=== PATIENT | male | born 1930 | race Caucasian/White ===

== ENCOUNTER 2018-09-26 14:42 | Observation (INO) | payer OTHER ==
[2018-09-26 14:48] VITALS: BMI 38.0
--- NOTE | 2018-09-26 14:52 | PDOC ---
Rapid Medical Evaluation Chief Complaint: Respiratory Time Seen by Provider: 09/26/18 14:48 Medical Evaluation: Allergies Allergy/AdvReac Type Severity Reaction Status Date / Time No Known Allergies Allergy Verified 09/26/18 14:48 Vital Signs Temp Pulse Resp BP Pulse Ox 98.4 F 99 H 16 194/101 H 100 09/26/18 14:46 09/26/18 14:46 09/26/18 14:46 09/26/18 14:46 09/26/18 14:46 09/26/18 14:49 Pt c/o: sob, sent from urgent care due to cxr shows mild congestive changes, pt denies chf, + hx htn Pt on brief exam: o2 sat WNL, lcta Pt ordered for labs, cxr, ekg P tot proceed to the ED Discharge Disposition - Diagnosis SOB (shortness of breath) - Referrals Referrals: Ramez Dubon MD [Primary Care Provider] - - Patient Instructions - Post Discharge Activity
--- NOTE | 2018-09-26 15:27 | PDOC ---
History of Present Illness - General Chief Complaint: Respiratory Stated Complaint: ABNORMAL LABS Time Seen by Provider: 09/26/18 14:48 - History of Present Illness Initial Comments: 09/26/18 15:50 88m with pmh of HTN, [place] StentsX3 1998, DM Type 2,Peripheral neuropathy and BPH presents to the ED after productive cough x10 days. WEnt to [facility] care this morning, was found to be hypoxic at 90%, RBBB , wbc of 13.9 and mild congestive changes on cxr. Past History - Past Medical History Allergies/Adverse Reactions: Allergies Allergy/AdvReac Type Severity Reaction Status Date / Time No Known Allergies Allergy Verified 09/26/18 14:48 Home Medications: Ambulatory Orders Aspirin Coated [Ecotrin -] 325 mg PO HS 08/23/15 Dutasteride [Avodart] 0.5 mg PO DAILY 08/23/15 Metformin HCl [Metformin HCl ER] 1,000 mg PO BID 08/23/15 Metoprolol Succinate [Toprol Xl] 50 mg PO DAILY 08/23/15 Ramipril [Altace] 2.5 mg PO HS 08/23/15 Tamsulosin HCl [Flomax -] 0.4 mg PO HS 08/23/15 Cyclobenzaprine HCl [Flexeril -] 5 mg PO TID PRN #90 tablet 09/12/15 Docusate Sodium [Colace -] 300 mg PO HS #30 capsule 09/12/15 Gabapentin [Neurontin -] 300 mg PO TID #90 capsule 09/12/15 Nabumetone [Relafen -] 500 mg PO DAILY #30 tablet 09/12/15 traMADol HCL [Ultram -] 50 mg PO Q4H PRN #100 tablet 09/12/15 Cardiac Disorders: Yes ([place], STENTS X3 1998) COPD: No Diabetes: Yes (TYPE II) Disorders: Yes (BPH) Hypercholesterolemia: Yes Kidney Stones: Yes (LITHOTRIPSY) Thyroid Disease: Yes - Immunization History Immunization Up to Date: No - Suicide/Smoking/Psychosocial Hx Smoking History: Never smoked Have you smoked in the past 12 months: No If you are a former smoker, when did you quit?: 1998 Information on smoking cessation initiated: No Hx Alcohol Use: No Drug/Substance Use Hx: No Substance Use Type: None Review of Systems - Review of Systems Able to Perform ROS?: Yes Is the patient limited Citizen [place] proficient: No Constitutional: No: Symptoms Reported HEENTM: No: Symptoms Reported Respiratory: Yes: See HPI, Cough Cardiac (ROS): No: Symptoms Reported ABD/GI: No: Symptoms Reported : No: Symptoms Reported Musculoskeletal: No: Symptoms Reported *Physical Exam - Vital Signs Last Vital Signs Temp Pulse Resp BP Pulse Ox 98.4 F 99 H 16 194/101 H 100 09/26/18 14:46 09/26/18 14:46 09/26/18 14:46 09/26/18 14:46 09/26/18 14:46 - Physical Exam General Appearance: Yes: Nourished, Appropriately Dressed, Obese. No: Apparent Distress HEENT: positive: EOMI, JANET, Normal ENT Inspection Respiratory/Chest: positive: Crackles (b/l). negative: Lungs Clear Cardiovascular: positive: Regular Rhythm, Regular Rate, S1, S2 Gastrointestinal/Abdominal: positive: Normal Bowel Sounds, Protuberent. negative: Tender Musculoskeletal: positive: Normal Inspection Extremity: positive: Normal Capillary Refill. negative: Pedal Edema, Calf Tenderness Neurologic: positive: Fully Oriented, Alert, Normal Mood/Affect, Normal Response Moderate Sedation - Procedure Monitoring Vital Signs: Procedure Monitoring Vital Signs Temperature 98.4 F 09/26/18 14:46 Pulse Rate 99 H 09/26/18 14:46 Respiratory Rate 16 09/26/18 14:46 Blood Pressure 194/101 H 09/26/18 14:46 O2 Sat by Pulse Oximetry (%) 100 09/26/18 14:46 ED Treatment Course - LABORATORY CBC & Chemistry Diagram: 09/26/18 15:48 09/26/18 15:48 Medical Decision Making - Medical Decision Making 09/26/18 16:27 Acute CHF vs viral URI vs pna vs cva Low suspicion for CVA, RBBB seen on previous ekg. No fever, mildly elevated wbc and no pna on xray means low suspicion for pna. Crakles on exam and infiltrates on xray directing us towards mild acute chf with +/- URI. will treat with lasix and o2 09/26/18 17:56 Admitted to tele obs to Dr. Karo Vaca *DC/Admit/Observation/Transfer Diagnosis at time of Disposition: SOB (shortness of breath) - Discharge Dispostion Decision to Admit order: Yes - Referrals Referrals: Ramez Dubon MD [Primary Care Provider] - - Patient Instructions - Post Discharge Activity
[2018-09-26] MEDS ORDERED: FUROSEMIDE 40 MG/4 ML INJECTABLE VIAL IVPUSH ONE (15:58)
[2018-09-26 16:08] LABS: BASO % 0.8 % (0-2.0); EOS % 1.5 % (0-4.5); HEMOGLOBIN 14.1 GM/dL (11.7-16.9); LYMPH % 10.3 % (8-40); MCH 32.4 pg (25.7-33.7); MCHC 32.7 g/dl (32.0-35.9); MEAN PLT VOLUME 8.6 fl (7.5-11.1); MONO % 8.9 % (3.8-10.2); NEUT % 78.5 % (42.8-82.8); PLATELET COUNT 233 K/MM3 (134-434); RBC 4.34 M/mm3 (4.00-5.60); RDW 13.3 % (11.9-15.9); WHITE BLOOD COUNT 12.4 K/mm3 (4.0-10.0)
--- NOTE | 2018-09-26 16:27 | PDOC ---
Attending Attestation - Resident Resident Name: Reji Pitts - ED Attending Attestation I have performed the following: I have examined & evaluated the patient, The case was reviewed & discussed with the resident, I agree w/resident's findings & plan - HPI HPI: 09/26/18 16:25 88-year-old male with cardiac history and GA presents from [facility] urgent care with congestive changes on chest x-ray in the setting of 10 days of cough. Patient denies any fevers or chills, positive for orthopnea, denies any dyspnea on exertion, denies any chest pain or leg swelling. - Physicial Exam PE: 09/26/18 16:25 Hypertensive, tachypnea, O2 sat within normal limits Obese male seated in stretcher, speaking full sentences in no acute distress Bilateral crackles to mid lung [place], otherwise good air entry Heart is regular, abdomen benign, no edema - Medical Decision Making 09/26/18 16:25 88-year-old male with cardiac history presents with cough for 10 days and orthopnea consistent with CHF exacerbation and pulmonary edema, hypertensive here without acute EKG changes. Rule out ACS versus structural abnormality Labs, EKG, chest x-ray IV diuresis Admission for echo and cardiac evaluation 09/26/18 17:09 trop neg, cxr with congestion, proceed with obs tele admission, consult Dr. Andujar Heart Score/ECG Review #1 ECG reviewed & interpreted by me at: 16:32 General ECG Interpretation: Sinus Rhythm, Normal Rate (76), Normal Intervals ( RBBB, qtc 445), No acute ischemic changes Compared to previous ECG there are: No significant change
[2018-09-26] MEDS ORDERED: FUROSEMIDE 40 MG/4 ML INJECTABLE VIAL ONE (16:32)
[2018-09-26 16:46] LABS: ALBUMIN 3.4 g/dl (3.4-5.0); ALK PHOS 97 U/L (45-117); ANION GAP 8 MMOL/L (8-16); BILIRUBIN,TOTAL 0.6 mg/dL (0.2-1); BLOOD UREA NITROGEN 12 mg/dL (7-18); CALCIUM 9.5 mg/dL (8.5-10.1); CHLORIDE 101 mmol/L (98-107); CO2 25 mmol/L (21-32); CREATININE 0.7 mg/dL (0.55-1.3); GLUCOSE,RANDOM 125 mg/dL (74-106); N-TERMINAL BNP 82.3 pg/ml (5-450); POTASSIUM 4.1 mmol/L (3.5-5.1); SGOT/AST 28 U/L (15-37); SGPT/ALT 31 U/L (13-61); SODIUM 134 mmol/L (136-145); TOT PROT 7.3 g/dl (6.4-8.2)
[2018-09-26] MEDS ORDERED: traMADol HCL 50 MG TABLET PO PRN (17:48)
[2018-09-26] MEDS ORDERED: CYCLOBENZAPRINE HCL 10 MG TABLET (FP) PO PRN (17:48)
[2018-09-26] MEDS ORDERED: ALBUTEROL SO4 2.5/IPRATROPIUM 0.5 INH SOL 3 ML VIAL.NEB. NEB PRN (17:51)
--- NOTE | 2018-09-26 18:02 | HP ---
Admitting History and Physical - Primary Care Physician PCP: Ramez Dubon - Admission Chief Complaint: Cough and SOB History of Present Illness: 88 yrs old man active lives at home with family H/O HTN, T2DM, Dyslipedemia, CAD s/p Stent in 1998 , Neuropathy chronic back pain , today present to Ed for evaluation, cough with minimal expectoration, shortness of breathinag and chest tightness started 3 days ago night time patient develops cough with SOB , no H/ O Orthopnea, LE swelling chest pain, palpitation, nausea vomiting or abd pain , in the Ed w/u shows Elevated TWBC CXR sows changes consistent with congestion but BNP is 80 , Physical exam shows diffuse crepts and wheezes, Patient desats in the ED to 87% improved after O2 inhalation recived Lasix 40 mg IVSS. As per patient last ECHO was at his cardiology office (few months ago) History Source: Patient, Family Member - Past Medical History Cardiovascular: Yes: CAD, Hyperlipdemia, [place] Gastrointestinal: Yes: Other (recent elevated ALT? fatty liver) Renal/: Yes: Renal Calculi Musculoskeletal: Yes: Osteoarthritis Endocrine: Yes: Diabetes Mellitus, Hypothyroidism - Past Surgical History Past Surgical History: Yes: Stent (coronary arteries) - Smoking History Smoking history: Former smoker Have you smoked in the past 12 months: No If you are a former smoker, when did you quit?: 1998 - Alcohol/Substance Use Hx Alcohol Use: No History of Substance Use: reports: None - Social History ADL: Independent (until current illness.) Occupation: just collects metal junk to salvage History of Recent Travel: No Home Medications - Allergies Allergies/Adverse Reactions: Allergies Allergy/AdvReac Type Severity Reaction Status Date / Time No Known Allergies Allergy Verified 09/26/18 14:48 - Home Medications Home Medications: Ambulatory Orders Aspirin Coated [Ecotrin -] 325 mg PO HS 08/23/15 Dutasteride [Avodart] 0.5 mg PO DAILY 08/23/15 Metformin HCl [Metformin HCl ER] 1,000 mg PO BID 08/23/15 Metoprolol Succinate [Toprol Xl] 50 mg PO DAILY 08/23/15 Ramipril [Altace] 2.5 mg PO HS 08/23/15 Tamsulosin HCl [Flomax -] 0.4 mg PO HS 08/23/15 Ezetimibe [Zetia] 10 mg PO DAILY 09/26/18 Levothyroxine Sodium [Synthroid] 200 mcg PO DAILY 09/26/18 Family Disease History - Family Disease History Family Disease History: Heart Disease: Brother, Other: Father (unknown), Mother (alzheimers) Review of Systems - Review of Systems Constitutional: denies: Chills, Diaphoresis, Fever Eyes: denies: Blind Spots, Blurred Vision HENT: denies: Difficult Swallowing, Ear Discharge, Ear Pain Neck: denies: Decreased ROM, Lumps, Pain on Movement Cardiovascular: reports: Shortness of Breath. denies: Chest Pain, Edema, Palpitations Respiratory: reports: Cough, Exercise Intolerance, PND, SOB, SOB on Exertion, Wheezing. denies: Hemoptysis, Orthopnea Gastrointestinal: denies: Abdominal Pain, Bloating, Constipation, Diarrhea Genitourinary: denies: Burning, Discharge, Dysuria Musculoskeletal: reports: Back Pain. denies: Crepitus, Decreased ROM, Extremity Pain Integumentary: denies: Blister, Bruising, Change in Color Neurological: reports: Change in LOC. denies: Seizure, Syncope, Tremors Endocrine: denies: Excessive Sweating, Flushing, Increased Hunger Psychiatric: denies: Altered Sleep Pattern, Anxiety, Depression Physical Examination Vital Signs: Vital Signs Temperature 98.4 F 09/26/18 14:46 Pulse Rate 99 H 09/26/18 14:46 Respiratory Rate 16 09/26/18 14:46 Blood Pressure 194/101 H 09/26/18 14:46 O2 Sat by Pulse Oximetry (%) 100 09/26/18 14:46 Elderly pleasant man not in distress HEENT: Mm moist, no anemia,PERRLA EOMI NECK: No JVd No Bruit CHEST: Diffuse crepts and fine wheezes ABD; obese non tender Bs + EXT: trace edema feet, no calf tenderness, Pulses + WEBSITE OPTIMIZATION STRATEGIST: AOX3 non focal Labs: WBC 12.4 K/mm3 (4.0-10.0) H 09/26/18 15:48 RBC 4.34 M/mm3 (4.00-5.60) 09/26/18 15:48 Hgb 14.1 GM/dL (11.7-16.9) 09/26/18 15:48 Hct 43.0 % (35.4-49) 09/26/18 15:48 MCV 99.0 fl (80-96) H 09/26/18 15:48 MCH 32.4 pg (25.7-33.7) 09/26/18 15:48 MCHC 32.7 g/dl (32.0-35.9) 09/26/18 15:48 RDW 13.3 % (11.9-15.9) 09/26/18 15:48 Plt Count 233 K/MM3 (134-434) 09/26/18 15:48 MPV 8.6 fl (7.5-11.1) 09/26/18 15:48 Absolute Neuts (auto) 9.8 K/mm3 (1.5-8.0) H 09/26/18 15:48 Neutrophils % 78.5 % (42.8-82.8) D 09/26/18 15:48 Lymphocytes % 10.3 % (8-40) D 09/26/18 15:48 Monocytes % 8.9 % (3.8-10.2) 09/26/18 15:48 Eosinophils % 1.5 % (0-4.5) 09/26/18 15:48 Basophils % 0.8 % (0-2.0) 09/26/18 15:48 Nucleated RBC % 0 % (0-0) 09/26/18 15:48 Sodium 134 mmol/L (136-145) L 09/26/18 15:48 Potassium 4.1 mmol/L (3.5-5.1) 09/26/18 15:48 Chloride 101 mmol/L (98-107) 09/26/18 15:48 Carbon Dioxide 25 mmol/L (21-32) 09/26/18 15:48 Anion Gap 8 MMOL/L (8-16) 09/26/18 15:48 BUN 12 mg/dL (7-18) 09/26/18 15:48 Creatinine 0.7 mg/dL (0.55-1.3) 09/26/18 15:48 Creat Clearance w eGFR > 60 (>60) 09/26/18 15:48 Random Glucose 125 mg/dL (74-106) H 09/26/18 15:48 Calcium 9.5 mg/dL (8.5-10.1) 09/26/18 15:48 Total Bilirubin 0.6 mg/dL (0.2-1) 09/26/18 15:48 AST 28 U/L (15-37) 09/26/18 15:48 ALT 31 U/L (13-61) 09/26/18 15:48 Alkaline Phosphatase 97 U/L (45-117) 09/26/18 15:48 Creatine Kinase 233 IU/L (26-308) 09/26/18 15:48 Creatine Kinase Index 2.3 % (0.0-5.0) 09/26/18 15:48 CK-MB (CK-2) 5.5 ng/mL (0.5-3.6) H 09/26/18 15:48 Troponin I < 0.02 ng/ml (0.00-0.05) 09/26/18 15:48 B-Natriuretic Peptide 82.3 pg/ml (5-450) 09/26/18 15:48 Total Protein 7.3 g/dl (6.4-8.2) 09/26/18 15:48 Albumin 3.4 g/dl (3.4-5.0) 09/26/18 15:48 Imaging - Results X-ray: Report Reviewed (Sclerotic changes, Rt Central congestive changes) EKG: Report Reviewed (RBBB at [address] chnages normal QTC) Problem List - Problems (1) SOB (shortness of breath) Assessment/Plan: Most likely RTI with reactive airways diises as patient has c/o cough, SOB elevated TWBC ? infiltrate in RT ML normal BNP level denies any orthopnea or LE swelling no H/O CHF, recived iV lasix O2 inhalation Duoneb q 6 hrly PRN IV Solumedrol 40 mg q 6 hrly , U legionela AG and Flu test will hold on further diuretics Code(s): R06.02 - SHORTNESS OF BREATH (2) Reactive airway disease Assessment/Plan: Cont Duo nebs IV Levofloxacin, F/U Procalcitonin, IV Solumedrol 40 mg q 6hrly, Pulmonary consult. Code(s): J45.909 - UNSPECIFIED ASTHMA, UNCOMPLICATED (3) ASHD (arteriosclerotic heart disease) Assessment/Plan: Stable cont ASA, stain and B blockers no acute St T chnges trop I is -ve Code(s): I25.10 - ATHSCL HEART DISEASE OF [place] CORONARY ARTERY W/O ANG PCTRS (4) T2DM (type 2 diabetes mellitus) Assessment/Plan: Hold PO meds cont Diabetic Diet accauchecks and correction dose insulin Code(s): E11.9 - TYPE 2 DIABETES MELLITUS WITHOUT COMPLICATIONS (5) Hypothyroidism Assessment/Plan: Cont Levothyroxine Code(s): E03.9 - HYPOTHYROIDISM, UNSPECIFIED Qualifiers: Hypothyroidism type: unspecified Qualified Code(s): E03.9 - Hypothyroidism , unspecified (6) BPH (benign prostatic hypertrophy) Assessment/Plan: Cont Home meds at present asymptomatic Code(s): N40.0 - BENIGN PROSTATIC HYPERPLASIA WITHOUT LOWER URINRY TRACT SYMP (7) Chronic back pain Assessment/Plan: Cont Home meds Code(s): M54.9 - DORSALGIA, UNSPECIFIED; G89.29 - OTHER CHRONIC PAIN
[2018-09-26] MEDS ORDERED: methylPREDNISolone NA SUCC 40 MG/1 ML VIAL ONE (18:12)
[2018-09-26] MEDS: methylPREDNISolone NA SUCC 40 MG/1 ML VIAL IVPB SCH (18:17)
[2018-09-26 18:30] LABS: URINE APPEARANCE SLCLOUDY; URINE BILIRUBIN NEGATIVE (<2.0 mg/dL); URINE COLOR YELLOW; URINE GLUCOSE (UA) NEGATIVE (NEGATIVE); URINE KETONE NEGATIVE (NEGATIVE); URINE LEUK ESTERASE NEGATIVE (NEGATIVE); URINE NITRITE NEGATIVE (NEGATIVE); URINE PROTEIN NEGATIVE (NEGATIVE); URINE UROBILINOGEN NEGATIVE mg/dL (0.2-1.0)
[2018-09-26] MEDS ORDERED: RAMIPRIL 2.5 MG CAPSULE (FP) PO SCH (22:00)
[2018-09-26] MEDS ORDERED: ASPIRIN 325 MG ENTERIC COATED TABLET (FP) PO SCH (22:00)
[2018-09-26] MEDS: DOCUSATE SODIUM 100 MG CAPSULE (FP) PO SCH (22:03)
[2018-09-26] MEDS: TAMSULOSIN HCL 0.4 MG CAP PO SCH (22:03)
[2018-09-26] MEDS: GABAPENTIN 300 MG CAPSULE (FP) PO SCH (22:03)
[2018-09-27 05:49] LABS: BASO % 0.6 % (0-2.0); HEMATOCRIT 44.3 % (35.4-49); HEMOGLOBIN 14.2 GM/dL (11.7-16.9); LYMPH % 5.6 % (8-40); MCH 31.6 pg (25.7-33.7); MEAN CELL VOLUME 98.9 fl (80-96); MEAN PLT VOLUME 8.7 fl (7.5-11.1); MONO % 3.2 % (3.8-10.2); NEUT % 90.6 % (42.8-82.8); PLATELET COUNT 269 K/MM3 (134-434); RBC 4.48 M/mm3 (4.00-5.60); RDW 13.1 % (11.9-15.9); WHITE BLOOD COUNT 11.7 K/mm3 (4.0-10.0)
[2018-09-27 06:28] LABS: ALBUMIN 3.3 g/dl (3.4-5.0); ALK PHOS 104 U/L (45-117); ANION GAP 9 MMOL/L (8-16); BILIRUBIN,TOTAL 0.5 mg/dL (0.2-1); BLOOD UREA NITROGEN 18 mg/dL (7-18); CALCIUM 9.1 mg/dL (8.5-10.1); CHLORIDE 102 mmol/L (98-107); CO2 26 mmol/L (21-32); CREATININE 0.8 mg/dL (0.55-1.3); GLUCOSE,RANDOM 166 mg/dL (74-106); POTASSIUM 4.7 mmol/L (3.5-5.1); SGOT/AST 27 U/L (15-37); SGPT/ALT 30 U/L (13-61); SODIUM 137 mmol/L (136-145); TOT PROT 7.8 g/dl (6.4-8.2)
[2018-09-27] MEDS ORDERED: methylPREDNISolone NA SUCC 40 MG/1 ML VIAL ONE (07:35)
[2018-09-27] MEDS ORDERED: GABAPENTIN 100 MG CAPSULE (FP) ONE (07:35)
[2018-09-27] MEDS: GABAPENTIN 300 MG CAPSULE (FP) PO SCH ×3 (07:40→22:05)
[2018-09-27] MEDS: methylPREDNISolone NA SUCC 40 MG/1 ML VIAL IVPB SCH ×3 (07:40→17:20)
[2018-09-27] MEDS: ENOXAPARIN NA (PORCINE) 40 MG/0.4 ML DISP.SYRIN SQ SCH (09:28)
[2018-09-27] MEDS: DUTASTERIDE 0.5 MG CAP (FP) PO SCH (09:28)
[2018-09-27] MEDS ORDERED: NABUMETONE 500 MG TABLET PO SCH (10:00)
--- NOTE | 2018-09-27 11:35 | CON.CARD ---
Consult Consult Specialty:: Cardiology Referred by:: Dyspnea Reason for Consultation:: Dyspnea - History of Present Illness Chief Complaint: PND, cough History of Present Illness: 88 yo male h/o CAD s/p [place] ICS LCx 09/23/1999, mild LV systolic dysfunction, HTN cardiomyopathy, hyperlipidemia with statin intolerance and declined PSSK9 inhibitor therapy, NIDDM, hypothyroidism, erectile dysfunction presents for episodes of waking up with need to sit up and cough, dyspnea, orthopnea since salt-rich Thanksgiving meal, he denies chest pain, near or true syncope, palpitations or LE edema. - History Source History Provided By: Patient Limitations to Obtaining History: No Limitations - Past Medical History Cardio/Vascular: Yes: CAD, Hyperlipdemia, [place] Gastrointestinal: Yes: Other (recent elevated ALT? fatty liver) Renal/: Yes: Renal Calculi Musculoskeletal: Yes: Osteoarthritis Endocrine: Yes: Diabetes Mellitus, Hypothyroidism - Past Surgical History Past Surgical History: Yes: Stent (coronary arteries) - Alcohol/Substance Use Hx Alcohol Use: No History of Substance Use: reports: None - Smoking History Smoking history: Former smoker Have you smoked in the past 12 months: No If you are a former smoker, when did you quit?: 1998 - Social History Usual Living Arrangement: Other (lives with in house with 1 step to enter and 1st julian set-up inside, ambualtes with straight cane) ADL: Independent (until current illness.) Occupation: just collects metal junk to salvage History of Recent Travel: No Home Medications - Allergies Allergies/Adverse Reactions: Allergies Allergy/AdvReac Type Severity Reaction Status Date / Time No Known Allergies Allergy Verified 09/26/18 14:48 - Home Medications Home Medications: Ambulatory Orders Aspirin Coated [Ecotrin -] 325 mg PO HS 08/23/15 Dutasteride [Avodart] 0.5 mg PO DAILY 08/23/15 Metformin HCl [Metformin HCl ER] 500 mg PO BID 08/23/15 Metoprolol Succinate [Toprol Xl] 50 mg PO DAILY 08/23/15 Ramipril [Altace] 2.5 mg PO HS 08/23/15 Tamsulosin HCl [Flomax -] 0.4 mg PO HS 08/23/15 Ezetimibe [Zetia] 10 mg PO DAILY 09/26/18 Levothyroxine Sodium [Synthroid] 200 mcg PO DAILY 09/26/18 Family Disease History - Family Disease History Family Disease History: Heart Disease: Brother, Other: Father (unknown), Mother (alzheimers) Review of Systems - Review of Systems Cardiovascular: reports: Shortness of Breath Respiratory: reports: Orthopnea, PND, SOB, SOB on Exertion Vital Signs: Vital Signs Temperature 97.9 F 09/27/18 09:45 Pulse Rate 68 09/27/18 09:45 Respiratory Rate 20 09/27/18 10:53 Blood Pressure 115/74 09/27/18 09:45 O2 Sat by Pulse Oximetry (%) 95 09/27/18 10:53 Constitutional: Yes: No Distress, Calm Neck: Yes: Supple Respiratory: Yes: Regular, Diminished, On Nasal O2 Gastrointestinal: Yes: Normal Bowel Sounds, Soft, Abdomen, Obese Cardiovascular: Yes: Regular Rate and Rhythm JVD: No Carotid Bruit: No Heart Sounds: Yes: S1, S2 Murmur: Yes: Systolic Murmur, Grade 2 Edema: No - Other Data Labs, Other Data: CBC, BMP 09/27/18 05:55 09/27/18 05:10 Troponin, BNP 09/26/18 09/26/18 15:48 15:48 Troponin I < 0.02 < 0.02 B-Natriuretic Peptide 82.3 Troponin, BNP 09/26/18 09/26/18 15:48 15:48 Troponin I < 0.02 < 0.02 B-Natriuretic Peptide 82.3 NSR @ 76 RBBB Echo: Report Reviewed Ejection Fraction %: LVEF > or = 40 % Imaging - Results Chest X-ray: Report Reviewed (CHF) Problem List - Problems (1) Stented coronary artery Code(s): Z95.5 - PRESENCE OF CORONARY ANGIOPLASTY IMPLANT AND GRAFT (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 Code(s): I25.2 - OLD MYOCARDIAL INFARCTION (3) CHF (congestive heart failure) Code(s): I50.9 - HEART FAILURE, UNSPECIFIED Qualifiers: Heart failure type: diastolic Heart failure chronicity: acute on chronic Qualified Code(s): I50.33 - Acute on chronic diastolic (congestive) heart failure (4) T2DM (type 2 diabetes mellitus) Code(s): E11.9 - TYPE 2 DIABETES MELLITUS WITHOUT COMPLICATIONS Qualifiers: Diabetes mellitus moth exterminator insulin use: without shelter use (5) ASHD (arteriosclerotic heart disease) Code(s): I25.10 - ATHSCL HEART DISEASE OF [place] CORONARY ARTERY W/O ANG PCTRS (6) Diabetes Code(s): E11.9 - TYPE 2 DIABETES MELLITUS WITHOUT COMPLICATIONS Qualifiers: Diabetes mellitus type: type 2 Qualified Code(s): E11.9 - Type 2 diabetes mellitus without complications (7) Hypothyroidism Code(s): E03.9 - HYPOTHYROIDISM, UNSPECIFIED Qualifiers: Hypothyroidism type: unspecified Qualified Code(s): E03.9 - Hypothyroidism , unspecified Assessment/Plan 07/21/2018 Normal LV size and fxn LVEF 55-60%, mild-mod MR, mild TR RVSP 29 mmHg 07/03/2014 P-Myoview: No ischemia, LVEF 72% 1. Chronic Diastolic heart failure 2. CAD s/p [place], BMS LCx negative ischemia on MPI 3. HTN cardiomyopathy 4. Type 2 DM 5. Hyperlipidemia not at goal with statin intolerance and declining PSCK9 inhibitor therapy 6. Hypothyroidism P:1. IV diuresis with monitor diuretic response 2. Continue ASA 81 qd, Toprol XL 50 qd, Altace 10 qd, Zetia 10 qd, d/c Relafen 3. Thank you for consultative opportunity
--- NOTE | 2018-09-27 11:47 | EKG ---
Test Reason : Blood Pressure : / mmHG Vent. Rate : 076 BPM Atrial Rate : 076 BPM P-R Int : 168 ms QRS Dur : 146 ms QT Int : 396 ms P-R-T Axes : 060 067 019 degrees QTc Int : 445 ms POOR DATA QUALITY, INTERPRETATION MAY BE ADVERSELY AFFECTED NORMAL SINUS RHYTHM RIGHT BUNDLE BRANCH BLOCK ABNORMAL ECG WHEN COMPARED WITH ECG OF 09-SEP-2015 08:56, PREMATURE VENTRICULAR COMPLEXES ARE NO LONGER PRESENT Confirmed by MARIANNA PINZON MD ([id number]) on 09/27/2018 11:47:00 AM Referred By: Confirmed By:MARIANNA PINZON MD
[2018-09-27] MEDS ORDERED: INSULIN (NOVOLOG) ASPART 100 UNITS/ML 10ML VIAL ONE (11:54)
[2018-09-27] MEDS: INSULIN SLIDING SCALE (NOVOLOG) 1 VIAL SQ SCH ×5 (11:55→19:14)
--- NOTE | 2018-09-27 13:27 | CON.PULM ---
Consult Consult Specialty:: PULMONARY Referred by:: Dr. Vaca Reason for Consultation:: shortness of breath - History of Present Illness Chief Complaint: shortness of breath History of Present Illness: 88yo male with h/o HTN, DM, hyperlipidemia, hypothyroidism, CAD s/p stent who presents with worsening shortness of breath and cough x 5 days. States symptoms started the day after Thanksgiving, does endorse having a heavy, salt rich meal for Thanksgiving. Denies chest pain or palpitations. No fevers, chills or sweats. +nonproductive cough without wheezing. He denies leg swelling but reports leg "heaviness." Also has been experiencing orthopnea and PND. He is a former smoker, quit when he had his ND and he worked in construction. No home O2 or inhaler use. - Past Medical History Cardio/Vascular: Yes: CAD, Hyperlipdemia, [place] Gastrointestinal: Yes: Other (recent elevated ALT? fatty liver) Renal/: Yes: Renal Calculi Musculoskeletal: Yes: Osteoarthritis Endocrine: Yes: Diabetes Mellitus, Hypothyroidism - Past Surgical History Past Surgical History: Yes: Stent (coronary arteries) - Alcohol/Substance Use Hx Alcohol Use: No History of Substance Use: reports: None - Smoking History Smoking history: Former smoker Have you smoked in the past 12 months: No If you are a former smoker, when did you quit?: 1998 - Social History Usual Living Arrangement: Other (lives with in house with 1 step to enter and 1st julian set-up inside, ambualtes with straight cane) ADL: Independent (until current illness.) Occupation: just collects metal junk to salvage History of Recent Travel: No Home Medications - Allergies Allergies/Adverse Reactions: Allergies Allergy/AdvReac Type Severity Reaction Status Date / Time No Known Allergies Allergy Verified 09/26/18 14:48 - Home Medications Home Medications: Ambulatory Orders Aspirin Coated [Ecotrin -] 325 mg PO HS 08/23/15 Dutasteride [Avodart] 0.5 mg PO DAILY 08/23/15 Metformin HCl [Metformin HCl ER] 500 mg PO BID 08/23/15 Metoprolol Succinate [Toprol Xl] 50 mg PO DAILY 08/23/15 Ramipril [Altace] 2.5 mg PO HS 08/23/15 Tamsulosin HCl [Flomax -] 0.4 mg PO HS 08/23/15 Ezetimibe [Zetia] 10 mg PO DAILY 09/26/18 Levothyroxine Sodium [Synthroid] 200 mcg PO DAILY 09/26/18 Family Disease History - Family Disease History Family Disease History: Heart Disease: Brother, Other: Father (unknown), Mother (alzheimers) Review of Systems - Review of Systems Constitutional: reports: Weakness. denies: Chills, Fever Eyes: denies: Recent Change in Vision HENT: denies: Nasal Congestion, Throat Pain Neck: denies: Stiffness, Tenderness Cardiovascular: reports: Shortness of Breath. denies: Chest Pain, Edema, Palpitations Respiratory: reports: Cough. denies: Hemoptysis, Wheezing Gastrointestinal: denies: Abdominal Pain, Nausea, Vomiting Genitourinary: denies: Dysuria, Hematuria Neurological: denies: Dizziness, Headache Endocrine: denies: Unexplained Weight Loss Physical Exam Vital Sings: Vital Signs Temperature 97.9 F 09/27/18 09:45 Pulse Rate 68 09/27/18 09:45 Respiratory Rate 20 09/27/18 10:53 Blood Pressure 115/74 09/27/18 09:45 O2 Sat by Pulse Oximetry (%) 95 09/27/18 10:53 Constitutional: Yes: Calm Eyes: Yes: Conjunctiva Clear, EOM Intact HENT: Yes: Atraumatic, Normocephalic Neck: Yes: Supple, Trachea Midline Cardiovascular: Yes: Regular Rate and Rhythm Respiratory: Yes: Regular, Diminished (decreased breath sounds at the bases) ...Clubbing: No Gastrointestinal: Yes: Normal Bowel Sounds, Soft. No: Tenderness Edema: No Neurological: Yes: Alert, Oriented Labs: CBC, BMP 09/27/18 05:55 09/27/18 05:10 Imaging - Results Chest X-ray: Report Reviewed, Image Reviewed (pulmonary vascular congestion) Problem List - Problems (1) CHF (congestive heart failure) Code(s): I50.9 - HEART FAILURE, UNSPECIFIED (2) T2DM (type 2 diabetes mellitus) Code(s): E11.9 - TYPE 2 DIABETES MELLITUS WITHOUT COMPLICATIONS (3) ASHD (arteriosclerotic heart disease) Code(s): I25.10 - ATHSCL HEART DISEASE OF [place] CORONARY ARTERY W/O ANG PCTRS (4) Hypothyroidism Code(s): E03.9 - HYPOTHYROIDISM, UNSPECIFIED Qualifiers: Hypothyroidism type: unspecified Qualified Code(s): E03.9 - Hypothyroidism , unspecified Assessment/Plan r/o CHF CAD HTN DM Hypothryoidism - continue lasix - monitor urine output, creatinine - daily weights - echocardiogram - repeat CXR in AM - inhaled bronchodilators - O2 to keep Spo2 >90% - on empiric medrol, can d/c in AM - outpt PFTs - DVT prophylaxis Thank you for this consult Zeeshan Patel MD
--- NOTE | 2018-09-27 14:28 | ECHO ---
Name: SANDRA CHOWDARY Exam:Adult Echocardiogram Study Date: 09/27/2018 08:38 AM Age: 88 yrs Reason For Study: SYNCOPE Height: 68 in Weight: 250 lb BSA: 2.2 m2 MMode/2D Measurements & Calculations IVSd: 1.1 cm Ao root diam: 3.6 cm LVIDd: 4.9 cm LA dimension: 3.6 cm LVIDs: 2.8 cm LVPWd: 0.75 cm EDV(Teich): 115.3 ml ESV(Teich): 29.9 ml Doppler Measurements & Calculations MV E max jt: 57.7 cm/sec MR max jt: 281.0 cm/sec MV A max jt: 100.4 cm/sec MR max P.6 mmHg MV E/A: 0.57 MV dec time: 0.10 sec TR max jt: 203.6 cm/sec Med Peak E' Jt: 6.2 cm/sec TR max P.6 mmHg Med E/e': 9.3 Lat Peak E' Jt: 8.2 cm/sec Lat E/e': 7.0 Procedure A two-dimensional transthoracic echocardiogram with color flow and Doppler was performed. The study w as technically difficult with many images being suboptimal in quality. Left Ventricle The left ventricular size, thickness and function are normal. The left ventricular ejection fraction is normal. E/A reversal consistent with but not diagnostic of poor LV compliance. Regional wall motion abnormalities cannot be excluded due to limited visualization. Right Ventricle The right ventricle is normal in size and function. Atria Normal left and right atrial size and function. Mitral Valve There is mild mitral valve thickening. There is no mitral valve stenosis. There is mild mitral regurg itation. Tricuspid Valve There is mild tricuspid valve thickening. There is no tricuspid stenosis. There is mild tricuspid regurgitation. Right ventricular systolic pressure is normal. Aortic Valve The aortic valve is not well visualized. No hemodynamically significant valvular aortic stenosis. No aortic regurgitation is present. Pulmonic Valve The pulmonic valve is not well visualized. Great Vessels The aortic root is normal size. Pericardium/Pleura There is no pericardial effusion. Interpretation Summary The left ventricular size, thickness and function are normal The left ventricular ejection fraction is normal. There is mild mitral regurgitation. E/A reversal consistent with but not diagnostic of poor LV compliance The study was technically difficult with many images being suboptimal in quality. Regional wall motion abnormalities cannot be excluded due to limited visualization. There is mild tricuspid regurgitation. Right ventricular systolic pressure is normal. MD Richie Reyes 09/27/2018 02:27 PM
[2018-09-27 15:09] LABS: PLATELET ESTIMATE ADEQUATE
[2018-09-27] MEDS ORDERED: FUROSEMIDE 40 MG/4 ML INJECTABLE VIAL IVPUSH ONE (15:33)
[2018-09-27] MEDS ORDERED: ASPIRIN COATED 81 MG TABLET.EC PO SCH (15:34)
[2018-09-27] MEDS ORDERED: RAMIPRIL 5 MG CAPSULE (FP) PO SCH (15:35)
--- NOTE | 2018-09-27 17:20 | PN ---
Teaching Attending Note Name of Resident: Avinash Knowles ATTENDING PHYSICIAN STATEMENT I saw and evaluated the patient. I reviewed the resident's note and discussed the case with the resident. I agree with the resident's findings and plan as documented. SUBJECTIVE: Mr Rubio says he is feeling better today. Still with cough but less. JIMENEZ improved. No cp, sob, n/v OBJECTIVE: GEN: nad CV: rrr PULM: ronchi bilaterally ABD: +bs, s/nt/nd EXT: no c/c/e ASSESSMENT AND PLAN: 1. Acute on chronic diastolic dysfunction 2. COPD exacerbation 3. CAD 4. Tp 2 DM 5. Hypothyroidism 6. BPH Plan -reviewed pulmonary and cardiology notes, appreciate assistance -continue IV lasix -change to oral diuretic tomorrow -continue solumedrol, plan to change to oral prednisone tomorrow -continue bronchodilators -diabetic diet and SSI -possible discharge tomorrow
--- NOTE | 2018-09-27 18:34 | PN ---
Physical Exam: SUBJECTIVE: Patient seen and examined at bedside. No overnight events. No new complaints. Breathing has improved. Denies CP,WOODS, abdominal pain, nausea or vomiting. OBJECTIVE: Vital Signs Period Temp Pulse Resp BP Sys/Francisco Pulse Ox Last 24 Hr 97.9 F-98 F 68-98 20-21 110-124/55-74 93-97 GENERAL: AAOx3, NAD ENT: moist mucous membranes. NECK: Trachea midline, full range of motion, supple, NO JVD LUNGS:Coarse breath sounds bilaterally, fine bibasilar rales. HEART: Regular rate and rhythm, S1, S2 without murmur, rub or gallop. ABDOMEN: Soft, nontender, nondistended, normoactive bowel sounds, no guarding, no rebound, no hepatosplenomegaly, no masses. EXTREMITIES: 2+ pulses, warm, well-perfused, trace edema. NEUROLOGICAL: Cranial nerves II through XII grossly intact. Normal speech, gait not observed. PSYCH: Normal mood, normal affect. SKIN: Warm, dry, normal turgor, no rashes or lesions noted Laboratory Results - last 24 hr 09/26/18 09/27/18 09/27/18 18:05 05:10 05:10 WBC RBC Hgb Hct MCV MCH MCHC RDW Plt Count MPV Absolute Neuts (auto) Neutrophils % Lymphocytes % Monocytes % Eosinophils % Basophils % Nucleated RBC % Platelet Estimate Platelet Comment Sodium 137 Potassium 4.7 Chloride 102 Carbon Dioxide 26 Anion Gap 9 BUN 18 Creatinine 0.8 Creat Clearance w eGFR > 60 POC Glucometer Random Glucose 166 H Hemoglobin A1c % 7.0 H Calcium 9.1 Total Bilirubin 0.5 AST 27 ALT 30 Alkaline Phosphatase 104 Total Protein 7.8 Albumin 3.3 L TSH 0.61 D Urine Color Yellow Urine Appearance Slcloudy Urine pH 6.0 Ur Specific [place] 1.008 L Urine Protein Negative Urine Glucose (UA) Negative Urine Ketones Negative Urine Blood Negative Urine Nitrite Negative Urine Bilirubin Negative Urine Urobilinogen Negative Ur Leukocyte Esterase Negative 09/27/18 09/27/18 09/27/18 05:55 11:52 17:21 WBC 11.7 H RBC 4.48 Hgb 14.2 Hct 44.3 MCV 98.9 H MCH 31.6 MCHC 32.0 RDW 13.1 Plt Count 269 MPV 8.7 Absolute Neuts (auto) 10.6 H Neutrophils % 90.6 H Lymphocytes % 5.6 L D Monocytes % 3.2 L Eosinophils % 0.0 D Basophils % 0.6 Nucleated RBC % 0 Platelet Estimate Adequate Platelet Comment Large platelets Sodium Potassium Chloride Carbon Dioxide Anion Gap BUN Creatinine Creat Clearance w eGFR POC Glucometer [phone] Random Glucose Hemoglobin A1c % Calcium Total Bilirubin AST ALT Alkaline Phosphatase Total Protein Albumin TSH Urine Color Urine Appearance Urine pH Ur Specific [place] Urine Protein Urine Glucose (UA) Urine Ketones Urine Blood Urine Nitrite Urine Bilirubin Urine Urobilinogen Ur Leukocyte Esterase Active Medications Generic Name Dose Route Start Last Admin Trade Name Freq PRN Reason Stop Dose Admin Albuterol/Ipratropium 1 amp 09/26/18 17:51 Duoneb - NEB Q6H PRN SHORTNESS OF BREATH Aspirin 81 mg 09/27/18 15:34 Ecotrin - PO HS CHELSEY Cyclobenzaprine HCl 5 mg 09/26/18 17:48 Flexeril - PO Q8H PRN BACK PAIN Docusate Sodium 300 mg 09/26/18 22:00 09/26/18 22:03 Colace - PO 300 mg HS CHELSEY Administration Dutasteride 0.5 mg 09/27/18 10:00 09/27/18 09:28 Avodart - PO 0.5 mg DAILY CHELSEY Administration Enoxaparin Sodium 40 mg 09/27/18 10:00 09/27/18 09:28 Lovenox - SQ 40 mg DAILY CHELSEY Administration Furosemide 40 mg 09/28/18 10:00 Lasix Injection - IVPUSH DAILY CHELSEY Gabapentin 300 mg 09/26/18 22:00 09/27/18 14:05 Neurontin - PO 300 mg TID CHELSEY Administration Insulin Aspart 1 vial 09/27/18 07:00 09/27/18 11:57 Novolog Vial Sliding Scale - SQ Not Given TIDAC [facility] Protocol Methylprednisolone Sodium Succinate 40 mg 09/26/18 18:00 09/27/18 17:20 Solu-Medrol - IVPB 40 mg Q8H-IV CHELSEY Administration Metoprolol Succinate 50 mg 09/27/18 10:00 09/27/18 09:30 Toprol Xl - PO 50 mg DAILY CHELSEY Administration Ramipril 10 mg 09/27/18 15:35 Altace - PO HS CHELSEY Tamsulosin HCl 0.4 mg 09/26/18 22:00 09/26/18 22:03 Flomax - PO 0.4 mg HS CHELSEY Administration Tramadol HCl 50 mg 09/26/18 17:48 Ultram - PO Q4H PRN PAIN ASSESSMENT/PLAN: 88-year-old male with cardiac history and MO presents from [facility] urgent care with congestive changes on chest x-ray in the setting of 10 days of cough admitted to telemetry acute CHF for further management. Problem List - Problems (1) CHF (congestive heart failure) Assessment/Plan: * cardiology consult appreciated. * IV lasix 40mg daily * strict I/O's * Fluid and salt restriction * daily weights. * Continue ASA 81 qd, Toprol XL 50 qd, Altace 10 qd, Zetia 10 qd, d/c Relafen (2) HTN (hypertension) Assessment/Plan: continue home meds. (3) HLD (hyperlipidemia) Assessment/Plan: continue statin. (4) Hypothyroidism (acquired) (5) T2DM (type 2 diabetes mellitus) Assessment/Plan: * ADA/ low salt diet. * BGM TIDAC * ISS TIDAC Visit type - Emergency Visit Emergency Visit: Yes ED Registration Date: 09/26/18 Care time: The patient presented to the Emergency Department on the above date and was hospitalized for further evaluation of their emergent condition. - New Patient This patient is new to me today: Yes Date on this admission: 09/27/18 - Critical Care Critical Care patient: No
[2018-09-27] MEDS: DOCUSATE SODIUM 100 MG CAPSULE (FP) PO SCH ×2 (22:05→22:08)
[2018-09-27] MEDS: TAMSULOSIN HCL 0.4 MG CAP PO SCH (22:06)
[2018-09-28] MEDS: methylPREDNISolone NA SUCC 40 MG/1 ML VIAL IVPB SCH ×2 (01:22→10:08)
[2018-09-28] MEDS: GABAPENTIN 300 MG CAPSULE (FP) PO SCH ×2 (06:39→13:48)
[2018-09-28] MEDS: INSULIN SLIDING SCALE (NOVOLOG) 1 VIAL SQ SCH ×2 (06:40→13:48)
[2018-09-28 08:38] LABS: BASO % 0.2 % (0-2.0); HEMATOCRIT 44.3 % (35.4-49); LYMPH % 4.2 % (8-40); MCH 31.4 pg (25.7-33.7); MCHC 31.5 g/dl (32.0-35.9); MEAN CELL VOLUME 99.7 fl (80-96); MEAN PLT VOLUME 8.9 fl (7.5-11.1); MONO % 3.2 % (3.8-10.2); NEUT % 92.4 % (42.8-82.8); PLATELET COUNT 301 K/MM3 (134-434); RBC 4.45 M/mm3 (4.00-5.60); RDW 13.5 % (11.9-15.9); WHITE BLOOD COUNT 21.1 K/mm3 (4.0-10.0)
--- NOTE | 2018-09-28 08:40 | PN ---
Progress Note (short form) - Note Progress Note: Dr. Aaron to document today. Better with diuretic;? role of gabapentin with fluid retention. Still mentions ? aspiration: Steph Mccullough
[2018-09-28 08:55] LABS: ALBUMIN 3.4 g/dl (3.4-5.0); ALK PHOS 99 U/L (45-117); ANION GAP 9 MMOL/L (8-16); BILIRUBIN,TOTAL 0.3 mg/dL (0.2-1); BLOOD UREA NITROGEN 35 mg/dL (7-18); CALCIUM 9.9 mg/dL (8.5-10.1); CHLORIDE 98 mmol/L (98-107); CO2 28 mmol/L (21-32); GLUCOSE,RANDOM 178 mg/dL (74-106); POTASSIUM 5.2 mmol/L (3.5-5.1); SGOT/AST 30 U/L (15-37); SGPT/ALT 34 U/L (13-61); SODIUM 135 mmol/L (136-145); TOT PROT 7.6 g/dl (6.4-8.2)
[2018-09-28] MEDS ORDERED: FUROSEMIDE 40 MG/4 ML INJECTABLE VIAL IVPUSH SCH (10:00)
[2018-09-28] MEDS: DUTASTERIDE 0.5 MG CAP (FP) PO SCH (10:08)
[2018-09-28] MEDS: ENOXAPARIN NA (PORCINE) 40 MG/0.4 ML DISP.SYRIN SQ SCH (10:08)
--- NOTE | 2018-09-28 10:13 | PN ---
Progress Note, Physician Chief Complaint: Events noted Not in distress and feels better History of Present Illness: Patient was seen and examined. Awake and alert. Chart was reviewed Denies chest pain, SOB or palpitations - Current Medication List Current Medications: Active Medications Albuterol/Ipratropium (Duoneb -) 1 amp NEB Q6H PRN PRN Reason: SHORTNESS OF BREATH Aspirin (Ecotrin -) 81 mg PO HS [facility] Last Admin: 09/27/18 22:05 Dose: 81 mg Cyclobenzaprine HCl (Flexeril -) 5 mg PO Q8H PRN PRN Reason: BACK PAIN Docusate Sodium (Colace -) 300 mg PO HS [facility] Last Admin: 09/27/18 22:08 Dose: Not Given Dutasteride (Avodart -) 0.5 mg PO DAILY [facility] Last Admin: 09/27/18 09:28 Dose: 0.5 mg Enoxaparin Sodium (Lovenox -) 40 mg SQ DAILY [facility] Last Admin: 09/27/18 09:28 Dose: 40 mg Furosemide (Lasix Injection -) 40 mg IVPUSH DAILY [facility] Gabapentin (Neurontin -) 300 mg PO TID [facility] Last Admin: 09/28/18 06:39 Dose: 300 mg Insulin Aspart (Novolog Vial Sliding Scale -) 1 vial SQ TIDAC [facility]; Protocol Last Admin: 09/28/18 06:40 Dose: 2 units Methylprednisolone Sodium Succinate (Solu-Medrol -) 40 mg IVPB Q8H-IV [facility] Last Admin: 09/28/18 01:22 Dose: 40 mg Metoprolol Succinate (Toprol Xl -) 50 mg PO DAILY [facility] Last Admin: 09/27/18 09:30 Dose: 50 mg Ramipril (Altace -) 10 mg PO HS [facility] Last Admin: 09/27/18 22:05 Dose: 10 mg Tamsulosin HCl (Flomax -) 0.4 mg PO HS [facility] Last Admin: 09/27/18 22:06 Dose: 0.4 mg Tramadol HCl (Ultram -) 50 mg PO Q4H PRN PRN Reason: PAIN - Objective Vital Signs: Vital Signs Temperature 97.4 F L 09/28/18 06:00 Pulse Rate 60 09/28/18 06:00 Respiratory Rate 20 09/28/18 06:00 Blood Pressure 114/54 L 09/28/18 06:00 O2 Sat by Pulse Oximetry (%) 94 L 09/28/18 06:00 Eyes: Yes: PERRL HENT: Yes: Atraumatic Neck: Yes: Supple Cardiovascular: Yes: Regular Rate and Rhythm, S1, S2 Respiratory: Yes: CTA Bilaterally Gastrointestinal: Yes: Normal Bowel Sounds, Soft. No: Tenderness Edema: No Labs: CBC, BMP 09/28/18 06:43 09/28/18 06:43 Problem List - Problems (1) CAD (coronary artery disease) Code(s): I25.10 - ATHSCL HEART DISEASE OF [place] CORONARY ARTERY W/O ANG PCTRS (2) History of percutaneous coronary intervention Code(s): Z98.61 - CORONARY ANGIOPLASTY STATUS (3) CHF (congestive heart failure) Code(s): I50.9 - HEART FAILURE, UNSPECIFIED Qualifiers: Heart failure type: diastolic Heart failure chronicity: acute on chronic Qualified Code(s): I50.33 - Acute on chronic diastolic (congestive) heart failure (4) HLD (hyperlipidemia) Code(s): E78.5 - HYPERLIPIDEMIA, UNSPECIFIED Qualifiers: Hyperlipidemia type: unspecified Qualified Code(s): E78.5 - Hyperlipidemia , unspecified (5) HTN (hypertension) Code(s): I10 - ESSENTIAL (PRIMARY) HYPERTENSION Qualifiers: Hypertension type: essential hypertension Qualified Code(s): I10 - Essential (primary) hypertension (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 Chronic Diastolic heart failure 2. CAD s/p [place], BMS to LCx, negative ischemia on MPI 3. HTN 4. Type 2 DM 5. Hyperlipidemia not at goal with statin intolerance and declined PSCK9 inhibitor therapy 6. Hypothyroidism PLAN: 1. IV diuresis with monitor renal function and electrolytes 2. Continue ASA 81 mg QD, Toprol XL 50 mg QD, Altace 10 mg QD and Zetia 10 mg QD 3. Echocardiography noted Further plans are to follow Neri Nolan MD
[2018-09-28 10:25] LABS: ANISOCYTOSIS 1+; MACROCYTOSIS 1+; PLATELET ESTIMATE NORMAL
--- NOTE | 2018-09-28 11:57 | CONSULT ---
Admitting History and Physical - Primary Care Physician PCP: Dann Aaron - Admission History of Present Illness: Per EMR: 88yo male with h/o HTN, DM, hyperlipidemia, hypothyroidism, CAD s/p stent who presents with worsening shortness of breath and cough x 5 days. States symptoms started the day after Thanksgiving, does endorse having a heavy, salt rich meal for Thanksgiving. Denies chest pain or palpitations. No fevers, chills or sweats. +nonproductive cough without wheezing. He denies leg swelling but reports leg "heaviness." Also has been experiencing orthopnea and PND. He is a former smoker, quit when he had his DC and he worked in construction. No home O2 or inhaler use. Pt referred to r/o aspiration. Selected Entries 09/27/18 09/27/18 09/27/18 09:45 16:33 17:00 Supper Temperature 97.9 F 98 F 98.2 F 09/27/18 09/27/18 09/28/18 19:33 19:45 02:00 Supper 100% Temperature 97.5 F L 97.4 F L 09/28/18 06:00 Supper Temperature 97.4 F L Laboratory Tests 09/26/18 09/27/18 09/28/18 15:48 05:55 06:43 WBC 12.4 H 11.7 H 21.1 H Pt on steroids. This is my first consult with this pt. Pt reports that 2-3 weeks ago,pt had an incident of choking on food,talking loudly to in other room while eating. Acutely, he couldn't talk/cough initially, started pounding on chest until it cleared and he could breathe. He denies any other choking incident or symptoms of dysphagia, or symptoms of GERD. He does not recline after eating, and drinks 1 cup of coffee daily, no carbonation, rare citrus,occasional beer, no longer smokes. No changes in vocal quality reported. History Source: Patient, Family Member, Medical Record Limitations to Obtaining History: No Limitations - Past Medical History Cardiovascular: Yes: CAD, Hyperlipdemia, DC Gastrointestinal: Yes: Other (recent elevated ALT? fatty liver) Renal/: Yes: Renal Calculi Musculoskeletal: Yes: Osteoarthritis Endocrine: Yes: Diabetes Mellitus, Hypothyroidism - Past Surgical History Past Surgical History: Yes: Stent (coronary arteries) - Smoking History Smoking history: Former smoker Have you smoked in the past 12 months: No If you are a former smoker, when did you quit?: 1998 - Alcohol/Substance Use Hx Alcohol Use: No History of Substance Use: reports: None - Social History ADL: Independent (until current illness.) Occupation: just collects metal junk to salvage History of Recent Travel: No History - Admission Reason For Visit: SOB - Diagnostics X-ray: Report Reviewed - General Mental Status: Alert and Oriented, Awake and Alert, Able to Follow Commands Ability to Follow Directions: Excellent Head/Neck Control: WFL - Hearing Hearing: Impaired Hearing Aide: Yes With Patient: Yes Speech Evaluation - Communication Primary Language: CYMRO Communication: Yes: Within Normal Limits Oral Expression Ability: Yes: No Impairment - Speech Production Able to Make Needs Known: Yes: WNL Intelligibility: Yes: WNL - Speech Characteristics Voice Loudness: Normal, Mildly Loud Voice Pitch: Yes: Normal Voice Phonatory-based Quality: Yes: Normal Speech Pattern: Normal Speech Clarity: < 100% Nasal Resonance: Normal Articulation: Yes: Precise Rate of Speech: Intact - Language/Auditory Comprehension Follows: Yes: Complex Commands - Language/Verbal Expression Able to Respond to Simple Queries: Yes: WNL Able to Communicate Wants and Needs: Yes: WNL Functional Communication Status: Yes: WNL - Memory/Perception CHCF Memory: Yes: WNL Short Term Memory: Yes: WNL - Swallow Evaluation/Bedside Assessment Current Nutritional Intake: Regular, Thin Liquids Oral Secretions: Yes: WFL Dentition: Yes: Adequate Facial Symmetry at Rest: Symmetrical Facial Symmetry on Retraction: Symmetrical Sensation: Normal Against Resistance Opening: Normal Against Resistance Closing: Normal Pucker Lips: Normal Smile: Normal Lingual Movement: Normal, Symmetric Lingual Speed of Movement: Normal Lingual Movement Strgth Against Opposition: Normal Lingual Movement Characteristics: Normal Velopharyngeal Movement: Normal Laryngeal Elevation: WFL Laryngeal Movement: Able to Palpate Rate of Intake: Impulsive (reported by pt/. May not chew food completely, eats fast.) Labial Seal: WFL Oral Prep Time: WFL A-P Transit: WFL Pocketing: None Coughing/Throat Clear: No Change in Voice: No Recommendations - Speech Evaluation, Impression/Plan Impression: Reported choking incident on solid food 2-3 weeks ago, possibly related to impulsive eating, speaking loudly while eating, inhaled bolus? Cleared from lung? No previous or subsequent signs of Dysphagia. - Dysphagia Impressions/Plan Swallowing Skills: [facility] Dysphagia Impressions: Ongoing Evaluation *Silent aspiration: cannot be R/O at bedside Dysphagia Treatment Plan: Small Bites, Chin Tuck/Down, Clear Pocket Food, Safe Rate, 1/2 tsp. at a time, OOB for meals, OOB for 1 h. after meals, Other (Eat slowly, Chew well, follow with sip of liquid. Avoid constant speaking while eating. Concentrate while chewing and swallowing.Complete meal with liquid.) Recommendations: Pulmonary Consult (f/u), Modified Barium Swallow (as out pt if any reports of Dysphagia.), Other (Educate pt and on Heimlich Maneuver) - Recommendations Diet Consistency: Regular Medication Administration: Whole with water Liquids: Thin Liquids
[2018-09-28] MEDS ORDERED: POLYETHYLENE GLYCOL 3350 119 GM BTL PO SCH (12:00)
[2018-09-28 14:05] VITALS: TEMP 98
[2018-09-28 14:57] VITALS: BP 148/73; PULSE 69
--- NOTE | 2018-09-28 15:39 | PN ---
Progress Note (short form) - Note Progress Note: Feels overall better today. Breathing is improved. No CP. Some cough with scant white sputum. Asking when he can go home. CXR: Improving vascular congestion Intake & Output 09/25/18 09/26/18 09/27/18 09/28/18 23:59 23:59 23:59 23:59 Intake Total 360 Output Total 700 1550 Balance -340 -1550 Weight 250 lb 239 lb 12.8 oz Last Vital Signs Temp Pulse Resp BP Pulse Ox 98 F 69 18 148/73 93 L 09/28/18 14:05 09/28/18 14:05 09/28/18 14:05 09/28/18 14:05 09/28/18 10:00 Active Medications Albuterol/Ipratropium (Duoneb -) 1 amp NEB Q6H PRN PRN Reason: SHORTNESS OF BREATH Aspirin (Ecotrin -) 81 mg PO HS [facility] Last Admin: 09/27/18 22:05 Dose: 81 mg Cyclobenzaprine HCl (Flexeril -) 5 mg PO Q8H PRN PRN Reason: BACK PAIN Docusate Sodium (Colace -) 300 mg PO [facility] Last Admin: 09/27/18 22:08 Dose: Not Given Dutasteride (Avodart -) 0.5 mg PO DAILY [facility] Last Admin: 09/28/18 10:08 Dose: 0.5 mg Enoxaparin Sodium (Lovenox -) 40 mg SQ DAILY [facility] Last Admin: 09/28/18 10:08 Dose: 40 mg Furosemide (Lasix Injection -) 40 mg IVPUSH DAILY [facility] Last Admin: 09/28/18 10:08 Dose: 40 mg Gabapentin (Neurontin -) 300 mg PO TID [facility] Last Admin: 09/28/18 13:48 Dose: 300 mg Insulin Aspart (Novolog Vial Sliding Scale -) 1 vial SQ TIDAC [facility]; Protocol Last Admin: 09/28/18 13:48 Dose: 2 units Methylprednisolone Sodium Succinate (Solu-Medrol -) 40 mg IVPB Q8H-IV [facility] Last Admin: 09/28/18 10:08 Dose: 40 mg Metoprolol Succinate (Toprol Xl -) 50 mg PO DAILY [facility] Last Admin: 09/28/18 10:08 Dose: 50 mg Polyethylene Glycol (Miralax (For Daily Use) -) 17 gm PO BID [facility] Last Admin: 09/28/18 13:48 Dose: 17 gm Ramipril (Altace -) 10 mg PO [facility] Last Admin: 09/27/18 22:05 Dose: 10 mg Tamsulosin HCl (Flomax -) 0.4 mg PO [facility] Last Admin: 09/27/18 22:06 Dose: 0.4 mg Tramadol HCl (Ultram -) 50 mg PO Q4H PRN PRN Reason: PAIN Constitutional: Yes: NAD Eyes: Yes: Conjunctiva Clear, EOM Intact HENT: Yes: Atraumatic, Normocephalic Neck: Yes: Supple, Trachea Midline Cardiovascular: Yes: Regular Rate and Rhythm Respiratory: Yes: Diminished breath sounds at the bases ...Clubbing: No Gastrointestinal: Yes: Normal Bowel Sounds, Soft. No: Tenderness Edema: No Neurological: Yes: Alert, Oriented Labs: Laboratory Results - last 24 hr 09/27/18 09/28/18 09/28/18 17:21 06:15 06:43 WBC 21.1 H RBC 4.45 Hgb 14.0 Hct 44.3 MCV 99.7 H MCH 31.4 MCHC 31.5 L RDW 13.5 Plt Count 301 MPV 8.9 Absolute Neuts (auto) 19.5 H Neutrophils % 92.4 H Neutrophils % (Manual) 91.0 H Band Neutrophils % 1.0 Lymphocytes % 4.2 L D Lymphocytes % (Manual) 4.0 L Monocytes % 3.2 L Monocytes % (Manual) 3 L Eosinophils % 0.0 Eosinophils % (Manual) 0.0 Basophils % 0.2 Basophils % (Manual) 0.0 Myelocytes % (Man) 0 Promyelocytes % (Man) 0 Blast Cells % (Manual) 0 Nucleated RBC % 0 Metamyelocytes 0 Hypochromia 0 Platelet Estimate Normal Polychromasia 0 Poikilocytosis 0 Anisocytosis 1+ Microcytosis 0 Macrocytosis 1+ Sodium Potassium Chloride Carbon Dioxide Anion Gap BUN Creatinine Creat Clearance w eGFR POC Glucometer 159 181 Random Glucose Calcium Total Bilirubin AST ALT Alkaline Phosphatase Total Protein Albumin 09/28/18 09/28/18 06:43 11:36 WBC RBC Hgb Hct MCV MCH MCHC RDW Plt Count MPV Absolute Neuts (auto) Neutrophils % Neutrophils % (Manual) Band Neutrophils % Lymphocytes % Lymphocytes % (Manual) Monocytes % Monocytes % (Manual) Eosinophils % Eosinophils % (Manual) Basophils % Basophils % (Manual) Myelocytes % (Man) Promyelocytes % (Man) Blast Cells % (Manual) Nucleated RBC % Metamyelocytes Hypochromia Platelet Estimate Polychromasia Poikilocytosis Anisocytosis Microcytosis Macrocytosis Sodium 135 L Potassium 5.2 H Chloride 98 Carbon Dioxide 28 Anion Gap 9 BUN 35 H Creatinine 1.0 Creat Clearance w eGFR > 60 POC Glucometer 177 Random Glucose 178 H Calcium 9.9 Total Bilirubin 0.3 AST 30 ALT 34 Alkaline Phosphatase 99 Total Protein 7.6 Albumin 3.4 Problem List - Problems (1) CHF (congestive heart failure) Code(s): I50.9 - HEART FAILURE, UNSPECIFIED (2) T2DM (type 2 diabetes mellitus) Code(s): E11.9 - TYPE 2 DIABETES MELLITUS WITHOUT COMPLICATIONS (3) ASHD (arteriosclerotic heart disease) Code(s): I25.10 - ATHSCL HEART DISEASE OF [place] CORONARY ARTERY W/O ANG PCTRS (4) Hypothyroidism Code(s): E03.9 - HYPOTHYROIDISM, UNSPECIFIED Qualifiers: Hypothyroidism type: unspecified Qualified Code(s): E03.9 - Hypothyroidism , unspecified Assessment/Plan Suspected Pulmonary vascular congestion as the etiology of SOB/JIMENEZ Chronic Bronchitis due to 50 (+) year smoking history Likely COPD but not in AE CAD HTN DM Hypothryoidism Possible OSAS: reports snoring and frequent nocturnal symptoms - continue lasix - monitor urine output, creatinine - daily weights - inhaled bronchodilators - O2 to keep Spo2 >90% - D/C Steroids - outpt PFTs - Sleep Apnea screening as an outpatient - No Pulmonary contraindication for D/C planning Dr Eduardo
--- NOTE | 2018-09-28 15:41 | DS ---
Physical Exam: SUBJECTIVE: Patient seen and examined OBJECTIVE: Vital Signs Period Temp Pulse Resp BP Sys/Francisco Pulse Ox Last 24 Hr 97.4 F-98.2 F 60-82 18-20 108-148/54-74 93-95 PHYSICAL EXAM GENERAL: The patient is awake, alert, and fully oriented, in no acute distress. HEAD: Normal with no signs of trauma. EYES: PERRL, extraocular movements intact, sclera anicteric, conjunctiva clear. ENT: Ears normal, nares patent, oropharynx clear without exudates, moist mucous membranes. NECK: Trachea midline, full range of motion, supple. LUNGS: Breath sounds equal, clear to auscultation bilaterally, no wheezes, no crackles, no accessory muscle use. HEART: Regular rate and rhythm, S1, S2 without murmur, rub or gallop. ABDOMEN: Soft, nontender, nondistended, normoactive bowel sounds, no guarding, no rebound, no hepatosplenomegaly, no masses. EXTREMITIES: 2+ pulses, warm, well-perfused, no edema. NEUROLOGICAL: Cranial nerves II through XII grossly intact. Normal speech, gait not observed. PSYCH: Normal mood, normal affect. SKIN: Warm, dry, normal turgor, no rashes or lesions noted. LABS Laboratory Results - last 24 hr 09/27/18 09/28/18 09/28/18 17:21 06:15 06:43 WBC 21.1 H RBC 4.45 Hgb 14.0 Hct 44.3 MCV 99.7 H MCH 31.4 MCHC 31.5 L RDW 13.5 Plt Count 301 MPV 8.9 Absolute Neuts (auto) 19.5 H Neutrophils % 92.4 H Neutrophils % (Manual) 91.0 H Band Neutrophils % 1.0 Lymphocytes % 4.2 L D Lymphocytes % (Manual) 4.0 L Monocytes % 3.2 L Monocytes % (Manual) 3 L Eosinophils % 0.0 Eosinophils % (Manual) 0.0 Basophils % 0.2 Basophils % (Manual) 0.0 Myelocytes % (Man) 0 Promyelocytes % (Man) 0 Blast Cells % (Manual) 0 Nucleated RBC % 0 Metamyelocytes 0 Hypochromia 0 Platelet Estimate Normal Polychromasia 0 Poikilocytosis 0 Anisocytosis 1+ Microcytosis 0 Macrocytosis 1+ Sodium Potassium Chloride Carbon Dioxide Anion Gap BUN Creatinine Creat Clearance w eGFR POC Glucometer 159 181 Random Glucose Calcium Total Bilirubin AST ALT Alkaline Phosphatase Total Protein Albumin 09/28/18 09/28/18 06:43 11:36 WBC RBC Hgb Hct MCV MCH MCHC RDW Plt Count MPV Absolute Neuts (auto) Neutrophils % Neutrophils % (Manual) Band Neutrophils % Lymphocytes % Lymphocytes % (Manual) Monocytes % Monocytes % (Manual) Eosinophils % Eosinophils % (Manual) Basophils % Basophils % (Manual) Myelocytes % (Man) Promyelocytes % (Man) Blast Cells % (Manual) Nucleated RBC % Metamyelocytes Hypochromia Platelet Estimate Polychromasia Poikilocytosis Anisocytosis Microcytosis Macrocytosis Sodium 135 L Potassium 5.2 H Chloride 98 Carbon Dioxide 28 Anion Gap 9 BUN 35 H Creatinine 1.0 Creat Clearance w eGFR > 60 POC Glucometer 177 Random Glucose 178 H Calcium 9.9 Total Bilirubin 0.3 AST 30 ALT 34 Alkaline Phosphatase 99 Total Protein 7.6 Albumin 3.4 HOSPITAL COURSE: Date of Admission:09/26/18 Date of Discharge: 09/28/18 Discharge Summary Reason For Visit: SOB Current Active Problems CAD (coronary artery disease) (Acute) CHF (congestive heart failure) (Acute) Chronic back pain (Acute) HLD (hyperlipidemia) (Acute) HTN (hypertension) (Acute) History of percutaneous coronary intervention (Acute) Hypothyroidism (acquired) (Acute) Old myocardial infarction (Acute) Reactive airway disease (Acute) SOB (shortness of breath) (Acute) Stented coronary artery (Acute) T2DM (type 2 diabetes mellitus) (Acute) Condition: Improved - Instructions Diet, Activity, Other Instructions: You have been seen and treated for an acute heart failure. You will be starting a new medication called Furosimide 20 mg taken daily by mouth. You will also be taking a short coarse of steroids in form of a Medrol dose pack. Follow the directions on the package for how to take. Both these medications have been sent to your pharmacy. Increase your activity as tolerated. Resume a low salt heart healthy diet. You should follow up with cardiology and your primary doctor in one week. If you develop worsening shortness of breath, chest pain, or fever/chills please return to ER immediately. Referrals: Ramez Dubon MD [Primary Care Provider] - 1 Week Steven Irene MD [Staff Physician] - 1 Week Disposition: HOME - Home Medications Comprehensive Discharge Medication List: Ambulatory Orders Aspirin Coated [Ecotrin -] 325 mg PO HS 08/23/15 Dutasteride [Avodart] 0.5 mg PO DAILY 08/23/15 Metformin HCl [Metformin HCl ER] 500 mg PO BID 08/23/15 Metoprolol Succinate [Toprol Xl] 50 mg PO DAILY 08/23/15 Ramipril [Altace] 2.5 mg PO HS 08/23/15 Tamsulosin HCl [Flomax -] 0.4 mg PO HS 08/23/15 Ezetimibe [Zetia] 10 mg PO DAILY 09/26/18 Levothyroxine Sodium [Synthroid] 200 mcg PO DAILY 09/26/18 Furosemide [Lasix] 20 mg PO DAILY #30 tablet 09/28/18 Methylprednisolone [Medrol Dose Tramaine] 4 mg PO ASDIR #21 tablet 09/28/18 Problem List - Problems (1) CHF (congestive heart failure) (2) HTN (hypertension) (3) HLD (hyperlipidemia) (4) Hypothyroidism (acquired) (5) T2DM (type 2 diabetes mellitus) This patient is new to me today: No Emergency Visit: Yes ED Registration Date: 09/26/18 Care time: The patient presented to the Emergency Department on the above date and was hospitalized for further evaluation of their emergent condition. Critical Care patient: No
--- NOTE | 2018-09-28 17:29 | PN ---
Teaching Attending Note Name of Resident: Avinash Knowles ATTENDING PHYSICIAN STATEMENT I saw and evaluated the patient. I reviewed the resident's note and discussed the case with the resident. I agree with the resident's findings and plan as documented. SUBJECTIVE: Mr Rubio without complaint today. Says feels fine. Denies cp, sob, n/v OBJECTIVE: Gen: nad Pulm: ctab CV: rrr w/o w/r/r Abd: +bs, s/nt/nd Ext: no c/c/e HC: Mr Rubio is a very pleasant 88 year old male who came in with shortness of breath secondary to slight CHF exacerbation and COPD exacerbation. He was admitted under observation. He was gently diuresed and also placed on steroids. He improved significantly. He is currently feeling better and states he is at baseline. He is safe to be discharged on lasix 20mg daily and steroid taper. For full HC please refer to Dr Knowles's discharge summary. 34 minutes spent in preparation of this discharge
== END 2018-09-28 17:30 | disposition home or self-care (01) ==
LOC: JER 14:42 → JERBED 19:43 → J4W 09-27 15:44
PROVIDERS: ADMIT Internal Medicine; ATTEND Internal Medicine
PROC: 3E03329 Introduction of Other Anti-infective into Peripheral Vein, Percutaneous Approach (ICD-10-PCS; principal; 2018-09-26)
PROC: 3E0333Z Introduction of Anti-inflammatory into Peripheral Vein, Percutaneous Approach (ICD-10-PCS; 2018-09-26)
PROC: 3E033GC Introduction of Other Therapeutic Substance into Peripheral Vein, Percutaneous Approach (ICD-10-PCS; 2018-09-26)
PROC: 3E013VG Introduction of Insulin into Subcutaneous Tissue, Percutaneous Approach (ICD-10-PCS; 2018-09-26)
PROC: 3E013GC Introduction of Other Therapeutic Substance into Subcutaneous Tissue, Percutaneous Approach (ICD-10-PCS; 2018-09-26)
PROC: 3E0F7GC Introduction of Other Therapeutic Substance into Respiratory Tract, Via Natural or Artificial Opening (ICD-10-PCS; 2018-09-26)
DX: R06.02 Shortness of breath (principal); I11.0 Hypertensive heart disease with heart failure; I25.2 Old myocardial infarction; I25.10 Atherosclerotic heart disease of native coronary artery without angina pectoris; I50.33 Acute on chronic diastolic (congestive) heart failure; E11.9 Type 2 diabetes mellitus without complications; J44.1 Chronic obstructive pulmonary disease with (acute) exacerbation; E78.5 Hyperlipidemia, unspecified; G62.9 Polyneuropathy, unspecified; N40.0 Benign prostatic hyperplasia without lower urinary tract symptoms; R00.0 Tachycardia, unspecified; E03.9 Hypothyroidism, unspecified; M54.9 Dorsalgia, unspecified; E66.9 Obesity, unspecified; Z68.36 Body mass index [BMI] 36.0-36.9, adult; Z79.82 Long term (current) use of aspirin; Z79.84 Long term (current) use of oral hypoglycemic drugs; Z95.5 Presence of coronary angioplasty implant and graft
CPT/HCPCS: 36415; 71045-TC-FY; 80053; 81003; 82550; 82553; 82962; 83036; 83880; 84443; 84484; 85025; 93005; 93010; 93306-TC; 94640; 96365; 96372; 96375; 96376; 99285-25; G0378

== ENCOUNTER 2019-03-06 14:00 | Inpatient (IN) | payer OTHER ==
--- NOTE | 2019-03-06 14:04 | PDOC ---
Rapid Medical Evaluation Time Seen by Provider: 03/06/19 14:01 Medical Evaluation: Allergies Allergy/AdvReac Type Severity Reaction Status Date / Time No Known Allergies Allergy Verified 09/26/18 14:48 03/06/19 14:02 I have performed a brief in-person evaluation of this patient. The patient presents with a chief complaint of: sent by for facial cellulitis Pertinent physical exam findings: left facial erythema. left submandibular lymphadenopathy I have ordered the following: labs with blood cx The patient will proceed to the ED for further evaluation. Discharge Disposition - Diagnosis Facial erythema - Referrals - Patient Instructions - Post Discharge Activity
[2019-03-06] MEDS ORDERED: CLINDAMYCIN 600MG PREMIX IVPB 600 MG/50 ML BAG IVPB ONE ×3 (14:35→22:54)
--- NOTE | 2019-03-06 14:35 | PDOC ---
History of Present Illness - General Chief Complaint: Wound Stated Complaint: SENT BY URGENT CARE Time Seen by Provider: 03/06/19 14:01 History Source: Patient - History of Present Illness Timing/Duration: reports: other Past History - Past Medical History Allergies/Adverse Reactions: Allergies Allergy/AdvReac Type Severity Reaction Status Date / Time No Known Allergies Allergy Verified 09/26/18 14:48 Home Medications: Ambulatory Orders Aspirin Coated [Ecotrin -] 325 mg PO HS 08/23/15 Dutasteride [Avodart] 0.5 mg PO DAILY 08/23/15 Metoprolol Succinate [Toprol Xl] 50 mg PO DAILY 08/23/15 Ramipril [Altace] 2.5 mg PO HS 08/23/15 Tamsulosin HCl [Flomax -] 0.4 mg PO HS 08/23/15 metFORMIN HCL [Metformin ER Osmotic] 500 mg PO BID 08/23/15 Ezetimibe [Zetia] 10 mg PO DAILY 09/26/18 Levothyroxine Sodium [Synthroid] 200 mcg PO DAILY 09/26/18 Furosemide [Lasix] 20 mg PO DAILY #30 tablet 09/28/18 Methylprednisolone [Medrol Dose Tramaine] 4 mg PO ASDIR #21 tablet 09/28/18 Cardiac Disorders: Yes ([place], STENTS X3 1998) COPD: No CHF: No Diabetes: Yes (TYPE II) Disorders: Yes (BPH) HTN: Yes Hypercholesterolemia: Yes Kidney Stones: Yes (LITHOTRIPSY) Thyroid Disease: Yes - Immunization History Immunization Up to Date: No - Suicide/Smoking/Psychosocial Hx Smoking History: Former smoker Have you smoked in the past 12 months: No If you are a former smoker, when did you quit?: 1998 Information on smoking cessation initiated: No Hx Alcohol Use: No Drug/Substance Use Hx: No Substance Use Type: None Review of Systems - Review of Systems Constitutional: No: Chills, Fever, Malaise Neurological: No: Numbness, Tingling, Weakness *Physical Exam - Vital Signs Last Vital Signs Temp Pulse Resp BP Pulse Ox 98.0 F 90 16 152/74 100 03/06/19 14:06 03/06/19 14:06 03/06/19 14:06 03/06/19 14:06 03/06/19 14:06 - Physical Exam General Appearance: Yes: Appropriately Dressed. No: Apparent Distress HEENT: positive: Normal Voice, TMs Normal Neck: positive: Supple. negative: Lymphadenopathy (R), Lymphadenopathy (L) Respiratory/Chest: negative: Respiratory Distress Integumentary: positive: Dry, Warm, Other (extensive erythema to L face involving L forehead, scalp and L ear, minimal ttp to touch, no crepitus or blisters) Neurologic: positive: Fully Oriented, Alert, Normal Mood/Affect ED Treatment Course - LABORATORY CBC & Chemistry Diagram: 03/06/19 15:02 03/06/19 15:02 Medical Decision Making - Medical Decision Making 03/06/19 14:33 88 yo M, h/o NIDDM, COPD, CHF, here w/ L facial pain and redness. Patient states about 3 days ago, felt discomfort and "heat" to the top of his head and since then has noticed progressive redness to the left side of his face extending to his left ear and neck this a.m. Reports chills at home but no fever. No trauma or bite. No history of same. see exam Facial cellulitis Stable and well joshua -labs -IV abx -admit 03/06/19 17:36 03/06/19 17:37 Wbc 11, Rest of labs unremarkable. Will admit to [facility] as d/w hospitalist team *DC/Admit/Observation/Transfer Diagnosis at time of Disposition: Facial cellulitis - Discharge Dispostion Condition at time of disposition: Fair Decision to Admit order: Yes - Referrals - Patient Instructions - Post Discharge Activity
[2019-03-06 15:22] LABS: BASO % 0.6 % (0-2.0); EOS % 0.6 % (0-4.5); HEMATOCRIT 44.8 % (35.4-49); HEMOGLOBIN 14.7 GM/dL (11.7-16.9); LYMPH % 10.4 % (8-40); MCHC 32.9 g/dl (32.0-35.9); MEAN CELL VOLUME 97.3 fl (80-96); MEAN PLT VOLUME 8.7 fl (7.5-11.1); NEUT % 75.4 % (42.8-82.8); PLATELET COUNT 219 K/MM3 (134-434); RDW 14.2 % (11.9-15.9); WHITE BLOOD COUNT 11.6 K/mm3 (4.0-10.0)
[2019-03-06 15:54] LABS: ALK PHOS 87 U/L (45-117); ANION GAP 6 MMOL/L (8-16); BILIRUBIN,TOTAL 0.6 mg/dL (0.2-1); BLOOD UREA NITROGEN 18 mg/dL (7-18); CALCIUM 9.8 mg/dL (8.5-10.1); CHLORIDE 100 mmol/L (98-107); CO2 31 mmol/L (21-32); CREATININE 0.9 mg/dL (0.55-1.3); GLUCOSE,RANDOM 134 mg/dL (74-106); POTASSIUM 4.3 mmol/L (3.5-5.1); SGOT/AST 29 U/L (15-37); SGPT/ALT 31 U/L (13-61); SODIUM 137 mmol/L (136-145); TOT PROT 7.9 g/dl (6.4-8.2)
[2019-03-06] MEDS ORDERED: ACETAMINOPHEN 325 MG TABLET (FP) PO PRN (17:44)
--- NOTE | 2019-03-06 19:27 | PN ---
Teaching Attending Note Name of Resident: Valentino Varghese ATTENDING PHYSICIAN STATEMENT I saw and evaluated the patient. I reviewed the resident's note and discussed the case with the resident. I agree with the resident's findings and plan as documented. CC: my face is red HPI: Mr Rubio is a pleasant 88 year old male who comes in complaining of redness and slight burning in his face and head. He said he noticed it on Tuesday, he was outside walking and felt some slight burning on the top of his head. Since it was henry he thought it was the sun and did not think further about it. On Tuesday he noticed a pimple on the left side of his jaw but it went away. Then yesterday and today he said his face became very red. It is mainly on the left side but does cross the midline. He says it isn't painful aside from a slight irritation of his left eyelid and he otherwise feels fine. He went to urgent care to get it checked out and was sent to the hospital. He denies fevers, chills, lightheadedness, dizziness, passing out, eye irritation, loss of vision, hearing changes, tinnitus, chest pain, shortness of breath, nausea, vomiting, diarrhea, constipation, difficulty or pain on urination, or leg swelling. Past Medical History Cardio/Vascular CAD,Hyperlipdemia,[place] Gastrointestinal Other Renal/ Renal Calculi Endocrine Diabetes Mellitus,Hypothyroidism Past Surgical History Past Surgical History Stent Home Medications Medication Instructions Recorded Aspirin Coated [Ecotrin -] 325 mg PO HS 08/23/15 Dutasteride [Avodart] 0.5 mg PO DAILY 08/23/15 Metoprolol Succinate [Toprol Xl] 50 mg PO DAILY 08/23/15 Ramipril [Altace] 2.5 mg PO HS 08/23/15 Tamsulosin HCl [Flomax -] 0.4 mg PO HS 08/23/15 metFORMIN HCL [Metformin ER 500 mg PO BID 08/23/15 Osmotic] Ezetimibe [Zetia] 10 mg PO DAILY 09/26/18 Levothyroxine Sodium [Synthroid] 200 mcg PO DAILY 09/26/18 Furosemide [Lasix] 20 mg PO DAILY #30 tablet 09/28/18 Methylprednisolone [Medrol Dose 4 mg PO ASDIR #21 tablet 09/28/18 Tramaine] Social History Smoking history Former smoker Have you smoked in the past 12 No months Hx Alcohol Use No History of Substance Use None Usual Living Arrangement With Spouse ADL Independent Occupation just collects metal junk to salvage FHx: non-contributory ROS: full review of systems obtained, as per HPI and otherwise negative OBJECTIVE: Last Vital Signs Temp Pulse Resp BP Pulse Ox 36.1 C L 84 16 124/75 94 L 03/06/19 18:15 03/06/19 18:15 03/06/19 14:06 03/06/19 18:15 03/06/19 18:15 Gen: nad, obese HEENT: erythema of L side of face, crosses midline. No purulence or breaks in skin Pulm: ctab w/o w/r/r CV: rrr w/o m/r/g Abd: +bs, s/nt/nd Ext: no c/c/e CBC, BMP 03/06/19 15:02 03/06/19 15:02 ASSESSMENT AND PLAN: -admit to med/surg -since with erysipelas, will need IV antibiotics -consult ID -continue clindamycin -lactobacillus -diabetic diet, FSBS, and SSI -hold metformin while on SSI -otherwise continue home regimen -expect 48-72 hour hospital stay Problem List - Problems (1) Facial cellulitis Code(s): L03.211 - CELLULITIS OF FACE (2) CAD (coronary artery disease) Code(s): I25.10 - ATHSCL HEART DISEASE OF [place] CORONARY ARTERY W/O ANG PCTRS (3) CHF (congestive heart failure) Code(s): I50.9 - HEART FAILURE, UNSPECIFIED Qualifiers: Heart failure type: diastolic Heart failure chronicity: acute on chronic Qualified Code(s): I50.33 - Acute on chronic diastolic (congestive) heart failure (4) Diabetes Code(s): E11.9 - TYPE 2 DIABETES MELLITUS WITHOUT COMPLICATIONS Qualifiers: Diabetes mellitus type: type 2 Qualified Code(s): E11.9 - Type 2 diabetes mellitus without complications (5) HLD (hyperlipidemia) Code(s): E78.5 - HYPERLIPIDEMIA, UNSPECIFIED Qualifiers: Hyperlipidemia type: unspecified Qualified Code(s): E78.5 - Hyperlipidemia , unspecified (6) Hypothyroidism Code(s): E03.9 - HYPOTHYROIDISM, UNSPECIFIED Qualifiers: Hypothyroidism type: unspecified Qualified Code(s): E03.9 - Hypothyroidism , unspecified (7) BPH (benign prostatic hypertrophy) Code(s): N40.0 - BENIGN PROSTATIC HYPERPLASIA WITHOUT LOWER URINRY TRACT SYMP
--- NOTE | 2019-03-06 19:32 | HP ---
CHIEF COMPLAINT: skin changes on face PCP: Dr. Dubon HISTORY OF PRESENT ILLNESS: 88 y/o M w/PMH of DM, COPD, CHF, HLD, HTN, CAD (s/p stents 20 years ago) presents to the ER from urgent care for skin changes on face. He reports that on Tuesday he felt chills and since then no chills but began feeling warmth on the skin of his head from Tuesday into the weekend. He noticed redness on the left side of his face that also spread from the side and top of his head to his face which prompted him to go to urgent care today. He has never had anything like this in the past. He denies any change in his vision or hearing. He denies any bug bites or animal scratches to his face. He currently denies N/V/F/C, CP, SOB, abd pain, change in bowel or urinary habits. ER course was notable for: (1) clindamycin (2) (3) Recent Travel: denies PAST MEDICAL HISTORY: DM, COPD, CHF, HLD, HTN, CAD (s/p stents 20 years ago) PAST SURGICAL HISTORY: cardiac stents 20 years ag Social History: Smokinppd smoking hx until approx 20-25 years ago Alcohol: 1 glass of wine or 1 beer with 1-2 meals a day Drugs: denies Family History: denies FH Allergies No Known Allergies Allergy (Verified 09/26/18 14:48) HOME MEDICATIONS: Home Medications Medication Instructions Recorded Aspirin Coated [Ecotrin -] 325 mg PO HS 08/23/15 Dutasteride [Avodart] 0.5 mg PO DAILY 08/23/15 Metoprolol Succinate [Toprol Xl] 50 mg PO DAILY 08/23/15 Ramipril [Altace] 2.5 mg PO HS 08/23/15 Tamsulosin HCl [Flomax -] 0.4 mg PO HS 08/23/15 metFORMIN HCL [Metformin ER 500 mg PO BID 08/23/15 Osmotic] Ezetimibe [Zetia] 10 mg PO DAILY 09/26/18 Levothyroxine Sodium [Synthroid] 200 mcg PO DAILY 09/26/18 Furosemide [Lasix] 20 mg PO DAILY #30 tablet 09/28/18 Methylprednisolone [Medrol Dose 4 mg PO ASDIR #21 tablet 09/28/18 Tramaine] REVIEW OF SYSTEMS CONSTITUTIONAL: +chills initially Absent: fever, generalized weakness HEENT: Absent: hearing changes, visual changes CARDIOVASCULAR: Absent: chest pain, syncope, palpitations RESPIRATORY: Absent: cough, shortness of breath GASTROINTESTINAL: Absent: abdominal pain, nausea, vomiting, diarrhea, constipation GENITOURINARY: Absent: dysuria, hematuria SKIN: +redness and warmth of L side of head NEUROLOGIC: Absent: headache PHYSICAL EXAMINATION Vital Signs - 24 hr 03/06/19 03/06/19 14:06 18:15 Temperature 98.0 F 96.9 F L Pulse Rate 90 Pulse Rate [ 84 Right Radial] Respiratory 16 Rate Blood Pressure 152/74 Blood Pressure 124/75 [Left Arm] O2 Sat by Pulse 100 94 L Oximetry (%) GENERAL: Awake, alert, and fully oriented, in no acute distress. HEAD: Erythema and warmth of skin mostly on L side of face. EYES: Pupils equal, round and reactive to light, extraocular movements intact. LUNGS: Breath sounds equal, clear to auscultation bilaterally. HEART: Regular rate and rhythm, normal S1 and S2 ABDOMEN: Soft, nontender, not distended, normoactive bowel sounds LOWER EXTREMITIES: warm, well-perfused. 2+ b/l LE pitting edema NEUROLOGICAL: Cranial nerves II-XII grosslyintact. Normal speech. PSYCHIATRIC: Cooperative. Good eye contact. Appropriate mood and affect. SKIN: Warm, dry, Erythema and warmth of skin mostly on L side of face. No skin breaks noted. Laboratory Results - last 24 hr 03/06/19 03/06/19 15:02 15:02 WBC 11.6 H RBC 4.60 Hgb 14.7 Hct 44.8 MCV 97.3 H MCH 32.0 MCHC 32.9 RDW 14.2 Plt Count 219 D MPV 8.7 Absolute Neuts (auto) 8.7 H Neutrophils % 75.4 Lymphocytes % 10.4 D Monocytes % 13.0 H D Eosinophils % 0.6 D Basophils % 0.6 Nucleated RBC % 0 Sodium 137 Potassium 4.3 Chloride 100 Carbon Dioxide 31 Anion Gap 6 L BUN 18 Creatinine 0.9 Creat Clearance w eGFR 79.82 Random Glucose 134 H Calcium 9.8 Total Bilirubin 0.6 AST 29 ALT 31 Alkaline Phosphatase 87 Total Protein 7.9 Albumin 4.0 ASSESSMENT/PLAN: 88 y/o M w/PMH of DM, COPD, CHF, HLD, HTN, CAD (s/p stents 20 years ago) admitted for cellulitis on face. -Cellulitis of face -Close monitoring of cellulitis -will c/w clindamycin 600 mg IV q8h -ID consult -DM -BGMs, ISS ACHS -HTN -Losartan, need to confirm dose, His pharmacy is currently closed. -Restart on low dose if needed overnight and uptitrate as needed until dose is confirmed -Hypothyroidism -c/w synthroid 200mcg qd -BPH -c/w flomax 0.4mg qhs -CAD -c/w ASA 162 mg qd -DVT ppx -Heparin 5000 units sq q8h -FEN -no fluids -monitor electrolytes -diabetic sodium controlled diet -Dispo: Admit to m/s Visit type - Emergency Visit Emergency Visit: Yes Care time: The patient presented to the Emergency Department on the above date and was hospitalized for further evaluation of their emergent condition. - New Patient This patient is new to me today: Yes Date on this admission: 03/06/19 - Critical Care Critical Care patient: No
[2019-03-06] MEDS ORDERED: HEPARIN NA (PORCINE) 5,000 UNITS/ML 1ML VIAL ONE (21:56)
[2019-03-06] MEDS: HEPARIN NA (PORCINE) 5,000 UNITS/ML 1ML VIAL SQ SCH (22:05)
[2019-03-06] MEDS ORDERED: TAMSULOSIN HCL 0.4 MG CAP ONE (22:54)
[2019-03-07] MEDS: TAMSULOSIN HCL 0.4 MG CAP PO SCH ×2 (00:42→21:28)
[2019-03-07] MEDS: CLINDAMYCIN 600MG PREMIX IVPB 600 MG/50 ML BAG IVPB SCH ×3 (00:43→09:24)
[2019-03-07] MEDS: INSULIN SLIDING SCALE (NOVOLOG) 1 VIAL SQ SCH ×5 (00:43→21:30)
[2019-03-07] MEDS: HEPARIN NA (PORCINE) 5,000 UNITS/ML 1ML VIAL SQ SCH ×3 (02:46→17:39)
[2019-03-07] MEDS: LEVOTHYROXINE NA 100 MCG TABLET (FP) PO SCH (06:50)
[2019-03-07] MEDS ORDERED: LEVOTHYROXINE NA 200 MCG TABLET PO SCH (07:00)
--- NOTE | 2019-03-07 08:29 | EKG ---
Test Reason : Blood Pressure : / mmHG Vent. Rate : 083 BPM Atrial Rate : 083 BPM P-R Int : 168 ms QRS Dur : 150 ms QT Int : 380 ms P-R-T Axes : 065 074 027 degrees QTc Int : 446 ms SINUS RHYTHM WITH OCCASIONAL PREMATURE VENTRICULAR COMPLEXES RIGHT BUNDLE BRANCH BLOCK ABNORMAL ECG WHEN COMPARED WITH ECG OF 26-SEP-2018 16:32, PREMATURE VENTRICULAR COMPLEXES ARE NOW PRESENT Confirmed by ALBERTA VELEZ, MARIANNA ([id number]) on 03/07/2019 8:29:14 AM Referred By: Confirmed By:MARIANNA PINZON MD
[2019-03-07 08:34] LABS: BASO % 0.8 % (0-2.0); EOS % 1.8 % (0-4.5); HEMATOCRIT 40.3 % (35.4-49); HEMOGLOBIN 13.3 GM/dL (11.7-16.9); LYMPH % 21.9 % (8-40); MCHC 33.1 g/dl (32.0-35.9); MEAN CELL VOLUME 96.6 fl (80-96); MONO % 18.6 % (3.8-10.2); NEUT % 56.9 % (42.8-82.8); PLATELET COUNT 208 K/MM3 (134-434); RBC 4.17 M/mm3 (4.00-5.60); RDW 14.2 % (11.9-15.9); WHITE BLOOD COUNT 8.7 K/mm3 (4.0-10.0)
--- NOTE | 2019-03-07 08:58 | PN ---
Progress Note (short form) - Note Progress Note: Hospitalist to document today' Acute cellulitis with no vesicles noted. On IV Cleocin.
[2019-03-07 09:09] LABS: ALBUMIN 3.3 g/dl (3.4-5.0); ALK PHOS 73 U/L (45-117); ANION GAP 6 MMOL/L (8-16); BILIRUBIN,TOTAL 0.6 mg/dL (0.2-1); BLOOD UREA NITROGEN 14 mg/dL (7-18); CALCIUM 8.9 mg/dL (8.5-10.1); CHLORIDE 101 mmol/L (98-107); CO2 29 mmol/L (21-32); CREATININE 0.8 mg/dL (0.55-1.3); GLUCOSE,RANDOM 115 mg/dL (74-106); MAGNESIUM 2.2 mg/dL (1.8-2.4); PHOSPHOROUS 3.2 mg/dL (2.5-4.9); POTASSIUM 4.2 mmol/L (3.5-5.1); SGOT/AST 21 U/L (15-37); SGPT/ALT 24 U/L (13-61); SODIUM 136 mmol/L (136-145); TOT PROT 6.8 g/dl (6.4-8.2)
[2019-03-07] MEDS: ASPIRIN COATED 81 MG TABLET.EC PO SCH (09:24)
[2019-03-07] MEDS: LACTOBACILLUS ACIDOPHILUS 1 TABLET PO SCH (09:24)
[2019-03-07] MEDS ORDERED: INSULIN (NOVOLOG) ASPART 100 UNITS/ML 10ML VIAL ONE (11:55)
--- NOTE | 2019-03-07 13:03 | PN ---
Physical Exam: SUBJECTIVE: Patient seen and examined at bedside. Had fever of 100.3 overnight but pt reports feeling no fevers. He still feels some warmth on his face and feels his cheek is more pink now. No change in vision. OBJECTIVE: Vital Signs Temperature 98.0 F 03/07/19 09:00 Pulse Rate 84 03/07/19 09:00 Respiratory Rate 20 03/07/19 09:00 Blood Pressure 121/67 03/07/19 09:00 O2 Sat by Pulse Oximetry (%) 93 L 03/07/19 09:00 GENERAL: Awake, alert, and fully oriented, in no acute distress. HEAD: Erythema and warmth of skin mostly on L side of face. EYES: Pupils equal, round and reactive to light, extraocular movements intact. LUNGS: Breath sounds equal, clear to auscultation bilaterally. HEART: Regular rate and rhythm, normal S1 and S2 ABDOMEN: Soft, nontender, not distended, normoactive bowel sounds LOWER EXTREMITIES: warm, well-perfused. 2+ b/l LE pitting edema NEUROLOGICAL: Cranial nerves II-XII grosslyintact. Normal speech. PSYCHIATRIC: Cooperative. Good eye contact. Appropriate mood and affect. SKIN: Warm, dry, Erythema and warmth of skin mostly on L side of face. More redness today on cheeks. No skin breaks noted. Laboratory Results - last 24 hr 03/06/19 03/06/19 03/06/19 15:02 15:02 23:58 WBC 11.6 H RBC 4.60 Hgb 14.7 Hct 44.8 MCV 97.3 H MCH 32.0 MCHC 32.9 RDW 14.2 Plt Count 219 D MPV 8.7 Absolute Neuts (auto) 8.7 H Neutrophils % 75.4 Lymphocytes % 10.4 D Monocytes % 13.0 H D Eosinophils % 0.6 D Basophils % 0.6 Nucleated RBC % 0 Sodium 137 Potassium 4.3 Chloride 100 Carbon Dioxide 31 Anion Gap 6 L BUN 18 Creatinine 0.9 Creat Clearance w eGFR 79.82 POC Glucometer 131 Random Glucose 134 H Calcium 9.8 Phosphorus Magnesium Total Bilirubin 0.6 AST 29 ALT 31 Alkaline Phosphatase 87 Total Protein 7.9 Albumin 4.0 03/07/19 03/07/19 03/07/19 06:00 06:00 06:48 WBC 8.7 RBC 4.17 Hgb 13.3 Hct 40.3 MCV 96.6 H MCH 32.0 MCHC 33.1 RDW 14.2 Plt Count 208 MPV 9.0 Absolute Neuts (auto) 4.9 Neutrophils % 56.9 D Lymphocytes % 21.9 D Monocytes % 18.6 H Eosinophils % 1.8 D Basophils % 0.8 Nucleated RBC % 0 Sodium 136 Potassium 4.2 Chloride 101 Carbon Dioxide 29 Anion Gap 6 L BUN 14 Creatinine 0.8 Creat Clearance w eGFR 91.44 POC Glucometer 135 Random Glucose 115 H Calcium 8.9 Phosphorus 3.2 Magnesium 2.2 Total Bilirubin 0.6 AST 21 ALT 24 Alkaline Phosphatase 73 Total Protein 6.8 Albumin 3.3 L 03/07/19 11:08 WBC RBC Hgb Hct MCV MCH MCHC RDW Plt Count MPV Absolute Neuts (auto) Neutrophils % Lymphocytes % Monocytes % Eosinophils % Basophils % Nucleated RBC % Sodium Potassium Chloride Carbon Dioxide Anion Gap BUN Creatinine Creat Clearance w eGFR POC Glucometer 167 Random Glucose Calcium Phosphorus Magnesium Total Bilirubin AST ALT Alkaline Phosphatase Total Protein Albumin Active Medications Generic Name Dose Route Start Last Admin Trade Name Freq PRN Reason Stop Dose Admin Acetaminophen 650 mg 03/06/19 17:44 03/06/19 22:06 Tylenol - PO 650 mg Q6H PRN Administration PAIN Aspirin 162 mg 03/07/19 10:00 03/07/19 09:24 Ecotrin - PO 162 mg DAILY [facility] Administration Heparin Sodium (Porcine) 5,000 unit 03/06/19 18:00 03/07/19 09:24 Heparin - SQ 5,000 unit Q8H-IV [facility] Administration Clindamycin Phosphate 600 mg in 50 mls @ 100 mls/hr 03/06/19 22:30 03/07/19 09:24 Cleocin 600 Mg Premix Ivpb - IVPB 100 mls/hr Q8H-IV [facility] Administration Protocol Insulin Aspart 1 vial 03/06/19 22:00 03/07/19 11:58 Novolog Vial Sliding Scale - SQ 2 units ACHS [facility] Administration Protocol Lactobacillus Acidophilus 1 tab 03/07/19 10:00 03/07/19 09:24 Bacid - PO 1 tab DAILY [facility] Administration Levothyroxine Sodium 200 mcg 03/07/19 07:00 03/07/19 06:50 Synthroid - PO 200 mcg AM [facility] Administration Tamsulosin HCl 0.4 mg 03/06/19 22:00 03/07/19 00:42 Flomax - PO Not Given HS [facility] ASSESSMENT/PLAN: 88 y/o M w/PMH of DM, COPD, CHF, HLD, HTN, CAD (s/p stents 20 years ago) admitted for cellulitis on face. -Cellulitis of face -Close monitoring of cellulitis -unasyn/vanco -Head CT -ID consult -DM -BGMs, ISS ACHS -HTN -Losartan 50mg po qd is his home dose -Restart on low dose if needed overnight. CUrrently normotensive -Hypothyroidism -c/w synthroid 200mcg qd -BPH -c/w flomax 0.4mg qhs -CAD -c/w ASA 162 mg qd -DVT ppx -Heparin 5000 units sq q8h -FEN -no fluids -monitor electrolytes -diabetic sodium controlled diet -Dispo: Admit to m/s Visit type - Emergency Visit Emergency Visit: Yes ED Registration Date: 03/06/19 Care time: The patient presented to the Emergency Department on the above date and was hospitalized for further evaluation of their emergent condition. - New Patient This patient is new to me today: No - Critical Care Critical Care patient: No
--- NOTE | 2019-03-07 16:00 | PN ---
Progress Note (short form) - Note Progress Note: ID CONSULT DICTATED L FACIAL CELLULITIS ? L MAXILLARY SINUSITIS ?ERYSIPELAS DOES NOT FOLLOW DERMATOMAL DISTRIBUTION BLOOD C/S NARES SWAB MRSA EMPIRIC UNASYN/ VANCOMYCIN
[2019-03-07] MEDS ORDERED: AMPICILLIN NA/SULBACTAM NA 1.5 GM in SODIUM CHLORIDE 100 ML IVPB SCH (16:15)
--- NOTE | 2019-03-07 16:41 | CONS ---
DATE OF CONSULTATION: DATE OF DICTATION: 03/07/2019 HISTORY OF PRESENT ILLNESS: The patient is an 88-year-old male with history of diabetes mellitus, evaluated for facial cellulitis. Patient states that approximately 3 days prior to admission he developed a burning sensation on the top of his head. He initially attributed it to a sunburn; however, it was an overcast day. He subsequently developed worsening erythema and swelling of the left face involving the left malar area, extending to the left ear and the left periorbital area. He states he had a pustule on the angle of the jaw on the left side but denies any obvious skin infection. No trauma was reported. He denied any associated fever or chills. No sinus complaints or dental complaints. He has had no change in his visual acuity or disturbance of his extraocular muscles. No vesicular lesions were noted. He denies a prior history of soft tissue infection requiring hospitalization or history of MRSA. PAST MEDICAL HISTORY: Positive for diabetes mellitus, hypertension, hyperlipidemia, coronary artery disease. ALLERGIES: No known allergies. MEDICATIONS: Aspirin, Avodart, Toprol, Altace, Flomax, metformin, Zetia, Synthroid, Lasix. SOCIAL HISTORY: Lives at home with his significant other. Former smoker. REVIEW OF SYSTEMS: Neurologic: No loss of consciousness, seizure activity, focal weakness. Cardiac: Negative chest pain or palpitations. Respiratory: Negative cough or sputum production. Gastrointestinal: Negative vomiting or diarrhea. Genitourinary: Negative for urinary tract infection. LABORATORY DATA: White count 8.7, hematocrit 40.3, platelets 208. BUN 14, creatinine 0.8. CAT scan of the facial bones pending. PHYSICAL EXAMINATION: General: He is awake and alert, seated in bed, in no acute distress, not acutely toxic appearing. Vital Signs: Temperature 97.7, blood pressure 136/80; pulse 87, regular; respirations 18 per minute. HEENT: Sclerae are anicteric. Examination of the face, there is intense erythema involving the left malar area extending to the left pinna and to the left supraorbital area. No vesicular lesions in the auditory canal were noted. No pustular lesions noted. Area is tender to touch and warm. Extraocular muscles are intact. Oropharynx negative. Neck: Supple. Cardiovascular: Heart sounds S1, S2. Lungs: Clear. Abdomen: Soft and nontender. Extremities: Positive for edema. IMPRESSION: 1. Left facial cellulitis. 2. Rule out left maxillary sinusitis. Etiology of facial cellulitis not clear. Whether it originates from a skin lesion versus left maxillary sinusitis. Clinical appearance is that of erysipelas. Skin involvement does not appear to follow a dermatomal distribution. Obtain blood cultures, nares swab for methicillin-resistant Staphylococcus aureus, empiric antibiotic coverage, Unasyn and vancomycin. Analgesics. Will follow. Thank you for the kind referral. CAROLYN THOMAS M.D. LUIS [id number]
[2019-03-07] MEDS ORDERED: SODIUM CHLORIDE 100 ML IVPB ONE ×2 (16:43→20:31)
[2019-03-07] MEDS ORDERED: AMPICILLIN NA/SULBACTAM NA 1.5 GM VIAL ONE ×2 (16:43→20:31)
[2019-03-07] MEDS: AMPICILLIN NA/SULBACTAM NA 1.5 GM in SODIUM CHLORIDE 100 ML IVPB SCH ×2 (16:50→20:34)
[2019-03-07] MEDS: VANCOMYCIN 1 GRAM (PRE-DOCKED) 1,000 MG/250 ML BAG IVPB SCH (17:25)
--- NOTE | 2019-03-07 18:37 | PN ---
Teaching Attending Note Name of Resident: Valentino Varghese ATTENDING PHYSICIAN STATEMENT I saw and evaluated the patient. I reviewed the resident's note and discussed the case with the resident. I agree with the resident's findings and plan as documented with exceptions below. SUBJECTIVE: patient seen and examined. reports worsening redness on left face, no pain, fevers/chills, pain with eye movements or visual symptoms. OBJECTIVE: Vital Signs Period Temp Pulse Resp BP Sys/Francisco Pulse Ox Last 24 Hr 97.7 F-100.3 F 64-96 16-20 106-138/60-80 93-100 Intake & Output 03/04/19 03/05/19 03/06/19 03/07/19 23:59 23:59 23:59 23:59 Intake Total 1070 Balance 1070 Weight 243 lb 8 oz General: sitting in wheelchair,no acute distress HEENT: erythema left cheek, left lower cole-orbital region, left external ear, EOMI, PERRL, no maxillary tenderness, no ear canal discharge or erythema noted Chest: CTAB, no rales or wheezing Abdomen;Soft, obese, NT Extremities: no edema Home Medications Medication Instructions Recorded Aspirin Coated [Ecotrin -] 325 mg PO HS 08/23/15 Dutasteride [Avodart] 0.5 mg PO DAILY 08/23/15 Metoprolol Succinate [Toprol Xl] 50 mg PO DAILY 08/23/15 Ramipril [Altace] 2.5 mg PO HS 08/23/15 Tamsulosin HCl [Flomax -] 0.4 mg PO HS 08/23/15 metFORMIN HCL [Metformin ER 500 mg PO BID 08/23/15 Osmotic] Ezetimibe [Zetia] 10 mg PO DAILY 09/26/18 Levothyroxine Sodium [Synthroid] 200 mcg PO DAILY 09/26/18 Furosemide [Lasix] 20 mg PO DAILY #30 tablet 09/28/18 Methylprednisolone [Medrol Dose 4 mg PO ASDIR #21 tablet 09/28/18 Tramaine] Active Medications Acetaminophen (Tylenol -) 650 mg PO Q6H PRN PRN Reason: PAIN Last Admin: 03/06/19 22:06 Dose: 650 mg Aspirin (Ecotrin -) 162 mg PO DAILY [facility] Last Admin: 03/07/19 09:24 Dose: 162 mg Heparin Sodium (Porcine) (Heparin -) 5,000 unit SQ Q8H-IV [facility] Last Admin: 03/07/19 17:39 Dose: 5,000 unit Vancomycin HCl (Vancomycin (Pre-Docked)) 1,000 mg in 250 mls @ 166.667 mls/hr IVPB Q12H [facility]; Protocol Last Admin: 03/07/19 17:25 Dose: 166.667 mls/hr Ampicillin Sodium/Sulbactam (Sodium 1.5 gm/ Sodium Chloride) 100 mls @ 200 mls/ hr IVPB Q6H-IV [facility] Last Admin: 03/07/19 16:50 Dose: 200 mls/hr Insulin Aspart (Novolog Vial Sliding Scale -) 1 vial SQ ACHS [facility]; Protocol Last Admin: 03/07/19 16:42 Dose: Not Given Lactobacillus Acidophilus (Bacid -) 1 tab PO DAILY [facility] Last Admin: 03/07/19 09:24 Dose: 1 tab Levothyroxine Sodium (Synthroid -) 200 mcg PO AM [facility] Last Admin: 03/07/19 06:50 Dose: 200 mcg Tamsulosin HCl (Flomax -) 0.4 mg PO HS [facility] Last Admin: 03/07/19 00:42 Dose: Not Given Laboratory Results - last 24 hr 03/06/19 03/07/19 03/07/19 23:58 06:00 06:00 WBC 8.7 RBC 4.17 Hgb 13.3 Hct 40.3 MCV 96.6 H MCH 32.0 MCHC 33.1 RDW 14.2 Plt Count 208 MPV 9.0 Absolute Neuts (auto) 4.9 Neutrophils % 56.9 D Lymphocytes % 21.9 D Monocytes % 18.6 H Eosinophils % 1.8 D Basophils % 0.8 Nucleated RBC % 0 Sodium 136 Potassium 4.2 Chloride 101 Carbon Dioxide 29 Anion Gap 6 L BUN 14 Creatinine 0.8 Creat Clearance w eGFR 91.44 POC Glucometer 131 Random Glucose 115 H Calcium 8.9 Phosphorus 3.2 Magnesium 2.2 Total Bilirubin 0.6 AST 21 ALT 24 Alkaline Phosphatase 73 Total Protein 6.8 Albumin 3.3 L 03/07/19 03/07/19 03/07/19 06:48 11:08 16:27 WBC RBC Hgb Hct MCV MCH MCHC RDW Plt Count MPV Absolute Neuts (auto) Neutrophils % Lymphocytes % Monocytes % Eosinophils % Basophils % Nucleated RBC % Sodium Potassium Chloride Carbon Dioxide Anion Gap BUN Creatinine Creat Clearance w eGFR POC Glucometer 135 167 118 Random Glucose Calcium Phosphorus Magnesium Total Bilirubin AST ALT Alkaline Phosphatase Total Protein Albumin CT face results pending ASSESSMENT AND PLAN: 88 yom with PMHx of DM, COPD, CHF, HLD, HTN, CAD (s/p stents 20 years ago) admitted with left facial cellulitis -Left facial cellulitis, r/o erysipelas, r/o maxillary sinusitis, low suspicion for herpes as does not follow dermatome and no pain concerns -NIDDM -COPD -Chronic diastolic HF -HTN -HLD -CAD s/p PCI 20 years ago Plan: Per patient, erythema progressing. CT face. ID input noted. Unasyn/vancomycin. MRSA screen Follow up blood cx. Hold metformin. ISS Hold lasix/ACEi for now. Resume based on clinical course Continue levothyroxine/ASA/flomax DVTPPX heparin Dispo pending clinical improvement. Plan discussed patient and family at bedside in detail, all questions answered.
[2019-03-08] MEDS ORDERED: AMPICILLIN NA/SULBACTAM NA 1.5 GM VIAL ONE ×4 (02:21→20:10)
[2019-03-08] MEDS ORDERED: SODIUM CHLORIDE 100 ML IVPB ONE ×4 (02:21→20:10)
[2019-03-08] MEDS: HEPARIN NA (PORCINE) 5,000 UNITS/ML 1ML VIAL SQ SCH ×3 (02:35→17:13)
[2019-03-08] MEDS: AMPICILLIN NA/SULBACTAM NA 1.5 GM in SODIUM CHLORIDE 100 ML IVPB SCH ×5 (02:35→20:49)
[2019-03-08] MEDS: VANCOMYCIN 1 GRAM (PRE-DOCKED) 1,000 MG/250 ML BAG IVPB SCH ×2 (03:32→15:49)
[2019-03-08] MEDS: LEVOTHYROXINE NA 100 MCG TABLET (FP) PO SCH (06:32)
[2019-03-08] MEDS: INSULIN SLIDING SCALE (NOVOLOG) 1 VIAL SQ SCH ×3 (06:32→17:41)
[2019-03-08 07:37] LABS: BASO % 1.1 % (0-2.0); EOS % 3.7 % (0-4.5); HEMATOCRIT 40.3 % (35.4-49); HEMOGLOBIN 13.3 GM/dL (11.7-16.9); LYMPH % 31.5 % (8-40); MCHC 33.1 g/dl (32.0-35.9); MEAN CELL VOLUME 96.8 fl (80-96); MEAN PLT VOLUME 8.9 fl (7.5-11.1); MONO % 16.8 % (3.8-10.2); NEUT % 46.9 % (42.8-82.8); PLATELET COUNT 207 K/MM3 (134-434); RBC 4.17 M/mm3 (4.00-5.60); RDW 14.1 % (11.9-15.9); WHITE BLOOD COUNT 6.2 K/mm3 (4.0-10.0)
[2019-03-08 08:02] LABS: ALBUMIN 3.2 g/dl (3.4-5.0); CALCIUM 9.4 mg/dL (8.5-10.1); CREATININE 0.8 mg/dL (0.55-1.3); MAGNESIUM 2.2 mg/dL (1.8-2.4); PHOSPHOROUS 3.3 mg/dL (2.5-4.9); POTASSIUM 4.1 mmol/L (3.5-5.1)
--- NOTE | 2019-03-08 08:59 | PN ---
Progress Note (short form) - Note Progress Note: Hospitalist to document today. Rash improved; Air-fluid level left maxillary sinus: ENT.
[2019-03-08] MEDS: LACTOBACILLUS ACIDOPHILUS 1 TABLET PO SCH (10:35)
[2019-03-08] MEDS: ASPIRIN COATED 81 MG TABLET.EC PO SCH (10:35)
[2019-03-08] MEDS: DUTASTERIDE 0.5 MG CAP (FP) PO SCH (10:36)
[2019-03-08 12:04] VITALS: BMI 36.9
--- NOTE | 2019-03-08 12:59 | PN ---
Progress Note, Physician History of Present Illness: AWAKE, ALERT SEATED IN BED NO C/O FACIAL PAIN NO C/O FEVER/ CHILLS AFEBRILE WBC WNL - Current Medication List Current Medications: Active Medications Acetaminophen (Tylenol -) 650 mg PO Q6H PRN PRN Reason: PAIN Last Admin: 03/06/19 22:06 Dose: 650 mg Aspirin (Ecotrin -) 162 mg PO DAILY [facility] Last Admin: 03/08/19 10:35 Dose: 162 mg Dutasteride (Avodart -) 0.5 mg PO DAILY [facility] Last Admin: 03/08/19 10:36 Dose: 0.5 mg Heparin Sodium (Porcine) (Heparin -) 5,000 unit SQ Q8H-IV [facility] Last Admin: 03/08/19 10:35 Dose: 5,000 unit Vancomycin HCl (Vancomycin (Pre-Docked)) 1,000 mg in 250 mls @ 166.667 mls/hr IVPB Q12H [facility]; Protocol Last Admin: 03/08/19 03:32 Dose: 166.667 mls/hr Ampicillin Sodium/Sulbactam (Sodium 1.5 gm/ Sodium Chloride) 100 mls @ 200 mls/ hr IVPB Q6H-IV [facility] Last Admin: 03/08/19 10:35 Dose: 200 mls/hr Insulin Aspart (Novolog Vial Sliding Scale -) 1 vial SQ ACHS [facility]; Protocol Last Admin: 03/08/19 12:17 Dose: Not Given Lactobacillus Acidophilus (Bacid -) 1 tab PO DAILY [facility] Last Admin: 03/08/19 10:35 Dose: 1 tab Levothyroxine Sodium (Synthroid -) 200 mcg PO AM [facility] Last Admin: 03/08/19 06:32 Dose: 200 mcg Tamsulosin HCl (Flomax -) 0.4 mg PO HS [facility] Last Admin: 03/07/19 21:28 Dose: 0.4 mg - Objective Vital Signs: Vital Signs Temperature 98.1 F 03/08/19 06:00 Pulse Rate 67 03/08/19 06:00 Respiratory Rate 20 03/08/19 06:00 Blood Pressure 132/54 L 03/08/19 06:00 O2 Sat by Pulse Oximetry (%) 98 03/07/19 21:00 Constitutional: Yes: No Distress Eyes: Yes: Conjunctiva Clear HENT: Yes: Other (DECREASED L FACIAL ERYTHEMA) Cardiovascular: Yes: Regular Rate and Rhythm, S1, S2 Respiratory: Yes: CTA Bilaterally Gastrointestinal: Yes: Normal Bowel Sounds, Soft. No: Tenderness Labs: CBC, BMP 03/08/19 06:40 03/08/19 06:40 Assessment/Plan L FACIAL CELLULITIS IMPROVED L MAXILLARY SINUSITIS CONTINUE UNASYN/ VANCOMYCIN
--- NOTE | 2019-03-08 16:13 | PN ---
Teaching Attending Note Name of Resident: Valentino Varghese ATTENDING PHYSICIAN STATEMENT I saw and evaluated the patient. I reviewed the resident's note and discussed the case with the resident. I agree with the resident's findings and plan as documented with exceptions below. SUBJECTIVE: Patient seen and examined. Left face symptoms improved. No new complaints. OBJECTIVE: Vital Signs Period Temp Pulse Resp BP Sys/Francisco Pulse Ox Last 24 Hr 97.7 F-98.1 F 64-67 20-20 116-138/54-78 98 Intake & Output 03/05/19 03/06/19 03/07/19 03/08/19 23:59 23:59 23:59 23:59 Intake Total 1820 550 Output Total 250 300 Balance 1570 250 Weight 243 lb 8 oz 243 lb General: lying in bed in no acute distress HEENT: left facial erythema improved, EOMI, PERRL, no maxillary tenderness Chest: CTAB, no rales or wheezing Abdomen:soft, NT, ND Extremities: no edema Home Medications Medication Instructions Recorded Aspirin Coated [Ecotrin -] 325 mg PO HS 08/23/15 Dutasteride [Avodart] 0.5 mg PO DAILY 08/23/15 Tamsulosin HCl [Flomax -] 0.4 mg PO HS 08/23/15 metFORMIN HCL [Metformin ER 500 mg PO BID 08/23/15 Osmotic] Ezetimibe [Zetia] 10 mg PO DAILY 09/26/18 Levothyroxine Sodium [Synthroid] 200 mcg PO DAILY 09/26/18 Furosemide [Lasix] 20 mg PO DAILY #30 tablet 09/28/18 Dutasteride [Avodart] 0.5 mg PO DAILY 03/07/19 Losartan Potassium 50 mg PO DAILY 03/07/19 Active Medications Acetaminophen (Tylenol -) 650 mg PO Q6H PRN PRN Reason: PAIN Last Admin: 03/06/19 22:06 Dose: 650 mg Aspirin (Ecotrin -) 162 mg PO DAILY [facility] Last Admin: 03/08/19 10:35 Dose: 162 mg Dutasteride (Avodart -) 0.5 mg PO DAILY [facility] Last Admin: 03/08/19 10:36 Dose: 0.5 mg Heparin Sodium (Porcine) (Heparin -) 5,000 unit SQ Q8H-IV [facility] Last Admin: 03/08/19 10:35 Dose: 5,000 unit Vancomycin HCl (Vancomycin (Pre-Docked)) 1,000 mg in 250 mls @ 166.667 mls/hr IVPB Q12H [facility]; Protocol Last Admin: 03/08/19 15:49 Dose: 166.667 mls/hr Ampicillin Sodium/Sulbactam (Sodium 1.5 gm/ Sodium Chloride) 100 mls @ 200 mls/ hr IVPB Q6H-IV [facility] Last Admin: 03/08/19 15:09 Dose: 200 mls/hr Insulin Aspart (Novolog Vial Sliding Scale -) 1 vial SQ ACHS [facility]; Protocol Last Admin: 03/08/19 12:17 Dose: Not Given Lactobacillus Acidophilus (Bacid -) 1 tab PO DAILY [facility] Last Admin: 03/08/19 10:35 Dose: 1 tab Levothyroxine Sodium (Synthroid -) 200 mcg PO AM [facility] Last Admin: 03/08/19 06:32 Dose: 200 mcg Tamsulosin HCl (Flomax -) 0.4 mg PO HS [facility] Last Admin: 03/07/19 21:28 Dose: 0.4 mg Laboratory Results - last 24 hr 03/07/19 03/07/19 03/08/19 16:27 21:29 06:25 WBC RBC Hgb Hct MCV MCH MCHC RDW Plt Count MPV Absolute Neuts (auto) Neutrophils % Lymphocytes % Monocytes % Eosinophils % Basophils % Nucleated RBC % Sodium Potassium Chloride Carbon Dioxide Anion Gap BUN Creatinine Est GFR (CKD-EPI)AfAm Est GFR (CKD-EPI)NonAf POC Glucometer 118 132 183 Random Glucose Calcium Phosphorus Magnesium Albumin 03/08/19 03/08/19 03/08/19 06:40 06:40 12:16 WBC 6.2 RBC 4.17 Hgb 13.3 Hct 40.3 MCV 96.8 H MCH 32.0 MCHC 33.1 RDW 14.1 Plt Count 207 MPV 8.9 Absolute Neuts (auto) 2.9 Neutrophils % 46.9 Lymphocytes % 31.5 D Monocytes % 16.8 H Eosinophils % 3.7 D Basophils % 1.1 Nucleated RBC % 0 Sodium 136 Potassium 4.1 Chloride 102 Carbon Dioxide 26 Anion Gap 8 BUN 15 Creatinine 0.8 Est GFR (CKD-EPI)AfAm 93.09 Est GFR (CKD-EPI)NonAf 80.32 POC Glucometer 116 Random Glucose 171 H Calcium 9.4 Phosphorus 3.3 Magnesium 2.[address] Face results reviewed ASSESSMENT AND PLAN: 88 yom with PMHx of DM, COPD, CHF, HLD, HTN, CAD (s/p stents 20 years ago) admitted with left facial cellulitis -Left facial cellulitis, -Left maxillary sinusitis -NIDDM -COPD -Chronic diastolic HF -HTN -HLD -CAD s/p PCI 20 years ago Plan: Improved. ID input noted. Unasyn/vancomycin. Dispo d/c in 24-48 hours on pO abx if continues to improve. Plan discussed with patient in detail, all questions answered.
--- NOTE | 2019-03-08 18:31 | PN ---
Physical Exam: SUBJECTIVE: Patient seen and examined at bedside. Feels much better with facial warmth. OBJECTIVE: Vital Signs Temperature 98.1 F 03/08/19 06:00 Pulse Rate 67 03/08/19 06:00 Respiratory Rate 20 03/08/19 06:00 Blood Pressure 132/54 L 03/08/19 06:00 O2 Sat by Pulse Oximetry (%) 98 03/07/19 21:00 GENERAL: Awake, alert, and fully oriented, in no acute distress. HEAD: Erythema and warmth of skin mostly on L side of face much improved EYES: Pupils equal, round and reactive to light, extraocular movements intact. LUNGS: Breath sounds equal, clear to auscultation bilaterally. HEART: Regular rate and rhythm, normal S1 and S2 ABDOMEN: Soft, nontender, not distended, normoactive bowel sounds LOWER EXTREMITIES: warm, well-perfused. NEUROLOGICAL: Cranial nerves II-XII grosslyintact. Normal speech. PSYCHIATRIC: Cooperative. Good eye contact. Appropriate mood and affect. SKIN: Warm, dry, Erythema and warmth of skin mostly on L side of face. Much improved. No skin breaks noted. Laboratory Results - last 24 hr 03/07/19 03/08/19 03/08/19 21:29 06:25 06:40 WBC 6.2 RBC 4.17 Hgb 13.3 Hct 40.3 MCV 96.8 H MCH 32.0 MCHC 33.1 RDW 14.1 Plt Count 207 MPV 8.9 Absolute Neuts (auto) 2.9 Neutrophils % 46.9 Lymphocytes % 31.5 D Monocytes % 16.8 H Eosinophils % 3.7 D Basophils % 1.1 Nucleated RBC % 0 Sodium Potassium Chloride Carbon Dioxide Anion Gap BUN Creatinine Est GFR (CKD-EPI)AfAm Est GFR (CKD-EPI)NonAf POC Glucometer 132 183 Random Glucose Calcium Phosphorus Magnesium Albumin 03/08/19 03/08/19 03/08/19 06:40 12:16 17:19 WBC RBC Hgb Hct MCV MCH MCHC RDW Plt Count MPV Absolute Neuts (auto) Neutrophils % Lymphocytes % Monocytes % Eosinophils % Basophils % Nucleated RBC % Sodium 136 Potassium 4.1 Chloride 102 Carbon Dioxide 26 Anion Gap 8 BUN 15 Creatinine 0.8 Est GFR (CKD-EPI)AfAm 93.09 Est GFR (CKD-EPI)NonAf 80.32 POC Glucometer 116 150 Random Glucose 171 H Calcium 9.4 Phosphorus 3.3 Magnesium 2.2 Albumin 3.2 L Active Medications Generic Name Dose Route Start Last Admin Trade Name Alexisq PRN Reason Stop Dose Admin Acetaminophen 650 mg 03/06/19 17:44 03/06/19 22:06 Tylenol - PO 650 mg Q6H PRN Administration PAIN Aspirin 162 mg 03/07/19 10:00 03/08/19 10:35 Ecotrin - PO 162 mg DAILY [facility] Administration Dutasteride 0.5 mg 03/08/19 10:00 03/08/19 10:36 Avodart - PO 0.5 mg DAILY [facility] Administration Heparin Sodium (Porcine) 5,000 unit 03/06/19 18:00 03/08/19 17:13 Heparin - SQ 5,000 unit Q8H-IV [facility] Administration Vancomycin HCl 1,000 mg in 250 mls @ 166.667 mls/hr 03/07/19 16:15 03/08/19 15:49 Vancomycin (Pre-Docked) IVPB 166.667 mls/hr Q12H [facility] Administration Protocol Ampicillin Sodium/Sulbactam 100 mls @ 200 mls/hr 03/07/19 16:30 03/08/19 15: 09 Sodium 1.5 gm/ Sodium Chloride IVPB 200 mls/hr Q6H-IV [facility] Administration Insulin Aspart 1 vial 03/06/19 22:00 03/08/19 17:41 Novolog Vial Sliding Scale - SQ 2 units ACHS [facility] Administration Protocol Lactobacillus Acidophilus 1 tab 03/07/19 10:00 03/08/19 10:35 Bacid - PO 1 tab DAILY [facility] Administration Levothyroxine Sodium 200 mcg 03/07/19 07:00 03/08/19 06:32 Synthroid - PO 200 mcg AM [facility] Administration Tamsulosin HCl 0.4 mg 03/06/19 22:00 03/07/19 21:28 Flomax - PO 0.4 mg HS [facility] Administration ASSESSMENT/PLAN: 88 y/o M w/PMH of DM, COPD, CHF, HLD, HTN, CAD (s/p stents 20 years ago) admitted for cellulitis on face. -Cellulitis of face -Close monitoring of cellulitis, improving -unasyn/vanco -Head CT -ID consult -DM -BGMs, ISS ACHS -HTN -Losartan 50mg po qd is his home dose -Restart on low dose if needed overnight. Currently normotensive -Hypothyroidism -c/w synthroid 200mcg qd -BPH -c/w flomax 0.4mg qhs -CAD -c/w ASA 162 mg qd -DVT ppx -Heparin 5000 units sq q8h -FEN -no fluids -monitor electrolytes -diabetic sodium controlled diet -Dispo: Admit to m/s Visit type - Emergency Visit Emergency Visit: Yes ED Registration Date: 03/06/19 Care time: The patient presented to the Emergency Department on the above date and was hospitalized for further evaluation of their emergent condition. - New Patient This patient is new to me today: No - Critical Care Critical Care patient: No
[2019-03-08] MEDS ORDERED: PT OWN MED DRAWER 7, Y5N ONE (20:14)
[2019-03-08] MEDS: TAMSULOSIN HCL 0.4 MG CAP PO SCH (22:11)
[2019-03-09] MEDS ORDERED: SODIUM CHLORIDE 100 ML IVPB ONE ×3 (00:24→13:01)
[2019-03-09] MEDS ORDERED: AMPICILLIN NA/SULBACTAM NA 1.5 GM VIAL ONE ×3 (00:24→13:01)
[2019-03-09] MEDS: HEPARIN NA (PORCINE) 5,000 UNITS/ML 1ML VIAL SQ SCH ×3 (01:54→18:09)
[2019-03-09] MEDS: AMPICILLIN NA/SULBACTAM NA 1.5 GM in SODIUM CHLORIDE 100 ML IVPB SCH ×3 (02:19→14:52)
[2019-03-09] MEDS: VANCOMYCIN 1 GRAM (PRE-DOCKED) 1,000 MG/250 ML BAG IVPB SCH ×2 (03:53→15:28)
[2019-03-09] MEDS: LEVOTHYROXINE NA 100 MCG TABLET (FP) PO SCH (06:15)
[2019-03-09] MEDS: INSULIN SLIDING SCALE (NOVOLOG) 1 VIAL SQ SCH ×3 (06:45→16:10)
[2019-03-09] MEDS: LACTOBACILLUS ACIDOPHILUS 1 TABLET PO SCH (09:08)
[2019-03-09] MEDS: DUTASTERIDE 0.5 MG CAP (FP) PO SCH (09:08)
[2019-03-09] MEDS: ASPIRIN COATED 81 MG TABLET.EC PO SCH (09:09)
--- NOTE | 2019-03-09 10:00 | PN ---
Progress Note (short form) - Note Progress Note: Hospitalist to document today. Still redness and warmth over left facial rash. Excoriations on ear lobe that bled may have been the source of the Cellulitis. Patient awaiting ENT visit.
--- NOTE | 2019-03-09 11:08 | PN ---
Progress Note, Physician History of Present Illness: AWAKE, ALERT SEATED IN BED NO C/O FACIAL PAIN NO C/O FEVER/ CHILLS AFEBRILE WBC WNL - Current Medication List Current Medications: Active Medications Acetaminophen (Tylenol -) 650 mg PO Q6H PRN PRN Reason: PAIN Last Admin: 03/06/19 22:06 Dose: 650 mg Aspirin (Ecotrin -) 162 mg PO DAILY [facility] Last Admin: 03/09/19 09:09 Dose: 162 mg Dutasteride (Avodart -) 0.5 mg PO DAILY [facility] Last Admin: 03/09/19 09:08 Dose: 0.5 mg Heparin Sodium (Porcine) (Heparin -) 5,000 unit SQ Q8H-IV [facility] Last Admin: 03/09/19 09:09 Dose: 5,000 unit Vancomycin HCl (Vancomycin (Pre-Docked)) 1,000 mg in 250 mls @ 166.667 mls/hr IVPB Q12H [facility]; Protocol Last Admin: 03/09/19 03:53 Dose: 166.667 mls/hr Ampicillin Sodium/Sulbactam (Sodium 1.5 gm/ Sodium Chloride) 100 mls @ 200 mls/ hr IVPB Q6H-IV [facility] Last Admin: 03/09/19 09:07 Dose: 200 mls/hr Insulin Aspart (Novolog Vial Sliding Scale -) 1 vial SQ ACHS [facility]; Protocol Last Admin: 03/09/19 06:45 Dose: Not Given Lactobacillus Acidophilus (Bacid -) 1 tab PO DAILY [facility] Last Admin: 03/09/19 09:08 Dose: 1 tab Levothyroxine Sodium (Synthroid -) 200 mcg PO AM [facility] Last Admin: 03/09/19 06:15 Dose: 200 mcg Tamsulosin HCl (Flomax -) 0.4 mg PO HS [facility] Last Admin: 03/08/19 22:11 Dose: 0.4 mg - Objective Vital Signs: Vital Signs Temperature 98.4 F 03/09/19 09:50 Pulse Rate 69 03/09/19 09:50 Respiratory Rate 20 03/09/19 09:50 Blood Pressure 137/70 03/09/19 09:50 O2 Sat by Pulse Oximetry (%) 95 03/09/19 09:00 Constitutional: Yes: No Distress Eyes: Yes: Conjunctiva Clear HENT: Yes: Other (ERYTHEMA IMPROVED; LIMITED TO L MALAR AREA. DECREASED SWELLING ) Cardiovascular: Yes: Regular Rate and Rhythm, S1, S2 Respiratory: Yes: CTA Bilaterally Gastrointestinal: Yes: Normal Bowel Sounds, Soft. No: Tenderness Labs: CBC, BMP 03/08/19 06:40 03/08/19 06:40 Assessment/Plan L FACIAL CELLULITIS IMPROVED L MAXILLARY SINUSITIS SUBSTITUTE AUGMENTIN 875MG PO BID X 7D
[2019-03-09] MEDS ORDERED: INSULIN (NOVOLOG) ASPART 100 UNITS/ML 10ML VIAL ONE (11:30)
[2019-03-09 15:10] VITALS: TEMP 98
--- NOTE | 2019-03-09 15:21 | DS ---
Physical Exam: SUBJECTIVE: Patient seen and examined at bedside. Continues to feel better with decreased redness on face. OBJECTIVE: Vital Signs Period Temp Pulse Resp BP Sys/Francisco Pulse Ox Last 24 Hr 97.5 F-98.4 F 58-81 18-20 125-160/59-87 95-98 PHYSICAL EXAM GENERAL: Awake, alert, and fully oriented, in no acute distress. HEAD: Erythema and warmth of skin mostly on L side of face much improved EYES: Pupils equal, round and reactive to light, extraocular movements intact. LUNGS: Breath sounds equal, clear to auscultation bilaterally. HEART: Regular rate and rhythm, normal S1 and S2 ABDOMEN: Soft, nontender, not distended, normoactive bowel sounds LOWER EXTREMITIES: warm, well-perfused. NEUROLOGICAL: Cranial nerves II-XII grosslyintact. Normal speech. PSYCHIATRIC: Cooperative. Good eye contact. Appropriate mood and affect. SKIN: Warm, dry, Erythema much improved on L side of face. No skin breaks noted. LABS Laboratory Results - last 24 hr 03/08/19 03/08/19 03/09/19 17:19 20:46 06:40 POC Glucometer 150 129 142 03/09/19 11:28 POC Glucometer 174 HOSPITAL COURSE: Date of Admission:03/06/19 Date of Discharge: 03/09/19 88 y/o M w/PMH of DM, COPD, CHF, HLD, HTN, CAD (s/p stents 20 years ago) presented to the ER from urgent care and found to have cellulitis of the L side of his face mostly. He was treated with abx, initially with clinda with worsening of cellulitis and switched to unasyn and vanco by ID which showed rapid improvement of his cellulitis. Facial bones CT was done which showed acute sinusitis in L maxillary sinus. Pt had no sinusitis symptoms though. He continued to improve and was discharged on augmentin 875mg bid for 7 additional days. He is to f/u with PCP within 1 week and to f/u with ENT within the next 1- 2 weeks Minutes to complete discharge: 45 Discharge Summary Reason For Visit: CELLULITIS OF FACE Current Active Problems Facial cellulitis (Acute) Condition: Stable - Instructions Diet, Activity, Other Instructions: You were found to have cellulitis of the skin on your face. On the CAT scan of your head it was also found that you have acute sinusitis. MEDICATIONS: -You will need to continue taking AUGMENTIN 875 mg by mouth twice a day for 7 more days. Make sure to finish the antibiotics. It has been sent to your pharmacy. INSTRUCTIONS: -Make sure to avoid cuts on your face and maintain good hand hygiene. -You will need to follow up with your primary care doctor within 1 week. -Follow with your primary care physician within 1 week. -Follow with ENT doctor for your sinuses (Dr. Alba) WARNING SIGNS: If your condition worsens or if you develop fevers, chills, change in mental status, pain with eye movement, discharge from the eye, change in vision, blurry vision come back to the hospital. Referrals: Ramez Dubon MD [Staff Physician] - Cruz Alba MD [Staff Physician] - Disposition: HOME - Home Medications Comprehensive Discharge Medication List: Ambulatory Orders Aspirin Coated [Ecotrin -] 325 mg PO HS 08/23/15 Dutasteride [Avodart] 0.5 mg PO DAILY 08/23/15 Tamsulosin HCl [Flomax -] 0.4 mg PO HS 08/23/15 metFORMIN HCL [Metformin ER Osmotic] 500 mg PO BID 08/23/15 Ezetimibe [Zetia] 10 mg PO DAILY 09/26/18 Levothyroxine Sodium [Synthroid] 200 mcg PO DAILY 09/26/18 Furosemide [Lasix] 20 mg PO DAILY #30 tablet 09/28/18 Dutasteride [Avodart] 0.5 mg PO DAILY 03/07/19 Losartan Potassium 50 mg PO DAILY 03/07/19 Amoxicillin/Potassium Clav [Augmentin 875-125 Tablet] 1 each PO BID #14 tablet 03/09/19 Aspirin Coated [Ecotrin -] 162 mg PO DAILY tablet.ec 03/09/19 Dutasteride [Avodart] 0.5 mg PO DAILY cap 03/09/19 Levothyroxine [Synthroid -] 200 mcg PO AM tablet 03/09/19 Tamsulosin HCl [Flomax -] 0.4 mg PO HS cap.er.24h 03/09/19 This patient is new to me today: No Emergency Visit: Yes ED Registration Date: 03/06/19 Care time: The patient presented to the Emergency Department on the above date and was hospitalized for further evaluation of their emergent condition. Critical Care patient: No - Discharge Referral Referred to [facility] No
--- NOTE | 2019-03-09 15:38 | PN ---
Teaching Attending Note Name of Resident: Valentino Varghese ATTENDING PHYSICIAN STATEMENT I saw and evaluated the patient. I reviewed the resident's note and discussed the case with the resident. I agree with the resident's findings and plan as documented with exceptions below. SUBJECTIVE: Patient seen and examined, left face symptoms markedly improved, some bleeding left ear overnight, unclear if he 'scratched' it. OBJECTIVE: Vital Signs Period Temp Pulse Resp BP Sys/Francisco Pulse Ox Last 24 Hr 97.5 F-98.4 F 58-81 18-20 125-160/59-87 95-98 Intake & Output 03/06/19 03/07/19 03/08/19 03/09/19 23:59 23:59 23:59 23:59 Intake Total 1820 650 830 Output Total 250 300 Balance 1570 350 830 Weight 243 lb 8 oz 243 lb General: sitting in bed, no acute distress HEENT: markedly improved left facial erythema, mainly over malar region now, no maxillary sinus tenderness noted Otoscopic exam: Left ear canal dried blood over outer canal, tympanic membrane visible without much manipulation, no perforation/discharge or erythema noted, no tenderness on external ear exam noted Chest: CTAB, no rales or wheezing Abdomen:soft, NT, ND, positive bowel sounds Extremities: no edema Laboratory Results - last 24 hr 03/08/19 03/08/19 03/09/19 17:19 20:46 06:40 POC Glucometer 150 129 142 03/09/19 11:28 POC Glucometer 174 Microbiology 03/07/19 16:30 Nares - Mrsa Screen - Left MRSA Screen - Final NO MRSA ISOLATED 03/07/19 16:30 Nares - Mrsa Screen - Right MRSA Screen - Final NO MRSA ISOLATED 03/07/19 19:30 Blood - Peripheral Venous Blood Culture - Preliminary NO GROWTH OBTAINED AFTER 24 HOURS, INCUBATION TO CONTINUE FOR 4 DAYS. 03/07/19 17:00 Blood - Peripheral Venous Blood Culture - Preliminary NO GROWTH OBTAINED AFTER 24 HOURS, INCUBATION TO CONTINUE FOR 4 DAYS. ASSESSMENT AND PLAN: 88 yom with PMHx of DM, COPD, CHF, HLD, HTN, CAD (s/p stents 20 years ago) admitted with left facial cellulitis -Left facial cellulitis, -Left maxillary sinusitis -NIDDM -COPD -Chronic diastolic HF -HTN -HLD -CAD s/p PCI 20 years ago Plan: Markedly improved, ID input noted Augmentin x 7 days NO maxillary tenderness. Afebrile, normal WBC and markedly improved. Outpatient ENT follow up. Plan discussed with patient in detail, all questions answered.
[2019-03-09 18:04] VITALS: BP 137/73; PULSE 60
== END 2019-03-09 18:08 | disposition home or self-care (01) | DRG 603 ==
LOC: JER 14:00 → JERBED 16:16 → J8W 03-07 00:40 → UNDODISIN 03-08 19:01
PROVIDERS: ADMIT Internal Medicine; ATTEND Hospitalist
DX: L03.211 Cellulitis of face (principal); I50.32 Chronic diastolic (congestive) heart failure; I25.10 Atherosclerotic heart disease of native coronary artery without angina pectoris; I25.2 Old myocardial infarction; E78.00 Pure hypercholesterolemia, unspecified; N40.0 Benign prostatic hyperplasia without lower urinary tract symptoms; E11.9 Type 2 diabetes mellitus without complications; Z87.891 Personal history of nicotine dependence; Z95.5 Presence of coronary angioplasty implant and graft; E03.9 Hypothyroidism, unspecified; Z86.718 Personal history of other venous thrombosis and embolism; J32.0 Chronic maxillary sinusitis; I11.0 Hypertensive heart disease with heart failure
CPT/HCPCS: 36415; 70487-TC; 71045-TC-FY; 80048; 80053; 82040; 82962; 83735; 84100; 85025; 87040; 87081; 93005; 93010; 99282-25; J1644

== ENCOUNTER 2019-06-22 07:20 | Inpatient (IN) | payer OTHER ==
--- NOTE | 2019-06-22 07:44 | PDOC ---
History of Present Illness - General Chief Complaint: Pain, Acute Stated Complaint: ABDOMINAL PAIN - History of Present Illness Initial Comments: 06/22/19 07:44 89y/o M w/PMH of DM, COPD, CHF, HLD, HTN, CAD (s/p stents 20 years ago) presented to the ER with upper abdominal pain around 3am. The pain has been increasingly uncomfortable until now, now a 7/10 across the upper abdomen. Has had constipation over the past month for which he was taking Miralax daily, saw Ling yesterday as the pain started, had a benign exam. Denies fever, chest pain, sob vomiting or diarrhea. Past History - Past Medical History Allergies/Adverse Reactions: Allergies Allergy/AdvReac Type Severity Reaction Status Date / Time No Known Allergies Allergy Verified 06/22/19 07:25 Home Medications: Ambulatory Orders metFORMIN HCL [Metformin ER Osmotic] 500 mg PO BID 08/23/15 Ezetimibe [Zetia] 10 mg PO DAILY 09/26/18 Furosemide [Lasix] 20 mg PO DAILY #30 tablet 09/28/18 Losartan Potassium 50 mg PO DAILY 03/07/19 Dutasteride [Avodart] 0.5 mg PO DAILY cap 03/09/19 Levothyroxine [Synthroid -] 200 mcg PO AM tablet 03/09/19 Tamsulosin HCl [Flomax -] 0.4 mg PO HS cap.er.24h 03/09/19 Aspirin 81 mg PO DAILY 06/22/19 Metoprolol Tartrate 50 mg PO DAILY 06/22/19 Anemia: No Cancer: No Cardiac Disorders: Yes (NM, STENTS X3 1998) CVA: No COPD: No CHF: No Dementia: No Diabetes: Yes (TYPE II) GI Disorders: No Disorders: Yes (BPH) HTN: Yes Hypercholesterolemia: Yes Kidney Stones: Yes (LITHOTRIPSY) Liver Disease: No Seizures: No Thyroid Disease: Yes - Surgical History Abdominal Surgery: No Appendectomy: No Cardiac Surgery: Yes Cholecystectomy: No Lung Surgery: No Neurologic Surgery: No Orthopedic Surgery: No - Immunization History Immunization Up to Date: No - Suicide/Smoking/Psychosocial Hx Smoking History: Never smoked Have you smoked in the past 12 months: No If you are a former smoker, when did you quit?: 1998 Hx Alcohol Use: Yes (occasionally) Drug/Substance Use Hx: No Substance Use Type: None Review of Systems - Review of Systems Able to Perform ROS?: Yes Is the patient limited Arabic proficient: No Constitutional: No: Symptoms Reported HEENTM: No: Symptoms Reported Respiratory: No: Symptoms reported Cardiac (ROS): No: Symptoms Reported : No: Symptoms Reported Musculoskeletal: No: Symptoms Reported Integumentary: No: Symptoms Reported All Other Systems: Reviewed and Negative *Physical Exam - Vital Signs Last Vital Signs Temp Pulse Resp BP Pulse Ox 97.8 F 60 22 H 146/59 L 90 L 06/22/19 07:22 06/22/19 07:22 06/22/19 07:22 06/22/19 07:22 06/22/19 07:22 - Physical Exam General Appearance: Yes: Nourished, Appropriately Dressed, Moderate Distress HEENT: positive: EOMI, JANET, Normal ENT Inspection Respiratory/Chest: positive: Lungs Clear, Normal Breath Sounds. negative: Chest Tender, Respiratory Distress Cardiovascular: positive: Regular Rhythm, Regular Rate, S1, S2 Gastrointestinal/Abdominal: positive: Normal Bowel Sounds, Tender (all upper quadrant, worse URQ) Musculoskeletal: positive: Normal Inspection. negative: CVA Tenderness Extremity: positive: Normal Capillary Refill, Normal Inspection, Normal Range of Motion Neurologic: positive: Fully Oriented, Alert, Normal Mood/Affect, Normal Response , Motor Strength 5/5 ED Treatment Course - LABORATORY CBC & Chemistry Diagram: 06/22/19 08:10 06/22/19 08:10 Medical Decision Making - Medical Decision Making 06/22/19 09:13 89M with upper abdominal pain since 3am. Cannot r/o NM, possible GI etiology: cholecystitis, pancreatitis, sbo, EKG: Sinus Bradycardia, RBBB, present in older EKG. Bedside Ultrasound, positive for cholelithiasis, pericystic fluid, no thickened gallbladder wall. No cbd dilation. CT abdomen read: Gallstones with no CT evidence to suggest acute cholecystitis. Fundal thickening of the gallbladder wall is noted, suggest ultrasound imaging for further assessment. Mild Acute diverticulitis within the sigmoid colon cannot be excluded. No extraluminal air or drainable fluid collections are seen. Enlarged heterogeneous prostate as discussed above. Further imaging in clinical assessment is recommended Ultrasound ordered to correlate: Sludge layering in the gallbladder with multiple nonmobile stones without sonographic evidence of acute cholecystitis. No pericholecystic free fluid is present. Correlate clinically for further evaluation and follow-up. No intra or extrahepatic bile duct dilatation is seen. Hepatomegaly with fatty infiltration versus hepatocellular disease. Starting patient with antibiotics ceftriaxone and flagyl. Patient still in acute pain aven after 2x2mg morphine, tylenol and pepcid/ maalox. Dr. Persaud consulted, saw the patient, concern about biliary colic. Getting HIDA scan and Surgical consult. 06/22/19 13:25 HIDA scan ordered, results pending. 06/22/19 14:23 ACUTE CHOLECYSTITIS on HIDA SCAN. Dr Vazquez to see the patient. 06/22/19 14:36 Patient admitted to med/surg 06/22/19 15:13 *DC/Admit/Observation/Transfer Diagnosis at time of Disposition: Acute cholecystitis - Discharge Dispostion Decision to Admit order: Yes - Referrals Referrals: Ramez Dubon MD [Primary Care Provider] - - Patient Instructions - Post Discharge Activity
[2019-06-22] MEDS ORDERED: MAG HYDROX/AL HYDROX/SIMETH 30 ML UNIT-DOSE CUP PO ONE (07:52)
[2019-06-22] MEDS ORDERED: FAMOTIDINE 20 MG/50 ML IVPB 20 MG/50 ML MG IVPB ONE ×2 (07:52→08:44)
[2019-06-22] MEDS ORDERED: METOCLOPRAMIDE HCL INJECTION 10 MG/2 ML VIAL IVPUSH ONE (07:57)
--- NOTE | 2019-06-22 08:10 | PDOC ---
Attending Attestation - Resident Resident Name: Reji Pitts - ED Attending Attestation I have performed the following: I have examined & evaluated the patient, The case was reviewed & discussed with the resident, I agree w/resident's findings & plan, Exceptions are as noted - HPI HPI: 06/22/19 08:30 Mr. Rubio is an 89 yo M who presents to the ER with via private vehicle due to abdominal pain He reports a history of DM, COPD, CHF, HLD, HTN, CAD (s/p stents 20 years ago) He awoke at 3am with a complaint of abdominal pain His found that he was not in bed this morning at 7am and became concerned She found him moaning in pain The patient reports that his pain began suddenly, is located in the upper part of the abdomen, no radiation Pt denies nausea, vomiting or diarrhea No abdominal surgeries NKDA - Physicial Exam PE: 06/22/19 08:10 GENERAL: The patient is uncomfotable appearing ENT: Ears normal, nares patent, oropharynx clear without exudates. Dry mucous membranes. NECK: Normal range of motion, supple, no nuchal rigidity LUNGS: Breath sounds equal, clear to auscultation bilaterally. No wheezes HEART: JACK, Regular rate and rhythm, normal S1 and S2 ABDOMEN: Soft, epigastric, RUQ, LUQ tenderness to palpation EXTREMITIES: (+) lower extremity edema bilaterally 2+ NEUROLOGICAL: Cranial nerves II through XII grossly intact. Normal speech. No focal neurological deficits. SKIN: Warm, Dry, normal turgor, no rashes or lesions noted. 06/22/19 08:50 - Medical Decision Making 06/22/19 08:51 DD: Biliary colic, pancreatitis, gastritis, inferior wall UT Will do: Labs EKG Analgesia US Re Assess 06/22/19 08:51 06/22/19 09:02 EKG: NSR rate of 59 bpm, axis nml, intervals abn - pr: 204ms, QRS:154ms, QTc: 445ms, no st elevation pt previously had a RBBB 06/22/19 09:21 Laboratory Tests 06/22/19 06/22/19 06/22/19 08:10 08:10 08:10 WBC 11.6 H Hgb 13.8 Hct 41.2 Plt Count 202 BUN 19.7 H Creatinine 0.8 Troponin I < 0.02 [address]ase [address] 06/22/19 11:02 CT: diverticular disease, with mesenteric stranding, No abscess, no free fluid, can not rule out early diverticulitis two large gall stones noted, no hyperremia of the gb wall, which could recommend adenomyomatosis Will give Zosyn, Flagyl Will do US Will consult surgery Will plan to Admit 06/22/19 14:37 US - no evidence of acute cholecystitis Pt continues to appear to be in pain Call placed to GI Dr Jacob has seen this patient in the ER Will do HIDA HIDA consistent with Acute Cholecystitis Call placed to Dr. Vazquez Will Admit Awaiting surgical consult Clinical Impression: Acute Cholecystitis, initial presentation
[2019-06-22] MEDS ORDERED: MAG HYDROX/AL HYDROX/SIMETH 30 ML UNIT-DOSE CUP ONE (08:14)
[2019-06-22] MEDS ORDERED: METOCLOPRAMIDE HCL INJECTION 10 MG/2 ML VIAL ONE (08:14)
[2019-06-22 08:41] LABS: BASO % 0.5 % (0-2.0); EOS % 1.4 % (0-4.5); HEMATOCRIT 41.2 % (35.4-49); HEMOGLOBIN 13.8 GM/dL (11.7-16.9); MCH 33.2 pg (25.7-33.7); MCHC 33.6 g/dl (32.0-35.9); MEAN CELL VOLUME 98.6 fl (80-96); MEAN PLT VOLUME 9.1 fl (7.5-11.1); MONO % 10.5 % (3.8-10.2); NEUT % 74.6 % (42.8-82.8); PLATELET COUNT 202 K/MM3 (134-434); RBC 4.18 M/mm3 (4.00-5.60); RDW 14.3 % (11.9-15.9); WHITE BLOOD COUNT 11.6 K/mm3 (4.0-10.0)
[2019-06-22] MEDS ORDERED: morphine CARPU-JECT 2 MG/1 ML DISP.SYRIN IVPUSH ONE ×3 (08:43→15:11)
[2019-06-22] MEDS ORDERED: MORPHINE SULFATE 2 MG/ML VIAL ONE ×3 (09:04→15:00)
[2019-06-22 09:16] LABS: ALBUMIN 3.7 g/dl (3.4-5.0); BILIRUBIN,TOTAL 0.5 mg/dL (0.2-1); BLOOD UREA NITROGEN 19.7 mg/dL (7-18); CALCIUM 9.4 mg/dL (8.5-10.1); CREATININE 0.8 mg/dL (0.55-1.3); POTASSIUM 4.2 mmol/L (3.5-5.1); TOT PROT 7.4 g/dl (6.4-8.2)
[2019-06-22] MEDS ORDERED: CEFTRIAXONE 2,000 MG in DEXTROSE 5%-WATER - 50 ML IVPB ONE (11:19)
--- NOTE | 2019-06-22 11:44 | EKG ---
Test Reason : Blood Pressure : / mmHG Vent. Rate : 059 BPM Atrial Rate : 059 BPM P-R Int : 204 ms QRS Dur : 154 ms QT Int : 450 ms P-R-T Axes : 098 062 018 degrees QTc Int : 445 ms SINUS BRADYCARDIA RIGHT BUNDLE BRANCH BLOCK ABNORMAL ECG WHEN COMPARED WITH ECG OF 06-MAR-2019 16:51, PREMATURE VENTRICULAR COMPLEXES ARE NO LONGER PRESENT Confirmed by ANGELIQUE SIMON MD ([id number]) on 06/22/2019 11:44:24 AM Referred By: Confirmed By:ANGELIQUE SIMON MD
--- NOTE | 2019-06-22 13:23 | CON.GI ---
Consult Consult Specialty:: Gastroenterology Referred by:: Dr Pitts Reason for Consultation:: Abdominal pain - History of Present Illness Chief Complaint: bilateral upper abdominal pain History of Present Illness: 89M developed bilateral upper abdominal colicky pain yesterday morning after breakfast. It resolved spontaneously then awoke him at 3AM and is now severe and unrelenting. It does not radiate. He denies chills or fever. He has never had an EGD or a colonoscopy. He takes miralax for chronic constipation and tells me that he has been moving his bowels daily and had a BM when the pain awakened him at 3AM which was normal. He denies recent weight loss. - History Source History Provided By: Patient Limitations to Obtaining History: No Limitations - Past Medical History Cardio/Vascular: Yes: CAD (several stents placed after IN 20 years ago), HTN, Hyperlipdemia, IN (years ago) Gastrointestinal: Yes: Constipation, Other (recent elevated ALT? fatty liver) Renal/: Yes: BPH, Renal Calculi (s/p ESWL x 4) Musculoskeletal: Yes: Osteoarthritis Endocrine: Yes: Diabetes Mellitus, Hypothyroidism - Past Surgical History Past Surgical History: Yes: Bariatric Surgery, Stent (coronary artery stents 20 years ago) - Alcohol/Substance Use Hx Alcohol Use: Yes (occasionally) History of Substance Use: reports: None - Smoking History Smoking history: Former smoker Have you smoked in the past 12 months: No If you are a former smoker, when did you quit?: 1998 - Social History Usual Living Arrangement: With Spouse (lives with in house with 1 step to enter and 1st julian set-up inside, ambualtes with straight cane) ADL: Independent (until current illness.) Occupation: just collects metal junk to salvage, retired lei Place of : [facility] History of Recent Travel: No Home Medications - Allergies Allergies/Adverse Reactions: Allergies Allergy/AdvReac Type Severity Reaction Status Date / Time No Known Allergies Allergy Verified 06/22/19 07:25 - Home Medications Home Medications: Ambulatory Orders metFORMIN HCL [Metformin ER Osmotic] 500 mg PO BID 08/23/15 Ezetimibe [Zetia] 10 mg PO DAILY 09/26/18 Furosemide [Lasix] 20 mg PO DAILY #30 tablet 09/28/18 Losartan Potassium 50 mg PO DAILY 03/07/19 Dutasteride [Avodart] 0.5 mg PO DAILY cap 03/09/19 Levothyroxine [Synthroid -] 200 mcg PO AM tablet 03/09/19 Tamsulosin HCl [Flomax -] 0.4 mg PO HS cap.er.24h 03/09/19 Aspirin 81 mg PO DAILY 06/22/19 Metoprolol Tartrate 50 mg PO DAILY 06/22/19 Family Disease History - Family Disease History Family Disease History: Heart Disease: Brother, Other: Father (unknown), Mother (alzheimers) Review of Systems - Review of Systems Constitutional: reports: No Symptoms Eyes: reports: No Symptoms HENT: reports: No Symptoms Neck: reports: No Symptoms Cardiovascular: reports: No Symptoms Respiratory: reports: No Symptoms Gastrointestinal: reports: Abdominal Pain, Constipation Genitourinary: reports: Other (nocturia) Musculoskeletal: reports: Joint Pain Physical Exam-GI Vital Signs: Vital Signs Temperature 97.8 F 06/22/19 07:22 Pulse Rate 60 06/22/19 08:55 Respiratory Rate 20 06/22/19 08:55 Blood Pressure 158/79 06/22/19 08:55 O2 Sat by Pulse Oximetry (%) 98 06/22/19 08:55 CBC,CMP WBC 11.6 K/mm3 (4.0-10.0) H 06/22/19 08:10 RBC 4.18 M/mm3 (4.00-5.60) 06/22/19 08:10 Hgb 13.8 GM/dL (11.7-16.9) 06/22/19 08:10 Hct 41.2 % (35.4-49) 06/22/19 08:10 MCV 98.6 fl (80-96) H 06/22/19 08:10 MCH 33.2 pg (25.7-33.7) 06/22/19 08:10 MCHC 33.6 g/dl (32.0-35.9) 06/22/19 08:10 RDW 14.3 % (11.9-15.9) 06/22/19 08:10 Plt Count 202 K/MM3 (134-434) 06/22/19 08:10 MPV 9.1 fl (7.5-11.1) 06/22/19 08:10 Absolute Neuts (auto) 8.6 K/mm3 (1.5-8.0) H 06/22/19 08:10 Neutrophils % 74.6 % (42.8-82.8) D 06/22/19 08:10 Lymphocytes % 13.0 % (8-40) D 06/22/19 08:10 Monocytes % 10.5 % (3.8-10.2) H 06/22/19 08:10 Eosinophils % 1.4 % (0-4.5) 06/22/19 08:10 Basophils % 0.5 % (0-2.0) 06/22/19 08:10 Nucleated RBC % 0 % (0-0) 06/22/19 08:10 Sodium 137 mmol/L (136-145) 06/22/19 08:10 Potassium 4.2 mmol/L (3.5-5.1) 06/22/19 08:10 Chloride 102 mmol/L (98-107) 06/22/19 08:10 Carbon Dioxide 26 mmol/L (21-32) 06/22/19 08:10 Anion Gap 9 MMOL/L (8-16) 06/22/19 08:10 BUN 19.7 mg/dL (7-18) H 06/22/19 08:10 Creatinine 0.8 mg/dL (0.55-1.3) 06/22/19 08:10 Est GFR (CKD-EPI)AfAm 92.44 06/22/19 08:10 Est GFR (CKD-EPI)NonAf 79.76 06/22/19 08:10 Random Glucose 175 mg/dL (74-106) H 06/22/19 08:10 Calcium 9.4 mg/dL (8.5-10.1) 06/22/19 08:10 Total Bilirubin 0.5 mg/dL (0.2-1) 06/22/19 08:10 AST 32 U/L (15-37) 06/22/19 08:10 ALT 32 U/L (13-61) 06/22/19 08:10 Alkaline Phosphatase 83 U/L (45-117) 06/22/19 08:10 Troponin I < 0.02 ng/ml (0.00-0.05) 06/22/19 08:10 Total Protein 7.4 g/dl (6.4-8.2) 06/22/19 08:10 Albumin 3.7 g/dl (3.4-5.0) 06/22/19 08:10 Lipase 114 U/L (73-393) 06/22/19 08:10 Constitutional: Yes: Moderate Distress Eyes: Yes: Conjunctiva Clear HENT: Yes: Atraumatic Neck: Yes: Supple Cardiovascular: Yes: Regular Rate and Rhythm Respiratory: Yes: CTA Bilaterally Gastrointestinal Inspection: Yes: Hernia (nontender upper ventral diastasis recti hernia) ...Auscultate: Yes: Hypoactive Bowel Sounds ...Palpate: Yes: Tenderness (RUQ) ...Rectal Exam: Yes: Deferred (as patient is in the hallway) Edema: LUE: 1+, RUE: 1+ Neurological: Yes: Alert, Oriented Labs: CBC, BMP 06/22/19 08:10 06/22/19 08:10 Imaging - Results Cat Scan: Report Reviewed ( Final Report CT ABDOMEN & PELVIS CT WITH CONTR Show Printer-Friendly Version Patient Name: Ramez Chowdary : Mar-1930 ID: [id number] Study Date: 22-Jun-2019 09:41 Karon Paviliflor Name: RAMEZ CHOWDARY DEPARTMENT OF RADIOLOGY Phys: Reji Pitts RESIDENT : 1930 Age: 89 Sex: M [facility] Acct: [id number] Loc: [address] Exam Date: 06/22/19 Status: TREVON Vigil[place]ANNE [id number] Unit Number: [id number] EXAM#: TYPE/EXAM: RESULT: [id number] CT/ABDOMEN PELVIS CT WITH CONTR INDICATION: Abdominal pain TECHNIQUE: Helical images of the abdomen and pelvis obtained with 100 cc Omnipaque 350 IV . COMPARISON IMAGING:Ultrasound from 09/10/2015 FINDINGS: LUNG BASES:Interstitial changes at both bases noted unchanged from prior chest CT. LIVER: Hepatic steatosis. The portal vein is patent. No focal liver masses were seen. GALLBLADDER: Distended with gallstones present. No hyperemia of the gallbladder wall is noted. There is slight thickening of the fundus of the gallbladder which could represent adenomyomatosis, correlate with ultrasound. BILIARY DUCTS: Negative. PANCREAS: Negative. SPLEEN: Negative. ADRENALS: Negative. KIDNEYS: Small cyst identified. No hydronephrosis or nephrolithiasis appreciated. A nonobstructing stone is noted within the midportion of the left kidney measuring 4 mm. AORTA: Calcified plaque. No aneurysm or dissection seen. Significant disease of the common iliac artery on the left is present at the region of the bifurcation. LYMPH NODES: Negative. BOWEL: The appendix appears unremarkable. Moderate stool in the right colon present. Diverticular disease is noted. There is mesenteric stranding around the sigmoid colon and early diverticulitis cannot be excluded. No drainable fluid collections or extraluminal air is noted at the present time. A small fat-containing paraumbilical hernia is noted with no stranding. PELVIS: The prostate is enlarged indenting the undersurface of the bladder and measuring approximately 5.2 cm in AP diameter dimension. The prostate appears heterogeneous with calcifications, further assessment by digital inspection and/or MR imaging is advised as clinically warranted. Bladder stones are noted measuring 14 and 9 mm each. No bladder wall thickening is identified. No pelvic sidewall adenopathy is appreciated. Seminal vesicles appear unremarkable. OTHER: There is demineralization. Spondylotic changes are noted of the spine. Pars defect noted at the level of L5 with grade 1 anterolisthesis of L5 over S1. Discogenic disease noted at the level of L3/4 and L4/5. No aggressive bone lesions seen. No insufficiency fractures noted. IMPRESSION: Gallstones with no CT evidence to suggest acute cholecystitis. Fundal thickening of the gallbladder wall is noted, suggest ultrasound imaging for further assessment. Mild Acute diverticulitis within the sigmoid colon cannot be excluded. No extraluminal air or drainable fluid collections are seen. Enlarged heterogeneous prostate as discussed above. Further imaging in clinical assessment is recommended. Additional comments noted above. Reported By: Shawn Stokes MD 06/22/19 1045 Reji Pitts Technologist: Hardik Parker Transcribed Date/Time: 06/22/19 1045 Manager Continuous Improvement: Shawn Stokes Printed Date/Time: By: Signed by: Shawn Stokes Signed on: 22-Jun-2019 10:45) Ultrasound: Image Reviewed (reviewed study with Dr Queen who reads it as hydrops with early GB wall edema) Other: Image Reviewed (HIda scan preliminary suggests acute cholecystitis) Problem List - Problems (1) Abdominal pain Code(s): R10.9 - UNSPECIFIED ABDOMINAL PAIN (2) Gallstones Code(s): K80.20 - CALCULUS OF GALLBLADDER W/O CHOLECYSTITIS W/O OBSTRUCTION (3) Ventral hernia without obstruction or gangrene Code(s): K43.9 - VENTRAL HERNIA WITHOUT OBSTRUCTION OR GANGRENE (4) BPH (benign prostatic hypertrophy) Code(s): N40.0 - BENIGN PROSTATIC HYPERPLASIA WITHOUT LOWER URINRY TRACT SYMP (5) CAD (coronary artery disease) Code(s): I25.10 - ATHSCL HEART DISEASE OF [place] CORONARY ARTERY W/O ANG PCTRS (6) Chronic back pain Code(s): M54.9 - DORSALGIA, UNSPECIFIED; G89.29 - OTHER CHRONIC PAIN (7) HLD (hyperlipidemia) Code(s): E78.5 - HYPERLIPIDEMIA, UNSPECIFIED Qualifiers: Hyperlipidemia type: unspecified Qualified Code(s): E78.5 - Hyperlipidemia , unspecified (8) HTN (hypertension) Code(s): I10 - ESSENTIAL (PRIMARY) HYPERTENSION Qualifiers: Hypertension type: essential hypertension Qualified Code(s): I10 - Essential (primary) hypertension (9) Hypothyroidism Code(s): E03.9 - HYPOTHYROIDISM, UNSPECIFIED Qualifiers: Hypothyroidism type: unspecified Qualified Code(s): E03.9 - Hypothyroidism , unspecified (10) Old myocardial infarction Code(s): I25.2 - OLD MYOCARDIAL INFARCTION (11) Stented coronary artery Code(s): Z95.5 - PRESENCE OF CORONARY ANGIOPLASTY IMPLANT AND GRAFT (12) T2DM (type 2 diabetes mellitus) Code(s): E11.9 - TYPE 2 DIABETES MELLITUS WITHOUT COMPLICATIONS Qualifiers: Diabetes mellitus chcf insulin use: without chcf use Diabetes mellitus complication status: with unspecified complications Assessment/Plan Assessment: - Given the location in the RUQ and colicky nature of his pain, a preliminary early positive Hida scan and sono findings of hydrops and GB wall thickening acute cholecystitis is the diagnosis. Less likely alternatives are duodenal or gastric ulcer. The pain is not reminiscent of his previous bouts with renal colic and he has no LLQ tenderness to support diverticulitis. No signs of choledocholithiasis. Plan: - I spoke with Dr Vazquez who will evaluate the patient for cholecystectomy - Antibiotics started - Keep NPO
[2019-06-22 13:30] LABS: URINE APPEARANCE CLEAR; URINE COLOR YELLOW
[2019-06-22 13:31] LABS: URINE BILIRUBIN NEGATIVE (NEGATIVE); URINE GLUCOSE (UA) NEGATIVE (NEGATIVE); URINE KETONE NEGATIVE (NEGATIVE); URINE LEUK ESTERASE NEGATIVE (NEGATIVE); URINE NITRITE NEGATIVE (NEGATIVE); URINE PROTEIN NEGATIVE (NEGATIVE); URINE UROBILINOGEN 0.2 mg/dL (0.2-1.0)
[2019-06-22] MEDS ORDERED: CEFTRIAXONE 2 GM/100 ML BAG IVPB ONE (14:27)
[2019-06-22] MEDS ORDERED: morphine CARPU-JECT 4 MG/1 ML DISP.SYRIN IVPUSH ONE (14:29)
[2019-06-22] MEDS ORDERED: morphine SULFATE 4 MG/ML VIAL ONE (14:45)
[2019-06-22 15:31] LABS: INR 1.08 (0.83-1.09); PROTHROMBIN TIME (PATIENT) 12.7 SEC (9.7-13.0)
--- NOTE | 2019-06-22 16:13 | CONSULT ---
- Consultation REQUESTING PROVIDER: CONSULT REQUEST: We have been asked to surgically evaluate this patient for acute cholecystitis PCP:Kaley Zendejas HISTORY OF PRESENT ILLNESS: 89yo M presented to the ED for Abd pain since last night. Pt's states pt started complaining of acute abd pain during the night. Pt had a hamburger and hungarian fries for dinner. Pt denies fever, chills. Pt found to have distended gallbladder and stones on US and CT abd. PMHx: COPD, HTN, CAD s/p stents PSHx: no abd surg Home Medications Medication Instructions Recorded metFORMIN HCL [Metformin ER 500 mg PO BID 08/23/15 Osmotic] Ezetimibe [Zetia] 10 mg PO DAILY 09/26/18 Furosemide [Lasix] 20 mg PO DAILY #30 tablet 09/28/18 Losartan Potassium 50 mg PO DAILY 03/07/19 Dutasteride [Avodart] 0.5 mg PO DAILY cap 03/09/19 Levothyroxine [Synthroid -] 200 mcg PO AM tablet 03/09/19 Tamsulosin HCl [Flomax -] 0.4 mg PO HS cap.er.24h 03/09/19 Aspirin 81 mg PO DAILY 06/22/19 Metoprolol Tartrate 50 mg PO DAILY 06/22/19 Allergies Allergy/AdvReac Type Severity Reaction Status Date / Time No Known Allergies Allergy Verified 06/22/19 07:25 PHYSICAL EXAM: GENERAL: Awake, alert, and fully oriented, in no acute distress. HEAD: Normal with no signs of trauma. EYES: PERRL, sclera anicteric, conjunctiva clear. NECK: Normal ROM, supple without lymphadenopathy, JVD, or masses. LUNGS: Breathing comfortably, No accessory muscle use. HEART: Regular rate and rhythm. ABDOMEN: Soft, moderate RUQ tenderness, not distended, no guarding, no rebound, no masses. No organomegaly. LOWER EXTREMITIES: 2+ pulses, warm, well-perfused. No calf tenderness. No peripheral edema. NEUROLOGICAL: Normal speech, gait not observed. PSYCH: Cooperative. Good eye contact. Appropriate mood and affect. SKIN: Warm, dry, normal turgor, no rashes or lesions noted. Vital Signs Temperature 97.8 F 06/22/19 07:22 Pulse Rate 60 06/22/19 08:55 Respiratory Rate 20 06/22/19 08:55 Blood Pressure 158/79 06/22/19 08:55 O2 Sat by Pulse Oximetry (%) 98 06/22/19 08:55 Lab Results WBC 11.6 K/mm3 (4.0-10.0) H 06/22/19 08:10 RBC 4.18 M/mm3 (4.00-5.60) 06/22/19 08:10 Hgb 13.8 GM/dL (11.7-16.9) 06/22/19 08:10 Hct 41.2 % (35.4-49) 06/22/19 08:10 MCV 98.6 fl (80-96) H 06/22/19 08:10 MCHC 33.6 g/dl (32.0-35.9) 06/22/19 08:10 RDW 14.3 % (11.9-15.9) 06/22/19 08:10 Plt Count 202 K/MM3 (134-434) 06/22/19 08:10 Sodium 137 mmol/L (136-145) 06/22/19 08:10 Potassium 4.2 mmol/L (3.5-5.1) 06/22/19 08:10 Chloride 102 mmol/L (98-107) 06/22/19 08:10 Carbon Dioxide 26 mmol/L (21-32) 06/22/19 08:10 Anion Gap 9 MMOL/L (8-16) 06/22/19 08:10 BUN 19.7 mg/dL (7-18) H 06/22/19 08:10 Creatinine 0.8 mg/dL (0.55-1.3) 06/22/19 08:10 Random Glucose 175 mg/dL (74-106) H 06/22/19 08:10 Calcium 9.4 mg/dL (8.5-10.1) 06/22/19 08:10 INR 1.08 (0.83-1.09) 06/22/19 15:00 Problem List - Problems (1) Acute cholecystitis Assessment/Plan: Plan -pt needs to be medically optimized and cleared by cardiology, plan for surgery on Tuesday for lap cholecystectomy. -npo, IV fluids, abx -dvt ppx -GI ppx Code(s): K81.0 - ACUTE CHOLECYSTITIS Visit type - Case Type Case Type: ED Admission - Emergency Emergency Visit: Yes ED Registration Date: 06/22/19 Care time: The patient presented to the Emergency Department on the above date and was hospitalized for further evaluation of their emergent condition. - New patient This patient is new to me today: Yes Date on this admission: 06/22/19 - Critical Care Critical Care patient: No
--- NOTE | 2019-06-22 18:21 | PN ---
Teaching Attending Note Name of Resident: Sangeeta Jesus ATTENDING PHYSICIAN STATEMENT I saw and evaluated the patient. I reviewed the resident's note and discussed the case with the resident. I agree with the resident's findings and plan as documented. SUBJECTIVE:89yo M with PMH DM, CAD s/p stent 20 years ago, CHF, HTN and dyslipidemia c/o RUQ pain starting at 3am waking him out of sleep. pain is severe worse with movement. denies Cp, SOB, fever, chills, N/V/C/D. no recent medication changes. OBJECTIVE: Last Vital Signs Temp Pulse Resp BP Pulse Ox 98.9 F 98 H 20 108/59 L 94 L 06/22/19 17:30 06/22/19 17:30 06/22/19 17:30 06/22/19 17:30 06/22/19 16:24 general NAD CV S1 S2 RRR no murmur/rub/gallop Lungs CTA B/L no wheezing/rales/rhonchi Abdomen soft +RUQ pain. slightly distended. +edwards sign Extremities 1+ pitting edema B/L LE ASSESSMENT AND PLAN: 89yo M with PMH DM, CAD s/p stent 20 years ago, CHF, HTN and dyslipidemia c/o RUQ pain starting at 3am waking him out of sleep and found to have acute cholecystitis 1. Acute cholecystitis- medicine admission. start NPO, ceftriaxone and flagyl and pain control. HIDA scan pending. will need cholecystectomy. GI and Surgery consulted. will hold on giving fluids at this time and will just hold diuretic and monitor fluid balance . as per Gi will want cardio clearance will consult 2. DM- hold oral agents. iss and bgm 3. CAD s/p stent 20 years ago- hold asa for pending surgery. cardio consulted 4. CHF- slightly overloaded based on pedal edema. will hold lasix but not give fluids at this time. serial lung exams 5. HTN- controlled. cont home medications 6. dyslipidemia- cont medications 7. DVT ppx- lovenox 8. spoke with present at bedside. all questions answered. verbalized understanding and agreement
[2019-06-22] MEDS: SODIUM CHLORIDE 1,000 ML IV SCH (19:04)
--- NOTE | 2019-06-22 19:14 | HP ---
CHIEF COMPLAINT: abdominal pain PCP: HISTORY OF PRESENT ILLNESS: 89 y.o male with PMH of DM, CHF, CAD (s/p stents) HTN HBPH presents to the ED with complaints of abdominal pain- patient states the pain started at around 3 am this morning and was very severe in nature- he moved his bowels (which were normal) and the pain continued- he denies ay nausewa/vomtiting. he has never had pain like this before nor did he try to take anything for the pain, he has never had a colonsocpy in the past. he dneies any changes in his eating habits- no systemic symptoms experienced. denies any CP/SOB/N.B ER course was notable for: (1)vitals wnl (2)wbc 11.6 (3)US shows gallbladder sluge with stones; HIDA pending (4) given ceftraizone and flagyl; morphine; tylneol Recent Travel: denies PAST MEDICAL HISTORY: see above PAST SURGICAL HISTORY: stents Social History: Smoking:former Alcohol:denies Drugs: denies Family History:NA Allergies No Known Allergies Allergy (Verified 06/22/19 07:25) HOME MEDICATIONS: Home Medications Medication Instructions Recorded metFORMIN HCL [Metformin ER 500 mg PO BID 08/23/15 Osmotic] Ezetimibe [Zetia] 10 mg PO DAILY 09/26/18 Furosemide [Lasix] 20 mg PO DAILY #30 tablet 09/28/18 Losartan Potassium 50 mg PO DAILY 03/07/19 Dutasteride [Avodart] 0.5 mg PO DAILY cap 03/09/19 Levothyroxine [Synthroid -] 200 mcg PO AM tablet 03/09/19 Tamsulosin HCl [Flomax -] 0.4 mg PO HS cap.er.24h 03/09/19 Aspirin 81 mg PO DAILY 06/22/19 Metoprolol Tartrate 50 mg PO DAILY 06/22/19 REVIEW OF SYSTEMS CONSTITUTIONAL: Absent: fever, chills, diaphoresis, generalized weakness, malaise, loss of appetite, weight change HEENT: Absent: rhinorrhea, nasal congestion, throat pain, throat swelling, difficulty swallowing, mouth swelling, ear pain, eye pain, visual changes CARDIOVASCULAR: Absent: chest pain, syncope, palpitations, irregular heart rate, lightheadedness , peripheral edema RESPIRATORY: Absent: cough, shortness of breath, dyspnea with exertion, orthopnea, wheezing, stridor, hemoptysis GASTROINTESTINAL: Present: abdominal pain Absent: abdominal distension, nausea, vomiting, diarrhea , constipation, melena, hematochezia GENITOURINARY: Absent: dysuria, frequency, urgency, hesitancy, hematuria, flank pain, genital pain MUSCULOSKELETAL: Absent: myalgia, arthralgia, joint swelling, back pain, neck pain SKIN: Absent: rash, itching, pallor HEMATOLOGIC/IMMUNOLOGIC: Absent: easy bleeding, easy bruising, lymphadenopathy, frequent infections ENDOCRINE: Absent: unexplained weight gain, unexplained weight loss, heat intolerance, cold intolerance NEUROLOGIC: Absent: headache, focal weakness or paresthesias, dizziness, unsteady gait, seizure, mental status changes, bladder or bowel incontinence PSYCHIATRIC: Absent: anxiety, depression, suicidal or homicidal ideation, hallucinations. PHYSICAL EXAMINATION Vital Signs - 24 hr 06/22/19 06/22/19 06/22/19 07:22 08:55 14:38 Temperature 97.8 F 98.9 F Pulse Rate 60 98 H Pulse Rate [ 60 Left Radial] Respiratory 22 H 20 20 Rate Blood Pressure 146/59 L 108/59 L Blood Pressure 158/79 [Left Arm] O2 Sat by Pulse 90 L 98 91 L Oximetry (%) 06/22/19 06/22/19 16:24 17:30 Temperature 98.5 F 98.9 F Pulse Rate 98 H Pulse Rate [ 110 H Left Radial] Respiratory 20 20 Rate Blood Pressure 108/59 L Blood Pressure 108/43 L [Left Arm] O2 Sat by Pulse 94 L Oximetry (%) GENERAL: Awake, alert, and fully oriented, in acute distress, moaning in pain. EYES: PEERLA: EOMI: no scleral icterus . NECK:no JVD; no lymphadenopathy LUNGS:CTA B/L; no rales, rhonchi or wheezing HEART: Regular rate and rhythm, normal S1 and S2 without murmur, rub or gallop. ABDOMEN: Soft, diffuse tenderness upn palpation; negative murphys sign + bS in all 4 quadrants MUSCULOSKELETAL: Normal range of motion at all joints. No bony deformities or tenderness. No CVA tenderness. EXTREMITIES: warm; well-perfused no clubbing/cyanossi trace pedal edema B/L PSYCHIATRIC: Cooperative. Good eye contact. Appropriate mood and affect. SKIN: Warm, dry, normal turgor, no rashes or lesions noted, normal capillary refill. Laboratory Results - last 24 hr 06/22/19 06/22/19 06/22/19 08:10 08:10 08:10 WBC 11.6 H RBC 4.18 Hgb 13.8 Hct 41.2 MCV 98.6 H MCH 33.2 MCHC 33.6 RDW 14.3 Plt Count 202 MPV 9.1 Absolute Neuts (auto) 8.6 H Neutrophils % 74.6 D Lymphocytes % 13.0 D Monocytes % 10.5 H Eosinophils % 1.4 Basophils % 0.5 Nucleated RBC % 0 PT with INR INR Sodium 137 Potassium 4.2 Chloride 102 Carbon Dioxide 26 Anion Gap 9 BUN 19.7 H Creatinine 0.8 Est GFR (CKD-EPI)AfAm 92.44 Est GFR (CKD-EPI)NonAf 79.76 Random Glucose 175 H Calcium 9.4 Total Bilirubin 0.5 AST 32 ALT 32 Alkaline Phosphatase 83 Troponin I < 0.02 Total Protein 7.4 Albumin 3.7 Lipase 114 Urine Color Urine Appearance Urine pH Ur Specific [place] Urine Protein Urine Glucose (UA) Urine Ketones Urine Blood Urine Nitrite Urine Bilirubin Urine Urobilinogen Ur Leukocyte Esterase 06/22/19 06/22/19 12:50 15:00 WBC RBC Hgb Hct MCV MCH MCHC RDW Plt Count MPV Absolute Neuts (auto) Neutrophils % Lymphocytes % Monocytes % Eosinophils % Basophils % Nucleated RBC % PT with INR 12.70 INR 1.08 Sodium Potassium Chloride Carbon Dioxide Anion Gap BUN Creatinine Est GFR (CKD-EPI)AfAm Est GFR (CKD-EPI)NonAf Random Glucose Calcium Total Bilirubin AST ALT Alkaline Phosphatase Troponin I Total Protein Albumin Lipase Urine Color Yellow Urine Appearance Clear Urine pH 7.0 Ur Specific [place] 1.060 H Urine Protein Negative Urine Glucose (UA) Negative Urine Ketones Negative Urine Blood Negative Urine Nitrite Negative Urine Bilirubin Negative Urine Urobilinogen 0.2 Ur Leukocyte Esterase Negative ASSESSMENT/PLAN: 89 y.o male with PMH of DM, CHF, CAD (s/p stents) HTN BPH presents to the ED with complaints of abdominal pain found to have choleycystitis #Acute Choley will c/w ceftriaxone/flagyl -GI and surgery on board -cardio clearance pending before surgery -NPO -holding off IV fluids for now given CHF -monitor hemodynamics -pain control #CAD holding ASA in light of surgery #HTN -will c/w HTN meds #CHF holding lasix for now #DM holding home meds BGMS ACHS ISS ACHS F/E/N not on fluids monitor electrolyetes NPO dvt ppx: lovenox Problem List - Problem (1) Abdominal pain Code(s): R10.9 - UNSPECIFIED ABDOMINAL PAIN (2) Acute cholecystitis Code(s): K81.0 - ACUTE CHOLECYSTITIS (3) Gallstones Code(s): K80.20 - CALCULUS OF GALLBLADDER W/O CHOLECYSTITIS W/O OBSTRUCTION (4) CAD (coronary artery disease) Code(s): I25.10 - ATHSCL HEART DISEASE OF [place] CORONARY ARTERY W/O ANG PCTRS (5) CHF (congestive heart failure) Code(s): I50.9 - HEART FAILURE, UNSPECIFIED Qualifiers: Heart failure type: diastolic Heart failure chronicity: acute on chronic Qualified Code(s): I50.33 - Acute on chronic diastolic (congestive) heart failure Visit type - Emergency Visit Emergency Visit: Yes ED Registration Date: 06/22/19 Care time: The patient presented to the Emergency Department on the above date and was hospitalized for further evaluation of their emergent condition. - New Patient This patient is new to me today: Yes Date on this admission: 06/22/19 - Critical Care Critical Care patient: No ATTENDING PHYSICIAN STATEMENT I saw and evaluated the patient. I reviewed the resident's note and discussed the case with the resident. I agree with the resident's findings and plan as documented. SUBJECTIVE: OBJECTIVE: ASSESSMENT AND PLAN:
[2019-06-22] MEDS ORDERED: ONDANSETRON 4 MG/2 ML VIAL IVPUSH PRN (19:26)
[2019-06-22] MEDS ORDERED: TAMSULOSIN HCL 0.4 MG CAP PO SCH (22:00)
[2019-06-22] MEDS: MORPHINE SULFATE 2 MG/ML VIAL IVPUSH PRN (22:48)
[2019-06-22] MEDS: INSULIN SLIDING SCALE (NOVOLOG) 1 VIAL SQ SCH (22:56)
[2019-06-23] MEDS: MORPHINE SULFATE 2 MG/ML VIAL IVPUSH PRN ×2 (03:58→09:57)
[2019-06-23] MEDS: ACETAMINOPHEN 1000 MG/100 ML VIAL (NON FORMULARY) IVPB PRN ×2 (05:46→15:40)
[2019-06-23] MEDS: INSULIN SLIDING SCALE (NOVOLOG) 1 VIAL SQ SCH ×4 (06:56→23:00)
[2019-06-23] MEDS ORDERED: LEVOTHYROXINE NA 100 MCG TABLET (FP) PO SCH (07:00)
[2019-06-23 08:01] LABS: BASO % 0.2 % (0-2.0); HEMATOCRIT 40.2 % (35.4-49); HEMOGLOBIN 13.6 GM/dL (11.7-16.9); LYMPH % 3.4 % (8-40); MCH 33.5 pg (25.7-33.7); MCHC 33.8 g/dl (32.0-35.9); MEAN PLT VOLUME 9.3 fl (7.5-11.1); MONO % 8.8 % (3.8-10.2); NEUT % 87.6 % (42.8-82.8); PLATELET COUNT 193 K/MM3 (134-434); RBC 4.06 M/mm3 (4.00-5.60); RDW 14.5 % (11.9-15.9); WHITE BLOOD COUNT 16.9 K/mm3 (4.0-10.0)
[2019-06-23 08:40] LABS: ALBUMIN 3.2 g/dl (3.4-5.0); BILIRUBIN,TOTAL 0.8 mg/dL (0.2-1); BLOOD UREA NITROGEN 31.6 mg/dL (7-18); CREATININE 1.2 mg/dL (0.55-1.3); POTASSIUM 4.8 mmol/L (3.5-5.1); TOT PROT 6.8 g/dl (6.4-8.2)
[2019-06-23] MEDS ORDERED: DEXTROSE 5%-WATER - 50 ML IVPB ONE ×2 (09:26→21:26)
[2019-06-23] MEDS ORDERED: cefTRIAXone SODIUM 1 GM VIAL ONE (09:26)
[2019-06-23] MEDS ORDERED: CEFTRIAXONE 1 GM in DEXTROSE 5%-WATER - 50 ML IVPB SCH (10:00)
[2019-06-23] MEDS ORDERED: DUTASTERIDE 0.5 MG CAP (FP) PO SCH (10:00)
[2019-06-23] MEDS ORDERED: ENOXAPARIN NA (PORCINE) 40 MG/0.4 ML DISP.SYRIN SQ SCH (10:00)
[2019-06-23] MEDS ORDERED: LOSARTAN POTASSIUM 50 MG TABLET (FP) PO SCH (10:00)
[2019-06-23] MEDS ORDERED: METOPROLOL TARTRATE 50 MG TABLET (FP) PO SCH (10:00)
[2019-06-23] MEDS: SODIUM CHLORIDE 1,000 ML IV SCH (10:11)
[2019-06-23 10:49] LABS: ANISOCYTOSIS 0; MACROCYTOSIS 1+; OVALOCYTE 1+; PLATELET ESTIMATE NORMAL
--- NOTE | 2019-06-23 10:51 | PN ---
Progress Note (short form) - Note Progress Note: c/o RUQ tenderness worse with any movement. denies CP, SOB, fever, chills, N/V/C /D Current Medications Generic Name Dose Route Start Last Admin Trade Name Freq PRN Reason Stop Dose Admin Acetaminophen 1,000 mg 06/23/19 05:30 06/23/19 05:46 Ofirmev Injection - IVPB 1,000 mg Q6H PRN Administration PAIN LEVEL 7 - 10 Dutasteride 0.5 mg 06/23/19 10:00 06/23/19 10:07 Avodart - PO 0.5 mg DAILY [facility] Administration Enoxaparin Sodium 40 mg 06/23/19 10:00 06/23/19 10:07 Lovenox - SQ 40 mg DAILY [facility] Administration Sodium Chloride 1,000 mls @ 75 mls/hr 06/22/19 19:00 06/23/19 10:11 Normal Saline - IV 75 mls/hr ASDIR [facility] Administration Ceftriaxone Sodium 1 gm/ 50 mls @ 100 mls/hr 06/23/19 10:00 06/23/19 09:57 Dextrose IVPB 100 mls/hr DAILY [facility] Administration Protocol Metronidazole 500 mg in 100 mls @ 100 mls/hr 06/22/19 22:00 06/23/19 10:00 Flagyl 500mg Premixed Ivpb - IVPB 100 mls/hr Q6H [facility] Administration Insulin Aspart 1 vial 06/22/19 22:00 06/23/19 06:56 Novolog Vial Sliding Scale - SQ Not Given ACHS [facility] Protocol Levothyroxine Sodium 200 mcg 06/23/19 07:00 06/23/19 06:55 Synthroid - PO Not Given AM [facility] Losartan Potassium 50 mg 06/23/19 10:00 06/23/19 09:56 Cozaar - PO 50 mg DAILY [facility] Administration Metoprolol Tartrate 50 mg 06/23/19 10:00 06/23/19 09:56 Lopressor - PO 50 mg DAILY [facility] Administration Morphine Sulfate 2 mg 06/22/19 19:26 06/23/19 09:57 Morphine Sulfate IVPUSH 2 mg Q6H PRN Administration PAIN LEVEL 4 - 6 Ondansetron HCl 4 mg 06/22/19 19:26 06/23/19 03:57 Zofran Injection IVPUSH 4 mg Q6H PRN Administration NAUSEA Tamsulosin HCl 0.4 mg 06/22/19 22:00 06/22/19 22:29 Flomax - PO 0.4 mg HS [facility] Administration Last Vital Signs Temp Pulse Resp BP Pulse Ox 99.7 F H 107 H 20 101/62 94 L 06/23/19 06:04 06/23/19 06:04 06/23/19 06:04 06/23/19 06:04 06/22/19 21:00 general NAD CV S1 S2 RRR no murmur/rub/gallop Lungs CTA B/L no wheezing/rales/rhonchi Abdomen soft +RUQ pain. slightly distended. +edwards sign Extremities 1+ pitting edema B/L LE CBCD WBC 16.9 K/mm3 (4.0-10.0) H 06/23/19 06:45 RBC 4.06 M/mm3 (4.00-5.60) 06/23/19 06:45 Hgb 13.6 GM/dL (11.7-16.9) 06/23/19 06:45 Hct 40.2 % (35.4-49) 06/23/19 06:45 MCV 99.0 fl (80-96) H 06/23/19 06:45 MCHC 33.8 g/dl (32.0-35.9) 06/23/19 06:45 RDW 14.5 % (11.9-15.9) 06/23/19 06:45 Plt Count 193 K/MM3 (134-434) 06/23/19 06:45 MPV 9.3 fl (7.5-11.1) 06/23/19 06:45 CMP Sodium 138 mmol/L (136-145) 06/23/19 06:45 Potassium 4.8 mmol/L (3.5-5.1) 06/23/19 06:45 Chloride 104 mmol/L (98-107) 06/23/19 06:45 Carbon Dioxide 25 mmol/L (21-32) 06/23/19 06:45 Anion Gap 9 MMOL/L (8-16) 06/23/19 06:45 BUN 31.6 mg/dL (7-18) H 06/23/19 06:45 Creatinine 1.2 mg/dL (0.55-1.3) 06/23/19 06:45 Calcium 9.0 mg/dL (8.5-10.1) 06/23/19 06:45 Total Bilirubin 0.8 mg/dL (0.2-1) 06/23/19 06:45 AST 37 U/L (15-37) 06/23/19 06:45 ALT 27 U/L (13-61) 06/23/19 06:45 Alkaline Phosphatase 74 U/L (45-117) 06/23/19 06:45 Total Protein 6.8 g/dl (6.4-8.2) 06/23/19 06:45 Albumin 3.2 g/dl (3.4-5.0) L 06/23/19 06:45 ASSESSMENT AND PLAN: 89yo M with PMH DM, CAD s/p stent 20 years ago, CHF, HTN and dyslipidemia c/o RUQ pain starting at 3am waking him out of sleep and found to have acute cholecystitis 1. Acute cholecystitis-slight improvement. cont NPO, IVF, ceftriaxone and flagyl day 2. and pain control. plan for lap cholscystectomy on monday 06/25. Surgery adn GI on oard. awaiting cardio clearance 2. CRUZ- due to infection and dehydration. start low dose IVF. hold nephrotoxic agnets. 3. DM- hold oral agents. iss and bgm 4. CAD s/p stent 20 years ago- hold asa for pending surgery. cardio consulted 5. CHF- monitor for development of volume overload. serial lung exams 6. HTN- controlled. cont home medications 7. dyslipidemia- cont medications 8. DVT ppx- lovenox 9. spoke with present at bedside. all questions answered. verbalized understanding and agreement Visit type - Emergency Visit Emergency Visit: Yes ED Registration Date: 06/22/19 Care time: The patient presented to the Emergency Department on the above date and was hospitalized for further evaluation of their emergent condition. - New Patient This patient is new to me today: No - Critical Care Critical Care patient: No - Discharge Referral Referred to [facility] Med P.C.: No
--- NOTE | 2019-06-23 10:59 | PN ---
Progress Note (short form) - Note Progress Note: Attending Surgeon Staes he feels slightly better than yesterday VSS AF abdo-globose; tender in RUQ; o/w negative WBC-169 LFTs ok IMP: acute cholecystitis PLAN: NPO/IVF/IVABS/hold ASA/Cardiology evaluation/lap benja possible open Mnday. Sukhdev Stephens MD FACS
[2019-06-23] MEDS ORDERED: oxyCODONE HCL 5 MG TABLET PO PRN ×2 (14:28→21:28)
--- NOTE | 2019-06-23 15:26 | PN ---
Progress Note (short form) - Note Progress Note: Chief Complaint: Events noted, notes reviewed, presentation with right upper quadrant discomfort- acute cholecystitis for operativbe intervention, denies any chest discomfort or dyspnea History of Present Illness: Seen and examined. Full consult dictated Medications: Current Medications Acetaminophen (Ofirmev Injection -) 1,000 mg IVPB Q6H PRN PRN Reason: PAIN LEVEL 7 - 10 Last Admin: 06/23/19 05:46 Dose: 1,000 mg Dutasteride (Avodart -) 0.5 mg PO DAILY [facility] Last Admin: 06/23/19 10:07 Dose: 0.5 mg Enoxaparin Sodium (Lovenox -) 40 mg SQ DAILY [facility] Last Admin: 06/23/19 10:07 Dose: 40 mg Sodium Chloride (Normal Saline -) 1,000 mls @ 75 mls/hr IV ASDIR [facility] Last Admin: 06/23/19 10:11 Dose: 75 mls/hr Ceftriaxone Sodium 1 gm/ (Dextrose) 50 mls @ 100 mls/hr IVPB DAILY [facility]; Protocol Last Admin: 06/23/19 09:57 Dose: 100 mls/hr Metronidazole (Flagyl 500mg Premixed Ivpb -) 500 mg in 100 mls @ 100 mls/hr IVPB Q6H [facility] Last Admin: 06/23/19 10:00 Dose: 100 mls/hr Insulin Aspart (Novolog Vial Sliding Scale -) 1 vial SQ ACHS [facility]; Protocol Last Admin: 06/23/19 11:57 Dose: Not Given Levothyroxine Sodium (Synthroid -) 200 mcg PO AM [facility] Last Admin: 06/23/19 06:55 Dose: Not Given Metoprolol Tartrate (Lopressor -) 50 mg PO DAILY [facility] Last Admin: 06/23/19 09:56 Dose: 50 mg Morphine Sulfate (Morphine Sulfate) 2 mg IVPUSH Q6H PRN PRN Reason: PAIN LEVEL 4 - 6 Last Admin: 06/23/19 09:57 Dose: 2 mg Ondansetron HCl (Zofran Injection) 4 mg IVPUSH Q6H PRN PRN Reason: NAUSEA Last Admin: 06/23/19 03:57 Dose: 4 mg Oxycodone HCl (Roxicodone -) 5 mg PO Q4H PRN PRN Reason: PAIN LEVEL 6-10 Tamsulosin HCl (Flomax -) 0.4 mg PO HS [facility] Last Admin: 06/22/19 22:29 Dose: 0.4 mg Review of Systems Constitutional: reported: Chills and Fever Cardiovascular: as noted above Respiratory: denies: Cough Gastrointestinal: denies: Nausea, Vomiting, Diarrhea, Constipation but reported Abdominal Pain Genitourinary: denies: Dysuria Musculoskeletal: denies: Joint Pain Neurological: denies: Dizziness or Headache Vital Signs: Last Vital Signs Temp Pulse Resp BP Pulse Ox 99.7 F H 107 H 20 101/62 94 L 06/23/19 06:04 06/23/19 06:04 06/23/19 06:04 06/23/19 06:04 06/22/19 21:00 Intake & Output 06/20/19 06/21/19 06/22/19 06/23/19 23:59 23:59 23:59 23:59 Intake Total 1175 Output Total 300 Balance 1175 -300 Weight 249 lb 1.6 oz Constitutional: No Distress, Calm, Thin Respiratory: Diminished Breath Sounds at the Bases Cardiovascular: S1 S2 Regular Rate and Rhythm Grade 2/6 JACK Gastrointestinal: Soft Normal Bowel Sounds Ext: Trace Edema Labs: CBC, BMP 06/23/19 06:45 06/23/19 06:45 Hepatic Panel Total Bilirubin 0.8 mg/dL (0.2-1) 06/23/19 06:45 AST 37 U/L (15-37) 06/23/19 06:45 ALT 27 U/L (13-61) 06/23/19 06:45 Alkaline Phosphatase 74 U/L (45-117) 06/23/19 06:45 Albumin 3.2 g/dl (3.4-5.0) L 06/23/19 06:45 INR, PTT INR 1.08 (0.83-1.09) 06/22/19 15:00 Assessment/Plan ASSESSMENT: 1. Abdominal discomfort referable to acute cholecystitis for operative intervention, pre-procedure cardiovascular evaluation 2. CAD post OR/PCI/stent angina pectoris, clinically stable 3. Diastolic/systolic LV dysfunction with clinical class 0-I NYHA classification LV failure, clinically compensated/euvolemic 4. Heart murmur, mitral and tricuspid regurgitation 5. HTN 6. DM 7. Hypercholesterolemia 8. Hypothyroidism 9. Chronic kidney disease PLAN: 1. Continue Toprol XL- home medication 2. Resume Cozaar hemodynamics permitting 3. Currently off of ASA to be resumed post procedure 4. There are no absolute contraindications in proceeding with the planned urgent surgical intervention considering that there is no clinical evidence of ACS and/or de-compensated CHF and/or malignant ventricular arrhythmia- patient should administer his cardiovascular medications in the morning of the procedure with a sip of water Kinjal Andujar M.D.
[2019-06-23] MEDS ORDERED: SODIUM CHLORIDE 1,000 ML IV STA (17:18)
--- NOTE | 2019-06-23 17:25 | CONS ---
DATE OF CONSULTATION: 06/23/2019 CONSULTATION REQUESTED BY: Hospitalist CHIEF COMPLAINT: Preprocedure cardiovascular evaluation prior to proceeding with cholecystectomy. HISTORY OF PRESENT ILLNESS: The patient is an 89-year-old obese male known to our service with a known history of coronary artery disease status post myocardial infarction, status post percutaneous coronary intervention stenting, angina pectoris, negative pharmacologic dipyridamole myocardial perfusion imaging study for myocardial ischemia on July 03, 2014, diastolic/systolic left ventricular dysfunction, mild in severity, with clinical class 0 to 1 [place] [employer] classification left ventricular failure, mitral valve regurgitation, mild to moderate in severity, heart murmur related to aortic valve sclerosis with no evidence of aortic valve stenosis, tricuspid valve regurgitation, mild in severity, with no evidence of pulmonary hypertension, hypertensive cardiovascular disease, [id number] diabetes mellitus, hypercholesterolemia on no statin therapy, related to statin therapy administration intolerance, carotid stenosis, mild to moderate in severity, hypothyroidism, degenerative lumbosacral disk disease with chronic low back pain syndrome and benign prostatic hypertrophy. He presented to [facility] with the sudden onset of right upper quadrant abdominal discomfort. Subsequently, upon evaluation, the patient was noted to have evidence of acute cholecystitis for which laparoscopic cholecystectomy is planned for this coming week. The patient is currently sitting in a chair and continues to report intermittent right upper quadrant discomfort. The patient denies any nausea or vomiting. The patient denies any chest discomfort. The patient continues to report persistence of dyspnea with mild to moderate physical exertion. The patient denies any orthopnea, paroxysmal nocturnal dyspnea or peripheral edema. The patient denies any palpitations, dizziness, lightheadedness or syncope. The patient reports fatigue and tiredness. PAST MEDICAL HISTORY: Coronary artery disease status post myocardial infarction, status post percutaneous coronary intervention stenting, angina pectoris, diastolic/systolic left ventricular dysfunction with clinical class 0 to 1 [place] [employer] classification left ventricular failure, mitral valve regurgitation, mild to moderate in severity, heart murmur related to aortic valve sclerosis, tricuspid valve regurgitation, mild in severity, hypertensive cardiovascular disease, [id number] diabetes mellitus, hypercholesterolemia, carotid stenosis, hypothyroidism, degenerative lumbosacral disk disease with chronic low back pain syndrome and benign prostatic hypertrophy. SOCIAL HISTORY: Prior history of tobacco abuse; social alcohol intake. FAMILY HISTORY: No history of coronary artery disease. ALLERGIES: None reported. MEDICAL THERAPY AT HOME: Avodart 0.5 mg once a day, Ecotrin 81 mg once a day, Zetia 10 mg once a day, Flomax 0.4 mg once a day, Lasix 40 mg once a day, Losartan 50 mg once a day, metformin 500 mg twice a day, metoprolol succinate 50 mg once a day, Synthroid 100 mcg once a day. REVIEW OF SYSTEMS: Head and Neck: Denies headache, photophobia, blurring of vision. Respiratory: No cough or sputum production. Cardiovascular: As noted above. Gastrointestinal: As noted above. Genitourinary: No symptoms reported. Musculoskeletal: History of degenerative joint disease. PHYSICAL EXAMINATION: Vitals: Blood pressure is 101/62 mmHg, pulse rate is 107 beats per minute. Head and Neck: Pupils are equal, round and reactive to light and accommodation. Extraocular muscles intact. Anicteric sclerae. Negative JVD. No bruits appreciated. Chest: Diminished breath sounds at the bases bilaterally. Cardiovascular: S1, S2 regular. Grade 2/6 systolic ejection murmur. No clicks or gallops. Abdomen: Right upper quadrant tenderness, soft. Normal active bowel sounds. Extremities: Trace edema. ELECTROCARDIOGRAM: Sinus rhythm with complete right bundle branch block. CBC: A CBC reveals white cell count 16.9, hemoglobin 13.6, platelets 193. His basic metabolic profile revealed sodium 138, potassium 4.8, BUN 31.6, creatinine 1.2, glucose 158, INR 1.108. ASSESSMENT: 1. Abdominal discomfort referable to acute cholecystitis for operative intervention; preprocedure cardiovascular evaluation. 2. Coronary artery disease, post myocardial infarction, post percutaneous coronary intervention stenting, angina pectoris, clinically stable. 3. Diastolic/systolic left ventricular dysfunction with clinical class 0 to 1 [place] [employer] classification ventricular failure, clinically compensated/euvolemic. 4. Heart murmur related to aortic valve sclerosis, mitral valve regurgitation, mild to moderate in severity and tricuspid valve regurgitation, mild in severity. 5. Hypertensive cardiovascular disease. 6. Diabetes mellitus. 7. Hypercholesterolemia. 8. Hypothyroidism. 9. Chronic kidney disease. RECOMMENDATIONS: 1. Continuation of Toprol XL. 2. Resumption of Cozaar therapy, hemodynamics permitting. 3. Currently off of aspirin therapy; to be resumed post procedure. 4. There are no absolute contraindications to proceeding with planned urgent surgical intervention, considering that there is no clinical evidence of acute coronary syndrome and/or decompensated congestive heart failure and/or malignant ventricular arrhythmia. The patient should administer his cardiovascular medications on the morning of the procedure with a sip of water. Thank you for the kind referral. KASIE MCNAMARA M.D. ANIKA/[id number]
--- NOTE | 2019-06-23 17:39 | RAPID ---
<Nura Luevano - Last Filed: 06/23/19 18:38> Physical Examination Vital Signs: Vital Signs Temperature 97.4 F L 06/23/19 15:49 Pulse Rate 81 06/23/19 15:49 Respiratory Rate 18 06/23/19 15:49 Blood Pressure 85/44 L 06/23/19 15:49 O2 Sat by Pulse Oximetry (%) 94 L 06/23/19 09:00 Findings/Remarks: Rapid Response was called at 1720. faculty i on call medical assistant team arrived, patient found hypotensive at 67/42 and hypoxic at 84% on 4L O2. #Initial Vitals: -B/P 67/42 -Pulse 76 -O2 84% on 4L O2 #PRISCILLA: -Pt was lying in bed, AOx3, in no acute distress, pulse 76 -Crackles on the left on auscultation -RRR After resuscitation with 1.5L N/S patient's condition improved: #Repeat Vitals: -BP 87/50 -Pulse 79 -O2 88% on 4L O2 #Assessment and Plan: -Septic shock from cholecystitis vs PE -N/S 1000 -CXR with possible congestive changes and B/L patchy infiltrates, pending official read -EKG: no changes compared to previous EKG from yesterday -Trops ordered -Duplex LE done, report pending -CTA ordered -Zosyn IV started, Ceftriaxone and Flagyl D/Cd -Blood and Urine cx sent -Full dose Lovenox 113mg ordered -Consent for central line obtained -Code status discussed with , she wants him to be FULL CODE - Transferred to ICU Labs: CBC, BMP 06/23/19 06:45 06/23/19 06:45 <Isabel Palomares - Last Filed: 06/23/19 19:13> Physical Examination Vital Signs: Findings/Remarks: patient seen and examined. Agree with resident's findings above. In addition : ABd exam : obese, soft, TTP in RUQ. hypoactive BS. LE : no edema or erythema. No tenderness DDx includes: Massive PE given hypotesion and hypoxia, cxray findings don't explain the hypoxia ( poor inspiration , trace L pleural effusion, possibel infiltrative changes vs atelectasis in R base). DC in DDx . need to r/o septic shock. - all above tests ordered - will transfer patient to ICU . accepted by BUFFING MACHINE OPERATOR - case is signed out to night attending, dr. Garcia who will follow up on results. Labs: CBC, BMP 06/23/19 17:48 06/23/19 06:45 Critical Care Total Critical Care Time (in minutes): 50 Critical Care Statement: The care of this patient involved high complexity decision making to prevent further life threatening deterioration of the patient 's condition and/or to evaluate & treat vital organ system(s) failure or risk of failure.
[2019-06-23] MEDS ORDERED: SODIUM CHLORIDE 1,000 ML IV SCH ×2 (17:40→21:28)
[2019-06-23] MEDS ORDERED: PIPERACILLIN/TAZOB 3.375 GM 3.375 GM in DEXTROSE 5%-WATER - 50 ML IVPB SCH ×2 (18:00→21:00)
[2019-06-23 18:26] LABS: BASO % 0.4 % (0-2.0); HEMATOCRIT 37.6 % (35.4-49); HEMOGLOBIN 12.4 GM/dL (11.7-16.9); LYMPH % 4.2 % (8-40); MCH 33.4 pg (25.7-33.7); MEAN CELL VOLUME 100.9 fl (80-96); MEAN PLT VOLUME 9.4 fl (7.5-11.1); MONO % 6.4 % (3.8-10.2); PLATELET COUNT 177 K/MM3 (134-434); RBC 3.72 M/mm3 (4.00-5.60); RDW 15.2 % (11.9-15.9); WHITE BLOOD COUNT 15.9 K/mm3 (4.0-10.0)
[2019-06-23 21:24] LABS: ARTERIAL BLD GAS O2 SATURATION 86.9 % (95-98); ARTERIAL BLOOD GAS BASE EXCESS -0.6 meq/l (-2-2); ARTERIAL BLOOD GAS PCO2 48.7 mmHg (35-45); ARTERIAL BLOOD GAS PO2 56.1 mmHg (80-100); ARTERIAL BLOOD GAS pH 7.33 (7.35-7.45)
[2019-06-23 21:25] LABS: ALLENS TEST POSITIVE
[2019-06-23] MEDS ORDERED: PIPERACILLIN/TAZOBACTAM 3.375 GM VIAL IVPB ONE (21:26)
[2019-06-23] MEDS ORDERED: ENOXAPARIN NA (PORCINE) 40 MG/0.4 ML DISP.SYRIN SQ ONE (21:28)
[2019-06-23] MEDS ORDERED: ACETAMINOPHEN 1000 MG/100 ML VIAL (NON FORMULARY) IVPB PRN (21:28)
[2019-06-23] MEDS ORDERED: ONDANSETRON 4 MG/2 ML VIAL IVPUSH PRN (21:28)
[2019-06-23] MEDS ORDERED: MORPHINE SULFATE 2 MG/ML VIAL IVPUSH PRN (21:28)
[2019-06-23] MEDS ORDERED: PIPERACILLIN/TAZOB 3.375 GM 3.375 GM in DEXTROSE 5%-WATER - 50 ML IVPB ONE (21:30)
[2019-06-23] MEDS: CHLORHEXIDINE GLUCONATE 4% CLEANSER FOR DECOLONIZATION TP SCH (21:35)
[2019-06-23] MEDS: MUPIROCIN 2% TOPICAL OINTMENT FOR DECOLONIZATION NS SCH ×2 (21:36→21:39)
[2019-06-23] MEDS ORDERED: ENOXAPARIN SQ ONE (21:45)
[2019-06-23] MEDS ORDERED: CHLORHEXIDINE GLUCONATE 4% CLEANSER FOR DECOLONIZATION TP SCH (22:00)
[2019-06-23] MEDS ORDERED: MUPIROCIN 2% TOPICAL OINTMENT FOR DECOLONIZATION NS SCH (22:00)
--- NOTE | 2019-06-23 22:02 | CONSULT ---
Consult - text type - Consultation Consultation Note: PULMONARY/CRITICAL CARE CONSULT: HPI: Briefly, an obese 89 y/o M with CAD (s/p stents), CHF w/preserved EF, DM, HTN presented to the ED w/RUQ post-prandial pain, found to have cholecystitis. Surgery planned to take him to the OR on Tuesday for Lap Reena after cardiology clearance. While on the floor he had sudden onset of combined hypotension and hypoxemia. A rapid response was called. His BP improved with 1.5L of IVF. There was concern for possible PE and a CTA was ordered, but delayed due to IV access. Of note, his CXR showed b/l infiltrates and effusions. Lung cuts on CT AP from admission are relatively clean. He is afebrile, denies fever, chills, cough, sputum, N/V.D. His abdominal pain is actually better than before. EKG was done, which was unchanged from prior. Labs were significant for elevated Tropoinin. He was transferred to the ICU for further management. Current Medications Acetaminophen (Ofirmev Injection -) 1,000 mg IVPB Q6H PRN PRN Reason: PAIN LEVEL 7 - 10 Chlorhexidine Gluconate (Hibiclens For Decolonization -) 1 applic TP HS [facility] Last Admin: 06/23/19 21:35 Dose: 1 applic Dutasteride (Avodart -) 0.5 mg PO DAILY [facility] Piperacillin Sod/Tazobactam (Sod 3.375 gm/ Dextrose) 50 mls @ 100 mls/hr IVPB Q6H-IV [facility]; Protocol Piperacillin Sod/Tazobactam (Sod 3.375 gm/ Dextrose) 50 mls @ 100 mls/hr IVPB Q6H-IV [facility]; Protocol Stop: 06/24/19 15:29 Sodium Chloride (Normal Saline -) 1,000 mls @ 125 mls/hr IV ASDIR [facility] Last Admin: 06/23/19 21:34 Dose: 125 mls/hr Piperacillin Sod/Tazobactam (Sod 3.375 gm/ Dextrose) 50 mls @ 100 mls/hr IVPB ONCE ONE; Protocol Stop: 06/23/19 21:59 Last Admin: 06/23/19 21:33 Dose: 100 mls/hr Insulin Aspart (Novolog Vial Sliding Scale -) 1 vial SQ ACHS [facility]; Protocol Levothyroxine Sodium (Synthroid -) 200 mcg PO AM [facility] Morphine Sulfate (Morphine Sulfate) 2 mg IVPUSH Q6H PRN PRN Reason: PAIN LEVEL 4 - 6 Mupirocin (Bactroban Ointment (For Decolonization) -) 1 applic NS BID [facility] Stop: 06/28/19 21:59 Last Admin: 06/23/19 21:39 Dose: 1 applic Ondansetron HCl (Zofran Injection) 4 mg IVPUSH Q6H PRN PRN Reason: NAUSEA Oxycodone HCl (Roxicodone -) 5 mg PO Q4H PRN PRN Reason: PAIN LEVEL 6-10 Vital Signs Temp 97.5 F L 06/23/19 16:45 Pulse 79 06/23/19 19:52 Resp 18 06/23/19 16:45 BP 93/52 L 06/23/19 19:52 Pulse Ox 94 L 06/23/19 09:00 Intake & Output 06/23/19 06/23/19 06/24/19 06:59 18:59 06:59 Intake Total 1175 0 Output Total 300 Balance 1175 -300 Intake: IV 675 Normal Saline - 1,000 ml 675 @ 75 mls/hr IV ASDIR [facility] Rx#:[id number] IVPB 500 Oral 0 Output: Urine 300 Void 300 Other: Voiding Method Urinal Urinal # Unmeasured Voids Void 4 1 Bowel Movement Yes No # Bowel Movements 1 EXAM: gen: obese male, minimal distress HEENT: PERRL, hearing aids, no JVD, dry MM lungs: diminished, crackles b/l heart: RRR abd: obese, distended, soft, non-tender ext: warm, no edema, good pulses CBC, BMP 06/23/19 17:48 06/23/19 06:45 ASSESSMENT: Hypoxemic respiratory failure - there are b/l infiltrates and effusions on CXR - doubt PE, but cannot r/o; more likely an element of pulm edema or aspiration pneumonitis given the time course NSTEMI - likely demand ischemia Shock - septic vs cargiogenic CRUZ Acute cholecystitis CAD CHF DM HTN PLAN: -CTA was ordered - can obtain now that he has access -Check ABG -Trial of HFNC Oxygen vs NIPPV - low threshold for intubation -Cultures, urine Ags -Escalate abx from CTX to Zosyn -May need perc-reena drain by IR for source control in lieu of surgery -May need central line and pressors if becomes hypotensive again -Trend Troponin -NPO FULL CODE Critically Ill - Critical Care Time 45min Cruz Cox Pulm/Critical Care PROCESSOR HELPER
[2019-06-24] MEDS ORDERED: PIPERACILLIN/TAZOBACTAM 3.375 GM VIAL IVPB ONE ×2 (03:08→08:27)
[2019-06-24] MEDS ORDERED: DEXTROSE 5%-WATER - 50 ML IVPB ONE ×2 (03:08→08:27)
[2019-06-24] MEDS: PIPERACILLIN/TAZOB 3.375 GM 3.375 GM in DEXTROSE 5%-WATER - 50 ML IVPB SCH ×2 (03:13→08:30)
[2019-06-24] MEDS ORDERED: HEPARIN NA (PORCINE) 5,000 UNITS/ML 1ML VIAL SQ SCH (06:00)
[2019-06-24 06:06] LABS: BASO % 0.3 % (0-2.0); EOS % 0.1 % (0-4.5); HEMATOCRIT 36.7 % (35.4-49); HEMOGLOBIN 12.3 GM/dL (11.7-16.9); LYMPH % 3.2 % (8-40); MCH 33.3 pg (25.7-33.7); MCHC 33.4 g/dl (32.0-35.9); MEAN CELL VOLUME 99.5 fl (80-96); MEAN PLT VOLUME 9.6 fl (7.5-11.1); MONO % 4.2 % (3.8-10.2); NEUT % 92.2 % (42.8-82.8); PLATELET COUNT 192 K/MM3 (134-434); RBC 3.69 M/mm3 (4.00-5.60); RDW 14.5 % (11.9-15.9); WHITE BLOOD COUNT 16.5 K/mm3 (4.0-10.0)
[2019-06-24 06:43] LABS: CALCIUM 8.2 mg/dL (8.5-10.1); CREATININE 1.4 mg/dL (0.55-1.3); POTASSIUM 4.4 mmol/L (3.5-5.1)
[2019-06-24] MEDS: LEVOTHYROXINE NA 200 MCG TABLET PO SCH (07:05)
--- NOTE | 2019-06-24 07:13 | PN ---
Progress Note (short form) - Note Progress Note: Chief Complaint: Events noted, notes reviewed, transferred to ICU post rapid response/hypotension- has been in atrial fibrillation since last night with rapid ventricular response, episode of vomiting this AM, persistent right upper quadrant discomfort, denies any chest discomfort or dyspnea History of Present Illness: Seen and examined in the ICU. Events noted, notes reviewed, transferred to ICU post rapid response/hypotension- has been in atrial fibrillation since last night with rapid ventricular response, episode of vomiting this AM, persistent right upper quadrant discomfort, denies any chest discomfort or dyspnea Chest x-ray this AM noted consistent with pulmonary edema, Troponin I noted Medications: Current Medications Acetaminophen (Ofirmev Injection -) 1,000 mg IVPB Q6H PRN PRN Reason: PAIN LEVEL 7 - 10 Chlorhexidine Gluconate (Hibiclens For Decolonization -) 1 applic TP HS [facility] Last Admin: 06/23/19 21:35 Dose: 1 applic Dutasteride (Avodart -) 0.5 mg PO DAILY [facility] Heparin Sodium (Porcine) (Heparin -) 5,000 unit SQ TID [facility] Piperacillin Sod/Tazobactam (Sod 3.375 gm/ Dextrose) 50 mls @ 100 mls/hr IVPB Q6H-IV [facility]; Protocol Piperacillin Sod/Tazobactam (Sod 3.375 gm/ Dextrose) 50 mls @ 100 mls/hr IVPB Q6H-IV [facility]; Protocol Stop: 06/24/19 15:29 Last Admin: 06/24/19 03:13 Dose: 100 mls/hr Insulin Aspart (Novolog Vial Sliding Scale -) 1 vial SQ ACHS [facility]; Protocol Last Admin: 06/23/19 23:00 Dose: Not Given Levothyroxine Sodium (Synthroid -) 200 mcg PO AM [facility] Morphine Sulfate (Morphine Sulfate) 2 mg IVPUSH Q6H PRN PRN Reason: PAIN LEVEL 4 - 6 Mupirocin (Bactroban Ointment (For Decolonization) -) 1 applic NS BID [facility] Stop: 06/28/19 21:59 Last Admin: 06/23/19 21:39 Dose: 1 applic Ondansetron HCl (Zofran Injection) 4 mg IVPUSH Q6H PRN PRN Reason: NAUSEA Last Admin: 06/24/19 03:46 Dose: 4 mg Oxycodone HCl (Roxicodone -) 5 mg PO Q4H PRN PRN Reason: PAIN LEVEL 6-10 Review of Systems Constitutional: reported: Chills and Fever Cardiovascular: as noted above Respiratory: denies: Cough Gastrointestinal: denies: Diarrhea, Constipation but reported Abdominal Pain, Nausea and Vomiting Genitourinary: denies: Dysuria Musculoskeletal: denies: Joint Pain Neurological: denies: Dizziness or Headache Vital Signs: Constitutional: No Distress, Calm, Thin Respiratory: Diminished Breath Sounds at the Bases Cardiovascular: S1 S2 Irregularly Irregular Grade 2/6 JAKC Gastrointestinal: Soft Normal Bowel Sounds Ext: Trace Edema Labs: CBC, BMP 06/24/19 05:15 06/24/19 05:15 Troponin, BNP 06/23/19 06/24/19 17:48 01:45 Troponin I 0.47 H 0.27 H ABG Results ABG pH 7.33 (7.35-7.45) L 06/23/19 21:15 ABG pCO2 at Pt Temp 48.7 mmHg (35-45) H 06/23/19 21:15 ABG pO2 at Pt Temp 56.1 mmHg (80-100) L 06/23/19 21:15 ABG HCO3 25.2 mmol/L (22-27) 06/23/19 21:15 ABG O2 Sat (Measured) 86.9 % (95-98) L 06/23/19 21:15 ABG O2 Content 15.2 % vol 06/23/19 21:15 ABG Base Excess -0.6 meq/l (-2-2) 06/23/19 21:15 Assessment/Plan ASSESSMENT: 1. 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 CAD post DC/PCI/stent with evidence of demand ischemic injury angina pectoris 3. Paroxysmal atrial fibrillation new onset with rapid ventricular response [id number] 4. Abdominal discomfort referable to acute cholecystitis for operative intervention, to be deferred in view of the above noted clinical presentation 5. Heart murmur AV sclerosis 6. Mitral and tricuspid regurgitation 7. HTN, transient hypotension 8. DM 9. Hypercholesterolemia 10. Hypothyroidism 11. Chronic kidney disease PLAN: 1. Change Toprol XL to Lopressor, hemodynamics permitting 2. Continue Cozaar, hemodynamics permitting 3. Lasix IV 4. IV Heparin 5. IV Amiodarone 6. Surgical intervention to be deferred at this point in view of the above noted presentation, to consider percutaneous cholecystostomy- surgical team to review Condition critical Kinjal Andujar M.D.
[2019-06-24] MEDS ORDERED: HEPARIN NA (PORCINE) 5,000 UNITS/ML 1ML VIAL IVPUSH PRN (07:14)
[2019-06-24] MEDS ORDERED: AMIODARONE IN DEXTROSE,ISO-OSM 150 MG/100 ML BAG IVPB ONE (07:15)
[2019-06-24] MEDS: INSULIN SLIDING SCALE (NOVOLOG) 1 VIAL SQ SCH ×4 (07:15→21:15)
[2019-06-24] MEDS ORDERED: AMIODARONE IN DEXTROSE,ISO-OSM 360 MG/200 ML BAG IVPB ONE (07:18)
[2019-06-24] MEDS: HEPARIN SOD,PORK IN 0.45% NACL 25,000 UNITS/500 ML INFUS.BAG IVPB SCH (08:30)
[2019-06-24] MEDS: HEPARIN NA (PORCINE) 5,000 UNITS/ML 1ML VIAL IVPUSH PRN (08:30)
--- NOTE | 2019-06-24 08:34 | PN ---
Progress Note (short form) - Note Progress Note: PULMONARY/CRITICAL CARE PROGRESS NOTE: SUBJECTIVE: Pt seen and examined in the ICU Admitted last night for hypoxemia and hypotension Ceftriaxone escalated to Zosyn CTA and dopplers were done and negative for clot. CT showed GGOs likely pulm edema and LL infiltrates Oxygenation acceptable on HFNC Not on pressors Developed AF o/n OBJECTIVE: Current Medications Acetaminophen (Ofirmev Injection -) 1,000 mg IVPB Q6H PRN PRN Reason: PAIN LEVEL 7 - 10 Chlorhexidine Gluconate (Hibiclens For Decolonization -) 1 applic TP HS [facility] Last Admin: 06/23/19 21:35 Dose: 1 applic Dutasteride (Avodart -) 0.5 mg PO DAILY [facility] Furosemide (Lasix Injection -) 40 mg IVPUSH BID@0600,1400 [facility] Heparin Sodium (Porcine) (Heparin -) 1,000 unit IVPUSH PRN PRN PRN Reason: Heparin Heparin Sodium (Porcine) (Heparin -) 5,000 unit IVPUSH PRN PRN PRN Reason: Heparin Piperacillin Sod/Tazobactam (Sod 3.375 gm/ Dextrose) 50 mls @ 100 mls/hr IVPB Q6H-IV [facility]; Protocol Piperacillin Sod/Tazobactam (Sod 3.375 gm/ Dextrose) 50 mls @ 100 mls/hr IVPB Q6H-IV [facility]; Protocol Stop: 06/24/19 15:29 Last Admin: 06/24/19 03:13 Dose: 100 mls/hr HEPARIN SOD,PORK IN 0.45% NACL (Heparin-1/2ns 25,000 Units/500) 25,000 units in 500 mls @ 20 mls/hr IVPB TITR [facility]; Protocol Amiodarone HCl/Dextrose (Nexterone 360 Mg/200 Ml Bag) 360 mg in 200 mls @ 33.333 mls/hr IVPB ONCE ONE; Protocol Stop: 06/24/19 13:17 Insulin Aspart (Novolog Vial Sliding Scale -) 1 vial SQ ACHS [facility]; Protocol Last Admin: 06/24/19 07:15 Dose: Not Given Levothyroxine Sodium (Synthroid -) 200 mcg PO AM [facility] Last Admin: 06/24/19 07:05 Dose: 200 mcg Metoprolol Tartrate (Lopressor -) 25 mg PO BID [facility] Morphine Sulfate (Morphine Sulfate) 2 mg IVPUSH Q6H PRN PRN Reason: PAIN LEVEL 4 - 6 Mupirocin (Bactroban Ointment (For Decolonization) -) 1 applic NS BID [facility] Stop: 06/28/19 21:59 Last Admin: 06/23/19 21:39 Dose: 1 applic Ondansetron HCl (Zofran Injection) 4 mg IVPUSH Q6H PRN PRN Reason: NAUSEA Last Admin: 06/24/19 03:46 Dose: 4 mg Oxycodone HCl (Roxicodone -) 5 mg PO Q4H PRN PRN Reason: PAIN LEVEL 6-10 Pantoprazole Sodium (Protonix Iv) 40 mg IVPUSH DAILY [facility] Vital Signs Temp 97.8 F 06/24/19 07:00 Pulse 107 H 06/24/19 07:00 Resp 20 06/24/19 07:00 BP 99/67 06/24/19 07:00 Pulse Ox 95 06/23/19 23:56 Intake & Output 06/23/19 06/24/19 06/24/19 18:59 06:59 18:59 Intake Total 0 600 Output Total 300 300 Balance -300 300 Weight 120.973 kg Intake: IV 500 Normal Saline - 1,000 ml 250 @ 125 mls/hr IV ASDIR [facility] Rx#:[id number] Normal Saline - 1,000 ml 250 @ 125 mls/hr IV ASDIR [facility] Rx#:[id number] IVPB 100 Oral 0 Output: Urine 300 300 Void 300 300 Other: Voiding Method Urinal Urinal # Unmeasured Voids Void 1 Bowel Movement No No Weight Measurement Method Built in [facility] EXAM: gen: obese male, minimal distress HEENT: PERRL, hearing aids, no JVD, dry MM lungs: diminished, crackles b/l heart: RRR abd: obese, distended, soft, tender ext: warm, no edema, good pulses CBC, BMP 06/24/19 05:15 06/24/19 05:15 ASSESSMENT: Hypoxemic respiratory failure NSTEMI - likely demand ischemia Sepsis CRUZ Acute cholecystitis CAD CHF DM HTN AF PLAN: -HFNC Oxygen -Antibiotics - Zosyn -Amiodarone/Lopressor for rate control -Heparin drip for AF -Diuresis as BP will allow -May need perc-benja drain by IR for source control in lieu of surgery -May need central line and pressors if becomes hypotensive again -Trend Troponin -NPO FULL CODE Critically Ill - Critical Care Time 45min [facility] Cox Pulm/Critical Care MANUFACTURING COORDINATOR
[2019-06-24 09:14] LABS: MACROCYTOSIS 1+; OVALOCYTE 1+; PLATELET ESTIMATE NORMAL
[2019-06-24 10:12] LABS: ANISOCYTOSIS 0; TEAR DROP CELLS 1+
--- NOTE | 2019-06-24 10:40 | CON.ID ---
Consult Consult Specialty:: infectious diseaes Referred by:: Reason for Consultation:: sepsis,ac cholecystitis - History of Present Illness Chief Complaint: rt upper quadrant pain History of Present Illness: 89 y.o male with PMH of DM, CHF, CAD (s/p stents) HTN HBPH admitted to icu with complaints of abdominal pain- patient states the pain was very severe in nature - he moved his bowels (which were normal) and the pain continued- he denies ay nause /vomtiting. he has never had pain like this before nor did he try to take anything for the pain, he has never had a colonsocpy in the past. he dneies any changes in his eating habits- no systemic symptoms experienced. denies any CP/ SOB/N.B patient currently has severe pain and he does not feel so good wbc has continued to increased patient also in afib and on heparin drip - History Source History Provided By: Patient - Past Medical History Cardio/Vascular: Yes: CAD (several stents placed after AK 20 years ago), HTN, Hyperlipdemia, AK (years ago) Gastrointestinal: Yes: Constipation, Other (recent elevated ALT? fatty liver) Renal/: Yes: BPH, Renal Calculi (s/p ESWL x 4) Musculoskeletal: Yes: Osteoarthritis Endocrine: Yes: Diabetes Mellitus, Hypothyroidism - Past Surgical History Past Surgical History: Yes: Bariatric Surgery, Stent (coronary artery stents 20 years ago) - Alcohol/Substance Use Hx Alcohol Use: Yes (occasionally) History of Substance Use: reports: None - Smoking History Smoking history: Never smoked Have you smoked in the past 12 months: No If you are a former smoker, when did you quit?: 1998 - Social History Usual Living Arrangement: With Spouse (lives with in house with 1 step to enter and 1st julian set-up inside, ambualtes with straight cane) ADL: Independent (until current illness.) Occupation: just collects metal junk to salvage, retired lei History of Recent Travel: No Home Medications - Allergies Allergies/Adverse Reactions: Allergies Allergy/AdvReac Type Severity Reaction Status Date / Time No Known Allergies Allergy Verified 06/22/19 07:25 - Home Medications Home Medications: Ambulatory Orders metFORMIN HCL [Metformin ER Osmotic] 500 mg PO BID 08/23/15 Ezetimibe [Zetia] 10 mg PO DAILY 09/26/18 Furosemide [Lasix] 20 mg PO DAILY #30 tablet 09/28/18 Losartan Potassium 50 mg PO DAILY 03/07/19 Dutasteride [Avodart] 0.5 mg PO DAILY cap 03/09/19 Levothyroxine [Synthroid -] 200 mcg PO AM tablet 03/09/19 Tamsulosin HCl [Flomax -] 0.4 mg PO HS cap.er.24h 03/09/19 Aspirin 81 mg PO DAILY 06/22/19 Metoprolol Tartrate 50 mg PO DAILY 06/22/19 Family Disease History - Family Disease History Family Disease History: Heart Disease: Brother, Other: Father (unknown), Mother (alzheimers) Review of Systems - Review of Systems Constitutional: reports: Weakness Eyes: reports: No Symptoms HENT: reports: No Symptoms Neck: reports: No Symptoms Cardiovascular: reports: No Symptoms Respiratory: reports: No Symptoms Gastrointestinal: reports: Abdominal Pain, Other Musculoskeletal: reports: No Symptoms Integumentary: reports: No Symptoms Neurological: reports: No Symptoms Endocrine: reports: No Symptoms Hematology/Lymphatic: reports: No Symptoms Psychiatric: reports: No Symptoms Physical Exam Vital Signs: Vital Signs Temperature 97.8 F 06/24/19 07:00 Pulse Rate 93 H 06/24/19 09:00 Respiratory Rate 20 06/24/19 09:00 Blood Pressure 105/59 L 06/24/19 09:00 O2 Sat by Pulse Oximetry (%) 94 L 06/24/19 09:00 Constitutional: Yes: Moderate Distress Eyes: Yes: Conjunctiva Clear HENT: Yes: Atraumatic, Normocephalic Neck: Yes: Supple, Trachea Midline Cardiovascular: Yes: Pulse Irregular Respiratory: Yes: Regular, CTA Bilaterally Gastrointestinal: Yes: Tenderness, Other (absent bowel sounds,guarding) Musculoskeletal: Yes: WNL Extremities: Yes: WNL Neurological: Yes: Alert, Oriented Psychiatric: Yes: Alert, Oriented Labs: CBC, BMP 06/24/19 05:15 06/24/19 05:15 Imaging - Results Chest X-ray: Report Reviewed, Image Reviewed Cat Scan: Report Reviewed, Image Reviewed Ultrasound: Report Reviewed, Image Reviewed Assessment/Plan 89 y.o male with PMH of DM, CHF, CAD (s/p stents) HTN BPH presents to the ED with complaints of abdominal pain found to have choleycystitis Acute Choley CAD HTN CHF DM afib patient is very tender on rt upper quadrant i am worried plan i think patient should get his gb decompressed i have started him on zosyn very close watch patient might become septic rest as per icu iv fluids cardio on case cc 45 min
[2019-06-24] MEDS: MUPIROCIN 2% TOPICAL OINTMENT FOR DECOLONIZATION NS SCH ×2 (10:55→21:30)
[2019-06-24] MEDS: METOPROLOL TARTRATE 25 MG TABLET (FP) PO SCH ×2 (10:57→21:15)
[2019-06-24] MEDS: PANTOPRAZOLE SODIUM 40 MG VIAL IVPUSH SCH (10:58)
[2019-06-24] MEDS: DUTASTERIDE 0.5 MG CAP (FP) PO SCH (11:00)
[2019-06-24] MEDS ORDERED: DEXTROSE 5%-WATER 100 ML IVPB ONE ×2 (11:03→15:27)
[2019-06-24] MEDS ORDERED: PIPERACILLIN/TAZOBACTAM 4.5 GM VIAL IVPB ONE ×2 (11:03→15:27)
--- NOTE | 2019-06-24 11:22 | PN ---
Teaching Attending Note Name of Resident: Kary Alvares ATTENDING PHYSICIAN STATEMENT I saw and evaluated the patient. I reviewed the resident's note and discussed the case with the resident. I agree with the resident's findings and plan as documented. SUBJECTIVE:RETREAD SUPERVISOR called yesterday due to hypoxia to 80's and hypotension 67/42. CXR showing pulmonary edema and LLL infiltrate. pt transferred to ICU. was seen to go into Afib this AM and started on amio and heparin ggt. pt seen today is lethargic but arrousable to verbal stimuli c/o abdominal pain OBJECTIVE: Last Vital Signs Temp Pulse Resp BP Pulse Ox 97.8 F 93 H 20 105/59 L 94 L 06/24/19 07:00 06/24/19 09:00 06/24/19 09:00 06/24/19 09:00 06/24/19 09:00 Intake & Output 06/21/19 06/22/19 06/23/19 06/24/19 23:59 23:59 23:59 23:59 Intake Total 1175 300 300 Output Total 400 200 Balance 1175 -100 100 Weight 249 lb 1.6 oz 266 lb 11.2 oz General lethargic, responds to verbal stimuli CV S1 S2 irregular Lungs crackles B/L Abdomen soft diffuse abdominal tenderness but worse in RUQ ASSESSMENT AND PLAN: 89yo M with PMH DM, CAD s/p stent 20 years ago, CHF, HTN and dyslipidemia c/o RUQ pain starting at 3am waking him out of sleep and found to have acute cholecystitis with RETREAD SUPERVISOR called on 06/23 for hypotension and hypoxia and new development of afib 1. sepsis due to Acute cholecystitis-responded to IVF hydration and no longer hypotensive. spoke with IR and will come for CCY tube for decompression as this pt is too unstable for surgery. Abx switched to zosyn. consider central line placement as may require pressors. ID consulted. spoke with Surgeon and ID. 2. New onset afib-induced by sepsis. started on amio and heparin ggt. will hold heparin for pending surgery. will liekly not require termination clerk anticoagulation once source is treated. cardio on board 3. Tropinemia- due to demand of sepsis and new onset afib. trop peaked at 0.47. trended down. cardio on board 4. acute hypoxic respiratory failure- due to pulmonary edema. some concern for PE in setting of tachycardia and hypotension. CTA done. awaiting official read but dopplers are negative. low suspicion at this time given pulmonary edema. on high flow oxygen. on lasix IV BID. will diurese. daily weights, strict I&O, monitor electrolytes 5. CRUZ- due to sepsis and volume overload. will monitor for now. hold nephrotoxic agnets. 6. DM- hold oral agents. iss and bgm 7. CAD s/p stent 20 years ago- hold asa for pending surgery. cardio consulted 8. Acute disastolic CHF- currently overloaded. on lasix BID. strict I&O, daily weights,. monitor electrolytes 9. HTN- currently hypotensive. responding to IVF however may require pressors 10. dyslipidemia- cont medications 11. DVT ppx- holding for pending procedure 12. spoke with present at bedside. all questions answered. verbalized understanding and agreement, agrees to emergent CCY procedure The care of this patient involved high complexity decision making to prevent further life threatening deterioration of the patient's condition and/or to evaluate & treat vital organ system(s) failure or risk of failure. 45 minutes
--- NOTE | 2019-06-24 11:37 | EKG ---
Test Reason : Blood Pressure : / mmHG Vent. Rate : 077 BPM Atrial Rate : 077 BPM P-R Int : 200 ms QRS Dur : 150 ms QT Int : 406 ms P-R-T Axes : 060 062 028 degrees QTc Int : 459 ms NORMAL SINUS RHYTHM RIGHT BUNDLE BRANCH BLOCK ABNORMAL ECG WHEN COMPARED WITH ECG OF 22-JUN-2019 08:48, NO SIGNIFICANT CHANGE WAS FOUND Confirmed by ANDERS VELEZ, KASIE ([id number]) on 06/24/2019 11:37:20 AM Referred By: Confirmed By:KASIE MCNAMARA MD
--- NOTE | 2019-06-24 13:12 | PN ---
Physical Exam: SUBJECTIVE: Patient seen and examined at bedside this morning. Patient remains somnolent this morning but arousable to voice, reporting feeling "lousy". On high flow oxygen. Rapid response called overnight. Patient was noted to be hypoxic and hypotensive. Sepsis work-up was done. CTA done to rule out PE. Patient was also noted to be in AFib. Lovenox full dose given once. Patient was subsequently transferred to the ICU for closer monitoring and was put on high flow, maintain O2 satn >90%. Ceftriaxone and Flagyl discontinued and Zosyn started. This morning, patient underwent emergent percutaneous cholecystostomy. Patient also continued to be on AFib, was placed on amiodarone and heparin ggt. OBJECTIVE: Vital Signs Temperature 97.8 F 06/24/19 07:00 Pulse Rate 84 06/24/19 12:20 Respiratory Rate 20 06/24/19 12:20 Blood Pressure 99/53 L 06/24/19 12:20 O2 Sat by Pulse Oximetry (%) 95 06/24/19 12:00 GENERAL: The patient is somnolent, arousable to voice, on high flow HEAD: Normal with no signs of trauma. EYES: PERRLA, EOMI, sclera anicteric, conjunctiva clear. ENT: dry mucous membranes. NECK: full range of motion, supple. LUNGS: decreased breath sounds bilaterally. HEART: irregular, S1 S2 ABDOMEN: Soft, +diffuse abdominal tenderness, worse in the RUQ, NABS EXTREMITIES: 2+ pulses, warm, well-perfused, no edema. Laboratory Results - last 24 hr 06/23/19 06/23/19 06/23/19 17:13 17:48 17:48 WBC 15.9 H RBC 3.72 L Hgb 12.4 Hct 37.6 MCV 100.9 H MCH 33.4 MCHC 33.0 RDW 15.2 Plt Count 177 MPV 9.4 Absolute Neuts (auto) 14.1 H Neutrophils % 89.0 H Neutrophils % (Manual) Band Neutrophils % Lymphocytes % 4.2 L D Lymphocytes % (Manual) Monocytes % 6.4 Monocytes % (Manual) Eosinophils % 0.0 Eosinophils % (Manual) Basophils % 0.4 Basophils % (Manual) Myelocytes % (Man) Promyelocytes % (Man) Blast Cells % (Manual) Nucleated RBC % 0 Metamyelocytes Hypochromia Platelet Estimate Polychromasia Poikilocytosis Anisocytosis Microcytosis Macrocytosis Tear Drop Cells Ovalocytes Anticoagulation Therapy Puncture Site ABG pH ABG pCO2 at Pt Temp ABG pO2 at Pt Temp ABG HCO3 ABG O2 Sat (Measured) ABG O2 Content ABG Base Excess Raphael Test O2 Delivery Device Oxygen Flow Rate Vent Mode Vent Rate Mechanical Rate Pressure Support Vent Sodium Potassium Chloride Carbon Dioxide Anion Gap BUN Creatinine Est GFR (CKD-EPI)AfAm Est GFR (CKD-EPI)NonAf POC Glucometer 148 Random Glucose Calcium Creatine Kinase 536 H Creatine Kinase Index 0.7 CK-MB (CK-2) 4.2 H Troponin I 0.47 H Lipase 06/23/19 06/23/19 06/24/19 21:15 22:59 01:45 WBC RBC Hgb Hct MCV MCH MCHC RDW Plt Count MPV Absolute Neuts (auto) Neutrophils % Neutrophils % (Manual) Band Neutrophils % Lymphocytes % Lymphocytes % (Manual) Monocytes % Monocytes % (Manual) Eosinophils % Eosinophils % (Manual) Basophils % Basophils % (Manual) Myelocytes % (Man) Promyelocytes % (Man) Blast Cells % (Manual) Nucleated RBC % Metamyelocytes Hypochromia Platelet Estimate Polychromasia Poikilocytosis Anisocytosis Microcytosis Macrocytosis Tear Drop Cells Ovalocytes Anticoagulation Therapy No Result Required. Puncture Site Right radial ABG pH 7.33 L ABG pCO2 at Pt Temp 48.7 H ABG pO2 at Pt Temp 56.1 L ABG HCO3 25.2 ABG O2 Sat (Measured) 86.9 L ABG O2 Content 15.2 ABG Base Excess -0.6 Raphael Test Positive O2 Delivery Device Ventimask Oxygen Flow Rate 50 Vent Mode No Result Required. Vent Rate No Result Required. Mechanical Rate No Result Required. Pressure Support Vent No Result Required. Sodium Potassium Chloride Carbon Dioxide Anion Gap BUN Creatinine Est GFR (CKD-EPI)AfAm Est GFR (CKD-EPI)NonAf POC Glucometer 101 Random Glucose Calcium Creatine Kinase Creatine Kinase Index CK-MB (CK-2) Troponin I 0.27 H Lipase 06/24/19 06/24/19 06/24/19 05:15 05:15 07:19 WBC 16.5 H RBC 3.69 L Hgb 12.3 Hct 36.7 MCV 99.5 H MCH 33.3 MCHC 33.4 RDW 14.5 Plt Count 192 MPV 9.6 Absolute Neuts (auto) 15.2 H Neutrophils % 92.2 H Neutrophils % (Manual) 85.4 H D Band Neutrophils % 7.3 Lymphocytes % 3.2 L D Lymphocytes % (Manual) 2.1 L D Monocytes % 4.2 Monocytes % (Manual) 5 Eosinophils % 0.1 D Eosinophils % (Manual) 0.0 Basophils % 0.3 Basophils % (Manual) 0.0 Myelocytes % (Man) 0 Promyelocytes % (Man) 0 Blast Cells % (Manual) 0 Nucleated RBC % 0 Metamyelocytes 0 Hypochromia 0 Platelet Estimate Normal Polychromasia 0 Poikilocytosis 0 Anisocytosis 0 Microcytosis 0 Macrocytosis 1+ Tear Drop Cells 1+ Ovalocytes 1+ Anticoagulation Therapy Puncture Site ABG pH ABG pCO2 at Pt Temp ABG pO2 at Pt Temp ABG HCO3 ABG O2 Sat (Measured) ABG O2 Content ABG Base Excess Raphael Test O2 Delivery Device Oxygen Flow Rate Vent Mode Vent Rate Mechanical Rate Pressure Support Vent Sodium 139 Potassium 4.4 Chloride 105 Carbon Dioxide 27 Anion Gap 8 BUN 38.0 H Creatinine 1.4 H Est GFR (CKD-EPI)AfAm 51.62 Est GFR (CKD-EPI)NonAf 44.54 POC Glucometer 122 Random Glucose 128 H Calcium 8.2 L Creatine Kinase Creatine Kinase Index CK-MB (CK-2) Troponin I Lipase 86 Active Medications Generic Name Dose Route Start Last Admin Trade Name Freq PRN Reason Stop Dose Admin Acetaminophen 1,000 mg 06/23/19 21:28 Ofirmev Injection - IVPB Q6H PRN PAIN LEVEL 7 - 10 Chlorhexidine Gluconate 1 applic 06/23/19 22:00 06/23/19 21:35 Hibiclens For Decolonization - TP 1 applic HS [facility] Administration Dutasteride 0.5 mg 06/24/19 10:00 06/24/19 11:00 Avodart - PO Not Given DAILY [facility] Furosemide 40 mg 06/24/19 14:00 Lasix Injection - IVPUSH BID@0600,1400 [facility] Heparin Sodium (Porcine) 1,000 unit 06/24/19 07:14 Heparin - IVPUSH PRN PRN Heparin Heparin Sodium (Porcine) 5,000 unit 06/24/19 07:14 06/24/19 08:30 Heparin - IVPUSH 5,000 unit PRN PRN Administration Heparin HEPARIN SOD,PORK IN 0.45% NACL 25,000 units in 500 mls @ 20 mls/hr 06/24/19 07 :15 06/24/19 09:30 Heparin-1/2ns 25,000 Units/500 IVPB 0 units/hr TITR [facility] 0 mls/hr Titration Protocol 1,000 UNITS/HR Amiodarone HCl/Dextrose 360 mg in 200 mls @ 33.333 mls/hr 06/24/19 07:18 08:30 Nexterone 360 Mg/200 Ml Bag IVPB 06/24/19 13:17 33.333 mls/hr ONCE ONE Administration Protocol 1 MG/MIN Piperacillin Sod/Tazobactam 100 mls @ 200 mls/hr 06/24/19 10:45 Sod 4.5 gm/ Dextrose IVPB Q8H-IV [facility] Protocol Insulin Aspart 1 vial 06/23/19 22:00 06/24/19 07:15 Novolog Vial Sliding Scale - SQ Not Given ACHS [facility] Protocol Levothyroxine Sodium 200 mcg 06/24/19 07:00 06/24/19 07:05 Synthroid - PO 200 mcg AM [facility] Administration Metoprolol Tartrate 25 mg 06/24/19 10:00 06/24/19 10:57 Lopressor - PO Not Given BID [facility] Morphine Sulfate 2 mg 06/23/19 21:28 Morphine Sulfate IVPUSH Q6H PRN PAIN LEVEL 4 - 6 Mupirocin 1 applic 06/23/19 22:00 06/23/19 21:39 Bactroban Ointment (For Decolonization) - NS 06/28/19 21:59 1 applic BID [facility] Administration Ondansetron HCl 4 mg 06/23/19 21:28 06/24/19 03:46 Zofran Injection IVPUSH 4 mg Q6H PRN Administration NAUSEA Oxycodone HCl 5 mg 06/23/19 21:28 Roxicodone - PO Q4H PRN PAIN LEVEL 6-10 Pantoprazole Sodium 40 mg 06/24/19 10:00 06/24/19 10:58 Protonix Iv IVPUSH 40 mg DAILY [facility] Administration ASSESSMENT/PLAN: Patient is an 89 year old male with past medical history of DM, CAD s/p stent, CHF, HTN, HLD, presented to the ED with RUQ pain and found to have acute cholecystitis. Overnight, developed hypotension and hypoxia, with new onset Afib. #Sepsis 2/2 acute cholecystitis -Received IVF, did not need pressors -s/p percutaneous cholecystostomy tube placement today -CUltures pending -Antibiotics switched to Zosyn (day 2) -ID (Dr. Smallwood) consulted. Recommendations appreciated. #New onset Atrial Fibrillation -Tele still showing Afib, rate at 100s -IV Amiodarone given -Heparin drip started -Lopressor 25mg BID -Cardiology (Dr. Andujar) consulted. Recommendations appreciated. #Elevated Troponin -Trop peaked at 0.47, likely 2/2 demand ischemia #CRUZ -Cr 1.4 today -Likely 2/2 sepsis and CHF -Avoid nephrotoxic agents. Hold Losartan -Will monitor renal function #Acute hypoxic repiratory failure like 2/2 Acute on chronic diastolic/systolic CHF -CXR consistent with pulmonary edema -On IV Lasix 40mg BID -Continue supplemental oxygen to keep SpO2>90% -Concern for PE, in the setting of hypoxia and hypotension -CTA preliminary read revealed no definite PE, awaiting final read -B/l LE duplex showed no DVT -On heparin drip for A.fib -Cardiology on board. #DM -Insulin sliding scale implemented -BGM ACHS -Hold home metformin #HTN -On Metoprolol tartrate 25mg bid -Hold Losartan in light of hypotension and CRUZ #Hypothyroidism -Continue Synthroid 200mcg daily #FEN -Not on any standing fluids -Electrolytes wnl, routine bmp monitoring -NPO #Prophylaxis -on heparin drip #Disposition -full code -ICU for closer monitoring Visit type - Emergency Visit Emergency Visit: Yes ED Registration Date: 06/22/19 Care time: The patient presented to the Emergency Department on the above date and was hospitalized for further evaluation of their emergent condition. - New Patient This patient is new to me today: Yes Date on this admission: 06/24/19 - Critical Care Critical Care patient: Yes Total Critical Care Time (in minutes): 35 Critical Care Statement: The care of this patient involved high complexity decision making to prevent further life threatening deterioration of the patient 's condition and/or to evaluate & treat vital organ system(s) failure or risk of failure. ATTENDING PHYSICIAN STATEMENT I saw and evaluated the patient. I reviewed the resident's note and discussed the case with the resident. I agree with the resident's findings and plan as documented. SUBJECTIVE: OBJECTIVE: ASSESSMENT AND PLAN:
[2019-06-24] MEDS: PIPERACILLIN/TAZOB 4.5 GM 4.5 GM in DEXTROSE 5%-WATER 100 ML IVPB SCH ×2 (13:30→18:10)
[2019-06-24 13:49] VITALS: BMI 40.4
[2019-06-24] MEDS: FUROSEMIDE 40 MG/4 ML INJECTABLE VIAL IVPUSH SCH (15:04)
[2019-06-24] MEDS ORDERED: AMIODARONE IN DEXTROSE,ISO-OSM 360 MG/200 ML BAG ONE (15:54)
[2019-06-24] MEDS ORDERED: ALBUTEROL SO4 0.083% IH SOL 2.5 MG/3 ML VIAL.NEB. NEB PRN (16:19)
[2019-06-24] MEDS ORDERED: AMIODARONE IN DEXTROSE,ISO-OSM 360 MG/200 ML BAG IVPB SCH (18:15)
[2019-06-24] MEDS ORDERED: PIPERACILLIN/TAZOB 3.375 GM 3.375 GM in DEXTROSE 5%-WATER - 50 ML IVPB SCH (21:00)
[2019-06-24] MEDS: CHLORHEXIDINE GLUCONATE 4% CLEANSER FOR DECOLONIZATION TP SCH (21:30)
--- NOTE | 2019-06-24 21:47 | PN ---
Progress Note (short form) - Note Progress Note: Attending Surgeon Patient decompensated last PM and was xferred to the ICU; w/u was done and concern for sepsis secondary to acute cholecystitis was suspected; after appropriate w/u he underwent percutaneous cholecystostomy today w/marked improvement; lap benja for 06/25/2019 is cancelled while cardiac w/u continues. VSS AF abdo-soft; globose and w/o tenderness; cholecystostomy tube in place and draining IMP: improved PLAN: Continue present tx. as per ICU/Cardiology; d/w patient and his family in depth today at bedside. Sukhdev Vazquez MD FACS
[2019-06-25] MEDS ORDERED: PIPERACILLIN/TAZOBACTAM 4.5 GM VIAL IVPB ONE ×3 (02:10→17:27)
[2019-06-25] MEDS ORDERED: DEXTROSE 5%-WATER 100 ML IVPB ONE ×3 (02:10→17:27)
[2019-06-25] MEDS: PIPERACILLIN/TAZOB 4.5 GM 4.5 GM in DEXTROSE 5%-WATER 100 ML IVPB SCH ×2 (02:17→09:41)
[2019-06-25] MEDS ORDERED: PT OWN MED DRAWER 7, Y5N ONE ×2 (05:49→18:00)
[2019-06-25] MEDS: FUROSEMIDE 40 MG/4 ML INJECTABLE VIAL IVPUSH SCH ×2 (06:09→14:14)
[2019-06-25] MEDS: INSULIN SLIDING SCALE (NOVOLOG) 1 VIAL SQ SCH ×4 (06:16→21:59)
[2019-06-25 06:18] LABS: BASO % 0.6 % (0-2.0); EOS % 0.3 % (0-4.5); HEMATOCRIT 34.7 % (35.4-49); HEMOGLOBIN 11.7 GM/dL (11.7-16.9); LYMPH % 4.4 % (8-40); MCH 33.5 pg (25.7-33.7); MCHC 33.7 g/dl (32.0-35.9); MEAN CELL VOLUME 99.5 fl (80-96); MEAN PLT VOLUME 9.1 fl (7.5-11.1); NEUT % 87.7 % (42.8-82.8); PLATELET COUNT 210 K/MM3 (134-434); RBC 3.48 M/mm3 (4.00-5.60); RDW 14.6 % (11.9-15.9); WHITE BLOOD COUNT 15.5 K/mm3 (4.0-10.0)
[2019-06-25 06:46] LABS: ALBUMIN 2.5 g/dl (3.4-5.0); BILIRUBIN,TOTAL 0.4 mg/dL (0.2-1); BLOOD UREA NITROGEN 26.6 mg/dL (7-18); CALCIUM 8.5 mg/dL (8.5-10.1); CREATININE 0.9 mg/dL (0.55-1.3); MAGNESIUM 2.2 mg/dL (1.8-2.4); PHOSPHOROUS 2.2 mg/dL (2.5-4.9); POTASSIUM 3.9 mmol/L (3.5-5.1); TOT PROT 5.9 g/dl (6.4-8.2)
[2019-06-25] MEDS: HEPARIN SOD,PORK IN 0.45% NACL 25,000 UNITS/500 ML INFUS.BAG IVPB SCH (07:15)
--- NOTE | 2019-06-25 08:14 | PN ---
Progress Note (short form) - Note Progress Note: Pt had cholecysotomy tube placed on 06/24. Having some pain in the RUQ. Vital Signs Period Temp Pulse Resp BP Sys/Francisco Pulse Ox Last 24 Hr 98.3 F-98.4 F 67-94 17-22 92-122/53-70 94-98 GEN: A&0x3, NAD ABD: obese, slight distended, mild RUQ with fullness. Tube with light brown(bilious drainage) 511 drainage recorded CBC, BMP 06/25/19 05:25 06/25/19 05:25 Laboratory Tests 06/25/19 05:25 Phosphorus 2.2 L Magnesium 2.2 Total Bilirubin 0.4 AST 36 ALT 25 Alkaline Phosphatase 77 A/p: 89 yo male s/p cholecystostomy tube placement fulls as tolerated IV abx cholecystosotmy tube to gravity drainage D/w Dr. Vazquez
--- NOTE | 2019-06-25 09:30 | PN ---
Progress Note (short form) - Note Progress Note: Hospitalist to document today. GB fluid C/S + Pain improved after GB drainage.
[2019-06-25] MEDS: DUTASTERIDE 0.5 MG CAP (FP) PO SCH (09:40)
[2019-06-25] MEDS: LEVOTHYROXINE NA 200 MCG TABLET PO SCH (09:40)
[2019-06-25] MEDS: METOPROLOL TARTRATE 25 MG TABLET (FP) PO SCH ×2 (09:40→21:58)
[2019-06-25] MEDS: PANTOPRAZOLE SODIUM 40 MG VIAL IVPUSH SCH (09:40)
[2019-06-25] MEDS: MUPIROCIN 2% TOPICAL OINTMENT FOR DECOLONIZATION NS SCH ×2 (09:49→21:58)
--- NOTE | 2019-06-25 10:39 | PN ---
Progress Note, Physician History of Present Illness: patient looks better abd pain much favio choley tube in place draining well bacteria growing - Current Medication List Current Medications: Active Medications Acetaminophen (Ofirmev Injection -) 1,000 mg IVPB Q6H PRN PRN Reason: PAIN LEVEL 7 - 10 Last Admin: 06/25/19 03:51 Dose: 1,000 mg Albuterol Sulfate (Ventolin 0.083% Nebulizer Soln -) 1 amp NEB Q4H PRN PRN Reason: SHORT OF BREATH/WHEEZING Last Admin: 06/24/19 20:16 Dose: 1 amp Chlorhexidine Gluconate (Hibiclens For Decolonization -) 1 applic TP HS [facility] Last Admin: 06/24/19 21:30 Dose: 1 applic Dutasteride (Avodart -) 0.5 mg PO DAILY [facility] Last Admin: 06/25/19 09:40 Dose: 0.5 mg Furosemide (Lasix Injection -) 40 mg IVPUSH BID@0600,1400 [facility] Last Admin: 06/25/19 06:09 Dose: 40 mg Heparin Sodium (Porcine) (Heparin -) 1,000 unit IVPUSH PRN PRN PRN Reason: Heparin Heparin Sodium (Porcine) (Heparin -) 5,000 unit IVPUSH PRN PRN PRN Reason: Heparin Last Admin: 06/24/19 08:30 Dose: 5,000 unit HEPARIN SOD,PORK IN 0.45% NACL (Heparin-1/2ns 25,000 Units/500) 25,000 units in 500 mls @ 20 mls/hr IVPB TITR [facility]; Protocol Last Admin: 06/25/19 07:15 Dose: 1,100 units/hr, 22 mls/hr Piperacillin Sod/Tazobactam (Sod 4.5 gm/ Dextrose) 100 mls @ 200 mls/hr IVPB Q8H-IV [facility]; Protocol Last Admin: 06/25/19 09:41 Dose: 200 mls/hr Amiodarone HCl/Dextrose (Nexterone 360 Mg/200 Ml Bag) 360 mg in 200 mls @ 16.667 mls/hr IVPB ASDIR [facility]; Protocol Last Admin: 06/24/19 14:30 Dose: 16.667 mls/hr Insulin Aspart (Novolog Vial Sliding Scale -) 1 vial SQ ACHS [facility]; Protocol Last Admin: 06/25/19 06:16 Dose: Not Given Levothyroxine Sodium (Synthroid -) 200 mcg PO AM [facility] Last Admin: 06/25/19 09:40 Dose: 200 mcg Metoprolol Tartrate (Lopressor -) 25 mg PO BID [facility] Last Admin: 06/25/19 09:40 Dose: 25 mg Morphine Sulfate (Morphine Sulfate) 2 mg IVPUSH Q6H PRN PRN Reason: PAIN LEVEL 4 - 6 Mupirocin (Bactroban Ointment (For Decolonization) -) 1 applic NS BID [facility] Stop: 06/28/19 21:59 Last Admin: 06/25/19 09:49 Dose: 1 applic Ondansetron HCl (Zofran Injection) 4 mg IVPUSH Q6H PRN PRN Reason: NAUSEA Last Admin: 06/24/19 03:46 Dose: 4 mg Oxycodone HCl (Roxicodone -) 5 mg PO Q4H PRN PRN Reason: PAIN LEVEL 6-10 Pantoprazole Sodium (Protonix Iv) 40 mg IVPUSH DAILY [facility] Last Admin: 06/25/19 09:40 Dose: 40 mg - Objective Vital Signs: Vital Signs Temperature 98.3 F 06/24/19 19:00 Pulse Rate 81 06/25/19 08:00 Respiratory Rate 17 06/25/19 08:13 Blood Pressure 128/72 06/25/19 08:00 O2 Sat by Pulse Oximetry (%) 99 06/25/19 08:50 Constitutional: Yes: Calm, Mild Distress Cardiovascular: Yes: S1, S2 Respiratory: Yes: Regular, Poor Air Entry, Other (on high flow nasal o2) Musculoskeletal: Yes: WNL Extremities: Yes: WNL Neurological: Yes: Alert Psychiatric: Yes: Alert Labs: CBC, BMP 06/25/19 05:25 06/25/19 05:25 INR, PTT INR 1.08 (0.83-1.09) 06/22/19 15:00 Assessment/Plan 89 y.o male with PMH of DM, CHF, CAD (s/p stents) HTN BPH presents to the ED with complaints of abdominal pain found to have choleycystitis Acute Choley CAD HTN CHF DM afib plan continue abx rest as per the team monitor drainage await for identification of the organism rest as oper icu resp support cc 40 min
--- NOTE | 2019-06-25 11:25 | PN ---
Progress Note, Physician Chief Complaint: Events noted Post percutaneous cholecystostomy currently draining History of Present Illness: Patient was seen and examined in ICU. Awake and alert. Chart was reviewed Denies chest pain or SOB - Current Medication List Current Medications: Active Medications Acetaminophen (Ofirmev Injection -) 1,000 mg IVPB Q6H PRN PRN Reason: PAIN LEVEL 7 - 10 Last Admin: 06/25/19 03:51 Dose: 1,000 mg Albuterol Sulfate (Ventolin 0.083% Nebulizer Soln -) 1 amp NEB Q4H PRN PRN Reason: SHORT OF BREATH/WHEEZING Last Admin: 06/24/19 20:16 Dose: 1 amp Chlorhexidine Gluconate (Hibiclens For Decolonization -) 1 applic TP HS [facility] Last Admin: 06/24/19 21:30 Dose: 1 applic Dutasteride (Avodart -) 0.5 mg PO DAILY [facility] Last Admin: 06/25/19 09:40 Dose: 0.5 mg Furosemide (Lasix Injection -) 40 mg IVPUSH BID@0600,1400 [facility] Last Admin: 06/25/19 06:09 Dose: 40 mg Heparin Sodium (Porcine) (Heparin -) 1,000 unit IVPUSH PRN PRN PRN Reason: Heparin Heparin Sodium (Porcine) (Heparin -) 5,000 unit IVPUSH PRN PRN PRN Reason: Heparin Last Admin: 06/24/19 08:30 Dose: 5,000 unit HEPARIN SOD,PORK IN 0.45% NACL (Heparin-1/2ns 25,000 Units/500) 25,000 units in 500 mls @ 20 mls/hr IVPB TITR [facility]; Protocol Last Admin: 06/25/19 07:15 Dose: 1,100 units/hr, 22 mls/hr Piperacillin Sod/Tazobactam (Sod 4.5 gm/ Dextrose) 100 mls @ 200 mls/hr IVPB Q8H-IV [facility]; Protocol Last Admin: 06/25/19 09:41 Dose: 200 mls/hr Amiodarone HCl/Dextrose (Nexterone 360 Mg/200 Ml Bag) 360 mg in 200 mls @ 16.667 mls/hr IVPB ASDIR [facility]; Protocol Last Admin: 06/24/19 14:30 Dose: 16.667 mls/hr Insulin Aspart (Novolog Vial Sliding Scale -) 1 vial SQ ACHS [facility]; Protocol Last Admin: 06/25/19 06:16 Dose: Not Given Levothyroxine Sodium (Synthroid -) 200 mcg PO AM [facility] Last Admin: 06/25/19 09:40 Dose: 200 mcg Metoprolol Tartrate (Lopressor -) 25 mg PO BID [facility] Last Admin: 06/25/19 09:40 Dose: 25 mg Morphine Sulfate (Morphine Sulfate) 2 mg IVPUSH Q6H PRN PRN Reason: PAIN LEVEL 4 - 6 Mupirocin (Bactroban Ointment (For Decolonization) -) 1 applic NS BID [facility] Stop: 06/28/19 21:59 Last Admin: 06/25/19 09:49 Dose: 1 applic Ondansetron HCl (Zofran Injection) 4 mg IVPUSH Q6H PRN PRN Reason: NAUSEA Last Admin: 06/24/19 03:46 Dose: 4 mg Oxycodone HCl (Roxicodone -) 5 mg PO Q4H PRN PRN Reason: PAIN LEVEL 6-10 Pantoprazole Sodium (Protonix Iv) 40 mg IVPUSH DAILY [facility] Last Admin: 06/25/19 09:40 Dose: 40 mg - Objective Vital Signs: Vital Signs Temperature 98.3 F 06/24/19 19:00 Pulse Rate 81 06/25/19 08:00 Respiratory Rate 17 06/25/19 08:13 Blood Pressure 128/72 06/25/19 08:00 O2 Sat by Pulse Oximetry (%) 99 06/25/19 08:50 Neck: Yes: Supple Cardiovascular: Yes: Pulse Irregular, S1, S2 Respiratory: Yes: Diminished Gastrointestinal: Yes: Other (post percutaneous cholecystostomy) Edema: Yes Edema: LLE: Trace, RLE: Trace Additional Findings/Remarks: Review of Systems Constitutional: denies: Chills or Fever Cardiovascular: denies: chest pain, palpitations SOB Respiratory: denies:Cough, sputum, denies: hemoptysis Gastrointestinal: denies: Nausea, Vomiting, Diarrhea, Constipation (+) Abdominal Pain Genitourinary: denies: Dysuria Musculoskeletal: denies: Joint Pain Neurological: denies: Dizziness or Headache denies: seizure, syncope Labs: CBC, BMP 06/25/19 05:25 06/25/19 05:25 INR, PTT INR 1.08 (0.83-1.09) 06/22/19 15:00 Problem List - Problems (1) Acute cholecystitis Code(s): K81.0 - ACUTE CHOLECYSTITIS (2) CAD (coronary artery disease) Code(s): I25.10 - ATHSCL HEART DISEASE OF [place] CORONARY ARTERY W/O ANG PCTRS (3) Diabetes Code(s): E11.9 - TYPE 2 DIABETES MELLITUS WITHOUT COMPLICATIONS Qualifiers: Diabetes mellitus type: type 2 Qualified Code(s): E11.9 - Type 2 diabetes mellitus without complications (4) HLD (hyperlipidemia) Code(s): E78.5 - HYPERLIPIDEMIA, UNSPECIFIED Qualifiers: Hyperlipidemia type: unspecified Qualified Code(s): E78.5 - Hyperlipidemia , unspecified (5) HTN (hypertension) Code(s): I10 - ESSENTIAL (PRIMARY) HYPERTENSION Qualifiers: Hypertension type: essential hypertension Qualified Code(s): I10 - Essential (primary) hypertension (6) History of percutaneous coronary intervention Code(s): Z98.61 - CORONARY ANGIOPLASTY STATUS (7) Hypothyroidism Code(s): E03.9 - HYPOTHYROIDISM, UNSPECIFIED Qualifiers: Hypothyroidism type: unspecified Qualified Code(s): E03.9 - Hypothyroidism , unspecified (8) Reactive airway disease Code(s): J45.909 - UNSPECIFIED ASTHMA, UNCOMPLICATED Assessment/Plan 1. 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 CAD post MA/PCI/stent with evidence of demand ischemic injury angina pectoris 3. Paroxysmal atrial fibrillation [id number] 4. Abdominal discomfort referable to acute cholecystitis surgery deferred in view of the above noted clinical presentation s/p percutaneous cholecystostomy 5. Heart murmur AV sclerosis 6. Mitral and tricuspid regurgitation 7. HTN, transient hypotension 8. DM 9. Hypercholesterolemia 10. Hypothyroidism 11. Chronic kidney disease PLAN: 1. Continue Lopressor and Losartan as tolerated. Off Amiodarone 2. Lasix IV and monitor I/Os, renal function and electrolytes 3. IV Heparin and eventual use of oral anticoagulation if not contraindicated 4. Antibiotic coverage 5. Surgery input noted Further plans are to follow. Patient was seen for 40 min Neri Nolan MD
--- NOTE | 2019-06-25 11:45 | PN ---
Teaching Attending Note Name of Resident: Maikel Vera ATTENDING PHYSICIAN STATEMENT I saw and evaluated the patient. I reviewed the resident's note and discussed the case with the resident. I agree with the resident's findings and plan as documented. SUBJECTIVE: Pt seen and examined in the ICU. On HFOT, breathing improved. Remains in sinus rhythm. Amiodarone stopped, transitioned to nasal cannula during rounds. OBJECTIVE: Vital Signs Period Temp Pulse Resp BP Sys/Francisco Pulse Ox Last 24 Hr 98.3 F-98.4 F 67-86 17-22 92-128/53-72 95-99 Intake & Output 06/22/19 06/23/19 06/24/19 06/25/19 23:59 23:59 23:59 23:59 Intake Total 3965 631 5406 541 Output Total 400 760 353 Balance 1175 -100 515 188 Weight 112.99 kg 120.656 kg 122.7 kg Gen: NAD at rest Heart: RRR Lung: decreased breath sounds at the bases Abd: soft, TTP RUQ, no rebound, +drain with bilious fluid Ext: no edema CBC, BMP 06/25/19 05:25 06/25/19 05:25 Active Medications Acetaminophen (Ofirmev Injection -) 1,000 mg IVPB Q6H PRN PRN Reason: PAIN LEVEL 7 - 10 Last Admin: 06/25/19 03:51 Dose: 1,000 mg Albuterol Sulfate (Ventolin 0.083% Nebulizer Soln -) 1 amp NEB Q4H PRN PRN Reason: SHORT OF BREATH/WHEEZING Last Admin: 06/24/19 20:16 Dose: 1 amp Chlorhexidine Gluconate (Hibiclens For Decolonization -) 1 applic TP HS [facility] Last Admin: 06/24/19 21:30 Dose: 1 applic Dutasteride (Avodart -) 0.5 mg PO DAILY [facility] Last Admin: 06/25/19 09:40 Dose: 0.5 mg Furosemide (Lasix Injection -) 40 mg IVPUSH BID@0600,1400 [facility] Last Admin: 06/25/19 06:09 Dose: 40 mg Heparin Sodium (Porcine) (Heparin -) 1,000 unit IVPUSH PRN PRN PRN Reason: Heparin Heparin Sodium (Porcine) (Heparin -) 5,000 unit IVPUSH PRN PRN PRN Reason: Heparin Last Admin: 06/24/19 08:30 Dose: 5,000 unit HEPARIN SOD,PORK IN 0.45% NACL (Heparin-1/2ns 25,000 Units/500) 25,000 units in 500 mls @ 20 mls/hr IVPB TITR [facility]; Protocol Last Admin: 06/25/19 07:15 Dose: 1,100 units/hr, 22 mls/hr Piperacillin Sod/Tazobactam (Sod 4.5 gm/ Dextrose) 100 mls @ 200 mls/hr IVPB Q8H-IV [facility]; Protocol Last Admin: 06/25/19 09:41 Dose: 200 mls/hr Insulin Aspart (Novolog Vial Sliding Scale -) 1 vial SQ ACHS [facility]; Protocol Last Admin: 06/25/19 06:16 Dose: Not Given Levothyroxine Sodium (Synthroid -) 200 mcg PO AM [facility] Last Admin: 06/25/19 09:40 Dose: 200 mcg Metoprolol Tartrate (Lopressor -) 25 mg PO BID [facility] Last Admin: 06/25/19 09:40 Dose: 25 mg Morphine Sulfate (Morphine Sulfate) 2 mg IVPUSH Q6H PRN PRN Reason: PAIN LEVEL 4 - 6 Mupirocin (Bactroban Ointment (For Decolonization) -) 1 applic NS BID [facility] Stop: 06/28/19 21:59 Last Admin: 06/25/19 09:49 Dose: 1 applic Ondansetron HCl (Zofran Injection) 4 mg IVPUSH Q6H PRN PRN Reason: NAUSEA Last Admin: 06/24/19 03:46 Dose: 4 mg Oxycodone HCl (Roxicodone -) 5 mg PO Q4H PRN PRN Reason: PAIN LEVEL 6-10 Pantoprazole Sodium (Protonix Iv) 40 mg IVPUSH DAILY [facility] Last Admin: 06/25/19 09:40 Dose: 40 mg ASSESSMENT AND PLAN: Acute Cholecystitis s/p Percutaneous Cholecystostomy Sepsis Acute on Chronic Renal Failure improving Acute on Chronic Systolic/Diastolic Heart Failure Paroxysmal Atrial Fibrillation now in sinus CAD +Troponins likely Demand Ischemia Mitral Regurgitation HTN DM Hyperlipidemia Hypothyroidism - continue antibiotics - f/u cultures - check CXR - continue lasix - monitor urine output, creatinine - rate/rhythm controlled - continue anticoagulation - O2 to keep Spo2 >90% - can monitor on telemetry
[2019-06-25] MEDS: DOCUSATE SODIUM 100 MG CAPSULE (FP) PO SCH (14:14)
[2019-06-25] MEDS: SENNOSIDES 8.6MG TABLET (FP) PO SCH ×2 (14:14→21:59)
--- NOTE | 2019-06-25 15:03 | PN ---
Physical Exam: SUBJECTIVE: Patient seen and examined at bedside this AM. No acute events overnight. Pt has been weaned off HF O2 to NC (5L) during rounds and stopped Amio. OBJECTIVE: Vital Signs Period Temp Pulse Resp BP Sys/Francisco Pulse Ox Last 24 Hr 98.3 F 67-82 17-22 99-128/54-72 97-99 GENERAL: The patient is awake, alert, and fully oriented, in no acute distress. HEAD: Normal with no signs of trauma. EYES: sclera anicteric, conjunctiva clear. No ptosis. ENT: Ears normal, nares patent, oropharynx clear without exudates, moist mucous membranes. NECK: supple. LUNGS: Breath sounds equal, clear to auscultation bilaterally, no wheezes, no crackles, no accessory muscle use. HEART: Regular rate and rhythm, S1, S2 without murmur, rub or gallop. ABDOMEN: Soft, nontender, moderately distended, hypoactive bowel sounds, no guarding, no rebound. Percutaneous cholecystostomy draining well with brownish fluid EXTREMITIES: 2+ pulses b/l, warm, well-perfused, no pitting edema. NEUROLOGICAL: Cranial nerves II through XII grossly intact. Normal speech, gait not observed. PSYCH: Normal mood, normal affect. SKIN: Warm, dry, no rashes or lesions noted Laboratory Results - last 24 hr 06/24/19 06/24/19 06/24/19 17:57 20:42 21:14 WBC RBC Hgb Hct MCV MCH MCHC RDW Plt Count MPV Absolute Neuts (auto) Neutrophils % Lymphocytes % Monocytes % Eosinophils % Basophils % Nucleated RBC % PTT (Actin FS) 43.2 H Sodium Potassium Chloride Carbon Dioxide Anion Gap BUN Creatinine Est GFR (CKD-EPI)AfAm Est GFR (CKD-EPI)NonAf POC Glucometer 132 151 Random Glucose Calcium Phosphorus Magnesium Total Bilirubin AST ALT Alkaline Phosphatase Total Protein Albumin 06/25/19 06/25/19 06/25/19 05:25 05:25 06:07 WBC 15.5 H RBC 3.48 L Hgb 11.7 Hct 34.7 L MCV 99.5 H MCH 33.5 MCHC 33.7 RDW 14.6 Plt Count 210 MPV 9.1 Absolute Neuts (auto) 13.6 H Neutrophils % 87.7 H Lymphocytes % 4.4 L D Monocytes % 7.0 Eosinophils % 0.3 D Basophils % 0.6 Nucleated RBC % 0 PTT (Actin FS) Sodium 138 Potassium 3.9 Chloride 101 Carbon Dioxide 30 Anion Gap 7 L BUN 26.6 H Creatinine 0.9 Est GFR (CKD-EPI)AfAm 88.07 Est GFR (CKD-EPI)NonAf 75.99 POC Glucometer 129 Random Glucose 133 H Calcium 8.5 Phosphorus 2.2 L Magnesium 2.2 Total Bilirubin 0.4 AST 36 ALT 25 Alkaline Phosphatase 77 Total Protein 5.9 L Albumin 2.5 L 06/25/19 12:41 WBC RBC Hgb Hct MCV MCH MCHC RDW Plt Count MPV Absolute Neuts (auto) Neutrophils % Lymphocytes % Monocytes % Eosinophils % Basophils % Nucleated RBC % PTT (Actin FS) Sodium Potassium Chloride Carbon Dioxide Anion Gap BUN Creatinine Est GFR (CKD-EPI)AfAm Est GFR (CKD-EPI)NonAf POC Glucometer 138 Random Glucose Calcium Phosphorus Magnesium Total Bilirubin AST ALT Alkaline Phosphatase Total Protein Albumin Active Medications Generic Name Dose Route Start Last Admin Trade Name Freq PRN Reason Stop Dose Admin Acetaminophen 1,000 mg 06/23/19 21:28 06/25/19 03:51 Ofirmev Injection - IVPB 1,000 mg Q6H PRN Administration PAIN LEVEL 7 - 10 Albuterol Sulfate 1 amp 06/24/19 16:19 06/24/19 20:16 Ventolin 0.083% Nebulizer Soln - NEB 1 amp Q4H PRN Administration SHORT OF BREATH/WHEEZING Chlorhexidine Gluconate 1 applic 06/23/19 22:00 06/24/19 21:30 Hibiclens For Decolonization - TP 1 applic HS CHELSEY Administration Docusate Sodium 100 mg 06/25/19 13:45 06/25/19 14:14 Colace - PO Not Given DAILY CHELSEY Dutasteride 0.5 mg 06/24/19 10:00 06/25/19 09:40 Avodart - PO 0.5 mg DAILY CHELSEY Administration Furosemide 40 mg 06/24/19 14:00 06/25/19 14:14 Lasix Injection - IVPUSH 40 mg BID@0600,1400 CHELSEY Administration Heparin Sodium (Porcine) 1,000 unit 06/24/19 07:14 Heparin - IVPUSH PRN PRN Heparin Heparin Sodium (Porcine) 5,000 unit 06/24/19 07:14 06/24/19 08:30 Heparin - IVPUSH 5,000 unit PRN PRN Administration Heparin HEPARIN SOD,PORK IN 0.45% NACL 25,000 units in 500 mls @ 20 mls/hr 06/24/19 07 :15 06/25/19 07:15 Heparin-1/2ns 25,000 Units/500 IVPB 1,100 units/hr TITR CHELSEY 22 mls/hr Administration Protocol 1,000 UNITS/HR Piperacillin Sod/Tazobactam 100 mls @ 200 mls/hr 06/24/19 10:45 06/25/19 09: 41 Sod 4.5 gm/ Dextrose IVPB 200 mls/hr Q8H-IV CHELSEY Administration Protocol Insulin Aspart 1 vial 06/23/19 22:00 06/25/19 12:15 Novolog Vial Sliding Scale - SQ Not Given ACHS CHELSEY Protocol Levothyroxine Sodium 200 mcg 06/24/19 07:00 06/25/19 09:40 Synthroid - PO 200 mcg AM CHELSEY Administration Metoprolol Tartrate 25 mg 06/24/19 10:00 06/25/19 09:40 Lopressor - PO 25 mg BID CHELSEY Administration Morphine Sulfate 2 mg 06/23/19 21:28 Morphine Sulfate IVPUSH Q6H PRN PAIN LEVEL 4 - 6 Mupirocin 1 applic 06/23/19 22:00 06/25/19 09:49 Bactroban Ointment (For Decolonization) - NS 06/28/19 21:59 1 applic BID CHELSEY Administration Ondansetron HCl 4 mg 06/23/19 21:28 06/24/19 03:46 Zofran Injection IVPUSH 4 mg Q6H PRN Administration NAUSEA Oxycodone HCl 5 mg 06/23/19 21:28 Roxicodone - PO Q4H PRN PAIN LEVEL 6-10 Pantoprazole Sodium 40 mg 06/24/19 10:00 06/25/19 09:40 Protonix Iv IVPUSH 40 mg DAILY CHELSEY Administration Senna 1 tab 06/25/19 13:42 06/25/19 14:14 Senna - PO Not Given HS CHELSEY ASSESSMENT/PLAN: This is an 89 y/o M with a pmhx of DM, CAD s/p stent, CHF, HTN, HLD, presented to the ED with RUQ pain and found to have acute cholecystitis. Rapid response called on 06/24 due to hypotension and hypoxia, in the setting of new onset Afib. Neurology - AOX3, neurologically intact - PT eval rolling walker able to ambulate 80ft. 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 - monitoring off amio - Lopressor 25mg BID, holding losartan in setting of CKD - elevated trops 2/2 Type II NSTEMI - Dr. Nolan recommendations appreciated - Continuing Lopressor 25BID Pulmonary-> #Acute hypoxic repiratory failure like 2/2 Acute on chronic diastolic/systolic CHF -CTA revealed no definite PE -B/l LE duplex showed no DVT - continuing heparin gtt -CXR: atelectasis/infiltrate at bases, congestive changes as well. Gastroenterology-> Acute cholecystitis - s/p cholecystostomy drain, draining well, bilious fluid draining. - await for identification of the organism in fluid - continuing zosyn per Dr. Smallwood - Dr. kuo consulted - did not undergo cholecystectomy due to pt being unstable cardio/pulm linares. - on pantoprazole for GERD - senna and colace for constipation Endocrine-> DM, Hypothyroidism -Continue Synthroid 200mcg daily - DM- ISS, BGM, FEN: off fluids, monitoring lytes, full liquid diet Visit type - Emergency Visit Emergency Visit: No - New Patient This patient is new to me today: Yes Date on this admission: 06/25/19 - Critical Care Critical Care patient: Yes Total Critical Care Time (in minutes): 35 Critical Care Statement: The care of this patient involved high complexity decision making to prevent further life threatening deterioration of the patient 's condition and/or to evaluate & treat vital organ system(s) failure or risk of failure. - Discharge Referral Referred to [facility] Med P.C.: No ATTENDING PHYSICIAN STATEMENT I saw and evaluated the patient. I reviewed the resident's note and discussed the case with the resident. I agree with the resident's findings and plan as documented. SUBJECTIVE: OBJECTIVE: ASSESSMENT AND PLAN:
--- NOTE | 2019-06-25 16:25 | PN ---
Physical Exam: SUBJECTIVE: 89 y/o M w PMH DM, CAD s/p stent 20 years ago, CHF, HTN and dyslipidemia c/o RUQ pain. Pt s/p emergent per cutanteous nephrostomy drain age. He offers no complaints today and is eager rot return home. He denies NVCFD OBJECTIVE: Vital Signs Temp Pulse Resp BP Pulse Ox 98.3 F 81 17 128/72 99 06/24/19 19:00 06/25/19 08:00 06/25/19 08:13 06/25/19 08:00 06/25/19 08:50 GENERAL: The patient is awake, alert, and fully oriented, in no acute distress.On O2 NC HEAD: Normal with no signs of trauma. EYES: HAYLEY extraocular movements intact, sclera anicteric, conjunctiva clear. No ptosis. ENT: Ears normal, nares patent, oropharynx clear without exudates, moist mucous membranes. NECK: Trachea midline, full range of motion, supple. LUNGS: Decreased at entry in posterior lobes BL at bases. Breath sounds equal, clear to auscultation bilaterally, no wheezes, no crackles, no accessory muscle use. HEART: Regular rate and rhythm, S1, S2 without murmur, rub or gallop. ABDOMEN: Soft, nontender, nondistended, normoactive bowel sounds, no guarding, no rebound, no hepatosplenomegaly, no masses. EXTREMITIES: 2+ pulses, warm, well-perfused, no edema. NEUROLOGICAL: Cranial nerves II through XII grossly intact. Normal speech, gait not observed. PSYCH: Normal mood, normal affect. SKIN: Warm, dry, normal turgor, no rashes or lesions noted Laboratory Results - last 24 hr 06/24/19 06/24/19 06/24/19 17:57 20:42 21:14 WBC RBC Hgb Hct MCV MCH MCHC RDW Plt Count MPV Absolute Neuts (auto) Neutrophils % Lymphocytes % Monocytes % Eosinophils % Basophils % Nucleated RBC % PTT (Actin FS) 43.2 H Sodium Potassium Chloride Carbon Dioxide Anion Gap BUN Creatinine Est GFR (CKD-EPI)AfAm Est GFR (CKD-EPI)NonAf POC Glucometer 132 151 Random Glucose Calcium Phosphorus Magnesium Total Bilirubin AST ALT Alkaline Phosphatase Total Protein Albumin 06/25/19 06/25/19 06/25/19 05:25 05:25 06:07 WBC 15.5 H RBC 3.48 L Hgb 11.7 Hct 34.7 L MCV 99.5 H MCH 33.5 MCHC 33.7 RDW 14.6 Plt Count 210 MPV 9.1 Absolute Neuts (auto) 13.6 H Neutrophils % 87.7 H Lymphocytes % 4.4 L D Monocytes % 7.0 Eosinophils % 0.3 D Basophils % 0.6 Nucleated RBC % 0 PTT (Actin FS) Sodium 138 Potassium 3.9 Chloride 101 Carbon Dioxide 30 Anion Gap 7 L BUN 26.6 H Creatinine 0.9 Est GFR (CKD-EPI)AfAm 88.07 Est GFR (CKD-EPI)NonAf 75.99 POC Glucometer 129 Random Glucose 133 H Calcium 8.5 Phosphorus 2.2 L Magnesium 2.2 Total Bilirubin 0.4 AST 36 ALT 25 Alkaline Phosphatase 77 Total Protein 5.9 L Albumin 2.5 L 06/25/19 12:41 WBC RBC Hgb Hct MCV MCH MCHC RDW Plt Count MPV Absolute Neuts (auto) Neutrophils % Lymphocytes % Monocytes % Eosinophils % Basophils % Nucleated RBC % PTT (Actin FS) Sodium Potassium Chloride Carbon Dioxide Anion Gap BUN Creatinine Est GFR (CKD-EPI)AfAm Est GFR (CKD-EPI)NonAf POC Glucometer 138 Random Glucose Calcium Phosphorus Magnesium Total Bilirubin AST ALT Alkaline Phosphatase Total Protein Albumin Active Medications Acetaminophen (Ofirmev Injection -) 1,000 mg IVPB Q6H PRN PRN Reason: PAIN LEVEL 7 - 10 Last Admin: 06/25/19 03:51 Dose: 1,000 mg Albuterol Sulfate (Ventolin 0.083% Nebulizer Soln -) 1 amp NEB Q4H PRN PRN Reason: SHORT OF BREATH/WHEEZING Last Admin: 06/24/19 20:16 Dose: 1 amp Chlorhexidine Gluconate (Hibiclens For Decolonization -) 1 applic TP HS [facility] Last Admin: 06/24/19 21:30 Dose: 1 applic Docusate Sodium (Colace -) 100 mg PO DAILY [facility] Last Admin: 06/25/19 14:14 Dose: Not Given Dutasteride (Avodart -) 0.5 mg PO DAILY [facility] Last Admin: 06/25/19 09:40 Dose: 0.5 mg Furosemide (Lasix Injection -) 40 mg IVPUSH BID@0600,1400 [facility] Last Admin: 06/25/19 14:14 Dose: 40 mg Heparin Sodium (Porcine) (Heparin -) 1,000 unit IVPUSH PRN PRN PRN Reason: Heparin Heparin Sodium (Porcine) (Heparin -) 5,000 unit IVPUSH PRN PRN PRN Reason: Heparin Last Admin: 06/24/19 08:30 Dose: 5,000 unit HEPARIN SOD,PORK IN 0.45% NACL (Heparin-1/2ns 25,000 Units/500) 25,000 units in 500 mls @ 20 mls/hr IVPB TITR CHELSEY; Protocol Last Admin: 06/25/19 07:15 Dose: 1,100 units/hr, 22 mls/hr Piperacillin Sod/Tazobactam (Sod 4.5 gm/ Dextrose) 100 mls @ 200 mls/hr IVPB Q8H-IV CHELSEY; Protocol Last Admin: 06/25/19 09:41 Dose: 200 mls/hr Insulin Aspart (Novolog Vial Sliding Scale -) 1 vial SQ ACHS [facility]; Protocol Last Admin: 06/25/19 12:15 Dose: Not Given Levothyroxine Sodium (Synthroid -) 200 mcg PO AM [facility] Last Admin: 06/25/19 09:40 Dose: 200 mcg Metoprolol Tartrate (Lopressor -) 25 mg PO BID [facility] Last Admin: 06/25/19 09:40 Dose: 25 mg Morphine Sulfate (Morphine Sulfate) 2 mg IVPUSH Q6H PRN PRN Reason: PAIN LEVEL 4 - 6 Mupirocin (Bactroban Ointment (For Decolonization) -) 1 applic NS BID [facility] Stop: 06/28/19 21:59 Last Admin: 06/25/19 09:49 Dose: 1 applic Ondansetron HCl (Zofran Injection) 4 mg IVPUSH Q6H PRN PRN Reason: NAUSEA Last Admin: 06/24/19 03:46 Dose: 4 mg Oxycodone HCl (Roxicodone -) 5 mg PO Q4H PRN PRN Reason: PAIN LEVEL 6-10 Pantoprazole Sodium (Protonix Iv) 40 mg IVPUSH DAILY [facility] Last Admin: 06/25/19 09:40 Dose: 40 mg Senna (Senna -) 1 tab PO HS [facility] Last Admin: 06/25/19 14:14 Dose: Not Given ASSESSMENT/PLAN: 89 y/o M w PMH DM, CAD s/p stent 20 years ago, CHF, HTN and dyslipidemia c/o RUQ pain. Admitted for surgical intervention, cholecystectomy, but decompensated on the med-surg floor and was brought to ICU. Hypotension and hypoxia reversed. A new development of afib occurred. He Denies NVFCD. PT eval when more stable. Will likely require BROWN # Sepsis d/t Acute cholecystitis - S/p emergent percutaneous cholecystectomy tube 06/24 - Draining bile - Pending organism. Zosyn. BP responded to IVF. Surgery and ID consulted. # New onset afib - Induced by sepsis - Now in NSR - On amio and heparin ggt. monitor rate for possible paroxysmal afib. cardio on board # Tropinemia - D/t demand of sepsis and new onset afib. - Trop peaked at 0.47. and trended down. - Cardio consulted (Dr. Neri Nolan) # Acute hypoxic respiratory failure - D/t pulmonary edema - Was on high flow O2 and then placed on NC - Cont Lasix IV diuresis. - Daily weights, strict I&O, monitor electrolytes # CRUZ - D/t sepsis and volume overload; resolved - Hold nephrotoxic agnets. # DM - Hold oral agents - Iss - BGM # CAD s/p stent 20 years ago - Hold asa for pending surgery - Cardio consulted # Acute diastolic CHF - Currently overloaded - Lasix BID - Strict I&O, daily weights,. monitor electrolytes # HTN - Currently normotensive - Responding to IVF - Hold oral agents # Dyslipidemia - Ezetemibe per home delivery service # DVT prophylaxis - Heparin lizette Leroy MD Visit type - Emergency Visit Emergency Visit: No - New Patient This patient is new to me today: No - Critical Care Critical Care patient: No - Discharge Referral Referred to [facility] Med P.C.: No ATTENDING PHYSICIAN STATEMENT I saw and evaluated the patient. I reviewed the resident's note and discussed the case with the resident. I agree with the resident's findings and plan as documented. SUBJECTIVE: OBJECTIVE: ASSESSMENT AND PLAN:
--- NOTE | 2019-06-25 16:55 | PN ---
Teaching Attending Note Name of Resident: Nader Leroy ATTENDING PHYSICIAN STATEMENT I saw and evaluated the patient. I reviewed the resident's note and discussed the case with the resident. I agree with the resident's findings and plan as documented. SUBJECTIVE:continjues to have pain but overall improved. tolerated liquid diet but states poor appetite. denies CP, SOB, fever, chills, N/V/C/D OBJECTIVE: Last Vital Signs Temp Pulse Resp BP Pulse Ox 97.6 F 64 21 H 111/88 93 L 06/25/19 14:00 06/25/19 14:00 06/25/19 14:00 06/25/19 14:00 06/25/19 15:00 Intake & Output 06/22/19 06/23/19 06/24/19 06/25/19 23:59 23:59 23:59 23:59 Intake Total 8629 788 5400 1345 Output Total 400 760 553 Balance 1175 -100 515 792 Weight 249 lb 1.6 oz 266 lb 270 lb 8.115 oz General NAD CV S1 S2 RRR Lungs decreased breath sounds bases anteriorly Abdomen soft tender across the upper abdomen. +CCY tube with bile ASSESSMENT AND PLAN: 89yo M with PMH DM, CAD s/p stent 20 years ago, CHF, HTN and dyslipidemia c/o RUQ pain starting at 3am waking him out of sleep and found to have acute cholecystitis with [employer] called on 06/23 for hypotension and hypoxia and new development of afib 1. sepsis due to Acute cholecystitis-s/p emergent percutaneous cholecystectomy tube 06/24. draining bile. pending organism. on zosyn day 2. BP responded to IVF. Surgeon and ID on board. 2. New onset afib-induced by sepsis. now in NSR. on amio and heparin ggt. monitor rate for possible paroxysmal afib. cardio on board 3. Tropinemia- due to demand of sepsis and new onset afib. trop peaked at 0.47. trended down. cardio on board 4. acute hypoxic respiratory failure- due to pulmonary edema. on high flow O2. titrate down Fio2 as tolerated. cont Lasix IV diuresis. daily weights, strict I& O, monitor electrolytes 5. CRUZ- due to sepsis and volume overload. resolved. hold nephrotoxic agnets. 6. DM- hold oral agents. iss and bgm 7. CAD s/p stent 20 years ago- hold asa for pending surgery. cardio consulted 8. Acute diastolic CHF- currently overloaded. on lasix BID. strict I&O, daily weights,. monitor electrolytes 9. HTN- currently hypotensive. responding to IVF. hold oral agents 10. dyslipidemia- cont medications 11. DVT ppx- heparin ggt 12. PT eval when more stable. will liekly require BROWN 13. MICU monitoring The care of this patient involved high complexity decision making to prevent further life threatening deterioration of the patient's condition and/or to evaluate & treat vital organ system(s) failure or risk of failure. 38 minutes
[2019-06-25] MEDS: HEPARIN NA (PORCINE) 5,000 UNITS/ML 1ML VIAL IVPUSH PRN (17:28)
--- NOTE | 2019-06-25 18:40 | PN.GI ---
GI Progress Note Subjective: Pt seen/examined at bedside, pts and daughter present. Pt feeling better, abdominal pain nearly resolved s/p cholecystostomy tube. Denies n/v. Tolerating clear liquid diet. - Objective Vital Signs: Vital Signs Temperature 97.6 F 06/25/19 14:00 Pulse Rate 64 06/25/19 14:00 Respiratory Rate 21 H 06/25/19 14:00 Blood Pressure 111/88 06/25/19 14:00 O2 Sat by Pulse Oximetry (%) 93 L 06/25/19 15:00 Constitutional: Well Nourished, No Distress, Calm Cardiovascular: Yes: WNL, Regular Rate and Rhythm Respiratory: Yes: WNL, Regular, CTA Bilaterally ...Palpate: Yes: Other (Abd soft obese, nontender nondistended, + c tube in place in RUQ draining small amount of bile) Labs: CBC, BMP 06/25/19 05:25 06/25/19 05:25 INR, PTT INR 1.08 (0.83-1.09) 06/22/19 15:00 Problem List - Problems (1) Acute cholecystitis Assessment/Plan: s/p cholecystostomy tube on 06/24. LFTs normal. Clinically improving. -Monitor drain output -Follow up cultures -Antibiotics per ID -Further recommendations per ID and surgery Discussed with MICU team Code(s): K81.0 - ACUTE CHOLECYSTITIS
[2019-06-25] MEDS: CHLORHEXIDINE GLUCONATE 4% CLEANSER FOR DECOLONIZATION TP SCH (21:58)
[2019-06-26] MEDS: HEPARIN SOD,PORK IN 0.45% NACL 25,000 UNITS/500 ML INFUS.BAG IVPB SCH (00:30)
[2019-06-26] MEDS ORDERED: DEXTROSE 5%-WATER 100 ML IVPB ONE ×2 (01:35→09:09)
[2019-06-26] MEDS ORDERED: PIPERACILLIN/TAZOBACTAM 4.5 GM VIAL IVPB ONE ×2 (01:35→09:09)
[2019-06-26] MEDS: PIPERACILLIN/TAZOB 4.5 GM 4.5 GM in DEXTROSE 5%-WATER 100 ML IVPB SCH ×3 (01:43→18:06)
[2019-06-26] MEDS ORDERED: ONDANSETRON 4 MG/2 ML VIAL IVPUSH PRN (04:59)
[2019-06-26] MEDS ORDERED: HEPARIN SOD,PORK IN 0.45% NACL 25,000 UNITS/500 ML INFUS.BAG IVPB SCH (04:59)
[2019-06-26] MEDS ORDERED: MORPHINE SULFATE 2 MG/ML VIAL IVPUSH PRN (04:59)
[2019-06-26] MEDS ORDERED: ACETAMINOPHEN 1000 MG/100 ML VIAL (NON FORMULARY) IVPB PRN (04:59)
[2019-06-26] MEDS ORDERED: HEPARIN NA (PORCINE) 5,000 UNITS/ML 1ML VIAL IVPUSH PRN ×4 (04:59)
[2019-06-26] MEDS ORDERED: oxyCODONE HCL 5 MG TABLET PO PRN (04:59)
[2019-06-26] MEDS: ALBUTEROL SO4 0.083% IH SOL 2.5 MG/3 ML VIAL.NEB. NEB PRN ×2 (05:49→20:45)
[2019-06-26] MEDS: FUROSEMIDE 40 MG/4 ML INJECTABLE VIAL IVPUSH SCH ×2 (06:12→14:52)
[2019-06-26] MEDS: LEVOTHYROXINE NA 200 MCG TABLET PO SCH (06:13)
[2019-06-26] MEDS: INSULIN SLIDING SCALE (NOVOLOG) 1 VIAL SQ SCH ×4 (06:13→21:32)
--- NOTE | 2019-06-26 08:03 | PN ---
Progress Note (short form) - Note Progress Note: surgery 89yo being followed for acute cholecystitis/ sepsis, s/p cholecystostomy tube placement seen an examined at bedside. Patient states he is tolerating his full liquid diet. He has been OOB to chair at bedside and ambulating with PT. He denies any CP, SOB, N/V, fever or chills. He is still having mild abdominal pain with some movement. Vital Signs Temp 97.9 F 06/26/19 05:25 Pulse 81 06/26/19 05:25 Resp 20 06/26/19 05:25 BP 123/69 06/26/19 05:25 Pulse Ox 93 L 06/25/19 21:00 Intake & Output 06/25/19 06/25/19 06/26/19 11:59 23:59 11:59 Intake Total 541 1494 374 Output Total 353 300 600 Balance 188 1194 -226 Weight 270 lb 8.115 oz 267 lb 12.8 oz Intake: IV 391 324 154 Amiodarone 171 48 HEPARIN-1/2NS 25,000 220 276 154 UNITS/500 25,000 units In 500 ml @ 1,000 UNITS/HR 20 mls/hr IVPB TITR CHELSEY Rx#:[id number] IVPB 150 200 100 Oral 970 120 Output: Drainage 350 300 100 Right Upper Abdomen 350 300 100 Urine 3 500 Void 3 500 Other: Voiding Method Incontinent Incontinent # Unmeasured Voids Void 1 Bowel Movement No No Weight Measurement Method Standing Scale PE: A&Ox3, NAD Unlabored resp on RA ABD: Obese, mildly distended with focal pain and fullness at RUQ, + guarding and rebound tenderness. Mildly TTP throughout. cholecystostomy tube secured in place with 400c/24hr yesterday. B/l LE compartments soft, supple and non-tender to palpation with + Dp pulses. Problem List - Problems (1) Acute cholecystitis Assessment/Plan: Patient tolerating diet with elevated WBCs, currently afebrile. -trend labs (WBCs) -Advance to regular diet -IV ABX per ID - maintain cholecystostomy tube- record output -Encourage Ambulation-OOB with PT -Encourage daily IS. -d/c planning with [facility] - f/u with Dr Vazquez as outpatient Evaluation and plan discussed with Dr Vazquez Code(s): K81.0 - ACUTE CHOLECYSTITIS
[2019-06-26 08:09] LABS: HEMATOCRIT 39.3 % (35.4-49); HEMOGLOBIN 13.1 GM/dL (11.7-16.9); MCHC 33.3 g/dl (32.0-35.9); MEAN PLT VOLUME 8.8 fl (7.5-11.1); PLATELET COUNT 264 K/MM3 (134-434); RBC 3.97 M/mm3 (4.00-5.60); RDW 14.4 % (11.9-15.9); WHITE BLOOD COUNT 12.8 K/mm3 (4.0-10.0)
[2019-06-26 08:31] LABS: ALBUMIN 2.4 g/dl (3.4-5.0); BILIRUBIN,TOTAL 0.8 mg/dL (0.2-1); BLOOD UREA NITROGEN 19.1 mg/dL (7-18); CALCIUM 8.4 mg/dL (8.5-10.1); CREATININE 0.8 mg/dL (0.55-1.3); PHOSPHOROUS 1.8 mg/dL (2.5-4.9); POTASSIUM 3.4 mmol/L (3.5-5.1); TOT PROT 6.1 g/dl (6.4-8.2)
--- NOTE | 2019-06-26 09:32 | EKG ---
Test Reason : Blood Pressure : / mmHG Vent. Rate : 064 BPM Atrial Rate : 064 BPM P-R Int : 186 ms QRS Dur : 166 ms QT Int : 452 ms P-R-T Axes : 037 045 -01 degrees QTc Int : 466 ms NORMAL SINUS RHYTHM RIGHT BUNDLE BRANCH BLOCK CANNOT RULE OUT INFERIOR INFARCT , AGE UNDETERMINED ABNORMAL ECG WHEN COMPARED WITH ECG OF 23-JUN-2019 17:33, NO SIGNIFICANT CHANGE WAS FOUND Confirmed by Romaine Jarvis MD ([id number]) on 06/26/2019 9:31:45 AM Referred By: LISA MUÑIZ Confirmed By:Romaine Jarvis MD
[2019-06-26] MEDS: DOCUSATE SODIUM 100 MG CAPSULE (FP) PO SCH (09:41)
[2019-06-26] MEDS: DUTASTERIDE 0.5 MG CAP (FP) PO SCH (09:41)
[2019-06-26] MEDS: METOPROLOL TARTRATE 25 MG TABLET (FP) PO SCH ×2 (09:41→21:26)
[2019-06-26] MEDS: PANTOPRAZOLE SODIUM 40 MG VIAL IVPUSH SCH (09:41)
--- NOTE | 2019-06-26 09:59 | PN ---
Progress Note, Physician Chief Complaint: Events noted Post percutaneous cholecystostomy currently draining History of Present Illness: Patient was seen and examined. Awake and alert. Chart was reviewed. Denies chest pain or SOB Transferred to telemetry unit In sinus rhythm - Current Medication List Current Medications: Active Medications Acetaminophen (Ofirmev Injection -) 1,000 mg IVPB Q6H PRN PRN Reason: PAIN LEVEL 7 - 10 Albuterol Sulfate (Ventolin 0.083% Nebulizer Soln -) 1 amp NEB Q4H PRN PRN Reason: SHORT OF BREATH/WHEEZING Last Admin: 06/26/19 05:49 Dose: 1 amp Docusate Sodium (Colace -) 100 mg PO DAILY [facility] Last Admin: 06/26/19 09:41 Dose: 100 mg Dutasteride (Avodart -) 0.5 mg PO DAILY [facility] Last Admin: 06/26/19 09:41 Dose: 0.5 mg Furosemide (Lasix Injection -) 40 mg IVPUSH BID@0600,1400 [facility] Last Admin: 06/26/19 06:12 Dose: 40 mg Heparin Sodium (Porcine) (Heparin -) 1,000 unit IVPUSH PRN PRN PRN Reason: Heparin Heparin Sodium (Porcine) (Heparin -) 5,000 unit IVPUSH PRN PRN PRN Reason: Heparin HEPARIN SOD,PORK IN 0.45% NACL (Heparin-1/2ns 25,000 Units/500) 25,000 units in 500 mls @ 20 mls/hr IVPB TITR [facility]; Protocol Piperacillin Sod/Tazobactam (Sod 4.5 gm/ Dextrose) 100 mls @ 200 mls/hr IVPB Q8H-IV [facility]; Protocol Last Admin: 06/26/19 09:41 Dose: 200 mls/hr Potassium Phosphate 30 mm/ (Dextrose) 510 mls @ 62.5 mls/hr IVPB ONCE ONE Stop: 06/26/19 18:09 Insulin Aspart (Novolog Vial Sliding Scale -) 1 vial SQ ACHS [facility]; Protocol Last Admin: 06/26/19 06:13 Dose: Not Given Levothyroxine Sodium (Synthroid -) 200 mcg PO AM [facility] Last Admin: 06/26/19 06:13 Dose: 200 mcg Metoprolol Tartrate (Lopressor -) 25 mg PO BID [facility] Last Admin: 06/26/19 09:41 Dose: 25 mg Morphine Sulfate (Morphine Sulfate) 2 mg IVPUSH Q6H PRN PRN Reason: PAIN LEVEL 4 - 6 Ondansetron HCl (Zofran Injection) 4 mg IVPUSH Q6H PRN PRN Reason: NAUSEA Oxycodone HCl (Roxicodone -) 5 mg PO Q4H PRN PRN Reason: PAIN LEVEL 6-10 Pantoprazole Sodium (Protonix Iv) 40 mg IVPUSH DAILY [facility] Last Admin: 06/26/19 09:41 Dose: 40 mg Senna (Senna -) 1 tab PO [facility] Last Admin: 06/25/19 21:59 Dose: Not Given - Objective Vital Signs: Vital Signs Temperature 97.9 F 06/26/19 05:25 Pulse Rate 81 06/26/19 05:25 Respiratory Rate 20 06/26/19 05:25 Blood Pressure 123/69 06/26/19 05:25 O2 Sat by Pulse Oximetry (%) 93 L 06/25/19 21:00 Eyes: Yes: PERRL HENT: Yes: Atraumatic Neck: Yes: Supple Cardiovascular: Yes: Regular Rate and Rhythm, S1, S2 Respiratory: Yes: CTA Bilaterally Gastrointestinal: Yes: Normal Bowel Sounds, Soft. No: Tenderness Edema: Yes Edema: LLE: Trace, RLE: Trace Additional Findings/Remarks: Review of Systems Constitutional: denies: Chills or Fever Cardiovascular: denies: chest pain, palpitations SOB Respiratory: denies:Cough, sputum, denies: hemoptysis Gastrointestinal: denies: Nausea, Vomiting, Diarrhea, Constipation (+) Abdominal Pain Genitourinary: denies: Dysuria Musculoskeletal: denies: Joint Pain Neurological: denies: Dizziness or Headache denies: seizure, syncope Labs: CBC, BMP 06/26/19 07:35 06/26/19 07:35 Problem List - Problems (1) Acute cholecystitis Code(s): K81.0 - ACUTE CHOLECYSTITIS (2) CAD (coronary artery disease) Code(s): I25.10 - ATHSCL HEART DISEASE OF [place] CORONARY ARTERY W/O ANG PCTRS (3) Diabetes Code(s): E11.9 - TYPE 2 DIABETES MELLITUS WITHOUT COMPLICATIONS Qualifiers: Diabetes mellitus type: type 2 Qualified Code(s): E11.9 - Type 2 diabetes mellitus without complications (4) HLD (hyperlipidemia) Code(s): E78.5 - HYPERLIPIDEMIA, UNSPECIFIED Qualifiers: Hyperlipidemia type: unspecified Qualified Code(s): E78.5 - Hyperlipidemia , unspecified (5) HTN (hypertension) Code(s): I10 - ESSENTIAL (PRIMARY) HYPERTENSION Qualifiers: Hypertension type: essential hypertension Qualified Code(s): I10 - Essential (primary) hypertension (6) History of percutaneous coronary intervention Code(s): Z98.61 - CORONARY ANGIOPLASTY STATUS (7) Hypothyroidism Code(s): E03.9 - HYPOTHYROIDISM, UNSPECIFIED Qualifiers: Hypothyroidism type: unspecified Qualified Code(s): E03.9 - Hypothyroidism , unspecified (8) Reactive airway disease Code(s): J45.909 - UNSPECIFIED ASTHMA, UNCOMPLICATED Assessment/Plan 1. Clinical presentation consistent with acute on chronic class II-III NYHA classification LV failure - diastolic/systolic LV dysfunction, pulmonary edema 2. CAD post RI/PCI/stent with evidence of demand ischemic injury angina pectoris 3. Paroxysmal atrial fibrillation [id number] currently in sinus rhythm 4. Abdominal discomfort referable to acute cholecystitis surgery deferred in view of the above noted clinical presentation s/p percutaneous cholecystostomy 5. Heart murmur AV sclerosis 6. Mitral and tricuspid regurgitation 7. HTN, transient hypotension 8. DM 9. Hypercholesterolemia 10. Hypothyroidism 11. Chronic kidney disease PLAN: 1. Continue Lopressor and Losartan as tolerated. 2. Lasix IV and monitor I/Os, renal function and electrolytes 3. IV Heparin and eventual use of oral anticoagulation if not contraindicated 4. Antibiotic coverage 5. Surgery input to follow regarding cholecystostomy tube management. Eventually may need cholecystectomy when feasible Further plans are to follow. Neri Nolan MD
[2019-06-26] MEDS ORDERED: POTASSIUM PHOSPHATE 30 MM in DEXTROSE 5%-WATER - 500 ML IVPB ONE (10:00)
--- NOTE | 2019-06-26 13:20 | PN ---
Progress Note, Physician History of Present Illness: stable no new issues - Current Medication List Current Medications: Active Medications Acetaminophen (Ofirmev Injection -) 1,000 mg IVPB Q6H PRN PRN Reason: PAIN LEVEL 7 - 10 Albuterol Sulfate (Ventolin 0.083% Nebulizer Soln -) 1 amp NEB Q4H PRN PRN Reason: SHORT OF BREATH/WHEEZING Last Admin: 06/26/19 05:49 Dose: 1 amp Docusate Sodium (Colace -) 100 mg PO DAILY [facility] Last Admin: 06/26/19 09:41 Dose: 100 mg Dutasteride (Avodart -) 0.5 mg PO DAILY [facility] Last Admin: 06/26/19 09:41 Dose: 0.5 mg Furosemide (Lasix Injection -) 40 mg IVPUSH BID@0600,1400 [facility] Last Admin: 06/26/19 06:12 Dose: 40 mg Heparin Sodium (Porcine) (Heparin -) 1,000 unit IVPUSH PRN PRN PRN Reason: Heparin Heparin Sodium (Porcine) (Heparin -) 5,000 unit IVPUSH PRN PRN PRN Reason: Heparin HEPARIN SOD,PORK IN 0.45% NACL (Heparin-1/2ns 25,000 Units/500) 25,000 units in 500 mls @ 20 mls/hr IVPB TITR [facility]; Protocol Piperacillin Sod/Tazobactam (Sod 4.5 gm/ Dextrose) 100 mls @ 200 mls/hr IVPB Q8H-IV [facility]; Protocol Last Admin: 06/26/19 09:41 Dose: 200 mls/hr Potassium Phosphate 30 mm/ (Dextrose) 510 mls @ 62.5 mls/hr IVPB ONCE ONE Stop: 06/26/19 18:09 Last Admin: 06/26/19 10:23 Dose: 62.5 mls/hr Insulin Aspart (Novolog Vial Sliding Scale -) 1 vial SQ ACHS [facility]; Protocol Last Admin: 06/26/19 06:13 Dose: Not Given Levothyroxine Sodium (Synthroid -) 200 mcg PO AM [facility] Last Admin: 06/26/19 06:13 Dose: 200 mcg Metoprolol Tartrate (Lopressor -) 25 mg PO BID [facility] Last Admin: 06/26/19 09:41 Dose: 25 mg Morphine Sulfate (Morphine Sulfate) 2 mg IVPUSH Q6H PRN PRN Reason: PAIN LEVEL 4 - 6 Ondansetron HCl (Zofran Injection) 4 mg IVPUSH Q6H PRN PRN Reason: NAUSEA Oxycodone HCl (Roxicodone -) 5 mg PO Q4H PRN PRN Reason: PAIN LEVEL 6-10 Pantoprazole Sodium (Protonix Iv) 40 mg IVPUSH DAILY [facility] Last Admin: 06/26/19 09:41 Dose: 40 mg Senna (Senna -) 1 tab PO [facility] Last Admin: 06/25/19 21:59 Dose: Not Given - Objective Vital Signs: Vital Signs Temperature 97.9 F 06/26/19 05:25 Pulse Rate 81 06/26/19 05:25 Respiratory Rate 20 06/26/19 05:25 Blood Pressure 123/69 06/26/19 05:25 O2 Sat by Pulse Oximetry (%) 93 L 06/25/19 21:00 Constitutional: Yes: No Distress, Calm Cardiovascular: Yes: Regular Rate and Rhythm Respiratory: Yes: Regular, CTA Bilaterally Gastrointestinal: Yes: Normal Bowel Sounds, Soft, Other (drain in place) Musculoskeletal: Yes: WNL Extremities: Yes: WNL Neurological: Yes: Alert, Oriented Psychiatric: Yes: Alert, Oriented Labs: CBC, BMP 06/26/19 07:35 06/26/19 07:35 INR, PTT INR 1.08 (0.83-1.09) 06/22/19 15:00 Assessment/Plan 89 y.o male with PMH of DM, CHF, CAD (s/p stents) HTN BPH presents to the ED with complaints of abdominal pain found to have choleycystitis Acute Choley CAD HTN CHF DM afib plan continue abx rest as per the team monitor drainage resp support
--- NOTE | 2019-06-26 15:09 | PN ---
Progress Note, Physician History of Present Illness: PULMONARY ALERT,COMFORTABLE ON NASAL CANNULA,-SOB - Current Medication List Current Medications: Active Medications Acetaminophen (Ofirmev Injection -) 1,000 mg IVPB Q6H PRN PRN Reason: PAIN LEVEL 7 - 10 Albuterol Sulfate (Ventolin 0.083% Nebulizer Soln -) 1 amp NEB Q4H PRN PRN Reason: SHORT OF BREATH/WHEEZING Last Admin: 06/26/19 05:49 Dose: 1 amp Docusate Sodium (Colace -) 100 mg PO DAILY [facility] Last Admin: 06/26/19 09:41 Dose: 100 mg Dutasteride (Avodart -) 0.5 mg PO DAILY [facility] Last Admin: 06/26/19 09:41 Dose: 0.5 mg Furosemide (Lasix Injection -) 40 mg IVPUSH BID@0600,1400 [facility] Last Admin: 06/26/19 14:52 Dose: 40 mg Heparin Sodium (Porcine) (Heparin -) 1,000 unit IVPUSH PRN PRN PRN Reason: Heparin Heparin Sodium (Porcine) (Heparin -) 5,000 unit IVPUSH PRN PRN PRN Reason: Heparin HEPARIN SOD,PORK IN 0.45% NACL (Heparin-1/2ns 25,000 Units/500) 25,000 units in 500 mls @ 20 mls/hr IVPB TITR [facility]; Protocol Piperacillin Sod/Tazobactam (Sod 4.5 gm/ Dextrose) 100 mls @ 200 mls/hr IVPB Q8H-IV [facility]; Protocol Last Admin: 06/26/19 09:41 Dose: 200 mls/hr Potassium Phosphate 30 mm/ (Dextrose) 510 mls @ 62.5 mls/hr IVPB ONCE ONE Stop: 06/26/19 18:09 Last Admin: 06/26/19 10:23 Dose: 62.5 mls/hr Insulin Aspart (Novolog Vial Sliding Scale -) 1 vial SQ ACHS [facility]; Protocol Last Admin: 06/26/19 12:00 Dose: 2 units Levothyroxine Sodium (Synthroid -) 200 mcg PO AM [facility] Last Admin: 06/26/19 06:13 Dose: 200 mcg Metoprolol Tartrate (Lopressor -) 25 mg PO BID [facility] Last Admin: 06/26/19 09:41 Dose: 25 mg Morphine Sulfate (Morphine Sulfate) 2 mg IVPUSH Q6H PRN PRN Reason: PAIN LEVEL 4 - 6 Ondansetron HCl (Zofran Injection) 4 mg IVPUSH Q6H PRN PRN Reason: NAUSEA Oxycodone HCl (Roxicodone -) 5 mg PO Q4H PRN PRN Reason: PAIN LEVEL 6-10 Pantoprazole Sodium (Protonix Iv) 40 mg IVPUSH DAILY [facility] Last Admin: 06/26/19 09:41 Dose: 40 mg Senna (Senna -) 1 tab PO [facility] Last Admin: 06/25/19 21:59 Dose: Not Given - Objective Vital Signs: Vital Signs Temperature 97.9 F 06/26/19 05:25 Pulse Rate 81 06/26/19 05:25 Respiratory Rate 20 06/26/19 05:25 Blood Pressure 123/69 06/26/19 05:25 O2 Sat by Pulse Oximetry (%) 93 L 06/25/19 21:00 Constitutional: Yes: Calm, Obese Eyes: Yes: WNL HENT: Yes: WNL Neck: Yes: WNL Cardiovascular: Yes: Regular Rate and Rhythm, S1, S2 Respiratory: Yes: Diminished Gastrointestinal: Yes: Normal Bowel Sounds, Soft, Tenderness Extremities: Yes: WNL Edema: Yes Edema: LLE: Trace, RLE: Trace Labs: CBC, BMP 06/26/19 07:35 06/26/19 07:35 INR, PTT INR 1.08 (0.83-1.09) 06/22/19 15:00 - ....Imaging Chest X-ray: Report Reviewed, Image Reviewed Problem List - Problems (1) Abdominal pain Code(s): R10.9 - UNSPECIFIED ABDOMINAL PAIN (2) Acute cholecystitis Code(s): K81.0 - ACUTE CHOLECYSTITIS (3) Gallstones Code(s): K80.20 - CALCULUS OF GALLBLADDER W/O CHOLECYSTITIS W/O OBSTRUCTION (4) ASHD (arteriosclerotic heart disease) Code(s): I25.10 - ATHSCL HEART DISEASE OF [place] CORONARY ARTERY W/O ANG PCTRS (5) CHF (congestive heart failure) Code(s): I50.9 - HEART FAILURE, UNSPECIFIED Qualifiers: Heart failure type: diastolic Heart failure chronicity: acute on chronic Qualified Code(s): I50.33 - Acute on chronic diastolic (congestive) heart failure (6) HLD (hyperlipidemia) Code(s): E78.5 - HYPERLIPIDEMIA, UNSPECIFIED Qualifiers: Hyperlipidemia type: unspecified Qualified Code(s): E78.5 - Hyperlipidemia , unspecified (7) HTN (hypertension) Code(s): I10 - ESSENTIAL (PRIMARY) HYPERTENSION Qualifiers: Hypertension type: essential hypertension Qualified Code(s): I10 - Essential (primary) hypertension (8) SOB (shortness of breath) Code(s): R06.02 - SHORTNESS OF BREATH Assessment/Plan ASSESSMENT AND PLAN: Acute Cholecystitis s/p Percutaneous Cholecystostomy Sepsis Acute on Chronic Renal Failure improving Acute on Chronic Systolic/Diastolic Heart Failure Paroxysmal Atrial Fibrillation now in sinus CAD +Troponins likely [place]and Ischemia Mitral Regurgitation HTN DM Hyperlipidemia Hypothyroidism - antibiotics as per id - lasix - monitor urine output, creatinine - rate/rhythm controlled - continue anticoagulation - O2 to keep Spo2 >90% - strict I+Os - f/u chest x-rays DR AQUINO
--- NOTE | 2019-06-26 15:46 | ECHO ---
Name: SANDRA CHOWDARY Exam:Adult Echocardiogram Study Date: 06/26/2019 02:08 PM Age: 89 yrs Reason For Study: CHF ASSESSMENT Height: 68 in Weight: 270 lb BSA: 2.3 m2 MMode/2D Measurements & Calculations IVSd: 1.2 cm Ao root diam: 3.6 cm LVIDd: 5.0 cm LA dimension: 3.0 cm LVIDs: 3.6 cm LVPWd: 1.1 cm EDV(Teich): 116.9 ml LVOT diam: 2.0 cm ESV(Teich): 54.5 ml Doppler Measurements & Calculations MV E max jt: 51.3 cm/sec Ao V2 max: 172.7 cm/sec MV A max jt: 72.1 cm/sec Ao max P.9 mmHg MV E/A: 0.71 Ao V2 mean: 134.1 cm/sec MV dec time: 0.23 sec Ao mean P.7 mmHg Ao V2 VTI: 35.9 cm HIEN(I,D): 2.0 cm2 HIEN(V,D): 2.1 cm2 LV V1 max P.2 mmHg MR max tj: 244.9 cm/sec LV V1 mean P.0 mmHg MR max P.0 mmHg LV V1 max: 113.5 cm/sec LV V1 mean: 80.9 cm/sec LV V1 VTI: 22.2 cm SV(LVOT): 71.9 ml TR max jt: 230.2 cm/sec TR max P.2 mmHg Med Peak E' Jt: 3.3 cm/sec Med E/e': 15.6 Lat Peak E' Jt: 7.3 cm/sec Lat E/e': 7.0 Procedure The study was technically difficult with many images being suboptimal in quality. Left Ventricle Ejection Fraction = 55%. The transmitral spectral Doppler flow pattern is suggestive of impaired LV relaxation. There is mild lateral wall hypokinesis. There is posterolateral wall moderate hypokinesis . Right Ventricle The right ventricle is normal in size and function. Atria Normal left and right atrial size and function. Mitral Valve There is moderate mitral annular calcification. There is no mitral regurgitation noted. Tricuspid Valve The tricuspid valve is normal in structure and function. There is trace tricuspid regurgitation. Ther e was insufficient TR detected to calculate RV systolic pressure. Aortic Valve There is mild aortic sclerosis.;. No hemodynamically significant valvular aortic stenosis. Pulmonic Valve The pulmonic valve is normal in structure and function. Great Vessels The aortic root is not well visualized. Pericardium/Pleura There is no pericardial effusion. Interpretation Summary The study was technically difficult with many images being suboptimal in quality. Wall motion abnormalities as described above with overall preserved LV systolic function. No hemodynamically significant valvular aortic stenosis. Kali Salomon 06/26/2019 03:46 PM
--- NOTE | 2019-06-26 16:54 | PN ---
Physical Exam: SUBJECTIVE: 89 y/o M w PMH DM, CAD s/p stent 20 years ago, systolic/diastolic CHF, HTN and dyslipidemia c/o RUQ pain MICHELLE 6. Pt s/p emergent per cutanteous nephrostomy drainage tube 06/24/19. Overnight 100 cc of green to clear fluid was drained. He offeres no complaints today. He is passing stool and urine w/o complaint. He is tolerating liquid diet. He nenies NVCFD OBJECTIVE: Vital Signs Temp Pulse Resp BP Pulse Ox 97.9 F 81 20 123/69 93 L 06/26/19 05:25 06/26/19 05:25 06/26/19 05:25 06/26/19 05:25 06/25/19 21:00 GENERAL: The patient is awake, alert, and fully oriented, in no acute distress. On O2 NC HEAD: NCAT EYES: HAYLEY, EOMI, sclera anicteric, conjunctiva clear. No ptosis. ENT: Ears normal, nares patent, oropharynx clear without exudates, moist mucous membranes. NECK: Trachea midline, full range of motion, supple. LUNGS: Decreased at entry in posterior lobes BL at bases. Breath sounds equal, clear to auscultation bilaterally, no wheezes, no crackles, no accessory muscle use. HEART: Regular rate and rhythm, S1, S2 without murmur, rub or gallop. ABDOMEN: Soft, nontender, nondistended, normoactive bowel sounds, no guarding, no rebound, no hepatosplenomegaly, no masses. EXTREMITIES: 2+ pulses, warm, well-perfused, no edema. NEUROLOGICAL: Cranial nerves III through XII grossly intact. Normal speech, gait not observed. PSYCH: Normal mood, normal affect. SKIN: Warm, dry, normal turgor, no rashes or lesions noted Laboratory Results - last 24 hr 06/25/19 06/25/19 06/25/19 16:00 17:05 21:55 WBC RBC Hgb Hct MCV MCH MCHC RDW Plt Count MPV PTT (Actin FS) 39.3 H Sodium Potassium Chloride Carbon Dioxide Anion Gap BUN Creatinine Est GFR (CKD-EPI)AfAm Est GFR (CKD-EPI)NonAf POC Glucometer 109 121 Random Glucose Calcium Phosphorus Magnesium Total Bilirubin AST ALT Alkaline Phosphatase Total Protein Albumin 06/25/19 06/26/19 06/26/19 22:30 06:11 07:35 WBC 12.8 H RBC 3.97 L Hgb 13.1 Hct 39.3 MCV 99.0 H MCH 33.0 MCHC 33.3 RDW 14.4 Plt Count 264 D MPV 8.8 PTT (Actin FS) 138.1 H Sodium Potassium Chloride Carbon Dioxide Anion Gap BUN Creatinine Est GFR (CKD-EPI)AfAm Est GFR (CKD-EPI)NonAf POC Glucometer 115 Random Glucose Calcium Phosphorus Magnesium Total Bilirubin AST ALT Alkaline Phosphatase Total Protein Albumin 06/26/19 06/26/19 06/26/19 07:35 07:35 12:08 WBC RBC Hgb Hct MCV MCH MCHC RDW Plt Count MPV PTT (Actin FS) 57.0 H Sodium 136 Potassium 3.4 L Chloride 97 L Carbon Dioxide 30 Anion Gap 8 BUN 19.1 H Creatinine 0.8 Est GFR (CKD-EPI)AfAm 92.44 Est GFR (CKD-EPI)NonAf 79.76 POC Glucometer 165 Random Glucose 139 H Calcium 8.4 L Phosphorus 1.8 L Magnesium 2.0 Total Bilirubin 0.8 AST 26 ALT 24 Alkaline Phosphatase 91 Total Protein 6.1 L Albumin 2.4 L Active Medications Acetaminophen (Ofirmev Injection -) 1,000 mg IVPB Q6H PRN PRN Reason: PAIN LEVEL 7 - 10 Albuterol Sulfate (Ventolin 0.083% Nebulizer Soln -) 1 amp NEB Q4H PRN PRN Reason: SHORT OF BREATH/WHEEZING Last Admin: 06/26/19 05:49 Dose: 1 amp Apixaban (Eliquis -) 5 mg PO BID [facility] Docusate Sodium (Colace -) 100 mg PO DAILY [facility] Last Admin: 06/26/19 09:41 Dose: 100 mg Dutasteride (Avodart -) 0.5 mg PO DAILY [facility] Last Admin: 06/26/19 09:41 Dose: 0.5 mg Furosemide (Lasix Injection -) 40 mg IVPUSH BID@0600,1400 [facility] Last Admin: 06/26/19 14:52 Dose: 40 mg Piperacillin Sod/Tazobactam (Sod 4.5 gm/ Dextrose) 100 mls @ 200 mls/hr IVPB Q8H-IV [facility]; Protocol Last Admin: 06/26/19 09:41 Dose: 200 mls/hr Potassium Phosphate 30 mm/ (Dextrose) 510 mls @ 62.5 mls/hr IVPB ONCE ONE Stop: 06/26/19 18:09 Last Admin: 06/26/19 10:23 Dose: 62.5 mls/hr Insulin Aspart (Novolog Vial Sliding Scale -) 1 vial SQ ACHS [facility]; Protocol Last Admin: 06/26/19 12:00 Dose: 2 units Levothyroxine Sodium (Synthroid -) 200 mcg PO AM [facility] Last Admin: 06/26/19 06:13 Dose: 200 mcg Metoprolol Tartrate (Lopressor -) 25 mg PO BID [facility] Last Admin: 06/26/19 09:41 Dose: 25 mg Morphine Sulfate (Morphine Sulfate) 2 mg IVPUSH Q6H PRN PRN Reason: PAIN LEVEL 4 - 6 Ondansetron HCl (Zofran Injection) 4 mg IVPUSH Q6H PRN PRN Reason: NAUSEA Oxycodone HCl (Roxicodone -) 5 mg PO Q4H PRN PRN Reason: PAIN LEVEL 6-10 Pantoprazole Sodium (Protonix Iv) 40 mg IVPUSH DAILY [facility] Last Admin: 06/26/19 09:41 Dose: 40 mg Senna (Senna -) 1 tab PO HS [facility] Last Admin: 06/25/19 21:59 Dose: Not Given ASSESSMENT/PLAN: 89 y/o M w PMH DM, CAD s/p stent 20 years ago, CHF, HTN and dyslipidemia c/o RUQ pain. Admitted for surgical intervention, cholecystectomy, but decompensated on the med-surg floor and was brought to ICU. Hypotension and hypoxia reversed. A new development of afib occurred and pt put on heparin drip. Plan as below and if improved, likely d/c to home w VNS for care of cholecystomy tube. # Sepsis d/t Acute cholecystitis - BP responded to IVF. - S/p emergent percutaneous cholecystectomy tube 06/24 - Draining bile 100 cc over night - Drainage POSITIVE for e coli, klebsiella, and alpha hemolytic strep. - Cont. abx: zosyn 4.5 mg - Consulted surgery and ID - Surgery recs: maintain cholecystostomy tube & record output, trend labs (WBCs) , advance to regular diet, cont. ID rec, encourage ambulation, f/u with Dr. Vazquez as out-pt # New onset afib - Induced by sepsis - Now in NSR - D/c heparin drip, start Eliquis 5 mg BID - Monitor rate for possible paroxysmal afib - Cardio consulted (Dr. Neri Nolan) # Tropinemia - D/t demand of sepsis and new onset afib. - Trop peaked at 0.47. and trended down. - Cardio consulted # Acute hypoxic respiratory failure - D/t pulmonary edema - Was on high flow O2 and then placed on NC - Cont Lasix IV diuresis. - Daily weights, strict I&O, monitor electrolytes # CRUZ - D/t sepsis and volume overload; resolved - Hold nephrotoxic agnets. # DM - Hold oral agents - Iss - BGM # CAD s/p stent 20 years ago - Hold asa for pending surgery - Cardio consulted # Acute diastolic CHF - Lung diego clearer today - Lasix BID - Strict I&O, daily weights,. monitor electrolytes # HTN - Hold oral agents # Dyslipidemia - Clarify home meds # DVT prophylaxis - Eliquis # F/E/N - No standing fluids - Cont. to monitor electrolytes - Progress to regular diet Nader Leroy Visit type - Emergency Visit Emergency Visit: No - New Patient This patient is new to me today: No - Critical Care Critical Care patient: No - Discharge Referral Referred to [facility] No ATTENDING PHYSICIAN STATEMENT I saw and evaluated the patient. I reviewed the resident's note and discussed the case with the resident. I agree with the resident's findings and plan as documented. SUBJECTIVE: OBJECTIVE: ASSESSMENT AND PLAN:
--- NOTE | 2019-06-26 21:20 | PN ---
Teaching Attending Note Name of Resident: Nader Leroy ATTENDING PHYSICIAN STATEMENT I saw and evaluated the patient. I reviewed the resident's note and discussed the case with the resident. I agree with the resident's findings and plan as documented. SUBJECTIVE: Patient is feeling better with no acute distress. No fever or chills. OBJECTIVE: Vital Signs Temperature 98.0 F 06/26/19 20:35 Pulse Rate 68 06/26/19 20:35 Respiratory Rate 20 06/26/19 20:35 Blood Pressure 114/56 L 06/26/19 20:35 O2 Sat by Pulse Oximetry (%) 93 L 06/26/19 20:35 GENERAL: The patient is awake, alert, and fully oriented, in no acute distress. HEAD: Normal with no signs of trauma. EYES: PERRL, extraocular movements intact, sclera anicteric, conjunctiva clear. ENT: Ears normal, oropharynx clear without exudates, moist mucous membranes. NECK: Trachea midline, full range of motion, supple. LUNGS: Breath sounds equal, clear to auscultation bilaterally, no wheezes, no crackles, no accessory muscle use. HEART: Regular rate and rhythm, S1, S2 without murmur, rub or gallop. ABDOMEN: positive for colostomy tube, draining, NT,ND, normoactive bowel sounds , no guarding, no rebound, no hepatosplenomegaly, no masses. EXTREMITIES: 2+ pulses, warm, well-perfused, no edema. NEUROLOGICAL: Cranial nerves II through XII grossly intact. Normal speech, gait not observed. PSYCH: Normal mood, normal affect. SKIN: Warm, dry, normal turgor, no rashes or lesions noted CBCD WBC 12.8 K/mm3 (4.0-10.0) H 06/26/19 07:35 RBC 3.97 M/mm3 (4.00-5.60) L 06/26/19 07:35 Hgb 13.1 GM/dL (11.7-16.9) 06/26/19 07:35 Hct 39.3 % (35.4-49) 06/26/19 07:35 MCV 99.0 fl (80-96) H 06/26/19 07:35 MCHC 33.3 g/dl (32.0-35.9) 06/26/19 07:35 RDW 14.4 % (11.9-15.9) 06/26/19 07:35 Plt Count 264 K/MM3 (134-434) D 06/26/19 07:35 MPV 8.8 fl (7.5-11.1) 06/26/19 07:35 CMP Sodium 136 mmol/L (136-145) 06/26/19 07:35 Potassium 3.4 mmol/L (3.5-5.1) L 06/26/19 07:35 Chloride 97 mmol/L (98-107) L 06/26/19 07:35 Carbon Dioxide 30 mmol/L (21-32) 06/26/19 07:35 Anion Gap 8 MMOL/L (8-16) 06/26/19 07:35 BUN 19.1 mg/dL (7-18) H 06/26/19 07:35 Creatinine 0.8 mg/dL (0.55-1.3) 06/26/19 07:35 Random Glucose 139 mg/dL (74-106) H 06/26/19 07:35 Calcium 8.4 mg/dL (8.5-10.1) L 06/26/19 07:35 Total Bilirubin 0.8 mg/dL (0.2-1) 06/26/19 07:35 AST 26 U/L (15-37) 06/26/19 07:35 ALT 24 U/L (13-61) 06/26/19 07:35 Alkaline Phosphatase 91 U/L (45-117) 06/26/19 07:35 Total Protein 6.1 g/dl (6.4-8.2) L 06/26/19 07:35 Albumin 2.4 g/dl (3.4-5.0) L 06/26/19 07:35 CARDIAC ENZYMES Creatine Kinase 536 U/L (26-308) H 06/23/19 17:48 Troponin I 0.27 ng/ml (0.00-0.05) H 06/24/19 01:45 Current Medications Generic Name Dose Route Start Last Admin Trade Name Freq PRN Reason Stop Dose Admin Acetaminophen 1,000 mg 06/26/19 04:59 Ofirmev Injection - IVPB Q6H PRN PAIN LEVEL 7 - 10 Albuterol Sulfate 1 amp 06/26/19 04:59 06/26/19 05:49 Ventolin 0.083% Nebulizer Soln - NEB 1 amp Q4H PRN Administration SHORT OF BREATH/WHEEZING Apixaban 5 mg 06/26/19 22:00 Eliquis - PO BID [facility] Docusate Sodium 100 mg 06/25/19 13:45 06/26/19 09:41 Colace - PO 100 mg DAILY [facility] Administration Dutasteride 0.5 mg 06/26/19 10:00 06/26/19 09:41 Avodart - PO 0.5 mg DAILY [facility] Administration Furosemide 40 mg 06/26/19 06:00 06/26/19 14:52 Lasix Injection - IVPUSH 40 mg BID@0600,1400 [facility] Administration Piperacillin Sod/Tazobactam 100 mls @ 200 mls/hr 06/26/19 10:00 06/26/19 18: 06 Sod 4.5 gm/ Dextrose IVPB 200 mls/hr Q8H-IV [facility] Administration Protocol Insulin Aspart 1 vial 06/26/19 07:00 06/26/19 18:06 Novolog Vial Sliding Scale - SQ Not Given ACHS [facility] Protocol Levothyroxine Sodium 200 mcg 06/26/19 07:00 06/26/19 06:13 Synthroid - PO 200 mcg AM [facility] Administration Metoprolol Tartrate 25 mg 06/26/19 10:00 06/26/19 09:41 Lopressor - PO 25 mg BID [facility] Administration Morphine Sulfate 2 mg 06/26/19 04:59 Morphine Sulfate IVPUSH Q6H PRN PAIN LEVEL 4 - 6 Ondansetron HCl 4 mg 06/26/19 04:59 Zofran Injection IVPUSH Q6H PRN NAUSEA Oxycodone HCl 5 mg 06/26/19 04:59 Roxicodone - PO Q4H PRN PAIN LEVEL 6-10 Pantoprazole Sodium 40 mg 06/26/19 10:00 06/26/19 09:41 Protonix Iv IVPUSH 40 mg DAILY [facility] Administration Senna 1 tab 06/25/19 13:42 06/25/19 21:59 Senna - PO Not Given HS [facility] Home Medications Medication Instructions Recorded metFORMIN HCL [Metformin ER 500 mg PO BID 08/23/15 Osmotic] Ezetimibe [Zetia] 10 mg PO DAILY 09/26/18 Furosemide [Lasix] 20 mg PO DAILY #30 tablet 09/28/18 Losartan Potassium 50 mg PO DAILY 03/07/19 Dutasteride [Avodart] 0.5 mg PO DAILY cap 03/09/19 Levothyroxine [Synthroid -] 200 mcg PO AM tablet 03/09/19 Tamsulosin HCl [Flomax -] 0.4 mg PO HS cap.er.24h 03/09/19 Aspirin 81 mg PO DAILY 06/22/19 Metoprolol Tartrate 50 mg PO DAILY 06/22/19 Furosemide 40 mg PO DAILY 06/26/19 Levothyroxine [Synthroid -] 150 mcg PO DAILY 06/26/19 Microbiology 06/23/19 20:45 Blood - Peripheral Venous Blood Culture - Preliminary NO GROWTH OBTAINED AFTER 72 HOURS, INCUBATION TO CONTINUE FOR 2 DAYS. 06/23/19 19:48 Blood - Peripheral Venous Blood Culture - Preliminary NO GROWTH OBTAINED AFTER 72 HOURS, INCUBATION TO CONTINUE FOR 2 DAYS. 06/24/19 12:00 Drainage ANOOP Preparation - Preliminary 06/24/19 12:00 Drainage Fungal Culture - Preliminary 06/24/19 12:00 Drainage Gram Stain - Final 06/24/19 12:00 Drainage Body Fluid Culture - Final Escherichia Coli Klebsiella Pneumoniae Alpha Hemolytic Streptococcus 06/24/19 12:00 Drainage AFB Smear Concentration - Preliminary 06/24/19 12:00 Drainage Mycobacterial Culture - Preliminary 06/24/19 00:30 Urine For Antigen Detection Legionella Antigen - Final 06/24/19 00:30 Urine For Antigen Detection Streptococcus pneumoniae Antigen (M - Final 06/22/19 12:50 Urine - Urine Clean Catch Urine Culture - Final Normal Urogenital Beatriz ASSESSMENT AND PLAN: Patient is an 89yo M with PMHx DM, CAD s/p stent 20 years ago, CHF, HTN and dyslipidemia presneted to ED. for having RUQ pain and was found to have acute cholecystitis . # s/p sepsis due to Acute cholecystitis-s/p emergent percutaneous cholecystectomy tube 06/24. draining bile.On IV Zosyn day#3 , on the case and ID on board. # New onset [id number] by sepsis. now in NSR. s/p heparin ggt. and now on Eliquis continue . # Tropinemia- due to demand of sepsis and new onset afib. trop peaked at 0.47. trended down. cardio on board # acute hypoxic respiratory failure- due to pulmonary edema.s/p high flow O2. on IV Lasix ,continue daily weights, strict I&O, monitor electrolytes # CRUZ- due to sepsis and volume overload. resolved. hold nephrotoxic agents. # T2DM- hold oral agents. iss and bgm # CAD s/p stent 20 years ago- hold asa for pending surgery. cardio consulted # Acute diastolic CHF- currently overloaded. on lasix BID. strict I&O, daily weights,. monitor electrolytes # HTN- currently hypotensive. responding to IVF. hold oral agents #. dyslipidemia- cont medications DVT ppx- heparin ggt PT eval when more stable.
[2019-06-26] MEDS: APIXABAN 5 MG TABLET PO SCH (21:26)
[2019-06-26] MEDS: SENNOSIDES 8.6MG TABLET (FP) PO SCH (21:26)
[2019-06-27] MEDS ORDERED: DEXTROSE 5%-WATER 100 ML IVPB ONE ×2 (02:10→08:21)
[2019-06-27] MEDS ORDERED: PIPERACILLIN/TAZOBACTAM 4.5 GM VIAL IVPB ONE ×2 (02:10→08:21)
[2019-06-27] MEDS: PIPERACILLIN/TAZOB 4.5 GM 4.5 GM in DEXTROSE 5%-WATER 100 ML IVPB SCH ×2 (02:30→09:23)
[2019-06-27] MEDS: FUROSEMIDE 40 MG/4 ML INJECTABLE VIAL IVPUSH SCH ×2 (05:45→14:40)
[2019-06-27 06:32] LABS: BASO % 0.8 % (0-2.0); EOS % 1.4 % (0-4.5); HEMATOCRIT 37.3 % (35.4-49); HEMOGLOBIN 12.7 GM/dL (11.7-16.9); LYMPH % 9.9 % (8-40); MEAN CELL VOLUME 97.1 fl (80-96); MEAN PLT VOLUME 8.3 fl (7.5-11.1); MONO % 12.7 % (3.8-10.2); NEUT % 75.2 % (42.8-82.8); PLATELET COUNT 283 K/MM3 (134-434); RBC 3.84 M/mm3 (4.00-5.60); RDW 14.5 % (11.9-15.9); WHITE BLOOD COUNT 11.4 K/mm3 (4.0-10.0)
[2019-06-27] MEDS: INSULIN SLIDING SCALE (NOVOLOG) 1 VIAL SQ SCH ×3 (06:32→16:35)
[2019-06-27] MEDS: LEVOTHYROXINE NA 200 MCG TABLET PO SCH (06:33)
[2019-06-27 06:56] LABS: ALBUMIN 2.3 g/dl (3.4-5.0); BILIRUBIN,TOTAL 1.2 mg/dL (0.2-1); BLOOD UREA NITROGEN 17.8 mg/dL (7-18); CALCIUM 8.5 mg/dL (8.5-10.1); CREATININE 0.8 mg/dL (0.55-1.3); PHOSPHOROUS 2.6 mg/dL (2.5-4.9); POTASSIUM 3.1 mmol/L (3.5-5.1); TOT PROT 5.9 g/dl (6.4-8.2)
--- NOTE | 2019-06-27 07:47 | PN ---
Progress Note (short form) - Note Progress Note: Chief Complaint: Events noted, notes reviewed, transferred to telemetry, sinus rhythm is maintained- denies any right upper quadrant discomfort, denies any chest discomfort or dyspnea History of Present Illness: Seen and examined on telemetry. Events noted, notes reviewed, transferred to telemetry, sinus rhythm is maintained- denies any right upper quadrant discomfort, denies any chest discomfort or dyspnea Cholecystostomy tube in situ, surgery deferred Medications: Current Medications Acetaminophen (Ofirmev Injection -) 1,000 mg IVPB Q6H PRN PRN Reason: PAIN LEVEL 7 - 10 Albuterol Sulfate (Ventolin 0.083% Nebulizer Soln -) 1 amp NEB Q4H PRN PRN Reason: SHORT OF BREATH/WHEEZING Last Admin: 06/26/19 20:45 Dose: 1 amp Apixaban (Eliquis -) 5 mg PO BID [facility] Last Admin: 06/26/19 21:26 Dose: 5 mg Docusate Sodium (Colace -) 100 mg PO DAILY [facility] Last Admin: 06/26/19 09:41 Dose: 100 mg Dutasteride (Avodart -) 0.5 mg PO DAILY [facility] Last Admin: 06/26/19 09:41 Dose: 0.5 mg Furosemide (Lasix Injection -) 40 mg IVPUSH BID@0600,1400 [facility] Last Admin: 06/27/19 05:45 Dose: 40 mg Piperacillin Sod/Tazobactam (Sod 4.5 gm/ Dextrose) 100 mls @ 200 mls/hr IVPB Q8H-IV [facility]; Protocol Last Admin: 06/27/19 02:30 Dose: 200 mls/hr Insulin Aspart (Novolog Vial Sliding Scale -) 1 vial SQ ACHS [facility]; Protocol Last Admin: 06/27/19 06:32 Dose: Not Given Levothyroxine Sodium (Synthroid -) 200 mcg PO AM [facility] Last Admin: 06/27/19 06:33 Dose: 200 mcg Metoprolol Tartrate (Lopressor -) 25 mg PO BID [facility] Last Admin: 06/26/19 21:26 Dose: 25 mg Morphine Sulfate (Morphine Sulfate) 2 mg IVPUSH Q6H PRN PRN Reason: PAIN LEVEL 4 - 6 Ondansetron HCl (Zofran Injection) 4 mg IVPUSH Q6H PRN PRN Reason: NAUSEA Oxycodone HCl (Roxicodone -) 5 mg PO Q4H PRN PRN Reason: PAIN LEVEL 6-10 Pantoprazole Sodium (Protonix Iv) 40 mg IVPUSH DAILY [facility] Last Admin: 06/26/19 09:41 Dose: 40 mg Senna (Senna -) 1 tab PO HS [facility] Last Admin: 06/26/19 21:26 Dose: 1 tab Review of Systems Constitutional: denies: Chills or Fever Cardiovascular: as noted above Respiratory: denies: Cough Gastrointestinal: denies: Nausea and Vomiting, Diarrhea, Constipation or Abdominal Pain Genitourinary: denies: Dysuria Musculoskeletal: denies: Joint Pain Neurological: denies: Dizziness or Headache Vital Signs: Last Vital Signs Temp Pulse Resp BP Pulse Ox 98.1 F 65 20 131/76 93 L 06/27/19 04:00 06/27/19 04:00 06/27/19 04:00 06/27/19 04:00 06/26/19 20:35 Intake & Output 06/24/19 06/25/19 06/26/19 06/27/19 23:59 23:59 23:59 23:59 Intake Total 1275 2035 794 292 Output Total 760 653 600 Balance 515 1382 194 292 Weight 266 lb 270 lb 8.115 oz 267 lb 12.8 oz Constitutional: No Distress, Calm, Thin Respiratory: Diminished Breath Sounds at the Bases Cardiovascular: S1 S2 Regular Rate Rhythm Grade 2/6 JACK Gastrointestinal: Soft Normal Bowel Sounds Ext: Trace Edema Labs: CBC, BMP 06/27/19 06:05 Hepatic Panel Total Bilirubin 1.2 mg/dL (0.2-1) H 06/27/19 06:05 AST 43 U/L (15-37) H 06/27/19 06:05 ALT 33 U/L (13-61) 06/27/19 06:05 Alkaline Phosphatase 112 U/L (45-117) 06/27/19 06:05 Albumin 2.3 g/dl (3.4-5.0) L 06/27/19 06:05 INR, PTT INR 1.08 (0.83-1.09) 06/22/19 15:00 Assessment/Plan ASSESSMENT: 1. Acute on chronic class II-III NYHA classification LV failure related to diastolic/systolic LV dysfunction, resolving 2. CAD post MN/PCI/stent with evidence of demand ischemic injury angina pectoris 3. Paroxysmal atrial fibrillation new onset with rapid ventricular response [id number] currently in sinus rhythm 4. Acute cholecystitis deferred operative intervention- cholecystostomy in situ 5. Heart murmur AV sclerosis 6. Mitral and tricuspid regurgitation 7. HTN, transient hypotension- resolved 8. DM 9. Hypercholesterolemia 10. Hypothyroidism 11. Chronic kidney disease PLAN: 1. Resume Toprol XL and D/C Lopressor, hemodynamics permitting 2. Resume Cozaar, hemodynamics permitting 3. Continue Lasix IV for an additional 24-48 hours 4. Continue Eliquis 5. Antibiotics as per the primary team 6. As outlined above surgical intervention is deferred at this point in view of the above noted presentation Kinjal Andujar M.D.
[2019-06-27] MEDS: APIXABAN 5 MG TABLET PO SCH (09:22)
[2019-06-27] MEDS: DUTASTERIDE 0.5 MG CAP (FP) PO SCH (09:22)
[2019-06-27] MEDS: DOCUSATE SODIUM 100 MG CAPSULE (FP) PO SCH (09:22)
[2019-06-27] MEDS: PANTOPRAZOLE SODIUM 40 MG VIAL IVPUSH SCH (09:26)
[2019-06-27] MEDS ORDERED: LOSARTAN POTASSIUM 50 MG TABLET (FP) PO SCH (10:00)
[2019-06-27 10:03] LABS: ANISOCYTOSIS 0; MACROCYTOSIS 0; PLATELET ESTIMATE NORMAL
--- NOTE | 2019-06-27 10:34 | PN ---
Progress Note, Physician History of Present Illness: pulmonary alert,oob-chair,feeling better,dyspnea improved on nasal cannula - Current Medication List Current Medications: Active Medications Acetaminophen (Ofirmev Injection -) 1,000 mg IVPB Q6H PRN PRN Reason: PAIN LEVEL 7 - 10 Albuterol Sulfate (Ventolin 0.083% Nebulizer Soln -) 1 amp NEB Q4H PRN PRN Reason: SHORT OF BREATH/WHEEZING Last Admin: 06/26/19 20:45 Dose: 1 amp Apixaban (Eliquis -) 5 mg PO BID [facility] Last Admin: 06/27/19 09:22 Dose: 5 mg Docusate Sodium (Colace -) 100 mg PO DAILY [facility] Last Admin: 06/27/19 09:22 Dose: 100 mg Dutasteride (Avodart -) 0.5 mg PO DAILY [facility] Last Admin: 06/27/19 09:22 Dose: 0.5 mg Furosemide (Lasix Injection -) 40 mg IVPUSH BID@0600,1400 [facility] Last Admin: 06/27/19 05:45 Dose: 40 mg Piperacillin Sod/Tazobactam (Sod 4.5 gm/ Dextrose) 100 mls @ 200 mls/hr IVPB Q8H-IV [facility]; Protocol Last Admin: 06/27/19 09:23 Dose: 200 mls/hr Insulin Aspart (Novolog Vial Sliding Scale -) 1 vial SQ ACHS [facility]; Protocol Last Admin: 06/27/19 06:32 Dose: Not Given Levothyroxine Sodium (Synthroid -) 200 mcg PO AM [facility] Last Admin: 06/27/19 06:33 Dose: 200 mcg Losartan Potassium (Cozaar -) 50 mg PO DAILY [facility] Last Admin: 06/27/19 09:22 Dose: 50 mg Metoprolol Succinate (Toprol Xl -) 50 mg PO DAILY [facility] Last Admin: 06/27/19 09:22 Dose: 50 mg Morphine Sulfate (Morphine Sulfate) 2 mg IVPUSH Q6H PRN PRN Reason: PAIN LEVEL 4 - 6 Ondansetron HCl (Zofran Injection) 4 mg IVPUSH Q6H PRN PRN Reason: NAUSEA Oxycodone HCl (Roxicodone -) 5 mg PO Q4H PRN PRN Reason: PAIN LEVEL 6-10 Pantoprazole Sodium (Protonix Iv) 40 mg IVPUSH DAILY [facility] Last Admin: 06/27/19 09:26 Dose: 40 mg Senna (Senna -) 1 tab PO HS [facility] Last Admin: 06/26/19 21:26 Dose: 1 tab - Objective Vital Signs: Vital Signs Temperature 98.1 F 06/27/19 08:54 Pulse Rate 64 06/27/19 08:54 Respiratory Rate 20 06/27/19 08:54 Blood Pressure 131/76 06/27/19 08:54 O2 Sat by Pulse Oximetry (%) 95 06/27/19 08:54 Constitutional: Yes: Well Nourished, Calm Eyes: Yes: WNL HENT: Yes: WNL Neck: Yes: WNL Cardiovascular: Yes: Regular Rate and Rhythm, S1, S2 Respiratory: Yes: Diminished Gastrointestinal: Yes: Normal Bowel Sounds, Soft Extremities: Yes: WNL Edema: Yes Labs: CBC, BMP 06/27/19 06:05 06/27/19 06:05 INR, PTT INR 1.08 (0.83-1.09) 06/22/19 15:00 Problem List - Problems (1) Abdominal pain Code(s): R10.9 - UNSPECIFIED ABDOMINAL PAIN (2) Acute cholecystitis Code(s): K81.0 - ACUTE CHOLECYSTITIS (3) Gallstones Code(s): K80.20 - CALCULUS OF GALLBLADDER W/O CHOLECYSTITIS W/O OBSTRUCTION (4) ASHD (arteriosclerotic heart disease) Code(s): I25.10 - ATHSCL HEART DISEASE OF [place] CORONARY ARTERY W/O ANG PCTRS (5) CHF (congestive heart failure) Code(s): I50.9 - HEART FAILURE, UNSPECIFIED Qualifiers: Heart failure type: diastolic Heart failure chronicity: acute on chronic Qualified Code(s): I50.33 - Acute on chronic diastolic (congestive) heart failure (6) HLD (hyperlipidemia) Code(s): E78.5 - HYPERLIPIDEMIA, UNSPECIFIED Qualifiers: Hyperlipidemia type: unspecified Qualified Code(s): E78.5 - Hyperlipidemia , unspecified (7) HTN (hypertension) Code(s): I10 - ESSENTIAL (PRIMARY) HYPERTENSION Qualifiers: Hypertension type: essential hypertension Qualified Code(s): I10 - Essential (primary) hypertension (8) SOB (shortness of breath) Code(s): R06.02 - SHORTNESS OF BREATH Assessment/Plan ASSESSMENT AND PLAN: Acute Cholecystitis s/p Percutaneous Cholecystostomy Sepsis Acute on Chronic Renal Failure improving Acute on Chronic Systolic/Diastolic Heart Failure Paroxysmal Atrial Fibrillation now in sinus CAD +Troponins likely Demand Ischemia Mitral Regurgitation HTN DM Hyperlipidemia Hypothyroidism - antibiotics as per id - lasix iv as per cardiology - monitor urine output, creatinine - rate/rhythm controlled - continue anticoagulation - O2 to keep Spo2 >90% - strict I+Os - f/u chest x-rays DR AQUINO
[2019-06-27] MEDS ORDERED: POTASSIUM CHLORIDE TABS 20 MEQ TABLET.ER (FP) PO ONE (12:15)
[2019-06-27 15:38] VITALS: BP 97/45; TEMP 98.4
--- NOTE | 2019-06-27 16:42 | PN ---
Teaching Attending Note Name of Resident: Nader Leroy ATTENDING PHYSICIAN STATEMENT I saw and evaluated the patient. I reviewed the resident's note and discussed the case with the resident. I agree with the resident's findings and plan as documented. SUBJECTIVE: Feeling better- less abdominal pain/tenderness. No fever/chills. no nausea/vomiting. OBJECTIVE: Afebrile, Hemodynamically Stable Last Vital Signs Temp Pulse Resp BP Pulse Ox 98.4 F 71 20 97/45 L 95 06/27/19 14:00 06/27/19 14:00 06/27/19 08:54 06/27/19 14:00 06/27/19 08:54 HEENT - Atramatic, normocephalic. Heart - S1, S2, RRR lungs - clear to auscultation Abdomen - Soft, RUQ cholecystostomy tube. Bowel Sounds normal. Extremities - no calf tenderness, mild venous stasis skin changes. Laboratory Results - last 24 hr 06/26/19 06/26/19 06/27/19 16:50 21:31 05:49 WBC RBC Hgb Hct MCV MCH MCHC RDW Plt Count MPV Absolute Neuts (auto) Neutrophils % Neutrophils % (Manual) Band Neutrophils % Lymphocytes % Lymphocytes % (Manual) Monocytes % Monocytes % (Manual) Eosinophils % Eosinophils % (Manual) Basophils % Basophils % (Manual) Myelocytes % (Man) Promyelocytes % (Man) Blast Cells % (Manual) Nucleated RBC % Metamyelocytes Hypochromia Platelet Estimate Polychromasia Poikilocytosis Anisocytosis Microcytosis Macrocytosis PTT (Actin FS) Sodium Potassium Chloride Carbon Dioxide Anion Gap BUN Creatinine Est GFR (CKD-EPI)AfAm Est GFR (CKD-EPI)NonAf POC Glucometer 147 183 135 Random Glucose Calcium Phosphorus Magnesium Total Bilirubin AST ALT Alkaline Phosphatase Total Protein Albumin 06/27/19 06/27/19 06/27/19 06:05 06:05 06:05 WBC 11.4 H RBC 3.84 L Hgb 12.7 Hct 37.3 MCV 97.1 H MCH 33.0 MCHC 34.0 RDW 14.5 Plt Count 283 MPV 8.3 Absolute Neuts (auto) 8.6 H Neutrophils % 75.2 Neutrophils % (Manual) 70.7 Band Neutrophils % 0.0 Lymphocytes % 9.9 D Lymphocytes % (Manual) 11.1 D Monocytes % 12.7 H D Monocytes % (Manual) 17 H D Eosinophils % 1.4 D Eosinophils % (Manual) 0.0 Basophils % 0.8 Basophils % (Manual) 1.0 D Myelocytes % (Man) 0 Promyelocytes % (Man) 0 Blast Cells % (Manual) 0 Nucleated RBC % 0 Metamyelocytes 0 Hypochromia 0 Platelet Estimate Normal Polychromasia 0 Poikilocytosis 0 Anisocytosis 0 Microcytosis 0 Macrocytosis 0 PTT (Actin FS) 62.0 H Sodium 136 Potassium 3.1 L Chloride 96 L Carbon Dioxide 32 Anion Gap 9 BUN 17.8 Creatinine 0.8 Est GFR (CKD-EPI)AfAm 92.44 Est GFR (CKD-EPI)NonAf 79.76 POC Glucometer Random Glucose 133 H Calcium 8.5 Phosphorus 2.6 Magnesium 2.0 Total Bilirubin 1.2 H AST 43 H ALT 33 Alkaline Phosphatase 112 Total Protein 5.9 L Albumin 2.3 L 06/27/19 06/27/19 10:54 16:32 WBC RBC Hgb Hct MCV MCH MCHC RDW Plt Count MPV Absolute Neuts (auto) Neutrophils % Neutrophils % (Manual) Band Neutrophils % Lymphocytes % Lymphocytes % (Manual) Monocytes % Monocytes % (Manual) Eosinophils % Eosinophils % (Manual) Basophils % Basophils % (Manual) Myelocytes % (Man) Promyelocytes % (Man) Blast Cells % (Manual) Nucleated RBC % Metamyelocytes Hypochromia Platelet Estimate Polychromasia Poikilocytosis Anisocytosis Microcytosis Macrocytosis PTT (Actin FS) Sodium Potassium Chloride Carbon Dioxide Anion Gap BUN Creatinine Est GFR (CKD-EPI)AfAm Est GFR (CKD-EPI)NonAf POC Glucometer 182 124 Random Glucose Calcium Phosphorus Magnesium Total Bilirubin AST ALT Alkaline Phosphatase Total Protein Albumin Current Medications Generic Name Dose Route Start Last Admin Trade Name Freq PRN Reason Stop Dose Admin Acetaminophen 1,000 mg 06/26/19 04:59 Ofirmev Injection - IVPB Q6H PRN PAIN LEVEL 7 - 10 Albuterol Sulfate 1 amp 06/26/19 04:59 06/26/19 20:45 Ventolin 0.083% Nebulizer Soln - NEB 1 amp Q4H PRN Administration SHORT OF BREATH/WHEEZING Apixaban 5 mg 06/26/19 22:00 06/27/19 09:22 Eliquis - PO 5 mg BID [facility] Administration Docusate Sodium 100 mg 06/25/19 13:45 06/27/19 09:22 Colace - PO 100 mg DAILY [facility] Administration Dutasteride 0.5 mg 06/26/19 10:00 06/27/19 09:22 Avodart - PO 0.5 mg DAILY [facility] Administration Furosemide 40 mg 06/26/19 06:00 06/27/19 14:40 Lasix Injection - IVPUSH 40 mg BID@0600,1400 [facility] Administration Piperacillin Sod/Tazobactam 100 mls @ 200 mls/hr 06/26/19 10:00 06/27/19 09: 23 Sod 4.5 gm/ Dextrose IVPB 200 mls/hr Q8H-IV [facility] Administration Protocol Insulin Aspart 1 vial 06/26/19 07:00 06/27/19 16:35 Novolog Vial Sliding Scale - SQ Not Given ACHS [facility] Protocol Levothyroxine Sodium 200 mcg 06/26/19 07:00 06/27/19 06:33 Synthroid - PO 200 mcg AM [facility] Administration Losartan Potassium 50 mg 06/27/19 10:00 06/27/19 09:22 Cozaar - PO 50 mg DAILY [facility] Administration Metoprolol Succinate 50 mg 06/27/19 10:00 06/27/19 09:22 Toprol Xl - PO 50 mg DAILY [facility] Administration Morphine Sulfate 2 mg 06/26/19 04:59 Morphine Sulfate IVPUSH Q6H PRN PAIN LEVEL 4 - 6 Ondansetron HCl 4 mg 06/26/19 04:59 Zofran Injection IVPUSH Q6H PRN NAUSEA Oxycodone HCl 5 mg 06/26/19 04:59 Roxicodone - PO Q4H PRN PAIN LEVEL 6-10 Pantoprazole Sodium 40 mg 06/26/19 10:00 06/27/19 09:26 Protonix Iv IVPUSH 40 mg DAILY [facility] Administration Senna 1 tab 06/25/19 13:42 06/26/19 21:26 Senna - PO 1 tab HS [facility] Administration Discharge Medications Medication Instructions Recorded metFORMIN HCL [Metformin ER 500 mg PO BID 08/23/15 Osmotic] Losartan Potassium 50 mg PO DAILY 03/07/19 Dutasteride [Avodart] 0.5 mg PO DAILY cap 03/09/19 Tamsulosin HCl [Flomax -] 0.4 mg PO HS cap.er.24h 03/09/19 Aspirin 81 mg PO DAILY 06/22/19 Metoprolol Tartrate 50 mg PO DAILY 06/22/19 Furosemide 40 mg PO DAILY 06/26/19 Levothyroxine [Synthroid -] 150 mcg PO DAILY 06/26/19 Apixaban [Eliquis -] 5 mg PO BID 30 Days #60 tablet 06/27/19 Metoprolol Succinate [Toprol XL -] 50 mg PO DAILY tab.sr.24h 06/27/19 ASSESSMENT AND PLAN: 89 year old male with DM 2, CAD s/p PCI/Stent, Chronic Diastolic CHF, HTN, presented with RUQ pain, found to have acute cholecystitis. 1. Sepsis secondary to Acute Cholecystitis s/p emergent percutaneous cholecystostomy 06/24 Day 4 IV zosyn. Will change to Augmentin for an additional 11 days. IR and Surgery out-patient follow up. Currently afebrile, hemodynamically Stable. Cholecystostomy Tube care as per IR/Sx. 2. Paroxysmal Atrial fibrillation - newly recognized. reverted to SR. Toprol XL. Started on Eliquis. Cardiology follow up. 3. Elevated TropI - sec to demand due to RVR. Hx of CAD s/p PCI/Stent. Regional wall motion abnormalities on Echo. Cardiology evaluated -for out-patient follow up. 4. Acute Hypoxic Respiratory Failure sec to acute on chronic diastolic CHF due to IV fluid resuscitation. Received IV Lasix. Wean off O2. 5. DM 2 - on Novolog sliding scale 6. CRUZ sec to Sepsis - resolved with IV hydration. 7. CAD s/p PCI/Stent 8. HTN - transient hypotension due to sepsis resolved. Cozaar, Metoprolol resumed. 9. Hypothyroidism - Continue Synthroid. DVT Px - on Eliquis.
--- NOTE | 2019-06-27 18:10 | DS ---
Physical Exam: SUBJECTIVE: 89 OBJECTIVE: Vital Signs Period Temp Pulse Resp BP Sys/Francisco Pulse Ox Last 24 Hr 97.8 F-98.4 F 64-75 20-20 97-131/45-76 84-95 PHYSICAL EXAM GENERAL: The patient is awake, alert, and fully oriented, in no acute distress. HEAD: Normal with no signs of trauma. EYES: PERRL, extraocular movements intact, sclera anicteric, conjunctiva clear. ENT: Ears normal, nares patent, oropharynx clear without exudates, moist mucous membranes. NECK: Trachea midline, full range of motion, supple. LUNGS: Breath sounds equal, clear to auscultation bilaterally, no wheezes, no crackles, no accessory muscle use. HEART: Regular rate and rhythm, S1, S2 without murmur, rub or gallop. ABDOMEN: Soft, nontender, nondistended, normoactive bowel sounds, no guarding, no rebound, no hepatosplenomegaly, no masses. EXTREMITIES: 2+ pulses, warm, well-perfused, no edema. NEUROLOGICAL: Cranial nerves II through XII grossly intact. Normal speech, gait not observed. PSYCH: Normal mood, normal affect. SKIN: Warm, dry, normal turgor, no rashes or lesions noted. LABS Laboratory Results - last 24 hr 06/26/19 06/27/19 06/27/19 21:31 05:49 06:05 WBC RBC Hgb Hct MCV MCH MCHC RDW Plt Count MPV Absolute Neuts (auto) Neutrophils % Neutrophils % (Manual) Band Neutrophils % Lymphocytes % Lymphocytes % (Manual) Monocytes % Monocytes % (Manual) Eosinophils % Eosinophils % (Manual) Basophils % Basophils % (Manual) Myelocytes % (Man) Promyelocytes % (Man) Blast Cells % (Manual) Nucleated RBC % Metamyelocytes Hypochromia Platelet Estimate Polychromasia Poikilocytosis Anisocytosis Microcytosis Macrocytosis PTT (Actin FS) 62.0 H Sodium Potassium Chloride Carbon Dioxide Anion Gap BUN Creatinine Est GFR (CKD-EPI)AfAm Est GFR (CKD-EPI)NonAf POC Glucometer 183 135 Random Glucose Calcium Phosphorus Magnesium Total Bilirubin AST ALT Alkaline Phosphatase Total Protein Albumin 06/27/19 06/27/19 06/27/19 06:05 06:05 10:54 WBC 11.4 H RBC 3.84 L Hgb 12.7 Hct 37.3 MCV 97.1 H MCH 33.0 MCHC 34.0 RDW 14.5 Plt Count 283 MPV 8.3 Absolute Neuts (auto) 8.6 H Neutrophils % 75.2 Neutrophils % (Manual) 70.7 Band Neutrophils % 0.0 Lymphocytes % 9.9 D Lymphocytes % (Manual) 11.1 D Monocytes % 12.7 H D Monocytes % (Manual) 17 H D Eosinophils % 1.4 D Eosinophils % (Manual) 0.0 Basophils % 0.8 Basophils % (Manual) 1.0 D Myelocytes % (Man) 0 Promyelocytes % (Man) 0 Blast Cells % (Manual) 0 Nucleated RBC % 0 Metamyelocytes 0 Hypochromia 0 Platelet Estimate Normal Polychromasia 0 Poikilocytosis 0 Anisocytosis 0 Microcytosis 0 Macrocytosis 0 PTT (Actin FS) Sodium 136 Potassium 3.1 L Chloride 96 L Carbon Dioxide 32 Anion Gap 9 BUN 17.8 Creatinine 0.8 Est GFR (CKD-EPI)AfAm 92.44 Est GFR (CKD-EPI)NonAf 79.76 POC Glucometer 182 Random Glucose 133 H Calcium 8.5 Phosphorus 2.6 Magnesium 2.0 Total Bilirubin 1.2 H AST 43 H ALT 33 Alkaline Phosphatase 112 Total Protein 5.9 L Albumin 2.3 L 06/27/19 16:32 WBC RBC Hgb Hct MCV MCH MCHC RDW Plt Count MPV Absolute Neuts (auto) Neutrophils % Neutrophils % (Manual) Band Neutrophils % Lymphocytes % Lymphocytes % (Manual) Monocytes % Monocytes % (Manual) Eosinophils % Eosinophils % (Manual) Basophils % Basophils % (Manual) Myelocytes % (Man) Promyelocytes % (Man) Blast Cells % (Manual) Nucleated RBC % Metamyelocytes Hypochromia Platelet Estimate Polychromasia Poikilocytosis Anisocytosis Microcytosis Macrocytosis PTT (Actin FS) Sodium Potassium Chloride Carbon Dioxide Anion Gap BUN Creatinine Est GFR (CKD-EPI)AfAm Est GFR (CKD-EPI)NonAf POC Glucometer 124 Random Glucose Calcium Phosphorus Magnesium Total Bilirubin AST ALT Alkaline Phosphatase Total Protein Albumin HOSPITAL COURSE: Date of Admission:06/22/19 Date of Discharge: 06/27/19 Nader Leroy MD Discharge Summary Reason For Visit: ACUTE CHOLECYSTITIS Current Active Problems Abdominal pain (Acute) Acute cholecystitis (Acute) Gallstones (Acute) Ventral hernia without obstruction or gangrene (Acute) Condition: Good - Instructions Diet, Activity, Other Instructions: YOUR VISIT You came to the hospital because you were experiencing belly pain. You were found to have an infection of the gall bladder and received fluids and antibiotics. It was determined that you needed urgent drainage of the gall bladder and a drainage tube was put in place. Your heart also showed an unusual rhythm and you will take a medication for this now. While here you were seen by a wire roller, infectious disease doctor, team guide, and a surgeon. You returned to usual health and are now able to go to a rehab facility. MEDICATIONS Please continue your home medications as prescribed. NEW HOME MEDICATIONS: Eliquis 5 mg twice a day by mouth Augmentin 875 mg twice a day by mouth ADDITIONAL CARE Please make an appointment with your primary care provider, Dr. Dubon, 1 week from today. Please make an appointment with the surgeon, Dr. Vazquez, 1 week from today. Post Operative Instructions Physical activity Resume your normal everyday activity as tolerated no heavy lifting or exercise until seen by your surgeon. You may walk unlimited amounts of and climb stairs. Do not operate heavy machinery such as a car while taking any narcotics. Wound care You may shower with the drain in place but do not submerge the tube. When done , dry off and re-secure the drain. Do not apply lotions or ointments to drain site. Diet There are no dietary restrictions. Eat healthy, high-fiber foods. Drink 6 to 8 glasses of liquid each day. This will assist in keeping your bowels are regular. Pain management You may take Tylenol or acetaminophen or Ibuprofen (for example, Motrin, Advil etc.) Any pain prescription medication ordered should be taken as prescribed for moderate to severe pain. Call Dr. Vazquez for any of the following: Severe pain not relieved by medication Fever of 101 or higher Excessive bleeding or drainage on dressing Inability to urinate If you experience any chest pain or shortness of breath please seek emergency treatment immediately. Call the office at [phone] for a post operative appointment in 7 - 10 days. ADDITIONAL INFORMATION Please call 911 or come to the emergency department if you feel unusual headache, loss of awareness, decrease in energy, vision changes, shortness of breath, chest pain, unusual bleeding or any other alarming symptoms. Referrals: Sukhdev Vazquez MD [Staff Physician] - Ramez Dubon MD [Primary Care Provider] - Disposition: ASSISTED FACILITY - Home Medications Comprehensive Discharge Medication List: Ambulatory Orders metFORMIN HCL [Metformin ER Osmotic] 500 mg PO BID 08/23/15 Losartan Potassium 50 mg PO DAILY 03/07/19 Dutasteride [Avodart] 0.5 mg PO DAILY cap 03/09/19 Tamsulosin HCl [Flomax -] 0.4 mg PO HS cap.er.24h 03/09/19 Aspirin 81 mg PO DAILY 06/22/19 Metoprolol Tartrate 50 mg PO DAILY 06/22/19 Furosemide 40 mg PO DAILY 06/26/19 Levothyroxine [Synthroid -] 150 mcg PO DAILY 06/26/19 Amox-Tr/K Cl [Augmentin - 875Mg Tablet] 1 tab PO BID 12 Days #24 tablet Apixaban [Eliquis -] 5 mg PO BID 30 Days #60 tablet 06/27/19 Metoprolol Succinate [Toprol XL -] 50 mg PO DAILY tab.sr.24h 06/27/19 - Discharge Referral Referred to [facility] No ATTENDING PHYSICIAN STATEMENT I saw and evaluated the patient. I reviewed the resident's note and discussed the case with the resident. I agree with the resident's findings and plan as documented. SUBJECTIVE: OBJECTIVE: ASSESSMENT AND PLAN:
[2019-06-27 18:51] VITALS: PULSE 65
--- NOTE | 2019-06-27 18:58 | PN ---
Progress Note, Physician History of Present Illness: stable no new issues - Current Medication List Current Medications: Active Medications Acetaminophen (Ofirmev Injection -) 1,000 mg IVPB Q6H PRN PRN Reason: PAIN LEVEL 7 - 10 Albuterol Sulfate (Ventolin 0.083% Nebulizer Soln -) 1 amp NEB Q4H PRN PRN Reason: SHORT OF BREATH/WHEEZING Last Admin: 06/26/19 20:45 Dose: 1 amp Apixaban (Eliquis -) 5 mg PO BID [facility] Last Admin: 06/27/19 09:22 Dose: 5 mg Docusate Sodium (Colace -) 100 mg PO DAILY [facility] Last Admin: 06/27/19 09:22 Dose: 100 mg Dutasteride (Avodart -) 0.5 mg PO DAILY [facility] Last Admin: 06/27/19 09:22 Dose: 0.5 mg Furosemide (Lasix Injection -) 40 mg IVPUSH BID@0600,1400 [facility] Last Admin: 06/27/19 14:40 Dose: 40 mg Insulin Aspart (Novolog Vial Sliding Scale -) 1 vial SQ ACHS [facility]; Protocol Last Admin: 06/27/19 16:35 Dose: Not Given Levothyroxine Sodium (Synthroid -) 200 mcg PO AM [facility] Last Admin: 06/27/19 06:33 Dose: 200 mcg Losartan Potassium (Cozaar -) 50 mg PO DAILY [facility] Last Admin: 06/27/19 09:22 Dose: 50 mg Metoprolol Succinate (Toprol Xl -) 50 mg PO DAILY [facility] Last Admin: 06/27/19 09:22 Dose: 50 mg Morphine Sulfate (Morphine Sulfate) 2 mg IVPUSH Q6H PRN PRN Reason: PAIN LEVEL 4 - 6 Ondansetron HCl (Zofran Injection) 4 mg IVPUSH Q6H PRN PRN Reason: NAUSEA Oxycodone HCl (Roxicodone -) 5 mg PO Q4H PRN PRN Reason: PAIN LEVEL 6-10 Pantoprazole Sodium (Protonix Iv) 40 mg IVPUSH DAILY [facility] Last Admin: 06/27/19 09:26 Dose: 40 mg Senna (Senna -) 1 tab PO HS [facility] Last Admin: 06/26/19 21:26 Dose: 1 tab - Objective Vital Signs: Vital Signs Temperature 98.4 F 06/27/19 14:00 Pulse Rate 65 06/27/19 18:00 Respiratory Rate 20 06/27/19 08:54 Blood Pressure 97/45 L 06/27/19 14:00 O2 Sat by Pulse Oximetry (%) 84 L 06/27/19 16:55 Constitutional: Yes: No Distress, Calm Cardiovascular: Yes: S1, S2 Respiratory: Yes: Regular, CTA Bilaterally Gastrointestinal: Yes: Normal Bowel Sounds, Soft, Other (drain in place) Musculoskeletal: Yes: WNL Extremities: Yes: WNL Neurological: Yes: Alert, Oriented Psychiatric: Yes: Alert, Oriented Labs: CBC, BMP 06/27/19 06:05 06/27/19 06:05 INR, PTT INR 1.08 (0.83-1.09) 06/22/19 15:00 Assessment/Plan 89 y.o male with PMH of DM, CHF, CAD (s/p stents) HTN BPH presents to the ED with complaints of abdominal pain found to have choleycystitis Acute Choley CAD HTN CHF DM afib plan can change to oral augmentin complete a total of 14 days total abx corse
== END 2019-06-27 19:44 | DRG 871 ==
LOC: JER 07:20 → JERBED 14:38 → J5S 17:24 → JICU 06-23 20:10 → J4W 06-25 22:36
PROVIDERS: ADMIT Internal Medicine
PROC: 0F9430Z Drainage of Gallbladder with Drainage Device, Percutaneous Approach (ICD-10-PCS; principal; 2019-06-24)
DX: A41.9 Sepsis, unspecified organism (principal); I50.43 Acute on chronic combined systolic (congestive) and diastolic (congestive) heart failure; J96.01 Acute respiratory failure with hypoxia; K81.0 Acute cholecystitis; N17.9 Acute kidney failure, unspecified; I24.8 Other forms of acute ischemic heart disease; E11.9 Type 2 diabetes mellitus without complications; J44.9 Chronic obstructive pulmonary disease, unspecified; I95.9 Hypotension, unspecified; I48.0 Paroxysmal atrial fibrillation; E03.8 Other specified hypothyroidism; Z98.61 Coronary angioplasty status; E78.5 Hyperlipidemia, unspecified; I34.0 Nonrheumatic mitral (valve) insufficiency; I36.1 Nonrheumatic tricuspid (valve) insufficiency; E87.70 Fluid overload, unspecified; N40.0 Benign prostatic hyperplasia without lower urinary tract symptoms; I12.9 Hypertensive chronic kidney disease with stage 1 through stage 4 chronic kidney disease, or unspecified chronic kidney disease; I25.119 Atherosclerotic heart disease of native coronary artery with unspecified angina pectoris; K43.9 Ventral hernia without obstruction or gangrene
CPT/HCPCS: 36415; 36600; 47490; 71045-TC-FY; 71275-TC; 74177-TC; 76098-TC-FY; 76705-TC; 78226-TC; 80048; 80053; 81003; 82550; 82553; 82803; 82962; 83690; 83735; 84100; 84484; 85025; 85027; 85610; 85730; 86850; 86900; 86901; 87040; 87070; 87075; 87077; 87086; 87102; 87116; 87186; 87205; 87206; 87210; 87899; 93005; 93010; 93306-TC; 93970-TC; 94010; 94640; 94761; 97116-GP; 97161-GP; 99284-25; A4358; A9537; C1729; J0131; J0282; J1644; J7030

== ENCOUNTER → 2019-07-24 | Day surgery (SDC) | payer OTHER | END | disposition home or self-care (01) | LOC: JRADIR 10:49 | PROVIDERS: ATTEND Internal Medicine Gastroenterology | PROC: BF10YZZ Fluoroscopy of Bile Ducts using Other Contrast (ICD-10-PCS; principal; 2019-07-24) | DX: K80.21 Calculus of gallbladder without cholecystitis with obstruction (principal) | CPT/HCPCS: 47531; 76000-TC-FY ==

== ENCOUNTER 2019-07-25 21:35 | Emergency (ER) | payer OTHER ==
--- NOTE | 2019-07-25 21:41 | PDOC ---
Rapid Medical Evaluation Time Seen by Provider: 07/25/19 21:38 Medical Evaluation: Allergies Allergy/AdvReac Type Severity Reaction Status Date / Time No Known Allergies Allergy Verified 06/22/19 07:25 07/25/19 21:38 HPI: Drain from gall badder not draining since today, Drain has been in place for 5 weeks PE: NAD ORDERS: LABS Discharge Disposition - Diagnosis History of cholecystitis - Referrals - Patient Instructions - Post Discharge Activity
[2019-07-25 21:42] VITALS: BP 137/61; PULSE 76; TEMP 97.8; BMI 37.5
--- NOTE | 2019-07-26 00:02 | PDOC ---
Documentation entered by Abimael Christensen SCRIBE, acting as scribe for Morro Molina MD. Morro Molina MD: This documentation has been prepared by the [address] Xhesika, SCRIBE, under my direction and personally reviewed by me in its entirety. I confirm that the documentation accurately reflects all work, treatment, procedures, and medical decision making performed by me. History of Present Illness - General Chief Complaint: Pain Stated Complaint: GALLBLADDER DRAIN PROBLEM Time Seen by Provider: 07/25/19 21:38 History Source: Patient Exam Limitations: No Limitations - History of Present Illness Initial Comments: 07/25/19 23:17 The patient is an 89 year old male with a significant PMH of DM, COPD, CHF, HLD , HTN, CAD (s/p stents 20 years ago) who presents to the emergency department for no drainage from biliary drainage catheter/bag since 2pm. Patient recently had a cholecystectomy 06/24/19 and had a cholecystectomy bag placed. Patient notes 750ml drainage from bag per day, however, today patient only notes > 100ml drainage from bag. at bedside notes she called Dr. Dave and was advised to come to the ED for further evaluations. notes, patient had a surgery scheduled with Dr. Michel tomorrow. The patient denies chest pain, shortness of breath, headache and dizziness. Denies fever, chills, cough, nausea, vomiting, diarrhea and constipation. Denies dysuria, frequency, urgency and hematuria. Allergies: NKDA Past surgical history: Social history: occasional alcohol use PCP: Ramez Carmona GI: Dr. Mayank Dave Past History - Past Medical History Allergies/Adverse Reactions: Allergies Allergy/AdvReac Type Severity Reaction Status Date / Time No Known Allergies Allergy Verified 07/25/19 21:42 Home Medications: Ambulatory Orders metFORMIN HCL [Metformin ER Osmotic] 500 mg PO BID 08/23/15 Losartan Potassium 50 mg PO DAILY 03/07/19 Dutasteride [Avodart] 0.5 mg PO DAILY cap 03/09/19 Tamsulosin HCl [Flomax -] 0.4 mg PO HS cap.er.24h 03/09/19 Aspirin 81 mg PO DAILY 06/22/19 Metoprolol Tartrate 50 mg PO DAILY 06/22/19 Furosemide 40 mg PO DAILY 06/26/19 Levothyroxine [Synthroid -] 150 mcg PO DAILY 06/26/19 Amox-Tr/K Cl [Augmentin - 875Mg Tablet] 1 tab PO BID 12 Days #24 tablet Apixaban [Eliquis -] 5 mg PO BID 30 Days #60 tablet 06/27/19 Metoprolol Succinate [Toprol XL -] 50 mg PO DAILY tab.sr.24h 06/27/19 Anemia: No Asthma: No Cancer: No Cardiac Disorders: Yes (PA, STENTS X3 1998, CAD) CVA: No COPD: No CHF: Yes Dementia: No Diabetes: Yes (TYPE II) GI Disorders: No Disorders: Yes (BPH) HTN: Yes Hypercholesterolemia: Yes Kidney Stones: Yes (LITHOTRIPSY) Liver Disease: No Seizures: No Thyroid Disease: Yes - Surgical History Abdominal Surgery: No Appendectomy: No Cardiac Surgery: Yes Cholecystectomy: No Lung Surgery: No Neurologic Surgery: No Orthopedic Surgery: No - Immunization History Immunization Up to Date: No - Psycho Social/Smoking Cessation Hx Smoking History: Unknown if ever smoked Have you smoked in the past 12 months: No If you are a former smoker, when did you quit?: 1998 Hx Alcohol Use: Yes (occasionally) Drug/Substance Use Hx: No Substance Use Type: None Hx Substance Use Treatment: No Review of Systems - Review of Systems Able to Perform ROS?: Yes Comments:: 07/25/19 23:17 GENERAL/CONSTITUTIONAL: No fever or chills. No weakness. HEAD, EYES, EARS, NOSE AND THROAT: No change in vision. No ear pain or discharge. No sore throat. CARDIOVASCULAR: No chest pain or shortness of breath. RESPIRATORY: No cough, wheezing, or hemoptysis. GASTROINTESTINAL: No nausea, vomiting, diarrhea or constipation. (+) >100ml drainage from cholecystectomy bag GENITOURINARY: No dysuria, frequency, or change in urination. MUSCULOSKELETAL: No joint or muscle swelling or pain. No neck or back pain. SKIN: No rash NEUROLOGIC: No headache, vertigo, loss of consciousness, or change in strength/ sensation. ENDOCRINE: No increased thirst. No abnormal weight change. HEMATOLOGIC/LYMPHATIC: No anemia, easy bleeding, or history of blood clots. ALLERGIC/IMMUNOLOGIC: No hives or skin allergy. *Physical Exam - Vital Signs Last Vital Signs Temp Pulse Resp BP Pulse Ox 97.8 F 76 20 137/61 95 07/25/19 21:40 07/25/19 21:40 07/25/19 21:40 07/25/19 21:40 07/25/19 21:40 - Physical Exam Comments: 07/26/19 00:04 GENERAL: Awake, alert, and fully oriented, in no acute distress. (+) morbidly obese. HEAD: No signs of trauma EYES: PERRLA, EOMI, sclera anicteric, conjunctiva clear ENT: Auricles normal inspection, hearing grossly normal, nares patent, oropharynx clear without exudates. Moist mucosa NECK: Normal ROM, supple, no lymphadenopathy, JVD, or masses LUNGS: Breath sounds equal, clear to auscultation bilaterally. No wheezes, and no crackles HEART: Regular rate and rhythm, normal S1 and S2, no murmurs, rubs or gallops ABDOMEN: (+) RUQ cholecystostomy tube. Soft, nontender, normoactive bowel sounds. No guarding, no rebound. No masses EXTREMITIES:(+) 1+ pitting edema bilaterally. Normal range of motion. No clubbing or cyanosis. No cords, erythema, or tenderness NEUROLOGICAL: Cranial nerves II through XII grossly intact. SKIN: Warm, Dry, normal turgor, no rashes or lesions noted. ED Treatment Course - RADIOLOGY Radiology Studies Ordered: Category Date Time Status ABDOMEN US -LIMITED [US] Stat Ultrasound 07/25/19 23:12 Completed Medical Decision Making - Medical Decision Making 07/26/19 00:07 Patient is an 89-year-old male with indwelling cholecystostomy tube who presents with decreased drainage from the cholecystostomy tube for the past several hours. Patient denies abdominal pain/nausea/vomiting/fever. On evaluation, as patient is afebrile and well appearing. No right upper quadrant tenderness is appreciated. Initial evaluation, sediment was noted within the cholecystostomy tube. Tube was flushed distally to the stopcock valve with resumption of normal drainage. Right upper quadrant ultrasound showed no significant change from previous. Patient will be discharged with scheduled surgical follow-up in 24 hours. Discharge - Discharge Information Problems reviewed: Yes Clinical Impression/Diagnosis: History of cholecystitis Cholecystostomy tube dysfunction Qualifiers: Encounter type: initial encounter Qualified Code(s): T85.518A - Breakdown ( mechanical) of other gastrointestinal prosthetic devices, implants and grafts, initial encounter Condition: Stable Disposition: HOME - Follow up/Referral Referrals: Ramez Dubon MD [Primary Care Provider] - - Patient Discharge Instructions Patient Printed Discharge Instructions: DI for Gallstones, How to Care for Your Gallbladder or Biliary Tubes - Post Discharge Activity
--- NOTE | 2019-07-26 14:07 | EKG ---
Test Reason : Blood Pressure : / mmHG Vent. Rate : 063 BPM Atrial Rate : 063 BPM P-R Int : 174 ms QRS Dur : 158 ms QT Int : 422 ms P-R-T Axes : 039 073 036 degrees QTc Int : 431 ms SINUS RHYTHM WITH OCCASIONAL PREMATURE VENTRICULAR COMPLEXES RIGHT BUNDLE BRANCH BLOCK ABNORMAL ECG WHEN COMPARED WITH ECG OF 25-JUN-2019 13:02, PREMATURE VENTRICULAR COMPLEXES ARE NOW PRESENT MINIMAL CRITERIA FOR INFERIOR INFARCT ARE NO LONGER PRESENT Confirmed by ANGELIQUE SIMON MD ([id number]) on 07/26/2019 2:07:18 PM Referred By: Confirmed By:ANGELIQUE SIMON MD
== END 2019-07-26 00:06 | disposition home or self-care (01) ==
LOC: JER 21:35
DX: T85.598A Other mechanical complication of other gastrointestinal prosthetic devices, implants and grafts, initial encounter (principal); I25.10 Atherosclerotic heart disease of native coronary artery without angina pectoris; I11.0 Hypertensive heart disease with heart failure; Z95.5 Presence of coronary angioplasty implant and graft; I25.2 Old myocardial infarction; E78.00 Pure hypercholesterolemia, unspecified; E11.9 Type 2 diabetes mellitus without complications; N40.0 Benign prostatic hyperplasia without lower urinary tract symptoms; E03.9 Hypothyroidism, unspecified; Z87.442 Personal history of urinary calculi; Z79.84 Long term (current) use of oral hypoglycemic drugs; Z79.01 Long term (current) use of anticoagulants
CPT/HCPCS: 76705-TC; 93005; 93010; 99282-25

== ENCOUNTER 2019-07-26 19:38 | Emergency (ER) | payer OTHER ==
[2019-07-26 19:51] VITALS: BP 131/70; PULSE 78; TEMP 97.5; BMI 37.5
--- NOTE | 2019-07-26 19:52 | PDOC ---
Rapid Medical Evaluation Chief Complaint: Wound Time Seen by Provider: 07/26/19 19:46 Medical Evaluation: Allergies Allergy/AdvReac Type Severity Reaction Status Date / Time No Known Allergies Allergy Verified 07/26/19 19:45 07/26/19 19:46 89 year old c/o no drainage from biliary drainage bag. patient reports that he usually gets 250 ml twice daily. no drainage since 4pm. denies fever/ chills abdominal pain A: drainage problem P: patient to the ER for further management Discharge Disposition - Diagnosis Cholecystostomy tube dysfunction Qualifiers: Encounter type: initial encounter Qualified Code(s): T85.518A - Breakdown ( mechanical) of other gastrointestinal prosthetic devices, implants and grafts, initial encounter - Referrals - Patient Instructions - Post Discharge Activity
--- NOTE | 2019-07-26 20:07 | PDOC ---
History of Present Illness - General Chief Complaint: Revisit,Wound Recheck Stated Complaint: DRAINAGE TUBE PROBLEM Time Seen by Provider: 07/26/19 19:46 - History of Present Illness Initial Comments: 07/26/19 20:07 Mr. Rubio is an 89 yo male w/ pmh of DM, COPD, CHF, HLD, CAD (s/p distant stents), HTN who represents for complaints of non-drainage from biliary drainage catheter/bag since 4pm this evening. Patient had cholecystectomy 06/24 and bag was placed at this time. Patient was in same ER yesterday for this same problem. Denies any other complaints at this time. GI: Dr. Mayank Dave. The patient denies chest pain, shortness of breath, headache and dizziness. Denies fever, chills, nausea, vomit, diarrhea and constipation. Denies dysuria, frequency, urgency and hematuria. Past History - Past Medical History Allergies/Adverse Reactions: Allergies Allergy/AdvReac Type Severity Reaction Status Date / Time No Known Allergies Allergy Verified 07/26/19 19:45 Home Medications: Ambulatory Orders metFORMIN HCL [Metformin ER Osmotic] 500 mg PO BID 08/23/15 Losartan Potassium 50 mg PO DAILY 03/07/19 Dutasteride [Avodart] 0.5 mg PO DAILY cap 03/09/19 Tamsulosin HCl [Flomax -] 0.4 mg PO HS cap.er.24h 03/09/19 Aspirin 81 mg PO DAILY 06/22/19 Metoprolol Tartrate 50 mg PO DAILY 06/22/19 Furosemide 40 mg PO DAILY 06/26/19 Levothyroxine [Synthroid -] 150 mcg PO DAILY 06/26/19 Amox-Tr/K Cl [Augmentin - 875Mg Tablet] 1 tab PO BID 12 Days #24 tablet Apixaban [Eliquis -] 5 mg PO BID 30 Days #60 tablet 06/27/19 Metoprolol Succinate [Toprol XL -] 50 mg PO DAILY tab.sr.24h 06/27/19 Anemia: No Asthma: No Cancer: No Cardiac Disorders: Yes ([place], STENTS X3 1999, CAD) CVA: No COPD: No CHF: Yes Dementia: No Diabetes: Yes (TYPE II) GI Disorders: No Disorders: Yes (BPH) HTN: Yes Hypercholesterolemia: Yes Kidney Stones: Yes (LITHOTRIPSY) Liver Disease: No Seizures: No Thyroid Disease: Yes - Surgical History Abdominal Surgery: No Appendectomy: No Cardiac Surgery: Yes Cholecystectomy: No Lung Surgery: No Neurologic Surgery: No Orthopedic Surgery: No - Immunization History Immunization Up to Date: No - Psycho Social/Smoking Cessation Hx Smoking History: Never smoked Have you smoked in the past 12 months: No If you are a former smoker, when did you quit?: 1998 Hx Alcohol Use: No Drug/Substance Use Hx: No Substance Use Type: None Hx Substance Use Treatment: No Review of Systems - Review of Systems Comments:: 07/26/19 20:25 GENERAL/CONSTITUTIONAL: No fever or chills. No weakness. HEAD, EYES, EARS, NOSE AND THROAT: No change in vision. No ear pain or discharge. No sore throat. CARDIOVASCULAR: No chest pain or shortness of breath RESPIRATORY: No cough, wheezing, or hemoptysis. GASTROINTESTINAL: No nausea, vomiting, diarrhea or constipation. GENITOURINARY: No dysuria, frequency, or change in urination. MUSCULOSKELETAL: No joint or muscle swelling or pain. No neck or back pain. SKIN: No rash NEUROLOGIC: No headache, vertigo, loss of consciousness, or change in strength/ sensation. ENDOCRINE: No increased thirst. No abnormal weight change HEMATOLOGIC/LYMPHATIC: No anemia, easy bleeding, or history of blood clots. ALLERGIC/IMMUNOLOGIC: No hives or skin allergy. *Physical Exam - Vital Signs Last Vital Signs Temp Pulse Resp BP Pulse Ox 97.5 F L 78 18 131/70 96 07/26/19 19:45 07/26/19 19:45 07/26/19 19:45 07/26/19 19:45 07/26/19 19:45 - Physical Exam Comments: 07/26/19 20:25 GENERAL: Awake, alert, and fully oriented, in no acute distress HEAD: No signs of trauma, normocephalic, atraumatic EYES: PERRLA, EOMI, sclera anicteric, conjunctiva clear ENT: Auricles normal inspection, hearing grossly normal, nares patent, oropharynx clear without exudates. Moist mucosa NECK: Normal ROM, supple, no lymphadenopathy, JVD, or masses LUNGS: No distress, speaks full sentences, clear to auscultation bilaterally HEART: Regular rate and rhythm, normal S1 and S2, no murmurs, rubs or gallops, peripheral pulses normal and equal bilaterally. ABDOMEN: +Biliary drainage catheter in place as expected w/ history. No erythema or other signs of infection noted. Soft, nontender, normoactive bowel sounds. No guarding, no rebound. No masses EXTREMITIES: Normal inspection, Normal range of motion, no edema. No clubbing or cyanosis. NEUROLOGICAL: Cranial nerves II through XII grossly intact. Normal speech, normal gait, no focal sensorimotor deficits SKIN: Warm, Dry, normal turgor, no rashes or lesions noted. Medical Decision Making - Medical Decision Making 07/26/19 20:37 Mr. Rubio is an 89 yo male w/ pmh as described who represents w/ concerns of non-draining cholecystostomy tube. Tube flushed without difficulty. Patient followed up with surgeon today who believes patient needs ERCP w/ GI physician and is not a surgical candidate. No concern for other acute process at this time. Patient will be discharged with plan to follow-up with Dr. Dave as per previous plan. Discharge - Discharge Information Problems reviewed: Yes Clinical Impression/Diagnosis: Cholecystostomy tube dysfunction Qualifiers: Encounter type: initial encounter Qualified Code(s): T85.518A - Breakdown ( mechanical) of other gastrointestinal prosthetic devices, implants and grafts, initial encounter Disposition: HOME - Follow up/Referral Referrals: Ramez Dubon MD [Primary Care Provider] - - Patient Discharge Instructions Patient Printed Discharge Instructions: How to Care for Your Gallbladder or Biliary Tubes Additional Instructions: You were re-evalauted today in the ER for your cholecystostomy tube not draining. We flushed it and believe you are safe for discharge home. Please follow up with Dr. Dave as discussed for further evaluation. Return to ER if any fever, chills, pain, or other concerning symptoms. - Post Discharge Activity
--- NOTE | 2019-07-26 20:24 | PDOC ---
Attending Attestation - Resident Resident Name: Loki Chi - ED Attending Attestation I have performed the following: I have examined & evaluated the patient, The case was reviewed & discussed with the resident, I agree w/resident's findings & plan, Exceptions are as noted - HPI HPI: 07/26/19 20:23 89M PMH of DM, HTN, HLD, CODP, CHF, CAD s/p stending here b/c cholecystomtomy tube placed 1 month ago has stopped draining. Patient was here for same complaint yesterday. - Physicial Exam PE: 07/26/19 20:27 NAD, AOx3 Cholecystomtomy tube in place, no tenderness Abd soft, nt, nd, no guarding no rebound - Medical Decision Making 07/26/19 21:13 Pt was seen by Dr. Michel today and was told that he is not a candidate for cholecystectomy and recommended GI for ERCP Cholecystostomy was flushed and is now draining clear bile freely, no pain, no fever, no signs of infection, drain in place Pt has appointment with Dr. Jacob for next week. Pt has a VNS appointment tomorrow for routine evaluation of his drain Pt was instructed on how to properly maintain the drain regarding cleaning and flushing Safe for discharge
== END 2019-07-26 20:51 | disposition home or self-care (01) ==
LOC: JER 19:38
DX: T85.518A Breakdown (mechanical) of other gastrointestinal prosthetic devices, implants and grafts, initial encounter (principal); I25.10 Atherosclerotic heart disease of native coronary artery without angina pectoris; I11.0 Hypertensive heart disease with heart failure; Z95.5 Presence of coronary angioplasty implant and graft; I25.2 Old myocardial infarction; E11.9 Type 2 diabetes mellitus without complications; Z79.84 Long term (current) use of oral hypoglycemic drugs; E78.00 Pure hypercholesterolemia, unspecified; E03.9 Hypothyroidism, unspecified; Z87.442 Personal history of urinary calculi; N40.0 Benign prostatic hyperplasia without lower urinary tract symptoms
CPT/HCPCS: 99282-25

== ENCOUNTER 2019-07-26 21:22 | Emergency (ER) | payer OTHER ==
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
[2019-07-26 22:18] VITALS: BMI 37.6
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
[2019-07-27 01:34] VITALS: BP 146/69; PULSE 68; TEMP 97.8
== END 2019-07-27 01:51 | disposition home or self-care (01) ==
LOC: JER 21:22
DX: S09.8XXA Other specified injuries of head, initial encounter (principal); V48.4XXA Person boarding or alighting a car injured in noncollision transport accident, initial encounter; Y92.488 Other paved roadways as the place of occurrence of the external cause; Y93.89 Activity, other specified; Y99.8 Other external cause status; I25.10 Atherosclerotic heart disease of native coronary artery without angina pectoris; I50.9 Heart failure, unspecified; I11.0 Hypertensive heart disease with heart failure; Z95.5 Presence of coronary angioplasty implant and graft; E11.9 Type 2 diabetes mellitus without complications; Z79.84 Long term (current) use of oral hypoglycemic drugs; E78.00 Pure hypercholesterolemia, unspecified; N40.0 Benign prostatic hyperplasia without lower urinary tract symptoms; I25.2 Old myocardial infarction; J44.9 Chronic obstructive pulmonary disease, unspecified; Z87.442 Personal history of urinary calculi
CPT/HCPCS: 70450-TC; 72125-TC; 99281-25

== ENCOUNTER 2019-07-27 20:56 | Emergency (ER) | payer OTHER ==
[2019-07-27 21:17] VITALS: BMI 37.5
--- NOTE | 2019-07-27 21:17 | PDOC ---
History of Present Illness - General Chief Complaint: Revisit,Wound Recheck Stated Complaint: DRAIN Time Seen by Provider: 07/27/19 21:16 - History of Present Illness Initial Comments: 07/27/19 21:17 Mr. Rubio is an 89 yo male w/ pmh of COPD, DM, CHF, HLD, CAD s/p distant stents , and HTN who presents for evaluation of cholecystostomy tube. Patient reports it has not been draining today. Patient has presented previous two nights to this ER with same complaint and had tube flushed each time. Patient denies any other symptoms The patient denies chest pain, shortness of breath, headache and dizziness. Denies fever, chills, nausea, vomit, diarrhea and constipation. Denies dysuria, frequency, urgency and hematuria. Past History - Past Medical History Allergies/Adverse Reactions: Allergies Allergy/AdvReac Type Severity Reaction Status Date / Time No Known Allergies Allergy Verified 07/27/19 21:17 Home Medications: Ambulatory Orders metFORMIN HCL [Metformin ER Osmotic] 500 mg PO BID 08/23/15 Losartan Potassium 50 mg PO DAILY 03/07/19 Dutasteride [Avodart] 0.5 mg PO DAILY cap 03/09/19 Tamsulosin HCl [Flomax -] 0.4 mg PO HS cap.er.24h 03/09/19 Aspirin 81 mg PO DAILY 06/22/19 Metoprolol Tartrate 50 mg PO DAILY 06/22/19 Furosemide 40 mg PO DAILY 06/26/19 Levothyroxine [Synthroid -] 150 mcg PO DAILY 06/26/19 Amox-Tr/K Cl [Augmentin - 875Mg Tablet] 1 tab PO BID 12 Days #24 tablet Apixaban [Eliquis -] 5 mg PO BID 30 Days #60 tablet 06/27/19 Metoprolol Succinate [Toprol XL -] 50 mg PO DAILY tab.sr.24h 06/27/19 Anemia: No Asthma: No Cancer: No Cardiac Disorders: Yes ([place], STENTS X3 1999, CAD) CVA: No COPD: No CHF: Yes Dementia: No Diabetes: Yes (TYPE II) GI Disorders: No Disorders: Yes (BPH) HTN: Yes Hypercholesterolemia: Yes Kidney Stones: Yes (LITHOTRIPSY) Liver Disease: No Seizures: No Thyroid Disease: Yes - Surgical History Abdominal Surgery: No Appendectomy: No Cardiac Surgery: Yes Cholecystectomy: No Lung Surgery: No Neurologic Surgery: No Orthopedic Surgery: No - Immunization History Immunization Up to Date: No - Psycho Social/Smoking Cessation Hx Smoking History: Never smoked Have you smoked in the past 12 months: No If you are a former smoker, when did you quit?: 1998 Hx Alcohol Use: No Drug/Substance Use Hx: No Substance Use Type: None Hx Substance Use Treatment: No Review of Systems - Review of Systems Comments:: 07/27/19 21:17 GENERAL/CONSTITUTIONAL: No fever or chills. No weakness. HEAD, EYES, EARS, NOSE AND THROAT: No change in vision. No ear pain or discharge. No sore throat. CARDIOVASCULAR: No chest pain or shortness of breath RESPIRATORY: No cough, wheezing, or hemoptysis. GASTROINTESTINAL: No nausea, vomiting, diarrhea or constipation. GENITOURINARY: No dysuria, frequency, or change in urination. MUSCULOSKELETAL: No joint or muscle swelling or pain. No neck or back pain. SKIN: No rash NEUROLOGIC: No headache, vertigo, loss of consciousness, or change in strength/ sensation. ENDOCRINE: No increased thirst. No abnormal weight change HEMATOLOGIC/LYMPHATIC: No anemia, easy bleeding, or history of blood clots. ALLERGIC/IMMUNOLOGIC: No hives or skin allergy. *Physical Exam - Physical Exam Comments: 07/27/19 21:17 GENERAL: Awake, alert, and fully oriented, in no acute distress HEAD: +Small abbrasions to forehead only following fall yesterday EYES: PERRLA, EOMI, sclera anicteric, conjunctiva clear ENT: Auricles normal inspection, hearing grossly normal, nares patent, oropharynx clear without exudates. Moist mucosa NECK: Normal ROM, supple, no lymphadenopathy, JVD, or masses LUNGS: No distress, speaks full sentences, clear to auscultation bilaterally HEART: Regular rate and rhythm, normal S1 and S2, no murmurs, rubs or gallops, peripheral pulses normal and equal bilaterally. ABDOMEN: +Cholecystostomy tube noted to RUQ. Soft, nontender, normoactive bowel sounds. No guarding, no rebound. No masses EXTREMITIES: Normal inspection, Normal range of motion, no edema. No clubbing or cyanosis. NEUROLOGICAL: Cranial nerves II through XII grossly intact. Normal speech, normal gait, no focal sensorimotor deficits SKIN: Warm, Dry, normal turgor, no rashes or lesions noted. Medical Decision Making - Medical Decision Making 07/27/19 21:48 Mr. Rubio is an 89 yo male w/ pmh as described who presents for evaluation of cholecystostomy tube clog. Tube flushed without difficulty in ED. GI paged for consult given patient's multiple presentations for same issue in recent days. 07/27/19 22:52 Discussed patient w/ GI on-service consult who recommended additional flushes PRN and follow-up in office. No need for urgent intervention at this time. Discharging to home. Discharge - Discharge Information Problems reviewed: Yes Clinical Impression/Diagnosis: Cholecystostomy tube dysfunction Qualifiers: Encounter type: initial encounter Qualified Code(s): T85.518A - Breakdown ( mechanical) of other gastrointestinal prosthetic devices, implants and grafts, initial encounter Condition: Fair - Follow up/Referral Referrals: Ramez Dubon MD [Primary Care Provider] - - Patient Discharge Instructions Patient Printed Discharge Instructions: How to Care for Your Gallbladder or Biliary Tubes Additional Instructions: You were evaluated today in the ER for your cholecystostomy tube dysfunction. We flushed your line and discussed your case with GI who recommended continued flushes as needed and GI follow-up in office. Please follow-up as soon as possible with Dr. Jacob as discussed. Return to ER if any fever, chills, pain , additional tube problems, or other concerning symptoms. - Post Discharge Activity
--- NOTE | 2019-07-27 21:18 | PDOC ---
Attending Attestation - Resident Resident Name: Loki Chi - ED Attending Attestation I have performed the following: I have examined & evaluated the patient, The case was reviewed & discussed with the resident, I agree w/resident's findings & plan - HPI HPI: 07/27/19 21:54 Pt returns because he is worried that his RUQ drain in the GB is not draining. He has no RUQ pain and no jaundice. No fevers, no chills. - Physicial Exam PE: 07/27/19 22:57 Normal exam. Pt has pitting edema of his legs bilat right>>left pt has a ventral hernia Heart lungs normal Skin afebrile and not jaundiced and no rash Pt has no flank pain. 07/27/19 22:59 Agree with resident exam - Medical Decision Making 07/27/19 22:59 No need for labsl we flushed his GB bag/tube. All's patent and well. D/w Dr. Cedillo.
[2019-07-27 23:09] VITALS: BP 104/65; PULSE 79; TEMP 97.6
== END 2019-07-27 22:59 | disposition home or self-care (01) ==
LOC: JER 20:56
DX: T85.518A Breakdown (mechanical) of other gastrointestinal prosthetic devices, implants and grafts, initial encounter (principal); J44.9 Chronic obstructive pulmonary disease, unspecified; E11.9 Type 2 diabetes mellitus without complications; I50.9 Heart failure, unspecified; E78.5 Hyperlipidemia, unspecified; I25.10 Atherosclerotic heart disease of native coronary artery without angina pectoris; Z95.5 Presence of coronary angioplasty implant and graft; I10 Essential (primary) hypertension; N40.0 Benign prostatic hyperplasia without lower urinary tract symptoms; I25.2 Old myocardial infarction; Z87.891 Personal history of nicotine dependence; N20.0 Calculus of kidney
CPT/HCPCS: 99283-25